=== PATIENT | female | born 1960 | race Caucasian/White ===

== ENCOUNTER 2020-01-15 10:00 | Outpatient (CLI) | payer OTHER, SELFPAY ==
--- NOTE | ~2020-01-15 | MM_ITS ---
EXAMINATION: MM screening mark BI w [place] HISTORY: Screening mammogram TECHNIQUE: Craniocaudal and mediolateral oblique 3-D tomosynthesis images were obtained and synthetic 2-D images were generated. CAD analysis was submitted and interpreted. COMPARISON: Comparison to multiple prior studies sequentially, with oldest reviewed study dated 10/05. BREAST PARENCHYMAL COMPOSITION: The breasts are heterogeneously dense, which may obscure small masses . FINDINGS: There is focal asymmetry in the left breast medially on CC view. The right breast is stable without evidence for malignancy. IMPRESSION: 1. Focal left breast asymmetry medially on CC view. 2. Additional mammographic views and possible breast ultrasound are recommended. BI-RADS Category 0: Incomplete: Needs additional imaging evaluation. Reviewed, dictated and finalized at location A. IMPRESSION: 1. Focal left breast asymmetry medially on CC view. 2. Additional mammographic views and possible breast ultrasound are recommended . BI-RADS Category 0: Incomplete: Needs additional imaging evaluation.
== END 2020-01-15 10:01 | disposition home or self-care (01) ==
LOC: ANHIMG 10:02
PROVIDERS: PCP Family Medicine; Visit Provider Family Medicine
DX: Z12.31 Encounter for screening mammogram for malignant neoplasm of breast (principal); R92.8 Other abnormal and inconclusive findings on diagnostic imaging of breast
CPT/HCPCS: 77063; 77067

== ENCOUNTER 2020-01-18 13:41 | Outpatient (CLI) | payer OTHER, SELFPAY ==
--- NOTE | ~2020-01-18 | MM_ITS ---
EXAMINATION: MM diagnostic mammo unilat LT HISTORY: Focal left breast mammographic asymmetry reported medially on screening craniocaudal view of 01/15/2020 TECHNIQUE: Additional 3-D tomosynthesis images of the left breast were performed and synthetic 2-D im ages were generated. Rolled medial craniocaudal and rolled lateral craniocaudal views of left breast. CAD analysis was submitted and interpreted. COMPARISON: 01/15/2020 bilateral digital screening mammogram FINDINGS: No reproducible mass or architectural distortion. IMPRESSION: 1. No mammographic evidence of malignancy 2. Routine mammographic screening is recommended. BI-RADS Category 1: Negative Reviewed, dictated and finalized at location A.
== END 2020-01-18 13:42 | disposition home or self-care (01) ==
LOC: ANHIMG 13:42
PROVIDERS: PCP Family Medicine; Visit Provider Family Medicine
DX: R92.8 Other abnormal and inconclusive findings on diagnostic imaging of breast (principal)
CPT/HCPCS: 77065

== ENCOUNTER → 2021-01-09 02:31 | Outpatient (CLI) | payer OTHER, SELFPAY ==
[2021-01-09 19:12] LABS: SARS-CoV-2 RNA PCR Negative
== END ==
PROVIDERS: PCP Family Medicine; Visit Provider Internal Medicine Gastroenterology
DX: Z01.812 Encounter for preprocedural laboratory examination (principal); Z20.822 Contact with and (suspected) exposure to COVID-19
CPT/HCPCS: C9803; U0003; U0005

== ENCOUNTER 2021-01-12 01:54 | Day surgery (SDC) | payer OTHER, SELFPAY ==
[2021-01-05 14:18] VITALS: BMI 19.9
--- NOTE | 2021-01-12 12:16 | WPDANESEPPF ---
Anes - Initial Pre Proc Eval Procedure: Operation Date: 01/12/21 13:00 Proposed Procedures p Esophagogastroduodenoscopy - Diego Gibbs DO Date/Time: 01/12/21 12:16 Surgeon: Diego Gibbs DO Pre Op Diagnosis: GERD Patient Data Age: 60 Gender: F Height: 5 ft 6 in Weight: 56.1 kg Allergies Allergy/AdvReac Type Severity Reaction Status Date / Time naproxen Allergy Mild fevers-flu Verified 01/05/21 14:16 like sx Home Medications Medication Instructions Recorded Confirmed Type diazepam 2 mg tablet 2 mg PO DAILY tablet 08/02/19 01/05/21 History escitalopram oxalate 20 mg tablet 20 mg PO DAILY 08/02/19 01/05/21 History fluticasone propionate 50 2 spray NASAL DAILY 08/02/19 01/12/21 History mcg/actuation nasal spray,suspension hydroxychloroquine 200 mg tablet 200 mg PO BID #60 tablet 09/03/19 01/05/21 Rx ciprofloxacin HCl 0.3 % eye drops See Rx Instructions [facility] 07/21/20 01/05/21 Rx .COMPLEX #5 ml tobramycin 0.3 % eye drops 1 drp [facility] Q4H #5 ml 07/21/20 01/12/21 Rx sucralfate 1 gram tablet 1 g PO .COMPLEX #40 tablet 12/25/20 01/12/21 Rx cevimeline [Evoxac] See Rx Instructions .ROUTE .COMPLEX 01/05/21 01/05/21 History diphenhydramine HCl [Benadryl] 12.5 mg PO HS 01/05/21 01/05/21 History lansoprazole [Prevacid] See Rx Instructions .ROUTE .COMPLEX 01/05/21 01/05/21 History tramadol [Ultram] 50 mg PO Q6H PRN 01/05/21 01/05/21 History Patient hx anesthesia problems: post op nausea/vomiting Family hx anesthesia problems: none PMFSH Past Medical History Medical History COVID-19 Hepatitis C antibody test negative (~05/02/17) Mammogram normal (~10/21/16) Sjogren's syndrome (~1990) Surgical History Surgical History History of bilateral tubal ligation (~2001) History of bunionectomy (~2000) Family History Family History Father Diabetes mellitus Family history of cardiovascular disease Family history of chronic obstructive pulmonary disease Family history of coronary artery disease Grandparent Family history of malignant neoplasm of breast Mother Family history of malignant neoplasm of breast in first degree relative Social History Social History Alcohol intake: current Substance use type: does not use Living arrangements: with family Gender identity (if verbalized by the patient): Female Spiritual care concerns: No Anes - Eval Final PreProcedure Day of Procedure 01/12/21 12:16 Patient weight: normal Heart: regular rate and rhythm Lungs: clear to auscultation Airway: Mallampati scale class II Neurological: alert and oriented Last oral intake: >/= 8 hours ASA classification: II Emergent: no Anesthetic plan: proceed Anesthesia type and monitoring: general GIVS and standard monitoring Informed Consent: The patient's anesthetic plan and its attendant risks and benefits were discussed with the patient/family/POA. Questions were solicited and answers provided to the satisfaction of the patient/family/POA.
[2021-01-12] MEDS: LACTATED RINGERS 1,000 ML 150 ML IV CONT (12:24)
--- NOTE | 2021-01-12 12:32 | SUR.PREOP ---
All preop charting completed by Lucille Coulter and charted under Rosana Reed by mistake.
--- NOTE | 2021-01-12 13:38 | WPDGICN ---
GI Consult Note Consult date/time: 01/12/21 13:38 HPI: Reason for visit is GERD. This very pleasant lady sitting consultation request the primary physician. Impression: GERD. She does have some dysphagia /odynophagia. Evaluate for lying ring or stricture. Sjogren's syndrome. COVID-19. IBS/collagenous colitis / lymphocytic colitis. Recommendation: EGD. History: This very pleasant lady has a history of reflux disease. Since beginning Prevacid b.i.d. and Carafate her symptoms have improved. She does have some dysphagia / odynophagia times. She is here for EGD. Physical examination: General: very pleasant patient in no acute distress. HEENT: Head was normocephalic sclerae is clear mouth without masses neck was supple. Heart: Rate rhythm regular without S3 or S4. Lungs: CTA. Abdomen: Soft with no guarding or rigidity. Bowel sounds were active. Neurologic: Cranial nerves 2 through 12 intact. No focal defects. No clonus. Musculoskeletal system: Revealed no joint tenderness or swelling no muscle atrophy. Extremities: Reveal no significant edema. Skin: Warm and dry with normal turgor. Mental status: intact. Patient is alert and oriented. Review of Systems Review of Systems: All systems reviewed & are unremarkable except as noted in HPI and below PMFSH Past Medical History Medical History COVID-19 Hepatitis C antibody test negative (~05/02/17) Mammogram normal (~10/21/16) Sjogren's syndrome (~1990) Surgical History Surgical History History of bilateral tubal ligation (~2001) History of bunionectomy (~2000) Family History Family History Father Diabetes mellitus Family history of cardiovascular disease Family history of chronic obstructive pulmonary disease Family history of coronary artery disease Grandparent Family history of malignant neoplasm of breast Mother Family history of malignant neoplasm of breast in first degree relative Social History Social History Alcohol intake: current Substance use type: does not use Living arrangements: with family Gender identity (if verbalized by the patient): Female Spiritual care concerns: No Meds Home Medications and Allergies Home Medications Medication Instructions Recorded Confirmed Type diazepam 2 mg tablet 2 mg PO DAILY tablet 08/02/19 01/05/21 History escitalopram oxalate 20 mg tablet 20 mg PO DAILY 08/02/19 01/05/21 History fluticasone propionate 50 2 spray NASAL DAILY 08/02/19 01/12/21 History mcg/actuation nasal spray,suspension hydroxychloroquine 200 mg tablet 200 mg PO BID #60 tablet 09/03/19 01/05/21 Rx ciprofloxacin HCl 0.3 % eye drops See Rx Instructions [facility] 07/21/20 01/05/21 Rx .COMPLEX #5 ml tobramycin 0.3 % eye drops 1 drp [facility] Q4H #5 ml 07/21/20 01/12/21 Rx sucralfate 1 gram tablet 1 g PO .COMPLEX #40 tablet 12/25/20 01/12/21 Rx cevimeline [Evoxac] See Rx Instructions .ROUTE .COMPLEX 01/05/21 01/05/21 History diphenhydramine HCl [Benadryl] 12.5 mg PO HS 01/05/21 01/05/21 History lansoprazole [Prevacid] See Rx Instructions .ROUTE .COMPLEX 01/05/21 01/05/21 History tramadol [Ultram] 50 mg PO Q6H PRN 01/05/21 01/05/21 History Allergies Allergy/AdvReac Type Severity Reaction Status Date / Time naproxen Allergy Mild fevers-flu Verified 01/05/21 14:16 like sx
[2021-01-12 13:54] VITALS: BP 120/83; PULSE 82; RESP 24; O2SAT 98
[2021-01-12 14:04] VITALS: BP 122/91; PULSE 83; RESP 21; O2SAT 100
[2021-01-12 14:14] VITALS: BP 126/83; PULSE 75; RESP 20; O2SAT 100
== END 2021-01-12 14:33 | disposition home or self-care (01) ==
PROVIDERS: PCP Family Medicine; Visit Provider Internal Medicine Gastroenterology
PROC: 0DJ08ZZ Inspection of Upper Intestinal Tract, Via Natural or Artificial Opening Endoscopic (ICD-10-PCS; CPT 43235; principal; 2021-01-12 13:00)
DX: K21.00 Gastro-esophageal reflux disease with esophagitis, without bleeding (principal); K44.9 Diaphragmatic hernia without obstruction or gangrene; Z86.16 Personal history of COVID-19; M35.00 Sjogren syndrome, unspecified; K58.9 Irritable bowel syndrome, unspecified
CPT/HCPCS: 43239; 43450; 87081; 88305; 88313; J2704; J7120

== ENCOUNTER 2021-01-16 09:12 | Outpatient (CLI) | payer OTHER, SELFPAY ==
--- NOTE | ~2021-01-16 | MM_ITS ---
EXAMINATION: MM screening mark BI w [place] HISTORY: Screening TECHNIQUE: Craniocaudal and mediolateral oblique 3-D tomosynthesis images were obtained and synthetic 2-D images were generated. CAD analysis was submitted and interpreted. COMPARISON: Comparison to multiple prior studies sequentially, with oldest reviewed study dated 04/2016. BREAST PARENCHYMAL COMPOSITION: The breasts are heterogeneously dense, which may obscure small masses . FINDINGS: There is no evidence of suspicious mass, calcification, or architectural distortion to sugg est malignancy in either breast. There has been no suspicious interval change. IMPRESSION: 1. No mammographic evidence of malignancy. 2. Recommend routine screening mammography in one year. BI-RADS Category 1: Negative Reviewed, dictated and finalized at location A.
== END 2021-01-16 09:13 | disposition home or self-care (01) ==
PROVIDERS: PCP Family Medicine; Visit Provider Family Medicine
DX: Z12.31 Encounter for screening mammogram for malignant neoplasm of breast (principal)
CPT/HCPCS: 77063; 77067

== ENCOUNTER 2021-02-18 08:20 | Outpatient (CLI) | payer OTHER, SELFPAY ==
--- NOTE | ~2021-02-18 | XR_ITS ---
EXAMINATION: XR UGIAC w barium swallow EXAM DATE: 02/18/2021 08:59 INDICATION: Dysphagia, painful swallowing. Hiatal hernia. TECHNIQUE: Standard single and double contrast barium esophagram and upper GI examination was perform ed by radiologist Juan R Yusuf M.D. Pulsed dose reduction fluoroscopy was used with fluoroscopic time of 0.7 minutes. The DAP for this procedure was 0.7 Gycm2. A total of 124 images obtained for the e xam. There is no prior study for comparison. FINDINGS: The pharynx is symmetric and without evidence of mass lesion or mucosal irregularity. Ther e is no esophageal stricture, diverticulum or mass identified. Gastroesophageal junction is normal i n appearance, no hiatal hernia was demonstrated. Reflux was not demonstrated during this examination . The stomach has a normal appearance without evidence of mass lesion, ulceration or filling defect. T here is normal rugal fold pattern. The duodenum and duodenal sweep are normal in appearance. IMPRESSION: Normal exam. Reviewed, dictated and finalized at location A. IMPRESSION: Normal exam.
== END 2021-02-18 08:21 | disposition home or self-care (01) ==
PROVIDERS: PCP Family Medicine; Visit Provider Physician Assistant Medical
DX: K44.9 Diaphragmatic hernia without obstruction or gangrene (principal)
CPT/HCPCS: 74246

== ENCOUNTER 2021-09-18 09:13 | Emergency (ER) | payer OTHER, SELFPAY ==
[2021-09-18] VITALS (13 sets, daily range): BP systolic 105–129; BP diastolic 69–81; PULSE 76–89; RESP 13–17; O2SAT 97–100
--- NOTE | 2021-09-18 09:37 | ECG_ITS ---
Measurements Intervals [place] Rate: 83 P: 78 [place]: 146 QRS: 47 QRSD: 95 T: 43 QT: 361 QTc: 425 Interpretive Statements SINUS RHYTHM POSSIBLE LEFT ATRIAL ENLARGEMENT INCOMPLETE RIGHT BUNDLE BRANCH BLOCK BASELINE ARTIFACT- I, II, III BORDERLINE ECG Electronically Signed On 09-18-2021 10:15:29 [employer] by Saulo Horton D.O.
[2021-09-18 10:07] LABS: Basophils Absolute Auto 0.1 K/mm3 (0.0-0.1); Basophils Percent Auto 0.7 % (0.2-1.2); Eosinophils Percent Auto 0.3 % (0-4.4); Hematocrit 42.7 % (37.0-47.0); Hemoglobin 14.1 g/dL (12.0-15.0); Immature Granulocyte Absolute 0.02 K/mm3 (0.00-0.031); Immature Granulocyte Percent A 0.3 % (0-0.5); Lymphocytes Percent Auto 11.3 % (18.3-44.2); Mean Corpuscular Hemoglobin 32.7 pg (26-34); Mean Corpuscular Volume 99.1 fl (80-100); Mean Platelet Volume 8.5 fl (7.4-10.4); Monocytes Absolute Auto 0.4 K/mm3 (0.1-0.6); Monocytes Percent Auto 6.2 % (2.6-8.5); Neutrophils Absolute Auto 5.8 K/mm3 (1.3-6.7); Neutrophils Percent Auto 81.2 % (45.5-73.1); Platelet Count Result 228 k/mm3 (150-375); Red Blood Count 4.31 M/mm3 (4.2-5.4); Red Cell Distribution Width 11.9 % (11.5-14.5); White Blood Count 7.1 K/mm3 (4.5-10.0)
[2021-09-18 10:21] LABS: Alanine Aminotransferase 22 U/L (4-35); Albumin Level 4.5 g/dL (3.5-5.1); Alkaline Phosphatase 96 U/L (38-126); Anion Gap 10 mmol/L (8-16); Aspartate Amino Transferase 41 U/L (14-36); Blood Urea Nitrogen 9 mg/dL (7-17); Calcium 9.2 mg/dL (8.4-10.2); Carbon Dioxide 25 mmol/L (22-30); Chloride 97 mmol/L (98-107); Estimated CRCL calculation 76 ml/min; Estimated Glomerular Filt Rate > 60; Glucose 101 mg/dL (65-110); Potassium 3.7 mmol/L (3.4-5.0); Sodium 132 mmol/L (137-145)
[2021-09-18 10:42] LABS: Troponin I < 0.012 ng/mL (0.000-0.034)
--- NOTE | 2021-09-18 12:01 | ED.GENADULT ---
HPI - General Adult General Chief complaint: Syncope Stated complaint: syncopal episode Time Seen by Provider: 09/18/21 09:25 History of Present Illness HPI narrative: Patient is a 60-year-old female who presents the ER with concerns of near syncope. She woke up in the evening to use the restroom when she got back to her bed she began having lightheadedness like she is going to pass out. Associate with diaphoresis. She took her pulse and reports it was slow and skipping beats. She felt it was beating at 40 bpm. Symptoms lasted for 2 hours. No alleviating factors other than spontaneity. Has not had similar symptoms previously. No chest pain or chest pressure. No difficulty breathing. Related Data Home Medications Medication Instructions Recorded Confirmed diazepam 2 mg tablet 2 mg PO DAILY tablet 08/02/19 08/10/21 escitalopram oxalate 20 mg tablet 20 mg PO DAILY 08/02/19 08/10/21 fluticasone propionate 50 2 spray NASAL DAILY 08/02/19 08/10/21 mcg/actuation nasal spray,suspension diphenhydramine HCl [Benadryl] 12.5 mg PO HS 01/05/21 08/10/21 tramadol [Ultram] 50 mg PO Q6H PRN 01/05/21 08/10/21 Allergies Allergy/AdvReac Type Severity Reaction Status Date / Time naproxen Allergy Mild fevers-flu Verified 08/10/21 15:59 like sx Review of Systems Review of Systems: All systems reviewed & are unremarkable except as noted in HPI and below Constitutional: Constitutional: Denies chills, Denies fever(s) and Denies weakness Comments: Diaphoresis ENT: Denies nasal congestion and Denies sore throat Cardiovascular: Cardiovascular: Denies chest pain, Denies radiating jaw, neck or arm pain and Reports slow heart rate Respiratory: Respiratory: Denies cough, Denies dyspnea and Denies wheezing Gastrointestinal: Gastrointestinal: Denies abdominal pain, Denies nausea and Denies vomiting Neurologic: Denies vertigo, Reports syncope (near-syncope), Denies focal weakness and Denies numbness PMFSH Past Medical History Medical History COVID-19 Hepatitis C antibody test negative (~05/02/17) Mammogram normal (~10/21/16) Sjogren's syndrome (~1990) Surgical History Surgical History History of bilateral tubal ligation (~2001) History of bunionectomy (~2000) Family History Family History Father Diabetes mellitus Family history of cardiovascular disease Family history of chronic obstructive pulmonary disease Family history of coronary artery disease Grandparent Family history of malignant neoplasm of breast Mother Family history of malignant neoplasm of breast in first degree relative Social History Social History (Updated 08/10/21 @ 15:59 by Nancy Flores [facility]) Alcohol intake: current Substance use type: does not use Gender identity (if verbalized by the patient): Female Spiritual care concerns: No Exam Narrative: GENERAL: Well-appearing, well-nourished, and in no acute distress. HEAD: Normocephalic, atraumatic. NECK: Supple. CHEST: Clear to auscultation. No respiratory distress. HEART: Regular rate and rhythm. Normal peripheral pulses. ABDOMEN: Soft, nontender, nondistended. EXTREMITIES: Normal range of motion. No edema. SKIN: Warm, dry, no rash. NEURO: Alert and oriented x3. PSYCH: Normal mood and affect. Course Course Emergency Course: Discussed case with Deja BLAKE with [facility] who is spoken with cardiology. They feel the patient is appropriate to be discharged and to come down to their office and be fitted for a 30-day Holter monitor. Patient educated about the treatment plan and verbalized understanding. Encourage patient to return to the ER if she is having recurrent symptoms that she experienced last night. Vital Signs Vital signs: Vital Signs Pulse Rate 86 09/18/21 09:27 Respiratory Ra
== END 2021-09-18 13:28 | disposition home or self-care (01) ==
PROVIDERS: Emergency Provider Emergency Medicine; PCP Family Medicine
DX: R55 Syncope and collapse (principal); R00.2 Palpitations; Z86.16 Personal history of COVID-19; I45.10 Unspecified right bundle-branch block; R94.31 Abnormal electrocardiogram [ECG] [EKG]
CPT/HCPCS: 36415; 80053; 84484; 85025; 93005; 99284

== ENCOUNTER 2022-02-05 09:03 | Outpatient (CLI) | payer OTHER, SELFPAY ==
--- NOTE | ~2022-02-05 | MM_ITS ---
EXAMINATION: MM screening mark BI w [place] HISTORY: Screening mammogram TECHNIQUE: Craniocaudal and mediolateral oblique 3-D tomosynthesis images were obtained and synthetic 2-D images were generated. CAD analysis was submitted and interpreted. COMPARISON: 01/16/2021 bilateral screening mammogram 01/18/2020 diagnostic left mammogram 01/15/2020, 11/21/2018, 11/15/2017 bilateral screening mammogram examinations BREAST PARENCHYMAL COMPOSITION: The breasts are heterogeneously dense, which may obscure small masses . FINDINGS: There is no evidence of suspicious mass, calcification, or architectural distortion to sugg est malignancy in either breast. There has been no suspicious interval change. IMPRESSION: 1. No mammographic evidence of malignancy. 2. Recommend routine screening mammography in one year. BI-RADS Category 1: Negative Reviewed, dictated and finalized at location A.
== END 2022-02-05 09:04 | disposition home or self-care (01) ==
PROVIDERS: PCP Family Medicine; Visit Provider Family Medicine
DX: Z12.31 Encounter for screening mammogram for malignant neoplasm of breast (principal)
CPT/HCPCS: 77063; 77067

== ENCOUNTER → 2022-02-25 07:47 | Outpatient (CLI) | payer OTHER, SELFPAY ==
--- NOTE | ~2022-02-25 | CT_ITS ---
EXAMINATION:CT diagnostic chest wo con DATE: 02/25/2022 08:09 INDICATION: Solitary pulmonary nodule. TECHNIQUE: Computed tomography (CT) of the chest was performed without intravenous contrast. Automate d exposure control and iterative reconstruction technique were employed. The dose-length product (DLP ) was 40.71 mGy-cm. COMPARISON: None. FINDINGS: There is mild scarring at the lung apices. There is mild scarring in paraspinal right lower lobe. No pleural effusion. The heart size is normal. No pericardial effusion. There is levoscoliosis of upper thoracic spine. There is mild thoracic spondylosis. There is a chronic burst fracture of L1 . There are chronic compression fractures of T9 and T11. IMPRESSION: 1. Mild scarring in the lungs. Reviewed, dictated and finalized at location B.
== END ==
PROVIDERS: PCP Family Medicine; Visit Provider Family Medicine
DX: R91.1 Solitary pulmonary nodule (principal)
CPT/HCPCS: 71250

== ENCOUNTER 2023-03-30 16:07 | Outpatient (CLI) | payer OTHER, SELFPAY ==
--- NOTE | ~2023-03-30 | MM_ITS ---
EXAMINATION: MM screening mark BI w [place] HISTORY: Screening TECHNIQUE: Craniocaudal and mediolateral oblique 3-D tomosynthesis images were obtained and synthetic 2-D images were generated. CAD analysis was submitted and interpreted. COMPARISON: Comparison to multiple prior studies sequentially, with oldest reviewed study dated 02/2028. BREAST PARENCHYMAL COMPOSITION: The breasts are heterogeneously dense, which may obscure small masses FINDINGS: There is focal asymmetry medially in the left breast on CC view which appears slightly more prominent than on prior study. The right breast is stable without evidence for malignancy. IMPRESSION: 1. Focal left breast asymmetry medially on CC view. 2. Additional mammographic views and possible breast ultrasound are recommended. BI-RADS Category 0: Incomplete: Needs additional imaging evaluation. Reviewed, dictated and finalized at location A. IMPRESSION: 1. Focal left breast asymmetry medially on CC view. 2. Additional mammographic views and possible breast ultrasound are recommended . BI-RADS Category 0: Incomplete: Needs additional imaging evaluation.
== END 2023-03-30 16:08 | disposition home or self-care (01) ==
LOC: ANHIMG 16:08
PROVIDERS: PCP Family Medicine; Visit Provider Family Medicine
DX: Z12.31 Encounter for screening mammogram for malignant neoplasm of breast (principal); R92.8 Other abnormal and inconclusive findings on diagnostic imaging of breast
CPT/HCPCS: 77063; 77067

== ENCOUNTER 2023-04-04 10:01 | Outpatient (CLI) | payer OTHER, SELFPAY ==
--- NOTE | ~2023-04-04 | MM_ITS ---
EXAMINATION: MM diagnostic mark LT w [place] HISTORY: Left breast asymmetry on screening mammogram TECHNIQUE: Additional 3-D tomosynthesis images of the left breast were performed and synthetic 2-D im ages were generated. CAD analysis was submitted and interpreted. COMPARISON: 03/30/2023, 02/05/2022, 01/16/2021, 01/18/2020, 01/15/2020 FINDINGS: There is a return to baseline fibroglandular appearance with spot compression of the left b reast in the area questioned on screening mammogram. IMPRESSION: 1. No mammographic evidence of malignancy. 2. Recommend routine screening mammography in one year. BI-RADS Category 2: Benign finding(s). Reviewed, dictated and finalized at location A.
== END 2023-04-04 10:02 | disposition home or self-care (01) ==
LOC: CHSIMG 10:04
PROVIDERS: PCP Family Medicine; Visit Provider Nurse Practitioner
DX: R92.8 Other abnormal and inconclusive findings on diagnostic imaging of breast (principal)
CPT/HCPCS: 77061; 77065; G0279

== ENCOUNTER 2023-05-02 03:23 | Day surgery (SDC) | payer OTHER, SELFPAY ==
[2023-04-26 15:01] VITALS: BMI 20.7
--- NOTE | 2023-04-26 15:09 | PC.NURSE ---
Report to the Outpatient Waiting Room, entrance under the green pavilion located off [facility], at time _0600_ on date _[id number]_. Planned Procedure Time: _0730_. Time changes happen often and if your time is changed the preop area will call you the afternoon before. - You and your visitor will be asked to self-screen and do not enter if you have any COVID symptoms. - A mask is optional within the hospital at this time. Patients may have clear liquids (water, carbonated beverages, clear teas, apple juice) until 3 hours prior to surgery with a maximum of 20 ounces. - No food from midnight until time of surgery Take the following medications with a SIP of water the morning of surgery: Fluoxetine, Flonase and eye drops. DO NOT STOP ANY OF YOUR OTHER PRESCRIPTION MEDICATIONS PRIOR TO SURGERY ?EXCEPT THE FOLLOWING Medications to discontinue per physician None Date to take last dose Please no make-up, nail finnish, hairspray, perfume, deodorant, or body powder the day of surgery. No jewelry (including any body piercings) or valuables the day of surgery, leave them at home. Please take a shower or bath the night before, or the morning of, surgery with an antibacterial soap. Wear comfortable, loose fitting clothing. - Jewelry must be removed prior to entering the operating room. Rings and piercings that are not removed may be cut off. - The hospital will not accept responsibility for valuables. - Please leave all valuables, including medications, at home the day of surgery. If you are going home after surgery, a licensed local company refrigerated truck driver must drive you home. - NO public transportation without another adult if you receive anesthesia. - We recommend that an adult stay with you for 24 hours following discharge. - We also recommend that you do not drive, make important decision, drink alcoholic beverages, or take any drugs that were not prescribed by your health care provider for at least 24 hours after your discharge time. Follow any additional instructions given to you from your surgeon. If you or anyone in your household have experienced Covid symptoms in the past week, please notify your surgeon or the nurse liaison at the phone number below for possible testing. Telephone instructions given to _Patient___and asked if any additional questions and then verbalized understanding. Patient advised to call surgeon office or pre surgery nurse liaison [phone] if any additional questions.
[2023-05-02 06:12] VITALS: BP 128/86; PULSE 82; RESP 16; TEMP 36.5; O2SAT 100
[2023-05-02] MEDS: LACTATED RINGERS 1,000 ML 30 ML IV CONT (06:18)
--- NOTE | 2023-05-02 07:06 | WPDANESEPPF ---
Anes - Initial Pre Proc Eval Procedure: Operation Date: 05/02/23 07:30 Proposed Procedures p Deep Bunionectomy with Hardware Right Foot, Milton Osteotomy with Hardware Right Foot - Roni Palafox DPM Date/Time: 05/02/23 07:06 Surgeon: Roni Palafox DPM Pre Op Diagnosis: Hallux Valgus Right Foot Patient Data Age: 62 Gender: F Height: 1.66 m Weight: 57.3 kg Allergies Allergy/AdvReac Type Severity Reaction Status Date / Time naproxen Allergy Mild fevers-flu Verified 04/26/23 14:56 like sx Home Medications Medication Instructions Recorded Confirmed Type fluticasone propionate 50 2 spray intranasal DAILY 08/02/19 04/26/23 History mcg/actuation nasal spray,suspension hydroxychloroquine 200 mg tablet 200 mg PO BID #60 tabs 09/03/19 04/26/23 Rx diphenhydramine HCl 25 mg capsule 12.5 mg PO HS PRN Insomnia 01/05/21 04/26/23 History (Benadryl) mupirocin 2 % topical ointment 1 applic topical BID #22 grams 11/02/21 04/26/23 Rx estradiol 0.01% (0.1 mg/gram) 1 g vaginal WEEKLY 09/17/22 04/26/23 History vaginal cream fluoxetine 10 mg capsule (Prozac) 10 mg PO DAILY 09/17/22 04/26/23 History lisdexamfetamine 20 mg capsule 20 mg PO DAILY 09/17/22 04/26/23 History (Vyvanse) tramadol 50 mg tablet 50 mg PO Q6H PRN pain #60 tabs 09/17/22 04/26/23 Rx cevimeline 30 mg capsule 30 mg PO TID 02/17/23 04/26/23 History modafinil 100 mg tablet (Provigil) 50 mg PO QAM 02/17/23 04/26/23 History diazepam 2 mg tablet 2 mg PO HS PRN Insomnia 04/26/23 04/26/23 History Patient hx anesthesia problems: post op nausea/vomiting Family hx anesthesia problems: none Results Review: All pre-operative results and documents have been reviewed as part of the pre-operative evaluation. [facility] Past Medical History Medical History COVID-19 Environmental and seasonal allergies Hepatitis C antibody test negative (~05/02/17) Mammogram normal (~10/21/16) Sjogren's syndrome (~1990) Surgical History Surgical History History of bilateral tubal ligation (~2001) History of bunionectomy (~2000) Family History Family History Father Diabetes mellitus Family history of cardiovascular disease Family history of chronic obstructive pulmonary disease Family history of coronary artery disease Grandparent Family history of malignant neoplasm of breast Mother Family history of malignant neoplasm of breast in first degree relative Social History Social History Smoking status: Never smoker Alcohol intake: current Substance use type: does not use Lack of Transportation: No Lack of Food: Never True Current Housing: I Have Housing Concerned About Future Housing: No Difficulty Paying Gas/Electric Bills: No Difficulty Paying for Meds: No Currently Unemployed: No Education: Master's Degree or Higher Difficulty w/ Childcare or Family Care: No Living arrangements: with family Gender identity (if verbalized by the patient): Female Spiritual care concerns: No Anes - Eval Final PreProcedure Day of Procedure 05/02/23 07:06 Patient weight: normal Heart: regular rate and rhythm Lungs: clear to auscultation Airway: Mallampati scale class II Neurological: alert and oriented Last oral intake: >/= 8 hours ASA classification: III Emergent: no Anesthetic plan: proceed Anesthesia type and monitoring: general LMA and standard monitoring Results Review: All pre-operative results and documents have been reviewed as part of the pre-operative evaluation. Informed Consent: The patient's anesthetic plan and its attendant risks and benefits were discussed with the patient/family/POA. Questions were solicited and answers provided to the satisfaction of the patient/family/POA.
--- NOTE | 2023-05-02 07:21 | WPDHPUPDATE1 ---
History and Physical Update Update Date/Time: 05/02/23 07:21 History and Physical has been reviewed, including an updated exam of the patient. There are NO changes in the patient's condition. Risks, benefits, and alternatives have been discussed and questions answered. Patient agrees to proceed with procedure.
[2023-05-02] MEDS: ceFAZolin 2 GM/D5W 50 ML 2 GM/50 ML BAG IVPB (07:31)
[2023-05-02] MEDS: BUPivacaine HCL 0.5% PF 30 ML VIAL 15 ML INFILTRATE (07:59)
[2023-05-02] MEDS: LIDOCAINE HCL 1% LOCAL INJ 20 ML VIAL 15 ML INFILTRATE (08:00)
[2023-05-02 08:28] VITALS: BP 115/76; PULSE 74; RESP 14; O2SAT 100
--- NOTE | 2023-05-02 08:29 | P.OP_ITS ---
Procedure Note - Detailed Date of Procedure 05/02/23 Pre-op Diagnosis Hallux Valgus Right Foot Post-op Diagnosis Same Procedure Performed Deep Bunionectomy right foot with hardware Surgeon Roni Palafox DPM Anesthesia MAC Indications Painful bunion right foot Description of Procedure Patient was brought in the operative room and placed on the operating table in the supine position. A well-padded pneumatic ankle tourniquet was then place about the right ankle. Following IV sedation, local anesthesia was achieved with a fore-foot block consisting of 30ccs of a 1:1 mixture of 0.5% marcaine plain and 1% lidocaine plain. The foot was then scrubbed, prepped, and draped in an aseptic manner. The pneumatic ankle tourniquet was then inflated. Attention was directed to the first ray of the right foot which was noted to have hallux abducto vaglus deformity. A 6cm incision was made dorsal on the 1st ray, medial to the extensor tendon. The incision was deepened utilizing sharp and blunt dissection. Great care was taken to protect and retract all vital n eurovascular structures. All bleeders were ligated and cauterized as necessary. The conjoined tendon of the adductor hallucis muscle was released from the base of the proximal phalanx. A lateral capsulotomy was also performed, as well as releasing the sesamoids. A saggital saws was used to resected the medial prominence. Next, a chevron osteotomy was made on the medial aspect of the first metatatarsal head with the dorsal arm longer to facilitate fixation. The capital fragment was then shifted lateral into a more correct anatomic position. Utlizing standard AO principals, the osteotomy was fixated with a 3.0 partially threaded Asnis screw, 18mm in length. The hardware purchased the bone well and the osteotomy was in good stable opposition. Range of motion was assessed and noted to be smooth and rectus. The resultant medial shelf was resected with a saw and all rough edges smoothed with a hand-held rasp. The wound was flushed with copious amounts of sterile normal saline. The hallux was noted to be rectus, and an Milton osteotomy was not needed. Deep structures were coapted with 2-0 and 3-0 vicryl. Skin was coapted with 4-0 monocryl. Surgical site was dressed with steristrips, adaptec, gauze, cling, and coban. The pneumatic ankle tourniquet was released with a prompt capillary fill noted. The patient tolerated the above procedure and anesthesia well. She was nolan sported to the PACU with vital signs stable and vascular status intact. She will be discharged home with the following instructions: decrease activity, keep dressing dry, wear surgical shoe when bearing weight, and ice and elevate right foot when at rest. RX was given for Tylenol #3, #40 q4-6 hours prn pain. Follow-up appointment in 1 weeks time, sooner if problems arise. Implants 3.0 partially threaded Asnin screw, 18mm Estimated Blood Loss 5.0 Pathology None sent Complications None Condition Stable Disposition PACU
[2023-05-02 08:55] VITALS: BP 123/74; PULSE 72; RESP 20
[2023-05-02 09:25] VITALS: BP 141/88; PULSE 72; RESP 20
[2023-05-02 09:45] VITALS: BP 112/89; PULSE 74; RESP 20
== END 2023-05-02 09:48 | disposition home or self-care (01) ==
PROVIDERS: PCP Family Medicine; Visit Provider Podiatrist Foot & Ankle Surgery
PROC: (CPT 28299; principal; 2023-05-02 07:30)
DX: M20.11 Hallux valgus (acquired), right foot (principal); M35.00 Sjogren syndrome, unspecified
CPT/HCPCS: 28299; A9270; C1713; J0690; J1100; J2250; J2405; J2704; J3010; J7120

== ENCOUNTER → 2023-05-18 09:20 | Outpatient (CLI) | payer OTHER, SELFPAY ==
--- NOTE | ~2023-05-18 | US_ITS ---
EXAMINATION: US abdomen complete DATE: 05/18/2023 09:57 INDICATION: R10.31 - Right lower quadrant pain TECHNIQUE: Multiple grayscale and Doppler ultrasound images of the abdomen were obtained. COMPARISON: 02/20/2005. FINDINGS: The visualized portions of the pancreas are normal. The liver is normal with normal echogen icity and echotexture. No surface nodularity. Normal hepatopetal flow in the main portal vein. The ga llbladder is normal with no abnormal wall thickening, pericholecystic fluid or stones. The common egly e duct measures 3 mm. There was no sonographic Rosa sign. The visualized portions of the aorta and inferior vena cava are normal. The right kidney measures 10.6 x 5.1 x 5.0 cm. The left kidney measures 9.3 x 4.4 x 4.5 cm. The kidne ys demonstrate normal parenchymal echogenicity. There is no hydronephrosis. The spleen is normal in a ppearance and measures 8.1 cm. The right lower quadrant was sonographically interrogated revealing no abnormality. Appendix not visu alized. IMPRESSION: Normal abdominal ultrasound findings. Reviewed, dictated and finalized at location K.
== END ==
PROVIDERS: PCP Family Medicine; Visit Provider Nurse Practitioner
DX: R10.31 Right lower quadrant pain (principal)
CPT/HCPCS: 76700

== ENCOUNTER 2023-07-21 02:46 | Day surgery (SDC) | payer OTHER, SELFPAY ==
[2023-07-18 12:00] VITALS: BMI 20.6
--- NOTE | 2023-07-18 12:05 | PC.NURSE ---
Report to the Outpatient Waiting Room, entrance under the green pavilion located off [facility], at time 1000 on date 07/21/23. Planned Procedure Time: 1200. Time changes happen often and if your time is changed the preop area will call you the afternoon before. - You and your visitor will be asked to self-screen and do not enter if you have any COVID symptoms. - A mask is optional within the hospital at this time. No food OR DRINK from midnight until time of surgery. Take the following medications with a SIP of water the morning of surgery: FLUOXETINE, TRAMADOL/DIAZEPAM IF NEEDED DO NOT STOP ANY OF YOUR OTHER PRESCRIPTION MEDICATIONS PRIOR TO SURGERY ?EXCEPT THE FOLLOWING Medications to discontinue per physician: N/A Date to take last dose: N/A Please no make-up, nail burundian, hairspray, perfume, deodorant, or body powder the day of surgery. No jewelry (including any body piercings) or valuables the day of surgery, leave them at home. Please take a shower or bath the night before, or the morning of, surgery with an antibacterial soap. Wear comfortable, loose fitting clothing. - Jewelry must be removed prior to entering the operating room. Rings and piercings that are not removed may be cut off. - The hospital will not accept responsibility for valuables. - Please leave all valuables, including medications, at home the day of surgery. If you are going home after surgery, a licensed dedicated regional driver must drive you home. - NO public transportation without another adult if you receive anesthesia. - We recommend that an adult stay with you for 24 hours following discharge. - We also recommend that you do not drive, make important decision, drink alcoholic beverages, or take any drugs that were not prescribed by your health care provider for at least 24 hours after your discharge time. Follow any additional instructions given to you from your surgeon. If you or anyone in your household have experienced Covid symptoms in the past week, please notify your surgeon or the nurse liaison at the phone number below for possible testing. Telephone instructions given to PT Gee FERNÁNDEZ and asked if any additional questions and then verbalized understanding. Patient advised to call surgeon office or pre surgery nurse liaison [phone] if any additional questions.
--- NOTE | 2023-07-21 07:47 | WPDHPUPDATE1 ---
History and Physical Update Update Date/Time: 07/21/23 07:47 Patient seen and examined in pre-operative holding area. No interval change in medical history or symptoms. Continues to desire to proceed with left ectr poss open, left thumb and ring finger a1 bonifacio release and R MF trigger finger steroid injection . Reviewed procedure, post-op expectations and risks including but not limited to bleeding, infection, injury to tendon/nerve/vessel, decreased hand function, stiffness, RSD, no change or worsening of symptoms. Discussed possible use of assistants during procedure and their levels of participation. Patient stated understanding and signed the consent form wishing to proceed.
--- NOTE | 2023-07-21 07:47 | W.PM.PROC2 ---
Procedure Note - Detailed Date of Procedure 07/21/23 Pre-op Diagnosis left carpal tunnel syndrome, left ring and thumb and right middle finger triggering Post-op Diagnosis Same Procedure Performed left ectr, left thumb and ring finger a1 bonifacio release and R MF trigger finger steroid injection Surgeon Vika Mahoney MD Supervisor Veneer Jesi Valdes PA-C Anesthesia MAC Description of Procedure The patient was seen in the pre-op are consented and marked. The patient taken back to OR on the stretcher in supine position. Time out performed with anesthesia, surgeon and staff agreeing on patient's name site and surgery to be performed SCDs were placed on the lower extremities and inflated. A tourniquet was placed on Left upper extremity and antibiotics given IV After anesthesia administered sedation I injected 10cc 1%lido and 0.5% marcaine plain amongst the operative sites The?left upper extremity?was prepped and draped in sterile fashion the??left upper extremity was? exsanguinated with Esmarch bandage and tourniquet inflated to 250mmHg I made a transverse incision in the left volar distal wrist crease through skin and dermis with 15 blade scalpel.? Littler scissors were used tospread down to antebrachial fascia. A small incision was made in antebrachial fascia allowing access to Carpal tunnel. I proceeded with sequential dilation staying in line with the ring finger and hugging the hook of the hamate.? I then used the synovial elevator to free any adhesions from the underside of the transverse carpal ligament. Next I was able to insert the Microaire endoscopic carpal tunnel device with direct visualization of the transverse fibers on the monitor and proceeded with complete segmental retrograde release of the ligament in its entirety.? I irrigated with normal saline and closed with 4-0 monocryl for dermis and subcuticular closure. Next I took my attention to the left thumb where I made an oblique incision over the a1 bonifacio through skin and dermis with a 15 blade scalpel. Littler scissors were used to spread down to the a1 bonifacio. The a1 bonifacio was sharply incised with a 15 blade scalpel. A Ragnell retractior was used to withdraw the FPL for inspection which was free of masses or synovitis. There was no crepitus or triggering on thumb motion. The FPL was allowed to retract back into the wound where I irrigated with normal saline and closure with 4-0 Chromic. Next I took my attention to the left ring finger where I made an oblique incision over the a1 bonifacio through skin and dermis with a 15 blade scalpel. Littler scissors were used to spread down to the a1 bonifacio. The a1 bonifacio was sharply incised with a 15 blade scalpel. A Ragnell retractior was used to withdraw the FDS and FDP for inspection which was free of masses or synovitis. There was no crepitus or triggering on finger motion. The tendons were allowed to retract back into the wound where I irrigated with normal saline and closure with 4-0 Chromic. Dermabond was applied to the wrist incision and xeroform to the finger incisions followed by 4x4, eren and then a volar splint for patient safety, security and comfort secured with and DIONTE bandage after the tourniquet was let down noting the hand was warm and well perfused. I then injected 0.3cc 1%lidocaine plain and 0.7cc betamethasone into the right middle finger flexor sheath under sterile conditions. Jesi Valdes PA-C was essential for positioning, retraction, closure and dressing placement. Complications - none EBL- 0cc Disposition - home in stable conditions G Billing Surgery - Charge Forward: Surgery Billing ([id number], [id number]-VB,[id number] [id number]-G0,59 [id number]-g3,59 and 11353-46 same codes for jesi valdes but add modifier omit 32554 code for her)
[2023-07-21 10:31] VITALS: BP 120/70; PULSE 95; RESP 16; TEMP 37.2; O2SAT 98
--- NOTE | 2023-07-21 10:36 | WPDANESEPPF ---
Anes - Initial Pre Proc Eval Procedure: Operation Date: 07/21/23 12:00 Proposed Procedures p Left Endoscopic Carpal Tunnel Release, Possible Open - Vika Mahoney MD s Release Left Ring Finger A-1 Aidee, Release Left Thumb A-1 Aidee, Release Left Trigger Thumb, Right Middle Trigger Finger Injection - Vika Mahoney MD Date/Time: 07/21/23 10:36 Surgeon: Vika Mahoney MD Pre Op Diagnosis: left carpal tunnel syndrome, trigger finger Patient Data Age: 62 Gender: F Height: 1.66 m Weight: 57.5 kg Last Vital Signs Temp 98.9 F 07/21/23 10:31 Pulse 95 07/21/23 10:31 Resp 16 07/21/23 10:31 BP 120/70 07/21/23 10:31 Pulse Ox 98 07/21/23 10:31 O2 Del Method Room Air 07/21/23 10:31 Allergies Allergy/AdvReac Type Severity Reaction Status Date / Time naproxen Allergy Mild fevers-flu Verified 07/21/23 10:28 like sx Home Medications Medication Instructions Recorded Confirmed Type fluticasone propionate 50 2 spray intranasal DAILY 08/02/19 07/18/23 History mcg/actuation nasal spray,suspension hydroxychloroquine 200 mg tablet 200 mg PO BID #60 tabs 09/03/19 07/18/23 Rx diphenhydramine HCl 25 mg capsule 12.5 mg PO HS PRN Insomnia 01/05/21 07/18/23 History (Benadryl) mupirocin 2 % topical ointment 1 applic topical BID #22 grams 11/02/21 07/18/23 Rx estradiol 0.01% (0.1 mg/gram) 1 g vaginal WEEKLY 09/17/22 07/18/23 History vaginal cream fluoxetine 10 mg capsule (Prozac) 10 mg PO DAILY 09/17/22 07/18/23 History lisdexamfetamine 20 mg capsule 20 mg PO DAILY 09/17/22 07/18/23 History (Vyvanse) tramadol 50 mg tablet 50 mg PO Q6H PRN pain #60 tabs 09/17/22 07/18/23 Rx cevimeline 30 mg capsule 30 mg PO TID 02/17/23 07/18/23 History modafinil 100 mg tablet (Provigil) 50 mg PO QAM 02/17/23 07/18/23 History diazepam 2 mg tablet 2 mg PO HS PRN Insomnia 04/26/23 07/18/23 History cholestyramine (with sugar) 4 gram 1 ea PO BID 05/04/23 07/18/23 History oral powder famotidine 20 mg tablet (Pepcid AC) 20 mg PO DAILY 05/04/23 07/18/23 History pantoprazole 20 mg tablet,delayed 20 mg PO BID 05/04/23 07/18/23 History release sucralfate 1 gram tablet (Carafate) 1 g PO QID PRN STOMACH PAIN 05/04/23 07/18/23 History amphetamine 5 mg tablet, immediate 5 mg PO DAILY 07/18/23 07/18/23 History and extended release 24 hour (Dyanavel XR) Patient hx anesthesia problems: none Family hx anesthesia problems: none Results Review: All pre-operative results and documents have been reviewed as part of the pre-operative evaluation. [facility] Past Medical History Medical History COVID-19 Environmental and seasonal allergies Hepatitis C antibody test negative (~05/02/17) Mammogram normal (~10/21/16) Sjogren's syndrome (~1990) Surgical History Surgical History History of bilateral tubal ligation (~2001) History of bunionectomy (~2000) Family History Family History Father Diabetes mellitus Family history of cardiovascular disease Family history of chronic obstructive pulmonary disease Family history of coronary artery disease Grandparent Family history of malignant neoplasm of breast Mother Family history of malignant neoplasm of breast in first degree relative Social History Social History (Updated 07/08/23 @ 10:20 by Phyllis Gamble MA) Smoking status: Never smoker Alcohol intake: never Substance use: never Substance use type: does not use Lack of Transportation: No Lack of Food: Never True Current Housing: I Have Housing Concerned About Future Housing: No Difficulty Paying Gas/Electric Bills: No Difficulty Paying for Meds: No Currently Unemployed: No Education: Master's Degree or Higher Difficulty w/ Childcare or Family Care: No Living arrangements: with [facility]
[2023-07-21] MEDS: ceFAZolin 2 GM/D5W 50 ML 2 GM/50 ML BAG IVPB (11:09)
[2023-07-21] MEDS: BUPivacaine HCL 0.5% PF 30 ML VIAL INFILTRATE (11:22)
[2023-07-21] MEDS: LIDOCAINE HCL 1% LOCAL INJ 20 ML VIAL INFILTRATE (11:24)
[2023-07-21 11:47] VITALS: BP 111/67; PULSE 90; RESP 16; O2SAT 99
[2023-07-21] MEDS: LACTATED RINGERS 1,000 ML 30 ML IV CONT (11:47)
[2023-07-21 12:15] VITALS: BP 129/72; PULSE 87; RESP 16
[2023-07-21 12:45] VITALS: BP 123/70; PULSE 78; RESP 16
== END 2023-07-21 13:04 | disposition home or self-care (01) ==
PROVIDERS: PCP Family Medicine; Visit Provider Plastic Surgery
PROC: 01N54ZZ Release Median Nerve, Percutaneous Endoscopic Approach (ICD-10-PCS; CPT 29848; principal; 2023-07-21 12:00)
PROC: (CPT 26055; 2023-07-21 12:00)
DX: G56.02 Carpal tunnel syndrome, left upper limb (principal); M65.312 Trigger thumb, left thumb; M65.331 Trigger finger, right middle finger; M65.342 Trigger finger, left ring finger; M35.00 Sjogren syndrome, unspecified; Z82.49 Family history of ischemic heart disease and other diseases of the circulatory system; Z80.3 Family history of malignant neoplasm of breast; Z79.891 Long term (current) use of opiate analgesic
CPT/HCPCS: 29848; 26055 ×2; 20550; A9270; J0690; J1200; J2250; J2405; J2704; J3010; J7120

== ENCOUNTER → 2023-08-26 09:42 | Outpatient (CLI) | payer OTHER, SELFPAY ==
--- NOTE | ~2023-08-26 | XR_ITS ---
Thoracic spine: Clinical Indication: Back pain AP and lateral views were performed. Mild to moderate compression fracture of L1 noted.. Minimal compression deformity of T9 and T11. Ther e is normal alignment of the vertebrae. The intervertebral disc spaces appear normal. Paravertebral s oft tissues appear normal. Impression: Probable minimal compression fracture deformity of T9 and T11. Mild to moderate compression fracture of L1. Reviewed, dictated and finalized at location . UNT CONTACT ASSOCIATE Impression: Probable minimal compression fracture deformity of T9 and T11. Mild to moderate compression fracture of L1.
--- NOTE | ~2023-08-26 | XR_ITS ---
Cervical Spine: AP, lateral, open-mouth views Clinical History: Pain Findings: The normal lordotic curve is maintained. No fracture identified. There is minimal grade 1 a nterolisthesis of C5 over C6. There is probable mild reduction of the listhesis on extension position ing. There is moderate to advanced degenerative disc narrowing at C6-C7. There is mild facet arthropa thy. Pre-vertebral soft tissues are unremarkable. Impression: Minimal grade 1 anterolisthesis of C5 over C6, which appears to reduce with extension positioning. Advanced degenerative disc narrowing at C6-C7. Reviewed, dictated and finalized at [facility]. ING AND STAMPING MACHINE OPERATOR Impression: Minimal grade 1 anterolisthesis of C5 over C6, which appears to reduce with ext ension positioning. Advanced degenerative disc narrowing at C6-C7.
== END ==
PROVIDERS: PCP Internal Medicine Rheumatology; Visit Provider Family Medicine
DX: M54.2 Cervicalgia (principal); M54.6 Pain in thoracic spine
CPT/HCPCS: 72050; 72070

== ENCOUNTER → 2023-08-26 09:46 | Outpatient (CLI) | payer OTHER, SELFPAY ==
--- NOTE | ~2023-08-26 | XR_ITS ---
Left foot Technique: AP and lateral views were obtained. Clinical History: Arthralgia Findings: No acute fracture or dislocation is seen. Osseous alignment is anatomic. Joint spaces are p reserved without erosive or degenerative change. Soft tissues are unremarkable. Impression: Unremarkable left foot radiographs. Reviewed, dictated and finalized at location . CAL INFORMATION OFFICER Impression: Unremarkable left foot radiographs.
--- NOTE | ~2023-08-26 | XR_ITS ---
Left Hand Technique: PA and lateral views were obtained. Clinical History: Arthralgia Findings: No acute fracture or dislocation is seen. Osseous alignment is anatomic. Joint spaces are p reserved. Soft tissues are unremarkable. Impression: Unremarkable left hand. Reviewed, dictated and finalized at location M. R PACKER Impression: Unremarkable left hand.
--- NOTE | ~2023-08-26 | XR_ITS ---
Right Hand Technique: PA and lateral views were obtained. Clinical History: Arthralgia Findings: No acute fracture or dislocation is seen. Prior ORIF of the distal radius noted. Osseous al ignment is anatomic. Joint spaces are preserved. Soft tissues are unremarkable. Impression: No significant abnormality. Prior ORIF of the distal radius. Reviewed, dictated and finalized at location . NG AND MOLDING MACHINE OPERATOR Impression: No significant abnormality. Prior ORIF of the distal radius.
--- NOTE | ~2023-08-26 | XR_ITS ---
Right foot Technique: AP and lateral views were obtained. Clinical History: Arthralgia Findings: No acute fracture or dislocation is seen. Prior osteotomy of the first metatarsal with orth opedic screw present.. Joint spaces are preserved without erosive or degenerative change. Soft tissue s are unremarkable. Impression: No acute abnormality. Prior first metatarsal osteotomy with orthopedic screw present. Reviewed, dictated and finalized at location . ICT GUARD Impression: No acute abnormality. Prior first metatarsal osteotomy with orthopedic screw present.
== END ==
PROVIDERS: PCP Family Medicine; Visit Provider Internal Medicine Rheumatology
DX: M25.50 Pain in unspecified joint (principal)
CPT/HCPCS: 73120; 73620

== ENCOUNTER → 2023-10-07 15:31 | Outpatient (CLI) | payer OTHER, SELFPAY ==
--- NOTE | ~2023-10-07 | CT_ITS ---
EXAMINATION: CT thoracic lumbar wo con DATE: 10/07/2023 15:48 INDICATION: Pain in thoracic and lumbar spine. TECHNIQUE: Computed tomography (CT) of the thoracic and lumbar spine was performed without intravenou s contrast. Automated exposure control and iterative reconstruction technique were employed. The dose -length product was 594.73 mGy-cm. COMPARISON: Thoracic spine radiographs 08/26/2023 FINDINGS: CT THORACIC SPINE: There is 22 degrees levoscoliosis of upper thoracic spine. There are chronic compr ession fractures of T9 and T11. There is mildly decreased disc height at multiple levels. There is mo derately decreased disc height at T4-T5, T6-T7, and T7-T8. There is multilevel facet joint osteoarthr itis, severe on the right at T4-T5. There is multilevel mild neural foraminal stenosis bilaterally. N o central canal stenosis. CT LUMBAR SPINE: There is 7 mm anterolisthesis of L4 on L5 and 3 mm retrolisthesis of L5 on S1. There is a chronic burst fracture of L1 with retropulsion of bone 3 mm into central spinal canal. There is mildly decreased disc height at L3-L4 and severely decreased disc height at L4-L5 and L5-S1. The fol lowing disc levels are specifically discussed: L1-L2: The disc is bulging. There is severe bilateral facet joint osteoarthritis. There is no neural foraminal stenosis. There is mild central canal stenosis. L2-L3: The disc does not extend beyond the endplate margin. There is severe right and moderate left f acet joint osteoarthritis. There is no neural foraminal stenosis. There is no central canal stenosis. L3-L4: The disc is bulging. There is severe bilateral facet joint osteoarthritis. There is mild bilat eral neural foraminal stenosis. There is mild central canal stenosis. L4-L5: The disc is bulging. There is severe bilateral facet joint osteoarthritis. There is moderate b ilateral neural foraminal stenosis. There is severe central canal stenosis. L5-S1: The disc is bulging. There is severe bilateral facet joint osteoarthritis. There is mild right and moderate left neural foraminal stenosis. There is mild central canal stenosis. IMPRESSION: 1. Moderate thoracic spondylosis and severe lumbar spondylosis. 2. Upper thoracic levoscoliosis. Reviewed, dictated and finalized at location E. 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
== END ==
PROVIDERS: PCP Family Medicine; Visit Provider Family Medicine
DX: M47.894 Other spondylosis, thoracic region (principal); M47.896 Other spondylosis, lumbar region
CPT/HCPCS: 72128; 72131

== ENCOUNTER 2024-02-08 15:49 | Outpatient (CLI) | payer OTHER, SELFPAY ==
--- NOTE | ~2024-02-08 | XR_ITS ---
AP view of the pelvis and AP and lateral views of the right hip Clinical history: Pain Findings: No acute fracture or dislocation is seen. There is moderate degenerative change, with osteo phyte formation and mild remodeling of the femoral head. Left hip joint space is intact. Soft tissues are unremarkable. Impression: Moderate right hip joint degenerative change. Reviewed, dictated and finalized at location . Impression: Moderate right hip joint degenerative change.
== END 2024-02-08 15:50 ==
LOC: GOSHIMG 15:50
PROVIDERS: PCP Family Medicine; Visit Provider Family Medicine
DX: M25.551 Pain in right hip (principal)
CPT/HCPCS: 73502

== ENCOUNTER 2024-04-03 14:43 | Outpatient (CLI) | payer OTHER, SELFPAY ==
--- NOTE | ~2024-04-03 | MM_ITS ---
EXAMINATION: MM screening mark BI w [place] HISTORY: Screening TECHNIQUE: Craniocaudal and mediolateral oblique 3-D tomosynthesis images were obtained and synthetic 2-D images were generated. CAD analysis was submitted and interpreted. COMPARISON: 01/15/2020 BREAST PARENCHYMAL COMPOSITION: Dense: The breasts are heterogeneously dense, which may obscure small masses FINDINGS: There is no evidence of suspicious mass, calcification, or architectural distortion to sugg est malignancy in either breast. There has been no suspicious interval change. IMPRESSION: 1. No mammographic evidence of malignancy. 2. Recommend routine screening mammography in one year. BI-RADS Category 1: Negative Reviewed, dictated and finalized at location B.
== END 2024-04-03 14:44 | disposition home or self-care (01) ==
LOC: ANHIMG 14:44
PROVIDERS: PCP Family Medicine; Visit Provider Family Medicine
DX: Z12.31 Encounter for screening mammogram for malignant neoplasm of breast (principal)
CPT/HCPCS: 77063; 77067

== ENCOUNTER 2024-04-23 10:05 | Outpatient (CLI) | payer OTHER, SELFPAY ==
--- NOTE | ~2024-04-23 | MR_ITS ---
Procedure: MR lumbar spine wo con Ordering provider: Robb Abernathy MD History: . M48.00 - Spinal stenosis, site unspecified . Comparison: None. Technique: MRI thoracic spine without contrast. FINDINGS: SPINAL CORD: Normal. The cord ends at the level of T12-L1. VERTEBRAL BODIES: Loss of height is seen in L1 which is most likely chronic.. No acute compression fr acture. Normal marrow signal. Anterolisthesis seen at the level of L4-L5. Right spondylolysis. Minima l retrolisthesis at the level of L5-S1. DISK SPACES: Narrowing of the disc L4-L5 and L5-S1. L1-L2: Normal. L2-L3: Normal. L3-L4:: Mild spinal canal stenosis. Diffuse disc bulge. Thickening of the ligamenta flava. Bilateral facet joint disease. Bilateral nerve root compression laterally is noted. L4-L5: Severe stenosis. Diffuse disc bulge with thickening of the ligamenta flava. Bilateral facet elba int disease. Bilateral narrowing of the foramina with root compression. L5-S1: Diffuse disc bulge with bilateral narrowing of the foramina with root compression. PARASPINOUS SOFT TISSUES: Normal. IMPRESSION: Chronic loss of volume of L1. Anterolisthesis at the level of L4-L5 with retrolisthesis at the level of L5-S1. Multilevel degenerative disc disease, facet joint disease, spinal canal stenosis, intervertebral fora radha narrowing and the root compression. Reviewed, dictated and finalized at location A. IMPRESSION: Chronic loss of volume of L1. Anterolisthesis at the level of L4-L5 with retrolisthesis at the level of L5-S1 . Multilevel degenerative disc disease, facet joint disease, spinal canal stenosi s, intervertebral foraminal narrowing and the root compression.
== END 2024-04-23 10:06 | disposition home or self-care (01) ==
LOC: ANHIMG 10:07
PROVIDERS: PCP Family Medicine; Visit Provider Orthopaedic Surgery
DX: M48.00 Spinal stenosis, site unspecified (principal); M51.36 Other intervertebral disc degeneration, lumbar region
CPT/HCPCS: 72148

== ENCOUNTER 2024-08-24 09:00 | Outpatient (RCR) | payer OTHER, SELFPAY ==
--- NOTE | 2024-07-02 12:06 | OTOPEVAL1 ---
Assessment and note entered by Carlos Gongora, JACKIE/Maxine, MARV OT Evaluation Information 07/02/24 Assessment Status Evaluation Diagnosis M79.644 Pain of right thumb Subjective Information Patient fractured her right distal radius in 2018 s/p ORIF. The hardware later caused an attritional rupture of the flexor pollicis longus tendon. On 06/28/24 she underwent removal of the hardware on the radius, tendon graft to the right flexor pollicis longus tendon, and a trigger finger release tot he right middle finger. She presents today in her wrap and bandaging from surgery. She is right handed. Reporting no pain. Reported Pain Level Pain Score 0: Self Report Assessment OT Clinical Summary Patient referred to hand therapy following right radius hardware removal, right FPL tendon repair ( via graft), and right middle finger trigger finger release. Today and custom orthotic was fabricated for the patient - a forearm based, dorsal blocking orthotic, holding the wrist in neutral and the thumb in slight flexion. She was issued active ROM of the fingers and passive flexion HEP for the thumb. Discussed patient's restrictions and precautions - no active thumb flexion and only active thumb extension to the confines of the orthotic. Reviewed wound care. She verbalizes and demonstrates excellent understanding al all materials. Continued skilled OT indicated for progression of flexor tendon protocol, continued wound and scar management, for use of modalities, manual therapy, and therapeutic exercise and activities to facilitate optimal functional use of her right, dominant hand. Plan of Care Interventions Therapeutic Exercise,Manual Therapy,Therapeutic Activities,Hot Pack/Cold Pack,Check Out for Orthotic/Pr,Ultrasound,Paraffin OT Services Indicated Yes Treatment Frequency and 1x/week for 8 visits Duration These treatments will address the objective and functional deficits as defined above. The patient will be advanced safely and appropriately in order for the patient to progress towards his/her prior level of function. Additional exercises will be introduced and as well as a comprehensive home exercise program upon discharge, if needed, ?to ensure carryover of functional gains achieved in the clinic. This treatment plan has been reviewed and agreement upon by the patient.
--- NOTE | 2024-07-02 12:07 | OPREHPOC ---
Outpatient Therapy Plan of Care This is a Multidisciplinary Plan of Care that may contain components documented by all disciplines (PT, OT, and ST.) OT Problem 1 OT Problem #1 Knowledge Deficit OT Goal 1 Goal / Goal Update Patient to be independent with instructed materials. Target Visit 8 OT Goal 2 Goal / Goal Update Patient to be compliant with splint wearing schedule. OT Problem 2 OT Problem #2 Impaired Range of Motion OT Goal 1 Goal / Goal Update During weeks 0-3 post op: - patient to be able to progress from passive to place and holds and tenodesis By 3 weeks post op: - patient to be able to progress to active flexion thumb exercises By 6 weeks post op: - patient to be able to complete resistive thumb exercises Target Visit 8
--- NOTE | 2024-07-23 09:00 | OTOPPROG ---
Assessment and note entered by Carlos Gongora, JACKIE/Maxine, CHT OT Plan of Care Update & Frequency Change 07/23/24 OT Clinical Summary Patient presented today for treatment. She presents with what appears to be heavy scar formation restricting glide of the FPL tendon. Changing the plan of care from 1x/week to 2x/week to allow her to return for thermal modalities of paraffin and ultrasound to help reduce scar tissue and facilitate improved tendon glide. Please sign and return at your earliest convenience. Plan of Care Interventions Therapeutic Exercise,Manual Therapy,Therapeutic Activities,Hot Pack/Cold Pack,Check Out for Orthotic/Pr,Ultrasound,Paraffin OT Services Indicated Yes Treatment Frequency and 2x/week for 8 visits Duration These treatments will address the objective and functional deficits as defined above. The patient will be advanced safely and appropriately in order for the patient to progress towards his/her prior level of function. Additional exercises will be introduced and as well as a comprehensive home exercise program upon discharge, if needed, ?to ensure carryover of functional gains achieved in the clinic. This treatment plan has been reviewed and agreement upon by the patient.
--- NOTE | 2024-09-24 14:26 | PCOTNOTE ---
This treatment is being continued on visit number [id number]. Please see documentation on both accounts to view progress. Completed interventions, outcomes, and problems have been marked as Inactive to facilitate the copying of the Care plan routine for recurring accounts.
== END 2024-09-24 14:04 | disposition home or self-care (01) ==
LOC: ANHOT 09:00
PROVIDERS: PCP Family Medicine
DX: M79.644 Pain in right finger(s) (principal)
CPT/HCPCS: 97018; 97035; 97110; 97140; 97166; L3806; L3913

== ENCOUNTER 2024-09-28 18:40 | Outpatient (NON) | payer OTHER, SELFPAY ==
[2024-09-28 20:50] LABS: Hematocrit 40.7 % (37.0-47.0); Hemoglobin 13.8 g/dL (12.0-15.0); Mean Corpuscular HGB Conc 33.9 g/dl (32-36); Mean Corpuscular Hemoglobin 31.7 pg (26-34); Mean Corpuscular Volume 93.3 fl (80-100); Platelet Count Result 309 k/mm3 (150-375); Red Blood Count 4.36 M/mm3 (4.2-5.4); Red Cell Distribution Width 13.4 % (11.5-14.5); White Blood Count 7.1 K/mm3 (4.5-10.0)
[2024-09-28 20:58] LABS: Alanine Aminotransferase 25 U/L (6-35); Albumin Level 4.3 g/dL (3.5-5.1); Alkaline Phosphatase 128 U/L (38-126); Anion Gap 7 mmol/L (4-12); Aspartate Amino Transferase 56 U/L (14-36); Bilirubin,Total 0.6 mg/dL (0.2-1.3); Blood Urea Nitrogen 21 mg/dL (7-17); Calcium 9.1 mg/dL (8.4-10.2); Carbon Dioxide 29 mmol/L (22-30); Chloride 101 mmol/L (98-107); Estimated Glomerular Filt Rate > 60; Glucose 91 mg/dL (65-110); Potassium 4.2 mmol/L (3.4-5.0); Sodium 137 mmol/L (137-145)
[2024-09-28 21:07] LABS: Hemoglobin A1C 5.5 % (<5.7)
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
--- OUTSIDE RECORDS SUMMARY | 2024-10-04 07:37 | XMS_ITS ---
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 JULIO C BAUTISTA MD Active Last Documented On 4 5:43PM ; [facility] Panic Disorder 09/12/2022 Active Last Documented On 3 5:53PM ; [facility] Attention-deficit Hyperactivity Disorder 12/07/2021 Active Last Documented On 3 5:53PM ; [facility] Generalized Anxiety Disorder 12/07/2021 Active Last Documented On 3 5:53PM ; [facility] Psychophysiological Insomnia 12/07/2021 Active Last Documented On 3 5:53PM ; [facility] Major Depression 12/07/2021 Active Last Documented On 3 5:53PM ; [facility] Plan of Treatment Future Appointments Date Time Location Provi vickie TELE[facility] ADULT PSYCH ESTABLISHED 11/09/2024 3:40PM [facility] JULIO C BAUTISTA MD Last Documented On 4 5:46PM ; [facility] Education and Decision Aids were provided during visit for: Calming techniques such as b reathing exercises/meditation and other relaxation techniques Last Documented On 4 10:54AM ; [facility] Calming techniques such as b reathing exercises/meditation and other relaxation techniques if and when anxious, continue exercise/balanced meal plan Last Documented On 3 8:00AM ; [facility] Assessments Includes: Assessments for all patient encounters Findings Encounter Date Attention-deficit hyperactiv ity disorder TELEHEALTH ADULT PSYCH ESTABLISHED with JULIO C BAUTISTA MD 02/07/2024 Last Documented On 4 10:59AM ; [facility] Generalized anxiety disorder TELEHEALTH ADULT PSYCH ESTABLISHED with JULIO C BAUTISTA MD 02/07/2024 Last Documented On 4 10:59AM ; [facility] Major depressive disorder [facility] ESTABLISHED with JULIO C BAUTISTA MD 02/07/2024 Last Documented On 4 10:59AM ; [facility] Obstructive sleep apnea TELEHEALTH ADULT PSYCH ESTABLISHED with JULIO C BAUTISTA MD 02/07/2024 Last Documented On 4 10:59AM ; [facility] Panic disorder TELEHEALTH ADULT PSY CH ESTABLISHED with JULIO C BAUTISTA MD 02/07/2024 Last Documented On 4 10:59AM ; [facility] Psychophysiological insomnia TELEHEALTH ADULT PSYCH ESTABLISHED with JULIO C BAUTISTA MD 02/07/2024 Last Documented On 4 10:59AM ; [facility] Attention-deficit hyperactivity disorder TELEHEALTH ADULT PSYCH ESTABLISHED with JULIO C BAUTISTA MD 10/31/2023 Last Documented On 4 9:08AM ; [facility] Generalized anxiety disorder TELEHEALTH ADULT PSYCH ESTABLISHED with JULIO C BAUTISTA MD 10/31/2023 Last Documented On 4 9:08AM ; [facility] Major depressive disorder [facility] ESTABLISHED with JULIO C BAUTISTA MD 10/31/2023 Last Documented On 4 9:08AM ; [facility] Panic disorder TELEHEALTH ADULT PSY CH ESTABLISHED with JULIO C BAUTISTA MD 10/31/2023 Last Documented On 4 9:08AM ; [facility] Psychophysiological insomnia TELEHEALTH ADULT PSYCH ESTABLISHED with JULIO C BAUTISTA MD 10/31/2023 Last Documented On 4 9:08AM ; [facility] Attention-deficit hyperactivity disorder * PHONE CALL with JULIO C BAUTISTA MD 08/26/2023 Last Documented On 3 11:36AM ; [facility] Attention-deficit hyperactivity disorder TELEHEALTH ADULT PSYCH ESTABLISHED with JULIO C BAUTISTA MD 07/27/2023 Last Documented On 3 7:43PM ; [facility] Generalized anxiety disorder TELEHEALTH ADULT PSYCH ESTABLISHED with JULIO C BAUTISTA MD 07/27/2023 Last Documented On 3 7:43PM ; [facility] Major depressive disorder [facility] PS[facility] ESTABLISHED with JULIO C BAUTISTA MD 07/27/2023 Last Documented On 3 7:43PM ; [facility] Panic disorder TELEHEALTH ADULT PSY CH ESTABLISHED with JULIO C BAUTISTA MD 07/27/2023 Last Documented On 3 7:43PM ; [facility] Psychophysiological insomnia TELEHEALTH ADULT PSYCH ESTABLISHED with JULIO C BAUTISTA MD 07/27/2023 Last Documented On 3 7:43PM ; [facility] Attention-deficit hyperactivity disorder SECURE MESSAGE with JULIO C BAUTISTA MD 06/26/2023 Last Documented On 3 8:33PM ; [facility] Attention-deficit hyperactivity disorder * PHONE CALL with JULIO C BAUTISTA MD 06/17/2023 Last Documented On 3 10:14AM ; [facility] Attention-deficit hyperactivity disorder TELEHEALTH ADULT PSYCH ESTABLISHED with JULIO C BAUTISTA MD 05/06/2023 Last Documented On 3 8:03AM ; [facility] Generalized anxiety disorder TELEHEALTH ADULT PSYCH ESTABLISHED with JULIO C BAUTISTA MD 05/06/2023 Last Documented On 3 8:03AM ; [facility] Major depressive disorder [facility] PSY[facility] ESTABLISHED with JULIO C BAUTISTA MD 05/06/2023 Last Documented On 3 8:03AM ; [facility] Panic disorder TELEHEALTH ADULT PSY CH ESTABLISHED with JULIO C BAUTISTA MD 05/06/2023 Last Documented On 3 8:03AM ; [facility] Psychophysiological insomnia TELEHEALTH ADULT PSYCH ESTABLISHED with JULIO C BAUTISTA MD 05/06/2023 Last Documented On 3 8:03AM ; [facility] Attention-deficit hyperactivity disorder TELEHEALTH ADULT PSYCH ESTABLISHED with JULIO C BAUTISTA MD 03/17/2023 Last Documented On 3 8:00AM ; [facility] Generalized anxiety disorder TELEHEALTH ADULT PSYCH ESTABLISHED with JULIO C BAUTISTA MD 03/17/2023 Last Documented On 3 8:00AM ; [facility] Major depressive disorder [facility] PSYCH ESTABLISHED with JULIO C BAUTISTA MD 03/17/2023 Last Documented On 3 8:00AM ; [facility] Panic disorder TELEHEALTH ADULT PSY CH ESTABLISHED with JULIO C BAUTISTA MD 03/17/2023 Last Documented On 3 8:00AM ; [facility] Psychophysiological insomnia TELEHEALTH ADULT PSYCH ESTABLISHED with JULIO C BAUTISTA MD 03/17/2023 Last Documented On 3 8:00AM ; [facility] Attention-deficit hyperactivity disorder TELEHEALTH ADULT PSYCH ESTABLISHED with JULIO C BAUTISTA MD 02/01/2023 Last Documented On 3 9:15AM ; [facility] Generalized anxiety disorder TELEHEALTH ADULT PSYCH ESTABLISHED with JULIO C BAUTISTA MD 02/01/2023 Last Documented On 3 9:15AM ; [facility] Major depressive disorder [facility] PS[facility] ESTABLISHED with JULIO C BAUTISTA MD 02/01/2023 Last Documented On 3 9:15AM ; [facility] Panic disorder TELEHEALTH ADULT PSY CH ESTABLISHED with JULIO C BAUTISTA MD 02/01/2023 Last Documented On 3 9:15AM ; [facility] Psychophysiological insomnia TELEHEALTH ADULT PSYCH ESTABLISHED with JULIO C BAUTISTA MD 02/01/2023 Last Documented On 3 9:15AM ; [facility] Instructions Includes: Instructions for all patient encounters Education and Decision Aids were provided during visit for: Calming techniques such as b reathing exercises/meditation and other relaxation techniques Last Documented On 4 10:54AM ; [facility] Calming techniques such as b reathing exercises/meditation and other relaxation techniques if and when anxious, continue exercise/balanced meal plan Last Documented On 8:00AM ; [facility] Medical Equipment - Implanted Devices Includes: Current and historical Devices No Medical Equipment Recorded Medications Includes: Current and historical Medications Current Medications (continue as prescribed) Vyvanse 40 MG Oral Capsule 02/29/2024 Provider: JULIO C BAUTISTA MD Diagnosis: Attn-defct hyper activity disorder, predom inattentive type 1 Capsule every morning Last Documented On 02/29/2024 3:13PM By Aviva Bautista MD ; [facility] Jornay PM 20 MG Oral Capsule Extended Release 24 Hour 02/07/2024 Provider: JULIO C BAUTISTA MD Diagnosis: Attn-defct hyper activity disorder, predom inattentive type as directed - 1 capsule at 7 pm Last Documented On 02/07/2024 6:22PM By Aviva Bautista MD ; [facility] Sunosi 75 MG Oral Tablet 02/07/2024 Provider: MET VINH BAUTISTA MD Diagnosis: Obstructive slee p apnea (adult) (pediatric) 1 tablet every morning Last Documented On 02/07/2024 6:04PM By Aviva Bautista MD ; [facility] Pantoprazole Sodium 40 MG Or al Tablet Delayed Release 01/09/2024 Provider: YAJAIRA SANDHU MD Diagnosis: 1 tab daily Last Documented On 02/07/2024 5:02PM By EMELY LAGUERRE ; [facility] Dyanavel XR 10 MG Oral Tablet Chewable Extended Release 12/29/2023 Provider: JULIO C BAUTISTA MD Diagnosis: Attention-defici t hyperactivity disorder, unspecified type 1 tablet every morning Last Documented On 12/29/2023 10:28AM By Aviva Bautista MD ; [facility] prednisoLONE Acetate 1% Ophthalmic Suspension 12/29/19 Provider: Diagnosis: 1 drop 1-2 times daily for Sjorgen's Last Documented On 02/07/2024 5:04PM By EMELY LAGUERRE ; [facility] Tobramycin-dexAMETHasone 0.3-0.1% Ophthalmic Suspensio n 12/26/2023 Provider: Diagnosis: 1 drop in each eye as needed for Sjorgren's Last Documented On 02/07/2024 5:04PM By EMELY LAGUERRE ; [facility] FLUoxetine HCl 10 MG Oral Tablet 10/31/2023 Provider: JULIO C BAUTISTA MD Diagnosis: Major depressive disorder, recurrent, mild as directed - 1 and 1 /2 tab in am Last Documented On 10/31/2023 5:07PM By Aviva Bautista MD ; [facility] Famotidine 10 MG Oral Tablet 10/31/2023 Provider: Diagnosis: 1 tab in the morning Last Documented On 10/31/2023 4:27PM By EMELY LAGUERRE ; [facility] Vyvanse 30 MG Oral Capsule 10/10/2023 Provider: JULIO C BAUTISTA MD Diagnosis: Attn-defct hyper activity disorder, predom inattentive type 1 Capsule every morning Last Documented On 10/10/2023 10:18AM By Aviva Bautista MD ; [facility] Estradiol 0.1 MG/GM Vaginal Cream 10/03/2023 Provide r: ROSSANA KEY MD Diagnosis: use weekly Last Documented On 10/31/2023 4:26PM By EMELY LAGUERRE ; [facility] diazePAM 2 MG Oral Tablet 09/30/2023 Provider: ME PATTIE BAUTISTA MD Diagnosis: Panic disorder [ episodic paroxysmal anxiety] as directed -- 1/2 - 1 tab a day as needed for panic/anxiety Last Documented On 09/30/2023 5:41PM By Aviva Bautista MD ; [facility] Dyanavel XR 10 MG Oral Tablet Chewable Extended Release 09/19/2023 Provider: JULIO C BAUTISTA MD Diagnosis: Attention-defici t hyperactivity disorder, unspecified type 1 tab in the morning Last Documented On 09/19/2023 3:17PM By JACKIE KELLY ; [facility] Dyanavel XR 5 MG Oral Tablet Chewable Extended Release 08/30/2023 Provider: JULIO C BAUTISTA MD Diagnosis: Attn-defct hyper activity disorder, predom inattentive type 1 tablet every morning Last Documented On 08/30/2023 11:07AM By Aviva Bautista MD ; [facility] Cyclobenzaprine HCl 10 MG Oral Tablet 08/26/2023 Pro vider: ROSSANA KEY MD Diagnosis: use prn (breaks in pieces) Last Documented On 10/31/2023 4:26PM By EMELY LAGUERRE ; [facility] Vyvanse 20 MG Oral Capsule 08/22/2023 Provider: JULIO C BAUTISTA MD Diagnosis: Attn-defct hyper activity disorder, predom inattentive type 1 Capsule every morning Last Documented On 08/22/2023 12:53PM By Aviva Bautista MD ; [facility] Modafinil 100 MG OR TABS 12/17/2022 Provider: MET VINH BUATISTA MD Diagnosis: Attn-defct hyper activity disorder, predom inattentive type as directed -- 1 tab in am Last Documented On 01/08/2023 5:39PM By Aviva Bautista MD ; [facility] traMADol HCl 50 MG OR TABS 09/17/2022 Provider: Diagnosis: as directed Last Documented On 01/08/2023 5:39PM By EMELY LAGUERRE ; [facility] Cholestyramine 4 GM OR PACK 03/16/2022 Provider: Diagnosis: 1 packet bid Last Documented On 01/08/2023 5:39PM By EMELY LAGUERRE ; [facility] Cevimeline HCl 30 MG OR CAPS 10/26/2021 Provider: Diagnosis: [address] Rossana Key Last Documented On 01/08/2023 5:39PM By EMELY SOLOMONA ; [facility] Hydroxychloroquine Sulfate 200 MG OR TABS 10/02/2021 Provider: Diagnosis: [address]Terry Galicia Last Documented On 01/08/2023 5:39PM By EMELY LAGUERRE ; [facility] Past Medications on file Sucralfate 1 GM Oral Tablet 02/07/2024 - 03/08/2024 Pr ovider: Diagnosis: 1 tab qd to bid Last Documented On 02/07/2024 4:55PM By EMELY LAGUERRE ; [facility] Pantoprazole Sodium 40 MG Or al Tablet Delayed Release 01/09/2024 - 02/07/2024 Provider: YAJAIRA SANDHU MD Diagnosis: 1 tab at bedtime Last Documented On 02/07/2024 5:03PM By EMELY LAGUERRE ; [facility] Vyvanse 40 MG Oral Capsule 12/14/2023 - 02/29/2024 Provider: JULIO C BAUTISTA MD Diagnosis: Attn-defct hyper activity disorder, predom inattentive type 1 Capsule every morning Last Documented On 02/29/2024 3:06PM By Aviva Bautista MD ; [facility] Vyvanse 40 MG Oral Capsule 11/02/2023 - 12/14/2023 Provider: JULIO C BAUTISTA MD Diagnosis: Attn-defct hyper activity disorder, predom inattentive type 1 Capsule every morning Last Documented On 12/14/2023 10:22AM By Aviva Bautista MD ; [facility] Vyvanse 40 MG Oral Capsule 10/31/2023 - 11/02/2023 Provider: JULIO C BAUTISTA MD Diagnosis: Attn-defct hyper activity disorder, predom inattentive type 1 Capsule every morning Last Documented On 11/02/2023 11:29AM By Aviva Bautista MD ; [facility] Dyanavel XR 10 MG Oral Tablet Chewable Extended Release 10/31/2023 - 12/29/2023 Provider: JULIO C BAUTISTA MD Diagnosis: Attention-defici t hyperactivity disorder, unspecified type 1 tablet every morning Last Documented On 12/29/2023 10:28AM By Aviva Bautista MD ; [facility] Pantoprazole Sodium 40 MG Or al Tablet Delayed Release 10/31/2023 - 11/15/2023 Provider: Diagnosis: 1 tab in the afternoon Last Documented On 10/31/2023 4:15PM By EMELY LAGUERRE ; [facility] Dyanavel XR 10 MG Oral Tablet Chewable Extended Release 09/21/2023 - 10/31/2023 Provider: JULIO C BAUTISTA MD Diagnosis: Attention-defici t hyperactivity disorder, unspecified type 1 tablet every morning Last Documented On 10/31/2023 4:42PM By Aviva Bautista MD ; [facility] Dyanavel XR 10 MG Oral Tablet Chewable Extended Release 09/19/2023 - 09/21/2023 Provider: JULIO C BAUTISTA MD Diagnosis: Attention-defici t hyperactivity disorder, unspecified type 1 tablet every morning Last Documented On 09/21/2023 11:09AM By Aviva Bautista MD ; [facility] Vyvanse 30 MG Oral Capsule 08/26/2023 - 10/10/2023 Provider: JULIO C BAUTISTA MD Diagnosis: Attn-defct hyper activity disorder, predom inattentive type 1 Capsule every morning Last Documented On 10/10/2023 10:15AM By Aviva Bautista MD ; [facility] Vyvanse 20 MG Oral Capsule 07/26/2023 - 08/22/2023 Provider: JULIO C BAUTISTA MD Diagnosis: Attn-defct hyper activity disorder, predom inattentive type 1 Capsule every morning Last Documented On 08/22/2023 12:51PM By Aviva Bautista MD ; [facility] Dyanavel XR 5 MG Oral Tablet Chewable Extended Release 07/26/2023 - 08/30/2023 Provider: JULIO C BAUTISTA MD Diagnosis: Attn-defct hyper activity disorder, predom inattentive type 1 tablet every morning Last Documented On 08/30/2023 11:06AM By Aviva Bautista MD ; [facility] Vyvanse 20 MG Oral Capsule 06/26/2023 - 07/26/2023 Provider: JULIO C BAUTISTA MD Diagnosis: Attn-defct hyper activity disorder, predom inattentive type 1 Capsule every morning Last Documented On 07/26/2023 11:47AM By Aviva Bautista MD ; [facility] Focalin XR 10 MG Oral Capsule Extended Release 24 Hour 06/17/2023 - 07/17/2023 Provider: JULIO C BAUTISTA MD Diagnosis: Attn-defct hyper activity disorder, predom inattentive type 1 Capsule every morning Last Documented On 06/17/2023 10:26AM By Aviva Bautista MD ; [facility] Dyanavel XR 5 MG Oral Tablet Chewable Extended Release 06/09/2023 - 07/26/2023 Provider: JULIO C BAUTISTA MD Diagnosis: Attn-defct hyper activity disorder, predom inattentive type 1 tablet every morning Last Documented On 07/26/2023 11:48AM By Aviva Bautista MD ; [facility] FLUoxetine HCl 10 MG Oral Tablet 06/03/2023 - 10/31/2023 Provider: JULIO C RAMIREZ MD Diagnosis: TAKE 1 TABLET BY MOUTH EVERY DAY IN THE MORNING Last Documented On 10/31/2023 4:54PM By Aviva Bautista MD ; [facility] Vyvanse 20 MG Oral Capsule 05/27/2023 - 06/26/2023 Provider: JULIO C BAUTISTA MD Diagnosis: Attn-defct hyper activity disorder, predom inattentive type 1 Capsule every morning Last Documented On 06/26/2023 8:29PM By Aviva Bautista MD ; [facility] Vyvanse 20 MG Oral Capsule 04/21/2023 - 05/27/2023 Provider: JULIO C BAUTISTA MD Diagnosis: Attn-defct hyper activity disorder, predom inattentive type 1 Capsule every morning Last Documented On 05/27/2023 11:37AM By Aviva Bautista MD ; [facility] Dyanavel XR 5 MG Oral Tablet Chewable Extended Release 03/17/2023 - 06/09/2023 Provider: JULIO C BAUTISTA MD Diagnosis: Attn-defct hyper activity disorder, predom inattentive type 1 tablet every morning Last Documented On 06/09/2023 5:22PM By Aviva Bautista MD ; [facility] Vyvanse 20 MG Oral Capsule 03/07/2023 - 04/21/2023 Provider: JULIO C BAUTISTA MD Diagnosis: Attn-defct hyper activity disorder, predom inattentive type 1 Capsule every morning Last Documented On 04/21/2023 3:49PM By Aviva Bautista MD ; [facility] FLUoxetine HCl 10 MG Oral Tablet 03/06/2023 - 06/03/2023 Provider: JULIO C RAMIREZ MD Diagnosis: TAKE 1 TABLET BY MOUTH EVERY DAY IN THE MORNING Last Documented On 06/03/2023 9:40AM By Aviva Bautista MD ; [facility] FLUoxetine HCl 10 MG Oral Tablet 02/10/2023 - 03/06/2023 Provider: JULIO C RAMIREZ MD Diagnosis: TAKE ONE TABLET BY MOUTH EVERY MORNING Last Documented On 03/06/2023 8:28PM By Aviva Bautista MD ; [facility] Vyvanse 20 MG Oral Capsule 02/03/2023 - 03/07/2023 Provider: JULIO C BAUTISTA MD Diagnosis: Attn-defct hyper activity disorder, predom inattentive type 1 Capsule every morning Last Documented On 03/07/2023 9:05AM By Aviva Bautista MD ; [facility] Focalin XR 5 MG Oral Capsule Extended Release 24 Hour 02/01/2023 - 03/03/2023 Provider: JULIO C BAUTISTA MD Diagnosis: Attn-defct hyper activity disorder, predom inattentive type 1 Capsule every morning Last Documented On 02/01/2023 6:19PM By Aviva Bautista MD ; [facility] FLUoxetine HCl 10 MG Oral Tablet 01/13/2023 - 02/01/2023 Provider: Diagnosis: Major depressive disorder, recurrent, unspecified 1 tablet every day in the morning Last Documented On 02/01/2023 5:29PM By JACKIE KELLY ; [facility] FLUoxetine HCl 10 MG Oral Tablet 01/13/2023 - 02/01/2023 Provider: JULIO C BAUTISTA MD Diagnosis: Major depressive disorder, recurrent, unspecified TAKE 1 TABLET BY MOUTH EVERY DAY IN THE MORNING Last Documented On 02/01/2023 5:29PM By JACKIE KELLY ; [facility] FLUoxetine HCl 10 MG Oral Tablet 01/13/2023 - 03/14/2023 Provider: JULIO C BAUTISTA MD Diagnosis: Major depressive disorder, recurrent, unspecified 1 tablet every morning Last Documented On 01/13/2023 3:33PM By Aviva Bautista MD ; [facility] Vyvanse 20 MG OR CAPS 12/29/2022 - 02/03/2023 Provider: JULIO C BAUTISTA MD Diagnosis: Attn-defct hyper activity disorder, predom inattentive type 1 Capsule every morning Last Documented On 02/03/2023 6:58PM By Aviva Bautista MD ; [facility] FLUoxetine HCl 10 MG OR TABS 12/10/2022 - 01/13/2023 Provider: JULIO C BAUTISTA MD Diagnosis: Major depressive disorder, recurrent, unspecified TAKE 1 TABLET BY MOUTH EVERY DAY IN THE MORNING Last Documented On 01/13/2023 12:09PM By Aviva Bautista MD ; [facility] Pantoprazole Sodium 40 MG OR TBEC 12/06/2022 - 024 Provider: Diagnosis: 1 tab bid Last Documented On 10/31/2023 4:15PM By EMELY LAGUERRE ; [facility] Vyvanse 20 MG OR CAPS 11/23/2022 - 12/29/2022 Provider: JULIO C BAUTISTA MD Diagnosis: Attn-defct hyper activity disorder, predom inattentive type 1 Capsule every morning Last Documented On 01/08/2023 5:39PM By Aviva Bautista MD ; [facility] Lexapro 10 MG OR TABS 11/21/2022 - 03/17/2023 Provider: JULIO C RAMIREZ MD Diagnosis: Major depressive disorder, recurrent, unspecified One tablet daily Last Documented On 03/17/2023 4:34PM By EMELY LAGUERRE ; [facility] Azstarys 26.1-5.2 MG OR CAPS 11/19/2022 - 12/19/2022 Provider: JULIO C BAUTISTA MD Diagnosis: Attn-defct hyper activity disorder, predom inattentive type 1 Capsule every morning Last Documented On 01/08/2023 5:39PM By Aviva Bautista MD ; [facility] FLUoxetine HCl 10 MG OR TABS 11/11/2022 - 12/10/2022 Provider: JULIO C BAUTISTA MD Diagnosis: Major depressive disorder, recurrent, unspecified TAKE 1 TABLET BY MOUTH EVERY DAY IN THE MORNING Last Documented On 01/08/2023 5:39PM By Aviva Bautista MD ; [facility] Lexapro 5 MG OR TABS 11/03/2022 - 11/21/2022 Provider: JULIO C BAUTISTA MD Diagnosis: as directed 1 tab daily - dispensed as written ( [facility]) Last Documented On 01/08/2023 5:39PM By Aviva Bautista MD ; [facility] Vyvanse 30 MG OR CAPS 11/03/2022 - 11/19/2022 Provider: JULIO C BAUTISTA MD Diagnosis: Attention-defici t hyperactivity disorder, unspecified type 1 Capsule every morning Last Documented On 01/08/2023 5:39PM By Aviva Bautista MD ; [facility] FLUoxetine HCl 10 MG OR TABS 10/20/2022 - 11/11/2022 Provider: JULIO C BAUTISTA MD Diagnosis: Major depressive disorder, recurrent, unspecified TAKE 1 TABLET BY MOUTH EVERY DAY IN THE MORNING Last Documented On 01/08/2023 5:39PM By Aviva Bautista MD ; [facility] diazePAM 2 MG OR TABS 10/04/2022 - 09/30/2023 Provider : JULIO C BAUTISTA MD Diagnosis: Panic disorder [episodic paroxysmal anxiety] as directed -- 1/2 - 1 tab a day as needed for panic/anxiety Last Documented On 09/30/2023 5:34PM By Aviva Bautista MD ; [facility] HM Famotidine 20 MG OR TABS 10/04/2022 - 12/17/2022 Pr ovider: Diagnosis: 1 bid Last Documented On 01/08/2023 5:39PM By EMELY LAGUERRE ; [facility] Vyvanse 30 MG OR CAPS 10/04/2022 - 11/03/2022 Provider: JULIO C BAUTISTA MD Diagnosis: Attention-defici t hyperactivity disorder, unspecified type 1 Capsule every morning Last Documented On 01/08/2023 5:39PM By Aviva Bautista MD ; [facility] FLUoxetine HCl 10 MG OR TABS 09/26/2022 - 10/20/2022 Provider: JULIO C BAUTISTA MD Diagnosis: Major depressive disorder, recurrent, unspecified TAKE 1 TABLET BY MOUTH EVERY DAY IN THE MORNING Last Documented On 01/08/2023 5:39PM By Aviva Bautista MD ; [facility] FLUoxetine HCl 10 MG OR TABS 09/02/2022 - 09/26/2022 Provider: JULIO C BAUTISTA MD Diagnosis: Major depressive disorder, recurrent, unspecified TAKE 1 TABLET BY MOUTH EVERY DAY IN THE MORNING Last Documented On 01/08/2023 5:39PM By Aviva Bautista MD ; [facility] Lexapro 5 MG OR TABS 08/25/2022 - 10/04/2022 Provider: Diagnosis: 1 tab daily VENT[facility]A Last Documented On 01/08/2023 5:39PM By EMELY LAGUERRE ; [facility] Lexapro 5 MG OR TABS 08/25/2022 - 08/25/2022 Provider: Diagnosis: 1 tab daily Last Documented On 01/08/2023 5:39PM By EMELY LAGUERRE ; [facility] Lexapro 5 MG OR TABS 08/25/2022 - 11/03/2022 Provider: JULIO C BAUTISTA MD Diagnosis: as directed 1 tab daily - dispensed as written ( VENTURA) Last Documented On 01/08/2023 5:39PM By Aviva Bautista MD ; [facility] Lexapro 5 MG OR TABS 08/20/2022 - 10/04/2022 Provider: JULIO C BAUTISTA MD Diagnosis: as directed 1 tab daily Last Documented On 01/08/2023 5:39PM By Aviva Bautista MD ; [facility] Qelbree 100 MG OR CP24 08/18/2022 - 10/04/2022 Provider: JULIO C BAUTISTA MD Diagnosis: Attn-defct hyper activity disorder, predom inattentive type as directed -- 1 cap in the afternoon Last Documented On 01/08/2023 5:39PM By Aviva Bautista MD ; [facility] Vyvanse 30 MG OR CAPS 08/18/2022 - 10/04/2022 Provider : Diagnosis: Attention-defici t hyperactivity disorder, unspecified type 1 capsule every morning Last Documented On 01/08/2023 5:39PM By JACKIE KELLY ; [facility] Vyvanse 30 MG OR CAPS 08/18/2022 - 10/04/2022 Provider: JULIO C BAUTISTA MD Diagnosis: Attention-defici t hyperactivity disorder, unspecified type 1 Capsule every morning Last Documented On 01/08/2023 5:39PM By Aviva Bautista MD ; [facility] FLUoxetine HCl 10 MG OR TABS 08/10/2022 - 09/02/2022 Provider: JULIO C BAUTISTA MD Diagnosis: Major depressive disorder, recurrent, unspecified TAKE 1 TABLET BY MOUTH EVERY DAY IN THE MORNING Last Documented On 01/08/2023 5:39PM By Aviva Bautista MD ; [facility] Vyvanse 20 MG OR CAPS 07/26/2022 - 10/04/2022 Provider: JULIO C BAUTISTA MD Diagnosis: Attn-defct hyper activity disorder, predom inattentive type 1 Capsule every morning Last Documented On 01/08/2023 5:39PM By Aviva Bautista MD ; [facility] FLUoxetine HCl 10 MG OR TABS 07/16/2022 - 08/10/2022 Provider: JULIO C BAUTISTA MD Diagnosis: Major depressive disorder, recurrent, unspecified TAKE 1 TABLET BY MOUTH EVERY DAY IN THE MORNING Last Documented On 01/08/2023 5:39PM By Aviva Bautista MD ; [facility] Qelbree 200 MG OR CP24 07/02/2022 - 11/19/2022 Provider: JULIO C BAUTISTA MD Diagnosis: Attn-defct hyper activity disorder, predom inattentive type 1 Capsule every morning Last Documented On 01/08/2023 5:39PM By Aviva Bautista MD ; [facility] Vyvanse 20 MG OR CAPS 06/28/2022 - 07/26/2022 Provider: JULIO C BAUTISTA MD Diagnosis: Attn-defct hyper activity disorder, predom inattentive type 1 Capsule every morning Last Documented On 01/08/2023 5:39PM By Aviva Bautista MD ; [facility] FLUoxetine HCl 10 MG OR TABS 06/21/2022 - 07/16/2022 Provider: JUILO C BAUTISTA MD Diagnosis: Major depressive disorder, recurrent, unspecified TAKE 1 TABLET BY MOUTH EVERY DAY IN THE MORNING Last Documented On 01/08/2023 5:39PM By Aviva Bautista MD ; [facility] Vyvanse 20 MG OR CAPS 05/28/2022 - 06/28/2022 Provider: JULIO C BAUTISTA MD Diagnosis: Attn-defct hyper activity disorder, predom inattentive type 1 Capsule every morning Last Documented On 01/08/2023 5:39PM By Aviva Bautista MD ; [facility] FLUoxetine HCl 10 MG OR TABS 05/24/2022 - 06/21/2022 Provider: JULIO C BAUTISTA MD Diagnosis: Major depressive disorder, recurrent, unspecified TAKE 1 TABLET BY MOUTH EVERY DAY IN THE MORNING Last Documented On 01/08/2023 5:39PM By Aviva Bautista MD ; [facility] Lexapro 5 MG OR TABS 04/29/2022 - 08/20/2022 Provider: JULIO C BAUTISTA MD Diagnosis: as directed 1 tab daily Last Documented On 01/08/2023 5:39PM By Aviva Bautista MD ; [facility] Lexapro 5 MG OR TABS 04/29/2022 - 07/02/2022 Provider: Diagnosis: 1 tab daily Last Documented On 01/08/2023 5:39PM By EMELY LAGUERRE ; [facility] Lexapro 5 MG OR TABS 04/26/2022 - 07/02/2022 Provider: JULIO C BAUTISTA MD Diagnosis: One tablet daily Last Documented On 01/08/2023 5:39PM By Aviva Bautista MD ; [facility] Lexapro 5 MG OR TABS 04/26/2022 - 07/02/2022 Provider: Diagnosis: Take one tab by mouth every day Last Documented On 01/08/2023 5:39PM By EMELY LAGUERRE ; [facility] Lexapro 5 MG OR TABS 04/26/2022 - 07/02/2022 Provider: JULIO C BAUTISTA MD Diagnosis: TAKE 1 TABLET BY MOUTH EVERY DAY Last Documented On 01/08/2023 5:39PM By Aviva Bautista MD ; [facility] Lexapro 5 MG OR TABS 04/21/2022 - 04/26/2022 Provider: JULIO C BAUTISTA MD Diagnosis: Generalized anxi ety disorder TAKE 1 TABLET BY MOUTH EVERY DAY Last Documented On 01/08/2023 5:39PM By Aviva Bautista MD ; [facility] Vyvanse 20 MG OR CAPS 04/05/2022 - 05/28/2022 Provider: JULIO C BAUTISTA MD Diagnosis: Attn-defct hyper activity disorder, predom inattentive type 1 Capsule every morning Last Documented On 01/08/2023 5:39PM By Aviva Bautista MD ; [facility] Escitalopram Oxalate 5 MG OR TABS 03/25/2022 - 04/21/2022 Provider: JULIO C BAUTISTA MD Diagnosis: Generalized anxi ety disorder One tablet daily Last Documented On 01/08/2023 5:39PM By Aviva Bautista MD ; [facility] Vyvanse 20 MG OR CAPS 03/10/2022 - 04/05/2022 Provider: JULIO C BAUTISTA MD Diagnosis: Attn-defct hyper activity disorder, predom inattentive type 1 Capsule every morning Last Documented On 01/08/2023 5:39PM By Aviva Bautista MD ; [facility] Ramelteon 8 MG OR TABS 03/10/2022 - 07/02/2022 Provider: JULIO C BAUTISTA MD Diagnosis: Psychophysiologi c insomnia as directed -- 1 tab at bedt marsha as needed for sleep Last Documented On 01/08/2023 5:39PM By Aviva Bautista MD ; [facility] clonazePAM 0.5 MG OR TABS 03/10/2022 - 04/09/2022 Provider: JULIO C BAUTISTA MD Diagnosis: Generalized anxi ety disorder as directed -- 1/2 - 1 tab a day as needed for severe panic/anxiety Last Documented On 01/08/2023 5:39PM By Aviva Bautista MD ; [facility] hydrOXYzine HCl 25 MG OR TABS 03/01/2022 - 03/10/2022 Provider: JULIO C BAUTISTA MD Diagnosis: Generalized anxi ety disorder TAKE 1/2 TO 1 TABLET BY MOUT H ONCE A DAY NEEDED FOR ANXIETY/PANIC DIRECTED Last Documented On 01/08/2023 5:39PM By Aviva Bautista MD ; [facility] traZODone HCl 50 MG OR TABS 02/23/2022 - 07/02/2022 Provider: JULIO C BAUTISTA MD Diagnosis: Psychophysiologi c insomnia TAKE ONE-HALF TO 1 TABLET BY MOUTH AT BEDTIME NEEDED FOR SLEEP/ANXIETY/RACING THOUGHTS Last Documented On 01/08/2023 5:39PM By Aviva Bautista MD ; [facility] hydrOXYzine HCl 25 MG OR TABS 02/04/2022 - 03/01/2022 Provider: JULIO C BAUTISTA MD Diagnosis: Generalized anxi ety disorder as directed -- 1/2 - 1 tab a day as needed for anxiety/panic Last Documented On 01/08/2023 5:39PM By Aviva Bautista MD ; [facility] Escitalopram Oxalate 5 MG OR TABS 02/04/2022 - 07/02/2022 Provider: JULIO C BAUTISTA MD Diagnosis: Generalized anxi ety disorder as directed - 1 tab a day Last Documented On 01/08/2023 5:39PM By Aviva Bautista MD ; [facility] FLUoxetine HCl 10 MG OR TABS 02/04/2022 - 05/24/2022 Provider: JULIO C BAUTISTA MD Diagnosis: Major depressive disorder, recurrent, unspecified TAKE 1 TABLET BY MOUTH EVERY DAY IN THE MORNING Last Documented On 01/08/2023 5:39PM By Aviva Bautista MD ; [facility] traZODone HCl 50 MG OR TABS 02/01/2022 - 02/23/2022 Provider: JULIO C BAUTISTA MD Diagnosis: Psychophysiologi c insomnia TAKE ONE-HALF TO 1 TABLET BY MOUTH AT BEDTIME NEEDED FOR SLEEP/ANXIETY/RACING THOUGHTS Last Documented On 01/08/2023 5:39PM By Aviva Bautista MD ; [facility] FLUoxetine HCl 10 MG OR TABS 01/29/2022 - 02/04/2022 Provider: JULIO C BAUTISTA MD Diagnosis: Major depressive disorder, recurrent, unspecified TAKE 1 TABLET BY MOUTH EVERY DAY IN THE MORNING Last Documented On 01/08/2023 5:39PM By Aviva Bautista MD ; [facility] traZODone HCl 50 MG OR TABS 01/08/2022 - 02/01/2022 Provider: JULIO C BAUTISTA MD Diagnosis: Psychophysiologi c insomnia as directed -- 1/2 - 1 tab a t bedtime as needed for sleep/anxiety/racing thoughts Last Documented On 01/08/2023 5:39PM By Aviva Bautista MD ; [facility] FLUoxetine HCl 10 MG OR TABS 01/06/2022 - 01/29/2022 Provider: JULIO C BAUTISTA MD Diagnosis: Major depressive disorder, recurrent, unspecified TAKE 1 TABLET BY MOUTH EVERY MORNING Last Documented On 01/08/2023 5:39PM By Aviva Bautista MD ; [facility] FLUoxetine HCl 10 MG OR TABS 12/10/2021 - 01/06/2022 Provider: JULIO C BAUTISTA MD Diagnosis: Major depressive disorder, recurrent, unspecified 1 tablet every morning Last Documented On 01/08/2023 5:39PM By Aviva Bautista MD ; [facility] Cymbalta 20 MG OR CPEP 12/07/2021 - 02/04/2022 Provider: JULIO C BAUTISTA MD Diagnosis: Major depressive disorder, recurrent, unspecified 1 capsule daily Last Documented On 01/08/2023 5:39PM By Aviva Bautista MD ; [facility] Mucinex D 60-600 MG OR TB12 12/07/2021 - 05/11/2022 Pr ovider: Diagnosis: prn Last Documented On 01/08/2023 5:39PM By EMELY LAGUERRE ; [facility] Famotidine 20 MG OR TABS 12/07/2021 - 10/04/2022 Pr ovider: Diagnosis: 1 and 1/2 tabs bid Last Documented On 01/08/2023 5:39PM By EMELY LAGUERRE ; [facility] Focalin 10 MG OR TABS 12/07/2021 - 01/06/2022 Provider: JULIO C BAUTISTA MD Diagnosis: Attn-defct hyper activity disorder, predom inattentive type as directed 1/2 tab in am fo r 1 week then if tolerated may increase to 1 tab in am therafter Last Documented On 01/08/2023 5:39PM By Aviva Bautista MD ; [facility] Lexapro 20 MG OR TABS 11/28/2021 - 07/02/2022 Provider : Diagnosis: 1 tab daily Last Documented On 01/08/2023 5:39PM By EMELY LAGUERRE ; [facility] Sucralfate 1 GM OR TABS 11/16/2021 - 02/07/2024 Provid er: Diagnosis: 1 tab qid Last Documented On 02/07/2024 4:55PM By EMELY LAGUERRE ; [facility] Medications Administered Includes: Administered Medications in patient's chart No Administered Medications Recorded Vital Signs Includes: Vital Signs from 10/04/2023 through 10/04/2024 Vital Name 02/07/2024 05:06P 10/31/2023 04: 30P Blood Pressure Sitting L 122/78 128/80 BP Cuff Size Regular Regular Pulse Rate-Sitting (bpm) 78 74 Pulse Rhythm Regular Regular Height (in) 66 66 Weight (lb) 126 127 Body Mass Index 20.3 20.5 Body Surface Area 1.6 1.6 Note: self reported vitals self report ed vitals Last Documented: On 02/07/2024 5:07PM ; [facility] On 10/31/2023 4:30PM ; [facility] Results Includes: Results from 10/04/2023 through 10/04/2024 No Results Recorded For Specified Dates History of Present Illness History of Present Illness not supported for this document type No History of Present Illness Recorded Social History Description Last Updated Tobacco non-user 02/07/2024 Last Documented On 10:59AM ; [facility] Smoking Status Unknown Procedures and Surgical History Includes: Procedures from 10/04/2023 through 10/04/2024 Procedures Code Diagnosis Performing Provider Service Location Service Date PSYCHOTHERAPY 30 MIN W/ [place] [id number] Major depressive disorder, recurrent, mild, Attn-defct hyperactivity disorder, predom inattentive type, Generalized anxiety disorder, Panic disorder [episodic paroxysmal anxiety] JULIO C BAUTISTA MD [facility] 02/07/2024 Last Documented On 4 10:14AM ; [facility] PSYCHOTHERAPY 30 MIN W/ [place] [id number] Major depressive disorder, recurrent, mild, Attn-defct hyperactivity disorder, predom inattentive type, Generalized anxiety disorder, Panic disorder [episodic paroxysmal anxiety] JULIO C BAUTISTA MD [facility] 10/31/2023 Last Documented On 4 5:08PM ; [facility] Medical History Includes: Medical History in patient's chart No Medical History Recorded Family History Includes: Family History in patient's chart No Family History Recorded Review of Systems Review of Systems not supported for this document type No Review of Systems Recorded Mental Status Description Major depressive disorder Functional Status No Functional Status Recorded Physical Exam Physical Exam not supported for this document type No Physical Exam Recorded Allergies Includes: Active, inactive, and resolved Allergies Substance Type Reaction Onset Date Resolved Date Statu s GLUTEN Allergy 02/24/2023 Active Last Documented On 4 4:53PM ; [facility] Anaprox Allergy 12/07/2021 Active Last Documented On 4 4:53PM ; [facility] Note: Imported from external source. Encounters Includes: Encounters from 10/04/2023 through 10/04/2024 Encounter Provider Location Date Check-In Time Check-Out Time Diagnosis TELEHEALTH ADULT PSYCH ESTABLISHED JULIO C BAUTISTA MD [facility] 4:48PM 11:59PM Attention-defici t Hyperactivity Disorder,General ized Anxiety Disorder,Psychop hysiological Insomnia,Panic Disorder,Major Depression,Nonor ganic Sleep Apnea Obstructive TELEHEALTH ADULT PSYCH ESTABLISHED JULIO C BAUTISTA MD [facility] 4:10PM 11:59PM Attention-defici t Hyperactivity Disorder,General ized Anxiety Disorder,Psychop hysiological Insomnia,Panic Disorder,Major Depression Insurance Includes: Active Insurance Policies Plan Name Member ID Group # Subscriber Relationship Effect jose l Dates 1 - [employer] [id number] GEORGINA FERNÁNDEZ Self Clinical Notes Includes: Signed Clinical Notes starting from 10/01/2022 * Progress note Date Encounter Last Documented by 02/07/2024 TELEHEALTH ADULT PSYCH ESTABLISH ED Last documented on 02/11/2024; 10:59 AM, JULIO C BAUTISTA MD; [facility] Top of Document Medication psychotherapy [...] Primary Care Provider: Dr. Rossana Galicia -- Civil Designer Dr. Yajaira Sandhu -- Telecommunications Switch Technician Dr. Nas Coto -- ENT/SleepD Dr Abernathy [...] unable to complete her sleep study at [facility] Sinus infection: given Cefuroxime 500 mg [...] Use: Not using drugs. 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 - Patient was born and raised in [place], [place]. Both parents are . She was [...] in nursing. 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 Patient is heterosexual and denied any history of sexual dysfunction. She has no past or pending legal history. She enjoys being outdoors with horses. Her sabianism background is Sabianist. She follows a gluten free diet. Allergies [...] Clinical summary provided to patient. * Call [phone] and /or go to the nearest emergency [...] see above for treatment and PHQ score. * Progress note Date Encounter Last Documented by 10/31/2023 TELEHEALTH ADULT PSYCH ESTABLISH ED Last documented on 11/23/2023; 9:08 AM, JULIO C BAUTISTA MD; [facility] Top of Document Medication psychotherapy 30 minutes Patient gave verbal consent for Telehealth 10/31/23. Location of patient: patient's home Location of provider: provider's office Patient was alone for the session. This visit was conducted with use of interactive audio and video telecommunication system with real time communication between the patient and the provider. Patient consent for virtual visit obtained today. Total time spent with patient via audio and video telecommunication 30 minutes. Active Problems & Conditions - Attention-deficit Hyperactivity Disorder - Generalized Anxiety Disorder - Major Depression - Panic Disorder - Psychophysiological Insomnia Chief Complaint The Chief Complaint is: Follow up for depression, anxiety, hard to concentrate, easily distracted, brain zap from Lexapro. History of Present Illness GEORGINA FERNÁNDEZ is a 63 year old female. - Allergy list reviewed - Past medical history reviewed - Medication list reviewed Georgina reported that she seemed to be doing better. She has not been as down; however, she seemed to be stressed or overwhelmed lately because she had to take care of her 2 older sisters. Once sister who is 75 years old lives in [place] and only has one kidney but now this sister of hers has cancer of that kidney. She said that her 75 year old sister has a son who was taking care of her; however, her son moved out of replaced by [facility] and so from time to time Georgina had to fly to [place] to help out. Fortunately, her sister has a caregiver that help her once she gets discharged from rehab facility. She has an 80 year old oldest sister who has also been having some health issues. She said that she had to take ?? tablet of the 2 mg of Diazepam when she traveled to [place] just to help calm her down but otherwise, she has not been using much of the Diazepam. There are days that she may be tired and not as motivated because of her hip pain which at times would disrupt her sleep but overall she is getting at least 6 hours of sleep. Appetite is somewhat down. She denied feeling bad about herself. She is able to focus and concentrate better with the Vyvanse 25 mg in the morning. She tends to open the capsule of the 30 mg just to get the 25 mg but she was wondering if she can just have the 40 mg so that she can have a better partition of the 25 mg. She also needed the Dyanavel XR in the afternoon as a backup so she takes the 10 mg half tablet in the morning and half tablet at noon for better tolerability. She said that she really likes the Dyanavel XR since it has a smoother flow when taking it and it is not really affecting her sleep. The Fluoxetine 10 mg 1 ?? tablets a day seems to help with her symptoms of depression. She has not been as down. She denied having any crying spells. She has not needed the Modafinil anymore since she is on Dyanavel XR. She wears her CPAP for her sleep apnea. She is still able to go to work and is able to deal with the stress at work. Occasionally, she may get restless. She denied having any suicidal thoughts. no delusions or hallucinations. She denied having any significant anxiety. She denied having any mood swings. She was just stricken with sinus infection earlier in October and had to be placed on antibiotics. As far as her hip pain, she is supposed to start physical therapy in a few weeks. She sees Dr. Anupam Galicia as her skilled nursing facilities professional. As far as her mood, she is not as down but gets stressed or overwhelmed since she had to attend to her older sisters due to their health issues. MENTAL STATUS EXAM: Sensorium - alert, oriented to name, place, and time Attitude - cooperative Gait - ambulatory Sleep - at times has trouble falling asleep Interest/Energy/Motivation - some days she is tired or not as motivated but is able to deal with things Guilt/Worthlessness - absent Concentration/Attention Span - able to focus and concentrate better with medications Memory Recall - fairly good Appetite - somewhat down - on 07/27/23 pt weighed 126 lbs and on 10/31/23 she weighed 127 lbs so she gained 1 lb Suicidal Thoughts - absent Homicidal Thoughts - absent Delusions - absent Hallucinations - absent Appearance - casually groomed Motor Behavior - calm Eye Contact - intermittent Speech - fluent Mood - not depressed Affect - at times anxious Thought Process - coherent Insight and Judgment [...] - FLUoxetine HCl 10 MG Oral Tablet TAKE 1 TABLET BY MOUTH EVERY DAY IN THE MORNING, 90 days, 1 refills - Hydroxychloroquine Sulfate 200 MG Tablet as directed [address]Terry Galicia, 90 days, 0 refills - Modafinil 100 MG Tablet as directed as directed -- 1 tab in am, 30 days, 2 refills - Pantoprazole Sodium 40 MG Oral Tablet Delayed Release as directed 1 tab in the afternoon, 15 days, 0 refills - Sucralfate 1 GM Tablet as directed 1 tab qid, 30 days, 0 refills - traMADol HCl 50 MG Tablet as directed, 7 days, 0 refills - Vyvanse 20 MG Oral Capsule 1 Capsule every morning, 30 days, 0 refills - Vyvanse 30 MG Oral Capsule 1 Capsule every morning, 30 days, 0 refills - - No side effects reported Past Medical/Surgical History Primary Care Provider: Dr. Rossana Galicia -- Civil Designer Dr. Yajaira Sandhu -- Telecommunications Switch Technician Dr. Nas Coto -- ENT/Sleep Diagnoses: Conjunctivitis - uses Ciprofloxacin 0.3% eye [...] unable to complete her sleep study at [facility] Sinus infection: given Cefuroxime 500 mg 10/20/23 and given Augumentin 875 mg and Methylprednisolone Dosepak 4 mg 09/19/23; given Amoxil 500 mg 02/28/23 and 02/24/23 Red spotted rash -- given Clotrimazole Bethamethasone cream 09/26/22 Hip pain -- uses Flexeril 10 mg which she breaks in pieces Procedural: - Coronavirus 2019-nCoV vaccine - Moderna #1 10/09/20 #2 11/06/20 #3 09/11/21 - Colonoscopy - 04/26/22 Surgical: - Tubal ligation - 2000 - Hallux valgus (bunion) correction - of left great toe -- 2003 and right great toe on 05/03/23 * CTS -- 07/21/23 of the left hand User Defined 4 PREVIOUS PSYCHIATRIC HOSPITALIZATIONS: none [...] she felt a crash after 2 hours Dyanavel -- did not help 03/2023 - had palpitations Modafinil 100 mg -- does not take since she now takes Dyanavel XR 10 mg -- 10/2023 Social History Tobacco use: Tobacco non-user. Caffeine use: Daily coffee consumption - one cup of coffee daily, an occasional glass of tea daily, and does not drink soda. Alcohol: Not using alcohol. Drug Use: Not using drugs. 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 - Patient was born and raised in [place], [place]. Both parents are . She was [...] in nursing. 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 Patient is heterosexual and denied any history of sexual dysfunction. She has no past or pending legal history. She enjoys being outdoors with horses. Her sabianism background is Sabianist. She follows a gluten free diet. Allergies - Anaprox - GLUTEN Family History Paternal: Alcohol abuse - father Depression, Bipolar disorder - father Fraternal: Alcohol abuse - brothers, one brother has h/o bipolar disorder Sororal: Depression - 2 sisters Suicide attempt - one of her sisters Review Of Systems Systemic: Systemic symptoms. Not feeling poorly (malaise). No fever, no chills, and no night sweats. Head: No headache. Sinus pain. Neck: Neck pain and neck stiffness. Eyes: Vision problems. No itching of the eyes and no eye pain. Otolaryngeal: No hearing loss, no earache, no nasal discharge, no hoarseness, and no sore throat. Cardiovascular: No chest pain or discomfort. Palpitations and fast heart rate. Pulmonary: No dyspnea, no cough, and no wheezing. Gastrointestinal: No heartburn. Nausea. No vomiting, no diarrhea, and no constipation. Genitourinary: No increase in urinary frequency. No dysuria. Endocrine: No polydipsia and no excessive sweating. Musculoskeletal: No muscle aches, no localized joint pain, and no localized joint stiffness. Neurological: No dizziness, no vertigo, no fainting, and no motor disturbances. Skin: Skin symptoms. No pruritus. No skin lesions and no rash. Physical Findings - Vitals taken 10/31/2023 04:30 pm self reported vitals BP-Sitting L 128/80 mmHg BP Cuff Size Regular Pulse Rate-Sitting 74 bpm Pulse Rhythm Regular Height 66 in Weight 127 lbs Body Mass Index 20.5 kg/m2 Body Surface Area 1.6 m2 Tests Educational Testing: Questionnaires PHQ-9: Value PHQ-9: total score 7 Assessment - Attention-deficit hyperactivity disorder - Major depressive disorder - Psychophysiological insomnia - Generalized anxiety disorder - Panic disorder Therapy - Dangerousness assessment: no suicide risk. - Supportive care and encouragement--given positive reinforcement to keep patient motivated and active. - Encouragement to exercise - balanced meal plan, low fat low carb diet. - Education and instructions. - Assessment of suicide risk performed - not suicidal - Clinical summary provided to patient. * Call [phone] and /or go to the nearest emergency room or call me if suicidal/homicidal ideation or other serious concerns arise. * I gave instructions to call me should there be any questions or concerns. * Patient voiced understanding and agreed to treatment plan. Plan StartCited - Attention-deficit hyperactivity disorder, unspecified type Dyanavel XR 10 MG tablet 1 tablet every morning, 30 days, 0 refills EndCited StartCited - Attn-defct hyperactivity disorder, predom inattentive type Vyvanse 40 MG capsule 1 Capsule every morning, 30 days, 0 refills EndCited StartCited - Major depressive disorder, recurrent, mild FLUoxetine HCl 10 MG tablet as directed - 1 and 1 /2 tab in am, 90 days, 1 refills EndCited StartCited - Other Follow-up 02/07/24 EndCited Major depressive disorder - Fluoxetine 10 [...] this for awhile Attention Deficit Disorder - Vyvanse 40 mg in am (takes 25 mg in am), Dyanavel 10 mg 1/2 tab at 10 am, 1/2 tab at noon or 1 pm for better tolerability WES - wears CPAP mask (through [employer]) which has helped improve mental alertness- Modafinil 50 mg in am is pt has not been taking this Psychophysiological Insomnia - good sleep hygiene habits, [...]
--- OUTSIDE RECORDS SUMMARY | 2024-10-04 07:37 | XMS_ITS | Clinical Summary ---
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 Role Phone DEREJE ROSADO, JULIO C PHILLIP Unavailable [phone] Reason for Visit and Chief Complaint * PHONE CALL Problems Includes: Problems addressed during this encounter and other active Problems Current Visit Onset Date Resolved Date Provider Conditio n Status Attention-deficit Hyperactiv ity Disorder 12/07/2021 Active Last Documented On 3 5:53PM ; [facility] Past Visits Onset Date Resolved Date Provider Condition Status 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 JULIO C BAUTISTA MD Active Last Documented On 4 5:43PM ; [facility] Panic Disorder 09/12/2022 Active Last Documented On 3 5:53PM ; [facility] Generalized Anxiety Disorder 12/07/2021 Active Last Documented On 3 5:53PM ; [facility] Psychophysiological Insomnia 12/07/2021 Active Last Documented On 3 5:53PM ; [facility] Major Depression 12/07/2021 Active Last Documented On 3 5:53PM ; [facility] Plan of Treatment Future Appointments Date Time Location Provi vickie [facility] ESTABLISHED 11/09/2024 3:40PM [facility]DAQUAN BAUTISTA MD Last Documented On 4 5:46PM ; [facility] Assessments Includes: Assessments from this encounter Findings - Attention-deficit hyperactivity disorder - Last Documented On 08/26/2023 11:36AM ; [facility] Medical Equipment - Implanted Devices Includes: Current Devices No Medical Equipment Recorded Medications Includes: Medications discussed during this encounter and other current Medications New / Renewed during this visit JULIO C BAUTISTA MD on 08/26/2023 Vyvanse 30 MG Oral Capsule Provider: JULIO C BAUTISTA MD 30 day supply: 30 capsule, 0 refills Diagnosis: Attn-defct hyperactivity disorder, predom inattentive type 1 Capsule every morning Pharmacy: [address], [id number] - Last Documented On 10/10/2023 10:15AM By Aviva Bautista MD ; [facility] Current Medications (continue as prescribed) Vyvanse 40 MG Oral Capsule 02/29/2024 Provider: JULIO C BAUTISTA MD Diagnosis: Attn-defct hyper activity disorder, predom inattentive type 1 Capsule every morning Last Documented On 02/29/2024 3:13PM By Aviva Bautista MD ; [facility] Jornay PM 20 MG Oral Capsule Extended Release 24 Hour 02/07/2024 Provider: JULIO C BAUTISTA MD Diagnosis: Attn-defct hyper activity disorder, predom inattentive type as directed - 1 capsule at 7 pm Last Documented On 02/07/2024 6:22PM By Aviva Bautista MD ; [facility] Sunosi 75 MG Oral Tablet 02/07/2024 Provider: MET VINH BAUTISTA MD Diagnosis: Obstructive slee p apnea (adult) (pediatric) 1 tablet every morning Last Documented On 02/07/2024 6:04PM By Aviva Bautista MD ; [facility] Pantoprazole Sodium 40 MG Or al Tablet Delayed Release 01/09/2024 Provider: AIDEN LYN MD Diagnosis: 1 tab daily Last Documented On 02/07/2024 5:02PM By EMELY LAGUERRE ; [facility] Dyanavel XR 10 MG Oral Tablet Chewable Extended Release 12/29/2023 Provider: JULIO C BAUTISTA MD Diagnosis: Attention-defici t hyperactivity disorder, unspecified type 1 tablet every morning Last Documented On 12/29/2023 10:28AM By Aviva Bautista MD ; [facility] prednisoLONE Acetate 1% Ophthalmic Suspension 12/29/19 Provider: Diagnosis: 1 drop 1-2 times daily for Sjorgen's Last Documented On 02/07/2024 5:04PM By EMELY LAGUERRE ; [facility] Tobramycin-dexAMETHasone 0.3-0.1% Ophthalmic Suspensio n 12/26/2023 Provider: Diagnosis: 1 drop in each eye as needed for Sjorgren's Last Documented On 02/07/2024 5:04PM By EMELY LAGUERRE ; [facility] FLUoxetine HCl 10 MG Oral Tablet 10/31/2023 Provider: JULIO C BAUTISTA MD Diagnosis: Major depressive disorder, recurrent, mild as directed - 1 and 1 /2 tab in am Last Documented On 10/31/2023 5:07PM By Aviva Bautista MD ; [facility] Famotidine 10 MG Oral Tablet 10/31/2023 Provider: Diagnosis: 1 tab in the morning Last Documented On 10/31/2023 4:27PM By EMELY LAGUERRE ; [facility] Vyvanse 30 MG Oral Capsule 10/10/2023 Provider: JULIO C BAUTISTA MD Diagnosis: Attn-defct hyper activity disorder, predom inattentive type 1 Capsule every morning Last Documented On 10/10/2023 10:18AM By Aviva Bautista MD ; [facility] Estradiol 0.1 MG/GM Vaginal Cream 10/03/2023 Provide r: NUBIA KEY MD Diagnosis: use weekly Last Documented On 10/31/2023 4:26PM By EMELY LAGUERRE ; [facility] diazePAM 2 MG Oral Tablet 09/30/2023 Provider: ME PATTIE BAUTISTA MD Diagnosis: Panic disorder [ episodic paroxysmal anxiety] as directed -- 1/2 - 1 tab a day as needed for panic/anxiety Last Documented On 09/30/2023 5:41PM By Aviva Bautista MD ; [facility] Dyanavel XR 10 MG Oral Tablet Chewable Extended Release 09/19/2023 Provider: JULIO C BAUTISTA MD Diagnosis: Attention-defici t hyperactivity disorder, unspecified type 1 tab in the morning Last Documented On 09/19/2023 3:17PM By JACKIE KELLY ; [facility] Dyanavel XR 5 MG Oral Tablet Chewable Extended Release 08/30/2023 Provider: JULIO C BAUTISTA MD Diagnosis: Attn-defct hyper activity disorder, predom inattentive type 1 tablet every morning Last Documented On 08/30/2023 11:07AM By Aviva Bautista MD ; [facility] Cyclobenzaprine HCl 10 MG Oral Tablet 08/26/2023 Pro vider: NUBIA KEY MD Diagnosis: use prn (breaks in pieces) Last Documented On 10/31/2023 4:26PM By EMELY LAGUERRE ; [facility] Vyvanse 20 MG Oral Capsule 08/22/2023 Provider: JULIO C BAUTISTA MD Diagnosis: Attn-defct hyper activity disorder, predom inattentive type 1 Capsule every morning Last Documented On 08/22/2023 12:53PM By Aviva Bautista MD ; [facility] Modafinil 100 MG OR TABS 12/17/2022 Provider: MET VINH BAUTISTA MD Diagnosis: Attn-defct hyper activity disorder, predom inattentive type as directed -- 1 tab in am Last Documented On 01/08/2023 5:39PM By Aviva Bautista MD ; [facility] traMADol HCl 50 MG OR TABS 09/17/2022 Provider: Diagnosis: as directed Last Documented On 01/08/2023 5:39PM By EMELY LAGUERRE ; [facility] Cholestyramine 4 GM OR PACK 03/16/2022 Provider: Diagnosis: 1 packet bid Last Documented On 01/08/2023 5:39PM By EMELY LAGUERRE ; [facility] Cevimeline HCl 30 MG OR CAPS 10/26/2021 Provider: Diagnosis: [address] Nubia Key Last Documented On 01/08/2023 5:39PM By EMELY LAGUERRE ; [facility] Hydroxychloroquine Sulfate 200 MG OR TABS 10/02/2021 Provider: Diagnosis: [address]Terry Galicia Last Documented On 01/08/2023 5:39PM By EMELY LAGUERRE ; [facility] Past Medications on file Sucralfate 1 GM Oral Tablet 02/07/2024 - 03/08/2024 Pr ovider: Diagnosis: 1 tab qd to bid Last Documented On 02/07/2024 4:55PM By EMELY LAGUERRE ; [facility] Pantoprazole Sodium 40 MG Or al Tablet Delayed Release 10/31/2023 - 11/15/2023 Provider: Diagnosis: 1 tab in the afternoon Last Documented On 10/31/2023 4:15PM By EMELY LAGUERRE ; [facility] Focalin XR 10 MG Oral Capsule Extended Release 24 Hour 06/17/2023 - 07/17/2023 Provider: JULI OC BAUTISTA MD Diagnosis: Attn-defct hyper activity disorder, predom inattentive type 1 Capsule every morning Last Documented On 06/17/2023 10:26AM By Aviva Bautista MD ; [facility] Focalin XR 5 MG Oral Capsule Extended Release 24 Hour 02/01/2023 - 03/03/2023 Provider: JULIO C BAUTISTA MD Diagnosis: Attn-defct hyper activity disorder, predom inattentive type 1 Capsule every morning Last Documented On 02/01/2023 6:19PM By Aviva Bautista MD ; [facility] FLUoxetine HCl 10 MG Oral Tablet 01/13/2023 - 03/14/2023 Provider: JULIO C BAUTISTA MD Diagnosis: Major depressive disorder, recurrent, unspecified 1 tablet every morning Last Documented On 01/13/2023 3:33PM By Aviva Bautista MD ; [facility] Azstarys 26.1-5.2 MG OR CAPS 11/19/2022 - 12/19/2022 Provider: JULIO C BAUTISTA MD Diagnosis: Attn-defct hyper activity disorder, predom inattentive type 1 Capsule every morning Last Documented On 01/08/2023 5:39PM By Aviva Bautista MD ; [facility] clonazePAM 0.5 MG OR TABS 03/10/2022 - 04/09/2022 Provider: JULIO C BAUTISTA MD Diagnosis: Generalized anxi ety disorder as directed -- 1/2 - 1 tab a day as needed for severe panic/anxiety Last Documented On 01/08/2023 5:39PM By Aviva Bautista MD ; [facility] Focalin 10 MG OR TABS 12/07/2021 - 01/06/2022 Provider: JULIO C BAUTISTA MD Diagnosis: Attn-defct hyper activity disorder, predom inattentive type as directed 1/2 tab in am fo r 1 week then if tolerated may increase to 1 tab in am therafter Last Documented On 01/08/2023 5:39PM By Aviva Bautista MD ; [facility] Medications Administered Includes: Administered Medications from this encounter No Administered Medications Recorded Results Includes: Results discussed during this encounter No Results Recorded For Specified Dates History of Present Illness Includes: History of Present Illness from this encounter No History of Present Illness Recorded Social History No Social History Recorded - Smoking Status Unknown Medical History Includes: Medical History addressed during this encounter No Medical History Recorded Family History Includes: Family History addressed during this encounter No Family History Recorded Review of Systems Includes: Review of Systems from this encounter No Review of Systems Recorded Mental Status Includes: Mental Status from this encounter No Mental Status Recorded Functional Status Includes: Functional Status from this encounter No Functional Status Recorded Physical Exam Includes: Physical Exam from this encounter No Physical Exam Recorded Allergies Includes: Active Allergies Substance Type Reaction Onset Date Resolved Date Statu s GLUTEN Allergy 02/24/2023 Active Last Documented On 4 4:53PM ; [facility] Anaprox Allergy 12/07/2021 Active Last Documented On 4 4:53PM ; [facility] Note: Imported from external source. Encounters Encounter Provider Location Date Check-In Time Check-Out Time Diagnosis * PHONE CALL JULIO C BAUTISTA MD [facility] 08/26/20 10:40AM 11:59PM Attention-defici t Hyperactivity Disorder Insurance Includes: Active Insurance Policies Plan Name Member ID Group # Subscriber Relationship Effect jose l Dates 1 - [employer] [id number] GARFIELD FERNÁNDEZ Self Clinical Notes Includes: Clinical Notes from this encounter * Progress note Date Encounter Last Documented by 08/26/2023 * PHONE CALL Last documented on 08/26/2023; 11:36 AM, JULIO C BAUTISTA MD; [facility] Active Problems & Conditions - Attention-deficit Hyperactivity Disorder - Generalized Anxiety Disorder - Major Depression - Panic Disorder - Psychophysiological Insomnia Chief Complaint Phone Call - Chief Concern: reason for call: Patient calling. She said her pharmacy is out of the Vyvanse 20 mg and since she is taking 25 mg at times anyway, she wants to know if the dose can just be increased to Vyvanse 30 mg which her normal [facility] has in stock. pt phone # for return call: [phone] date/initials: 08/26/23 bk Current Medication - Cevimeline HCl 30 MG Capsule as directed [address] Nubia Key, 90 days, 0 refills - Cholestyramine 4 GM Packet as directed 1 packet bid, 90 days, 0 refills - Dyanavel XR 5 MG Oral Tablet Chewable Extended Release 1 tablet every morning, 30 days, 0 refills - FLUoxetine HCl 10 MG Oral Tablet TAKE 1 TABLET BY MOUTH EVERY DAY IN THE MORNING, 90 days, 1 refills - Hydroxychloroquine Sulfate 200 MG Tablet as directed [address]Terry Galicia, 90 days, 0 refills - Modafinil 100 MG Tablet as directed as directed -- 1 tab in am, 30 days, 2 refills - Pantoprazole Sodium 40 MG Tablet Delayed Release as directed 1 tab bid, 15 days, 0 refills - Sucralfate 1 GM Tablet as directed 1 tab qid, 30 days, 0 refills - traMADol HCl 50 MG Tablet as directed, 7 days, 0 refills - Vyvanse 20 MG Oral Capsule 1 Capsule every morning, 30 days, 0 refills User Defined 4 PREVIOUS PSYCHIATRIC HOSPITALIZATIONS: none [...] did not help 03/2023 - had palpitations Allergies - Anaprox - GLUTEN Assessment - Attention-deficit hyperactivity disorder Plan StartCited - Attn-defct hyperactivity disorder, predom inattentive type Vyvanse 30 MG capsule 1 Capsule every morning, 30 days, 0 refills EndCited StartCited - Other PHY ORDER/COMMENT Let her know that her Vyvanse 30 mg in am has been escribed. EndCited
--- OUTSIDE RECORDS SUMMARY | 2024-10-04 07:37 | XMS_ITS ---
Care Plan - [facility] Created on: October 04, 2024 GARFIELD FERNÁNDEZ : 1960 Sex: Female Author Organization 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
--- OUTSIDE RECORDS SUMMARY | 2024-10-04 07:37 | XMS_ITS | Clinical Summary ---
Author Organization [facility] Address [address] [place] [address] Phone Care Team Providers Care Director Veterinary Name Role Phone DEREJE ROSADO, JULIO C PHILLIP Unavailable [phone] Reason for Visit and Chief Complaint The Chief Complaint is: Follow up for depression, anxiety, hard to concentrate, easily distracted, brain zap from Lexapro Problems Includes: Problems addressed during this encounter and other active Problems Current Visit Onset Date Resolved Date Provider Conditio n Status Panic Disorder 09/12/2022 Active Last Documented On 3 5:53PM ; [facility] Attention-deficit Hyperactivity Disorder 12/07/2021 Active Last Documented On 3 5:53PM ; [facility] Generalized Anxiety Disorder 12/07/2021 Active Last Documented On 3 5:53PM ; [facility] Psychophysiological Insomnia 12/07/2021 Active Last Documented On 3 5:53PM ; [facility] Major Depression 12/07/2021 Active Last Documented On 3 5:53PM ; [facility] Past Visits Onset Date Resolved Date Provider Condition Status 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 JULIO C BAUTISTA MD Active Last Documented On 4 5:43PM ; [facility] Plan of Treatment Major depressive disorder - [...] and cognitive issues - Last Documented On 11/23/2023 9:08AM ; [facility] Future Appointments Date Time Location Provi vickie TELEHEALTH ADULT PSYCH ESTABLISHED 11/09/2024 3:40PM [facility] JULIO C BAUTISTA MD Last Documented On 5:46PM ; [facility] Assessments Includes: Assessments from this encounter Findings - Attention-deficit hyperactivity disorder - Last Documented On 11/23/2023 9:08AM ; [facility] - Major depressive disorder - Last Documented On 11/23/2023 9:08AM ; [facility] - Psychophysiological insomnia - Last Documented On 11/23/2023 9:08AM ; [facility] - Generalized anxiety disorder - Last Documented On 11/23/2023 9:08AM ; [facility] - Panic disorder - Last Documented On 11/23/2023 9:08AM ; [facility] Medical Equipment - Implanted Devices Includes: Current Devices No Medical Equipment Recorded Medications Includes: Medications discussed during this encounter and other current Medications Discontinued / Stopped on this date JULIO C BAUTISTA MD on 09/21/2023 Dyanavel XR 10 MG Oral Tablet Chewable Extended Release Provider: JULIO C BAUTISTA MD Diagnosis: Attention-defici t hyperactivity disorder, unspecified type Last Documented On 10/31/2023 4:42PM By Aviva Bautista MD ; [facility] New / Renewed during this visit JULIO C BAUTISTA MD on 10/31/2023 Vyvanse 40 MG Oral Capsule Provider: JULIO C BAUTISTA MD 30 day supply: 30 capsule, 0 refills Diagnosis: Attn-defct hyperactivity disorder, predom inattentive type 1 Capsule every morning Pharmacy: [facility] - [address] [facility] [address] - Last Documented On 11/02/2023 11:29AM By Aviva Bautista MD ; [facility] Dyanavel XR 10 MG Oral Tablet Chewable Extended Release Provider: JULIO C BAUTISTA MD 30 day supply: 30 tablet, 0 refills Diagnosis: Attention-deficit hyperactivity disorder, unspecified type 1 tablet every morning Pharmacy: [facility] [address] [facility] [place] [address] - Last Documented On 12/29/2023 10:28AM By Aviva Bautista MD ; [facility] FLUoxetine HCl 10 MG Oral Tablet Provider: JULIO C BAUTISTA MD 90 day supply: 135 tablet, 1 refills Diagnosis: Major depressive disorder, recurrent, mild as directed - 1 and 1 /2 tab in am Pharmacy: [facility] [address] [facility] [facility] [place] [address] - Last Documented On 10/31/2023 5:07PM By Aviva Bautista MD ; [facility] Current Medications (continue as prescribed) Vyvanse 40 MG Oral Capsule 02/29/2024 Provider: JULIO C BAUTISTA MD Diagnosis: Attn-defct hyper activity disorder, predom inattentive type 1 Capsule every morning Last Documented On 02/29/2024 3:13PM By Aviva Bautista MD ; [facility] Jopavan PM 20 MG Oral Capsule Extended Release 24 Hour 02/07/2024 Provider: JULIO C BAUTISTA MD Diagnosis: Attn-defct hyper activity disorder, predom inattentive type as directed - 1 capsule at 7 pm Last Documented On 02/07/2024 6:22PM By Aviva Bautista MD ; [facility] Sunosi 75 MG Oral Tablet 02/07/2024 Provider: MET VINH BAUTISTA MD Diagnosis: Obstructive slee p apnea (adult) (pediatric) 1 tablet every morning Last Documented On 02/07/2024 6:04PM By Aviva Bautista MD ; [facility] Pantoprazole Sodium 40 MG Or al Tablet Delayed Release 01/09/2024 Provider: YAJAIRA SANDHU MD Diagnosis: 1 tab daily Last Documented On 02/07/2024 5:02PM By EMELY LAGUERRE ; [facility] Dyanavel XR 10 MG Oral Tablet Chewable Extended Release 12/29/2023 Provider: JULIO C BAUTISTA MD Diagnosis: Attention-defici t hyperactivity disorder, unspecified type 1 tablet every morning Last Documented On 12/29/2023 10:28AM By Aviva Bautista MD ; [facility] prednisoLONE Acetate 1% Ophthalmic Suspension 12/29/19 Provider: Diagnosis: 1 drop 1-2 times daily for Sjorgen's Last Documented On 02/07/2024 5:04PM By EMELY LAGUERRE ; [facility] Tobramycin-dexAMETHasone 0.3-0.1% Ophthalmic Suspensio n 12/26/2023 Provider: Diagnosis: 1 drop in each eye as needed for Sjorgren's Last Documented On 02/07/2024 5:04PM By EMELY LAGUERRE ; [facility] Famotidine 10 MG Oral Tablet 10/31/2023 Provider: Diagnosis: 1 tab in the morning Last Documented On 10/31/2023 4:27PM By EMELY LAGUERRE ; [facility] Vyvanse 30 MG Oral Capsule 10/10/2023 Provider: JULIO C BAUTISTA MD Diagnosis: Attn-defct hyper activity disorder, predom inattentive type 1 Capsule every morning Last Documented On 10/10/2023 10:18AM By Aviva Bautista MD ; [facility] Estradiol 0.1 MG/GM Vaginal Cream 10/03/2023 Provide r: ROSSANA KEY MD Diagnosis: use weekly Last Documented On 10/31/2023 4:26PM By EMELY LAGUERRE ; [facility] diazePAM 2 MG Oral Tablet 09/30/2023 Provider: ME PATTIE BAUTISTA MD Diagnosis: Panic disorder [ episodic paroxysmal anxiety] as directed -- 1/2 - 1 tab a day as needed for panic/anxiety Last Documented On 09/30/2023 5:41PM By Aviva Bautista MD ; [facility] Dyanavel XR 10 MG Oral Tablet Chewable Extended Release 09/19/2023 Provider: JULIO C BAUTISTA MD Diagnosis: Attention-defici t hyperactivity disorder, unspecified type 1 tab in the morning Last Documented On 09/19/2023 3:17PM By JACKIE KELLY ; [facility] Dyanavel XR 5 MG Oral Tablet Chewable Extended Release 08/30/2023 Provider: JULIO C BAUTISTA MD Diagnosis: Attn-defct hyper activity disorder, predom inattentive type 1 tablet every morning Last Documented On 08/30/2023 11:07AM By Aviva Bautista MD ; [facility] Cyclobenzaprine HCl 10 MG Oral Tablet 08/26/2023 Pro vider: ROSSANA KEY MD Diagnosis: use prn (breaks in pieces) Last Documented On 10/31/2023 4:26PM By EMELY LAGUERRE ; [facility] Vyvanse 20 MG Oral Capsule 08/22/2023 Provider: JULIO C BAUTISTA MD Diagnosis: Attn-defct hyper activity disorder, predom inattentive type 1 Capsule every morning Last Documented On 08/22/2023 12:53PM By Aviva Bautista MD ; [facility] Modafinil 100 MG OR TABS 12/17/2022 Provider: MET VINH BAUTISTA MD Diagnosis: Attn-defct hyper activity disorder, predom inattentive type as directed -- 1 tab in am Last Documented On 01/08/2023 5:39PM By Aviva Bautista MD ; [facility] traMADol HCl 50 MG OR TABS 09/17/2022 Provider: Diagnosis: as directed Last Documented On 01/08/2023 5:39PM By EMELY LAGUERRE ; [facility] Cholestyramine 4 GM OR PACK 03/16/2022 Provider: Diagnosis: 1 packet bid Last Documented On 01/08/2023 5:39PM By EMELY LAGUERRE ; [facility] Cevimeline HCl 30 MG OR CAPS 10/26/2021 Provider: Diagnosis: [address] Rossana Key Last Documented On 01/08/2023 5:39PM By EMELY LAGUERRE ; [facility] Hydroxychloroquine Sulfate 200 MG OR TABS 10/02/2021 Provider: Diagnosis: [address]Terry Galicia Last Documented On 01/08/2023 5:39PM By EMELY LAGUERRE ; [facility] Past Medications on file Sucralfate 1 GM Oral Tablet 02/07/2024 - 03/08/2024 Pr ovider: Diagnosis: 1 tab qd to bid Last Documented On 02/07/2024 4:55PM By EMELY LAGUERRE ; [facility] Pantoprazole Sodium 40 MG Or al Tablet Delayed Release 10/31/2023 - 11/15/2023 Provider: Diagnosis: 1 tab in the afternoon Last Documented On 10/31/2023 4:15PM By EMELY LAGUERRE ; [facility] Focalin XR 10 MG Oral Capsule Extended Release 24 Hour 06/17/2023 - 07/17/2023 Provider: JULIO C BAUTISTA MD Diagnosis: Attn-defct hyper activity disorder, predom inattentive type 1 Capsule every morning Last Documented On 06/17/2023 10:26AM By Aviva Bautista MD ; [facility] Focalin XR 5 MG Oral Capsule Extended Release 24 Hour 02/01/2023 - 03/03/2023 Provider: JULIO C BAUTISTA MD Diagnosis: Attn-defct hyper activity disorder, predom inattentive type 1 Capsule every morning Last Documented On 02/01/2023 6:19PM By Aviva Bautista MD ; [facility] FLUoxetine HCl 10 MG Oral Tablet 01/13/2023 - 03/14/2023 Provider: JULIO C BAUTISTA MD Diagnosis: Major depressive disorder, recurrent, unspecified 1 tablet every morning Last Documented On 01/13/2023 3:33PM By Aviva Bautista MD ; [facility] Azstarys 26.1-5.2 MG OR CAPS 11/19/2022 - 12/19/2022 Provider: JULIO C BAUTISTA MD Diagnosis: Attn-defct hyper activity disorder, predom inattentive type 1 Capsule every morning Last Documented On 01/08/2023 5:39PM By Aviva Bautista MD ; [facility] clonazePAM 0.5 MG OR TABS 03/10/2022 - 04/09/2022 Provider: JULIO C BAUTISTA MD Diagnosis: Generalized anxi ety disorder as directed -- 1/2 - 1 tab a day as needed for severe panic/anxiety Last Documented On 01/08/2023 5:39PM By Aviva Bautista MD ; [facility] Focalin 10 MG OR TABS 12/07/2021 - 01/06/2022 Provider: JULIO C BAUTISTA MD Diagnosis: Attn-defct hyper activity disorder, predom inattentive type as directed 1/2 tab in am fo r 1 week then if tolerated may increase to 1 tab in am therafter Last Documented On 01/08/2023 5:39PM By Aviva Bautista MD ; [facility] Medications Administered Includes: Administered Medications from this encounter No Administered Medications Recorded Vital Signs Includes: Vital Signs from this encounter Vital Name 10/31/2023 04:30P Blood Pressure Sitting L 128/80 BP Cuff Size Regular Pulse Rate-Sitting (bpm) 74 Pulse Rhythm Regular Height (in) 66 Weight (lb) 127 Body Mass Index 20.5 Body Surface Area 1.6 Note: self reported vitals Last Documented: On 10/31/2023 4:30PM ; [facility] Results Includes: Results discussed during [...] who is 75 years old lives in [place] and only has one kidney but now this sister of hers has cancer of that kidney. She said that her 75 year old sister has a son who was taking care of her; however, her son moved out of [facility] and so from time to time Georgina had to fly to [place] to help out. Fortunately, her sister has a caregiver that help her once she gets discharged from rehab facility. She has an 80 year old oldest sister who has also been having some health issues. She said that she had to take ?? tablet of the 2 mg of Diazepam when she traveled to [place] just to help calm her down but [...] She sees Dr. Anupam Galicia as her aerospace quality engineer. 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 Both parents are . She was [...] of Science in nursing. 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 Patient is heterosexual and denied any history of sexual dysfunction. She has no past or pending legal history. She enjoys being outdoors with horses. Her scientology background is Lutheran. She follows a gluten free diet. 10/31/2023 Last Documented On 4 4:10PM ; [facility] Tobacco non-user 10/31/2023 Last Documented On 4 9:08AM ; [facility] Smoking Status Unknown Procedures and Surgical History Includes: Procedures from this encounter Procedures Code Diagnosis Performing Provider Service Location Service Date PSYCHOTHERAPY 30 MIN W/ [place] [address] Major depressive disorder, recurrent, mild, Attn-defct hyperactivity disorder, predom inattentive type, Generalized anxiety disorder, Panic disorder [episodic paroxysmal anxiety] JULIO C BAUTISTA MD [facility] 10/31/2023 Last Documented On 4 5:08PM ; [facility] education and instructions Last Documented On 4 4:10PM ; [facility] supportive care and encourag ement--given positive reinforcement to keep patient motivated and active Last Documented On 4 4:36PM ; [facility] ~* Call [phone] and /or go t o the nearest emergency room or call me if suicidal/homicidal ideation or other serious concerns arise. ~ ~* I gave instructions to call me should there be any questions or concerns. ~ ~* Patient voiced understanding and agreed to treatment plan Last Documented On 4 4:28PM ; [facility] dangerousness assessment: no suicide risk 3085F Last Documented On 4 4:10PM ; [facility] use of tobacco assessment performed 1000F Last Documented On 4 4:28PM ; [facility] patient screened for future fall risk: documentation of any fall with injury in past year - no recent falls 1100F Last Documented On 4 4:28PM ; [facility] review of medications documented 1160F Last Documented On 4 4:28PM ; [facility] assessment of suicide risk performed - n ot suicidal Last Documented On 4 4:28PM ; [facility] screening for adult depressi on: impression and score - please see above for treatment and PHQ score Last Documented On 4 4:28PM ; [facility] standardized depression screening: posit jose l for symptoms Last Documented On 4 4:28PM ; [facility] encouragement to exercise - balanced ewa l plan, low fat low carb diet Last Documented On 4 4:28PM ; [facility] Clinical summary provided to patient Last Documented On 4 4:10PM ; [facility] PHQ-9: total score 7 Last Documented On 4 9:56AM ; [facility] Medical History Includes: Medical History addressed during this encounter Description Last Updated Primary Care Provider: Dr. Teena aGlicia -- Mold Maker Dr. Yajaira Sandhu -- Ram Press Operator Dr. Nas Coto -- ENT/SleepDiagnoses: Conjunctivitis - uses Ciprofloxacin 0.3% eye drops [...] unable to complete her sleep study at [facility] infection: given Cefuroxime 500 mg 10/20/23 and given Augumentin 875 mg and Methylprednisolone Dosepak 4 mg 09/19/23; given Amoxil 500 mg 02/28/23 and 02/24/23Red spotted rash -- given Clotrimazole Bethamethasone cream 09/26/22Hip pain -- uses Flexeril 10 mg which she breaks in piecesProcedural: ? ? Coronavirus 2019-nCoV vaccine - Moderna #1 10/09/20 #2 11/06/20 #3 09/11/21? ? Colonoscopy - 04/26/22Surgical: ? ? Tubal ligation - 2000? ? Hallux valgus (bunion) correction - of left great toe -- 2003 and right great toe on 05/03/23* CTS -- 07/21/23 of the left hand 10/31/2023 Last Documented On 4 4:35PM ; [facility] Family History Includes: Family History addressed during this encounter Description Last Updated Paternal: Alcohol abuse - fa ther Depression, Bipolar disorder - fatherFraternal: Alcohol abuse - brothers, one brother has h/o bipolar disorderSororal: Depression - 2 sisters Suicide attempt - one of her sisters 10/31/2023 Last Documented On 4 4:10PM ; [facility] Review of Systems Includes: Review of Systems from this encounter Systemic: Systemic symptoms. Not feeling poorly (malaise). [...] Active Last Documented On 4 4:53PM ; [facility] Anaprox Allergy 12/07/2021 Active Last Documented On 4 4:53PM ; [facility] Note: Imported from external source. Encounters Encounter Provider Location Date Check-In Time Check-Out Time Diagnosis TELEHEALTH ADULT PSYCH ESTABLISHED JULIO C BAUTISTA MD [facility] 024 4:10PM 11:59PM Attention-defici t Hyperactivity Disorder,General ized Anxiety Disorder,Psychop hysiological Insomnia,Panic Disorder,Major Depression Insurance Includes: Active Insurance Policies Plan Name Member ID Group # Subscriber Relationship Effect jose l Dates 1 - [employer] [id number] GEORGINA FERNÁNDEZ Self Clinical Notes Includes: Clinical Notes from this encounter * Progress note Date Encounter Last Documented by 10/31/2023 TELEHEALTH ADULT PSYCH ESTABLISH ED Last documented on 11/23/2023; 9:08 AM, JULIO C BAUTISTA MD; [facility] Top of Document Medication psychotherapy 30 minutes [...] who is 75 years old lives in [place] and only has one kidney but now this sister of hers has cancer of that kidney. She said that her 75 year old sister has a son who was taking care of her; however, her son moved out of [facility] and so from time to time Georgina had to fly to [place] to help out. Fortunately, her sister has a caregiver that help her once she gets discharged from rehab facility. She has an 80 year old oldest sister who has also been having some health issues. She said that she had to take ?? tablet of the 2 mg of Diazepam when she traveled to [place] just to help calm her down but [...] She sees Dr. Anupam Galicia as her aerospace quality engineer. As far as her mood, she is [...] Primary Care Provider: Dr. Rossana Galicia -- Mold Maker Dr. Yajaira Sandhu -- Ram Press Operator Dr. Nas Coto -- ENT/Sleep Diagnoses: Conjunctivitis [...] unable to complete her sleep study at [facility] Sinus infection: given Cefuroxime 500 [...] Use: Not using drugs. 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 - Patient was born and raised in [place], [place]. Both parents are . She was [...] of Science in nursing. 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 Patient is heterosexual and denied any history of sexual dysfunction. She has no past or pending legal history. She enjoys being outdoors with horses. Her scientology background is Lutheran. She follows a gluten free diet. Allergies [...] Clinical summary provided to patient. * Call [phone] and /or go to the nearest emergency [...]
--- OUTSIDE RECORDS SUMMARY | 2024-10-04 07:38 | XMS_ITS | Clinical Summary ---
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 Name Role Phone DEREJE ROSADO, JULIO C PHILLIP Unavailable [phone] Reason for Visit and Chief Complaint The Chief Complaint is: Follow up for depression, anxiety, hard to concentrate, easily distracted, brain zap from Lexapro Problems Includes: Problems addressed during this encounter and other active Problems Current Visit Onset Date Resolved Date Provider Conditio n Status Panic Disorder 09/12/2022 Active Last Documented On 3 5:53PM ; [facility] Attention-deficit Hyperactivity Disorder 12/07/2021 Active Last Documented On 3 5:53PM ; [facility] Generalized Anxiety Disorder 12/07/2021 Active Last Documented On 3 5:53PM ; [facility] Psychophysiological Insomnia 12/07/2021 Active Last Documented On 3 5:53PM ; [facility] Major Depression 12/07/2021 Active Last Documented On 3 5:53PM ; [facility] Past Visits Onset Date Resolved Date Provider Condition Status 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 JULIO C BAUTISTA MD Active Last Documented On 4 5:43PM ; [facility] Plan of Treatment Major depressive disorder - Fluoxetine 10 mg in am and 10 mg at noon when needed for better tolerability Generalized Anxiety Disorder/Panic Disorder - Diazepam 2 mg 1/2 tab a day as needed for anxiety/panic, breathing exercises/guided meditation, Lexapro (pt prefers brand name) 10 mg 1/4 - 1/2 tab a day as needed to help reduce brain zaps/anxiety Attention Deficit Disorder - Vyvanse 20 mg in am, Dyanavel 5 mg 1/2 tab at 10 am, 1/2 tab at noon or 1 pm for better toelrability WES - wears CPAP mask (through [employer]) which has helped improve mental alertness- Modafinil 50 mg in am is not needed anymore at this time Psychophysiological Insomnia - good sleep hygiene habits, pt takes prn Benadryl at night but warned of possible daytime sedation and cognitive issues - Last Documented On 07/27/2023 7:43PM ; [facility] Future Appointments Date Time Location Provi vickie TELEHEALTH ADULT PSYCH ESTABLISHED 11/09/2024 3:40PM [facility] JULIO C BAUTISTA MD Last Documented On 5:46PM ; [facility] Assessments Includes: Assessments from this encounter Findings - Attention-deficit hyperactivity disorder - Last Documented On 07/27/2023 7:43PM ; [facility] - Major depressive disorder - Last Documented On 07/27/2023 7:43PM ; [facility] - Psychophysiological insomnia - Last Documented On 07/27/2023 7:43PM ; [facility] - Generalized anxiety disorder - Last Documented On 07/27/2023 7:43PM ; [facility] - Panic disorder - Last Documented On 07/27/2023 7:43PM ; [facility] Medical Equipment - Implanted Devices Includes: Current Devices No Medical Equipment Recorded Medications Includes: Medications discussed during this encounter and other current Medications Current Medications (continue as prescribed) Vyvanse 40 MG Oral Capsule 02/29/2024 Provider: JULIO C BAUTISTA MD Diagnosis: Attn-defct hyper activity disorder, predom inattentive type 1 Capsule every morning Last Documented On 02/29/2024 3:13PM By Aviva Bautista MD ; [facility] Naga PM 20 MG Oral Capsule Extended Release 24 Hour 02/07/2024 Provider: JULIO C BAUTISTA MD Diagnosis: Attn-defct hyper activity disorder, predom inattentive type as directed - 1 capsule at 7 pm Last Documented On 02/07/2024 6:22PM By Aviva Bautista MD ; [facility] Sunosi 75 MG Oral Tablet 02/07/2024 Provider: MET VINH BAUTISTA MD Diagnosis: Obstructive slee p apnea (adult) (pediatric) 1 tablet every morning Last Documented On 02/07/2024 6:04PM By Aviva Bautista MD ; [facility] Pantoprazole Sodium 40 MG Or al Tablet Delayed Release 01/09/2024 Provider: YAJAIRA SANDHU MD Diagnosis: 1 tab daily Last Documented On 02/07/2024 5:02PM By EMELY LAGUERRE ; [facility] Dyanavel XR 10 MG Oral Tablet Chewable Extended Release 12/29/2023 Provider: JULIO C BAUTISTA MD Diagnosis: Attention-defici t hyperactivity disorder, unspecified type 1 tablet every morning Last Documented On 12/29/2023 10:28AM By Aviva Bautista MD ; [facility] prednisoLONE Acetate 1% Ophthalmic Suspension 12/29/19 Provider: Diagnosis: 1 drop 1-2 times daily for Sjorgen's Last Documented On 02/07/2024 5:04PM By EMELY LAGUERRE ; [facility] Tobramycin-dexAMETHasone 0.3-0.1% Ophthalmic Suspensio n 12/26/2023 Provider: Diagnosis: 1 drop in each eye as needed for Sjorgren's Last Documented On 02/07/2024 5:04PM By EMELY LAGUERRE ; [facility] FLUoxetine HCl 10 MG Oral Tablet 10/31/2023 Provider: JULIO C BAUTISTA MD Diagnosis: Major depressive disorder, recurrent, mild as directed - 1 and 1 /2 tab in am Last Documented On 10/31/2023 5:07PM By Aviva Bautista MD ; [facility] Famotidine 10 MG Oral Tablet 10/31/2023 Provider: Diagnosis: 1 tab in the morning Last Documented On 10/31/2023 4:27PM By EMELY LAGUERRE ; [facility] Vyvanse 30 MG Oral Capsule 10/10/2023 Provider: JULIO C BAUTISTA MD Diagnosis: Attn-defct hyper activity disorder, predom inattentive type 1 Capsule every morning Last Documented On 10/10/2023 10:18AM By Aviva Bautista MD ; [facility] Estradiol 0.1 MG/GM Vaginal Cream 10/03/2023 Provide r: ROSSANA KEY MD Diagnosis: use weekly Last Documented On 10/31/2023 4:26PM By EMELY LAGUERRE ; [facility] diazePAM 2 MG Oral Tablet 09/30/2023 Provider: ME PATTIE BAUTISTA MD Diagnosis: Panic disorder [ episodic paroxysmal anxiety] as directed -- 1/2 - 1 tab a day as needed for panic/anxiety Last Documented On 09/30/2023 5:41PM By Aviva Bautista MD ; [facility] Dyanavel XR 10 MG Oral Tablet Chewable Extended Release 09/19/2023 Provider: JULIO C BAUTISTA MD Diagnosis: Attention-defici t hyperactivity disorder, unspecified type 1 tab in the morning Last Documented On 09/19/2023 3:17PM By JACKIE KELLY ; [facility] Dyanavel XR 5 MG Oral Tablet Chewable Extended Release 08/30/2023 Provider: JULIO C BAUTISTA MD Diagnosis: Attn-defct hyper activity disorder, predom inattentive type 1 tablet every morning Last Documented On 08/30/2023 11:07AM By Aviva Bautista MD ; [facility] Cyclobenzaprine HCl 10 MG Oral Tablet 08/26/2023 Pro vider: ROSSANA KEY MD Diagnosis: use prn (breaks in pieces) Last Documented On 10/31/2023 4:26PM By EMELY LAGUERRE ; [facility] Vyvanse 20 MG Oral Capsule 08/22/2023 Provider: JULIO C BAUTISTA MD Diagnosis: Attn-defct hyper activity disorder, predom inattentive type 1 Capsule every morning Last Documented On 08/22/2023 12:53PM By Aviva Bautista MD ; [facility] Modafinil 100 MG OR TABS 12/17/2022 Provider: MET VINH BAUTISTA MD Diagnosis: Attn-defct hyper activity disorder, predom inattentive type as directed -- 1 tab in am Last Documented On 01/08/2023 5:39PM By Aviva Bautista MD ; [facility] traMADol HCl 50 MG OR TABS 09/17/2022 Provider: Diagnosis: as directed Last Documented On 01/08/2023 5:39PM By EMELY LAGUERRE ; [facility] Cholestyramine 4 GM OR PACK 03/16/2022 Provider: Diagnosis: 1 packet bid Last Documented On 01/08/2023 5:39PM By EMELY LAGUERRE ; [facility] Cevimeline HCl 30 MG OR CAPS 10/26/2021 Provider: Diagnosis: [address] Rossana Key Last Documented On 01/08/2023 5:39PM By EMELY LAGUERRE ; [facility] Hydroxychloroquine Sulfate 200 MG OR TABS 10/02/2021 Provider: Diagnosis: [address]Terry Galicia Last Documented On 01/08/2023 5:39PM By EMELY LAGUERRE ; [facility] Past Medications on file Sucralfate 1 GM Oral Tablet 02/07/2024 - 03/08/2024 Pr ovider: Diagnosis: 1 tab qd to bid Last Documented On 02/07/2024 4:55PM By EMELY LAGUERRE ; [facility] Pantoprazole Sodium 40 MG Or al Tablet Delayed Release 10/31/2023 - 11/15/2023 Provider: Diagnosis: 1 tab in the afternoon Last Documented On 10/31/2023 4:15PM By EMELY LAGUERRE ; [facility] Focalin XR 10 MG Oral Capsule Extended Release 24 Hour 06/17/2023 - 07/17/2023 Provider: JULIO C BAUTISTA MD Diagnosis: Attn-defct hyper activity disorder, predom inattentive type 1 Capsule every morning Last Documented On 06/17/2023 10:26AM By Aviva Bautista MD ; [facility] Focalin XR 5 MG Oral Capsule Extended Release 24 Hour 02/01/2023 - 03/03/2023 Provider: JULIO C BAUTISTA MD Diagnosis: Attn-defct hyper activity disorder, predom inattentive type 1 Capsule every morning Last Documented On 02/01/2023 6:19PM By Aviva Bautista MD ; [facility] FLUoxetine HCl 10 MG Oral Tablet 01/13/2023 - 03/14/2023 Provider: JULIO C BAUTISTA MD Diagnosis: Major depressive disorder, recurrent, unspecified 1 tablet every morning Last Documented On 01/13/2023 3:33PM By Aviva Bautista MD ; [facility] Azstarys 26.1-5.2 MG OR CAPS 11/19/2022 - 12/19/2022 Provider: JULIO C BAUTISTA MD Diagnosis: Attn-defct hyper activity disorder, predom inattentive type 1 Capsule every morning Last Documented On 01/08/2023 5:39PM By Aviva Bautista MD ; [facility] clonazePAM 0.5 MG OR TABS 03/10/2022 - 04/09/2022 Provider: JULIO C BAUTISTA MD Diagnosis: Generalized anxi ety disorder as directed -- 1/2 - 1 tab a day as needed for severe panic/anxiety Last Documented On 01/08/2023 5:39PM By Aviva Bautista MD ; [facility] Focalin 10 MG OR TABS 12/07/2021 - 01/06/2022 Provider: JULIO C BAUTISTA MD Diagnosis: Attn-defct hyper activity disorder, predom inattentive type as directed 1/2 tab in am fo r 1 week then if tolerated may increase to 1 tab in am therafter Last Documented On 01/08/2023 5:39PM By Aviva Bautista MD ; [facility] Medications Administered Includes: Administered Medications from this encounter No Administered Medications Recorded Vital Signs Includes: Vital Signs from this encounter Vital Name 07/27/2023 05:19P Blood Pressure Sitting L 121/72 BP Cuff Size Regular Pulse Rate-Sitting (bpm) 82 Pulse Rhythm Regular Height (in) 66 Weight (lb) 126 Body Mass Index 20.3 Body Surface Area 1.6 Note: self reported vitals Last Documented: On 07/27/2023 5:19PM ; [facility] Results Includes: Results discussed during this encounter No Results Recorded For Specified Dates History of Present Illness Includes: History of Present Illness from this encounter RAFAEL FERNÁNDEZ is a 62 year old female. - Allergy list reviewed - Past medical history reviewed - Medication list reviewed Pt reported that she is doing better with her mood when she adds Fluoxetine every 2 or 3 days since she cannot tolerate it when taken continuously as she is very very sensitive to meds in general. The same is true with her ADHD meds. She can only tolerate a tiny dose of the meds. She takes Dyanavel XR 5 mg 1/2 tab in am and 1/2 tab at noon because taking the whole tab of 5 mg gives her side effects. She also takes Vyvanse 20 mg in am but now she wants to try 25 mg in am. She said she responded to Focalin XR 5 mg in am before and it really helped her focus and for the first time she knows how its like to be normal. However after taking it 5 consecutive days she became stiff so she had to stop it. She is open to trying it again later or next year but will not take it continuously probably just every other day. She cannot tolerate nonstimulant like Qelbree so she will most like not tolerate Strattera either. Pt is less depressed. Pt has not been as anxious. Pt denied having any mood swings. Pt has not been as irritable. Pt has been motivated in general in doing daily tasks. Sleep has been better abhijit after wearing the CPAP. She now wakes up feeling refreshed so she does not need the Modafinil anymore. Pt has not been napping/sleeping too much during the daytime. Pt has not been feeling as tired. Appetite is somewhat down. Pt has not been feeling as bad about self. Pt is able to focus and concentrate better on days that she takes her ADHD meds but at times it wears off so at that point she has trouble staying focused. Pt denied having any psychomotor restlessness. Pt denied suicidal thoughts. Pt denied having any delusions/hallucinations. MENTAL STATUS EXAM: Sensorium - alert, oriented to name, place, and time Attitude - cooperative Gait - ambulatory Sleep - good -- wears her CPAP and this has helped her tremendously Interest/Energy/Motivation - better but some days not as motivated Guilt/Worthlessness - absent Concentration/Attention Span - able to focus and concentrate better with meds but at times it wears off in the afternoon Memory Recall - fair - at times forgetful Appetite - good - on 05/06/23 pt weighed 126 lbs and on 07/27/23 she weighed the same Suicidal Thoughts - absent Homicidal Thoughts - absent Delusions - absent Hallucinations - absent Appearance - casually groomed Motor Behavior - calm Eye Contact - intermittent Speech - fluent Mood - not as depressed Affect - not as anxious Thought Process - coherent Insight and Judgment - intact Social History Description Last Updated Caffeine use: Daily coffee c onsumption - one cup of coffee daily, an occasional glass of tea daily, and does not drink soda.Alcohol: Not using alcohol.Drug Use: Not using drugs.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 Both parents are . She was [...] of Science in nursing. 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 Patient is heterosexual and denied any history of sexual dysfunction. She has no past or pending legal history. She enjoys being outdoors with horses. 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 She follows a gluten free diet. 07/27/2023 Last Documented On 3 5:05PM ; [facility] Tobacco non-user 07/27/2023 Last Documented On 3 7:43PM ; [facility] Smoking Status Unknown Procedures and Surgical History Includes: Procedures from this encounter Procedures Code Diagnosis Performing Provider Service L ocation Service Date education and instructions Last Documented On 3 5:05PM ; [facility] supportive care and encourag ement--given positive reinforcement to keep patient motivated and active, calming techniques, breathing exercises, guided meditation Last Documented On 3 7:38PM ; [facility] ~* Call [phone] and /or go t o the nearest emergency room or call me if suicidal/homicidal ideation or other serious concerns arise. ~ ~* I gave instructions to call me should there be any questions or concerns. ~ ~* Patient voiced understanding and agreed to treatment plan Last Documented On 3 5:17PM ; [facility] dangerousness assessment: no suicide risk 3085F Last Documented On 3 5:05PM ; [facility] use of tobacco assessment performed 1000F Last Documented On 3 5:05PM ; [facility] patient screened for future fall risk: documentation of any fall with injury in past year - no recent falls 1100F Last Documented On 3 5:05PM ; [facility] review of medications documented 1160F Last Documented On 3 5:05PM ; [facility] assessment of suicide risk performed - n ot suicidal Last Documented On 3 5:18PM ; [facility] screening for adult depressi on: impression and score - please see above treatment and PHQ score Last Documented On 3 5:05PM ; [facility] standardized depression screening: posit jose l for symptoms Last Documented On 3 5:05PM ; [facility] Clinical summary provided to patient Last Documented On 3 5:05PM ; [facility] PHQ-9: total score 8 Last Documented On 3 7:37PM ; [facility] Medical History Includes: Medical History addressed during this encounter Description Last Updated Primary Care Provider: Dr. Teena Galicia -- Manager Fund Dr. Yajaira Sandhu -- [facility] Dr. Nas Coto -- ENT/SleepDiagnoses: Conjunctivitis - [...] unable to complete her sleep study at [facility] infection: given Amoxil 500 mg 02/28/23 and 02/24/23Procedural: ? ? Coronavirus 2019-nCoV vaccine - Moderna #1 10/09/20 #2 11/06/20 #3 09/11/21? ? Colonoscopy - 04/26/22Surgical: ? ? Tubal ligation - 2000? ? Hallux valgus (bunion) correction - of left great toe -- 2003 and right great toe on 05/03/23* CTS -- 07/21/23 of the left hand 07/27/2023 Last Documented On 3 5:24PM ; [facility] Family History Includes: Family History addressed during this encounter Description Last Updated Paternal: Alcohol abuse - fa ther Depression, Bipolar disorder - fatherFraternal: Alcohol abuse - brothers, one brother has h/o bipolar disorderSororal: Depression - 2 sisters Suicide attempt - one of her sisters 07/27/2023 Last Documented On 3 5:05PM ; [facility] Review of Systems Includes: Review of Systems from this encounter Systemic: Not feeling poorly (malaise). No fever, no chills, and no night sweats. Head: Headache associated with head congestion and sinus pain. Neck: Neck symptoms. No neck pain. Neck stiffness. Eyes: Vision problems. No itching of [...] and no excessive sweating. Musculoskeletal: No muscle aches and no localized joint pain. Stiffness localized to one or more joints. Neurological: Dizziness. No vertigo, no fainting, and no motor disturbances. Skin: No pruritus. No skin lesions. Rash:. Mental Status Includes: Mental Status from this encounter Description Major depressive disorder Functional Status Includes: Functional Status from this encounter No Functional Status Recorded Physical Exam Includes: Physical Exam from this encounter Allergies Includes: Active Allergies Substance Type Reaction Onset Date Resolved Date Statu s GLUTEN Allergy 02/24/2023 Active Last Documented On 4 4:53PM ; [facility] Anaprox Allergy 12/07/2021 Active Last Documented On 4 4:53PM ; [facility] Note: Imported from external source. Encounters Encounter Provider Location Date Check-In Time Check-Out Time Diagnosis TELEHEALTH ADULT PSYCH ESTABLISHED JULIO C BAUTISTA MD [facility] 023 5:04PM 11:59PM Attention-defici t Hyperactivity Disorder,General ized Anxiety Disorder,Psychop hysiological Insomnia,Panic Disorder,Major Depression Insurance Includes: Active Insurance Policies Plan Name Member ID Group # Subscriber Relationship Effect jose l Dates 1 - [employer] [id number] GARFIELD FERNÁNDEZ Self Clinical Notes Includes: Clinical Notes from this encounter * Progress note Date Encounter Last Documented by 07/27/2023 TELEHEALTH ADULT PSYCH ESTABLISH ED Last documented on 07/27/2023; 7:43 PM, JULIO C BAUTISTA MD; [facility] Top of Document Medication psychotherapy 45 minutes Patient gave verbal consent for Telehealth 07/27/23. Location of patient: patient's home Location of provider: provider's office Patient was alone for the session. This visit was conducted with use of interactive audio and video telecommunication system with real time communication between the patient and the provider. Patient consent for virtual visit obtained today. Total time spent with patient via audio and video telecommunication 45 minutes. Active Problems & Conditions - Attention-deficit Hyperactivity Disorder - Generalized Anxiety Disorder - Major Depression - Panic Disorder - Psychophysiological Insomnia Chief Complaint The Chief Complaint is: Follow up for depression, anxiety, hard to concentrate, easily distracted, brain zap from Lexapro. History of Present Illness GARFIELD FERNÁNDEZ is a 62 year old female. - Allergy list reviewed - Past medical history reviewed - Medication list reviewed Pt reported that she is doing better with her mood when she adds Fluoxetine every 2 or 3 days since she cannot tolerate it when taken continuously as she is very very sensitive to meds in general. The same is true with her ADHD meds. She can only tolerate a tiny dose of the meds. She takes Dyanavel XR 5 mg 1/2 tab in am and 1/2 tab at noon because taking the whole tab of 5 mg gives her side effects. She also takes Vyvanse 20 mg in am but now she wants to try 25 mg in am. She said she responded to Focalin XR 5 mg in am before and it really helped her focus and for the first time she knows how its like to be normal. However after taking it 5 consecutive days she became stiff so she had to stop it. She is open to trying it again later or next year but will not take it continuously probably just every other day. She cannot tolerate nonstimulant like Qelbree so she will most like not tolerate Strattera either. Pt is less depressed. Pt has not been as anxious. Pt denied having any mood swings. Pt has not been as irritable. Pt has been motivated in general in doing daily tasks. Sleep has been better abhijit after wearing the CPAP. She now wakes up feeling refreshed so she does not need the Modafinil anymore. Pt has not been napping/sleeping too much during the daytime. Pt has not been feeling as tired. Appetite is somewhat down. Pt has not been feeling as bad about self. Pt is able to focus and concentrate better on days that she takes her ADHD meds but at times it wears off so at that point she has trouble staying focused. Pt denied having any psychomotor restlessness. Pt denied suicidal thoughts. Pt denied having any delusions/hallucinations. MENTAL STATUS EXAM: Sensorium - alert, oriented to name, place, and time Attitude - cooperative Gait - ambulatory Sleep - good -- wears her CPAP and this has helped her tremendously Interest/Energy/Motivation - better but some days not as motivated Guilt/Worthlessness - absent Concentration/Attention Span - able to focus and concentrate better with meds but at times it wears off in the afternoon Memory Recall - fair - at times forgetful Appetite - good - on 05/06/23 pt weighed 126 lbs and on 07/27/23 she weighed the same Suicidal Thoughts - absent Homicidal Thoughts - absent Delusions - absent Hallucinations - absent Appearance - casually groomed Motor Behavior - calm Eye Contact - intermittent Speech - fluent Mood - not as depressed Affect - not as anxious Thought Process - coherent Insight and [...] Primary Care Provider: Dr. Rossana Galicia -- Manager [employer] Dr. Yajaira Sandhu -- [facility] Dr. Nas Coto -- ENT/Sleep Diagnoses: Conjunctivitis [...] unable to complete her sleep study at [facility] Sinus infection: given Amoxil 500 mg 02/28/23 and 02/24/23 Procedural: - Coronavirus 2019-nCoV vaccine - Moderna [...] did not help 03/2023 - had palpitations Social History Tobacco use: Tobacco non-user. Caffeine use: Daily coffee consumption - one cup of coffee daily, an occasional glass of tea daily, and does not drink soda. Alcohol: Not using alcohol. Drug Use: Not using drugs. 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 - Patient was born and raised in [place], [place]. Both parents are . She was [...] of Science in nursing. 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 Patient is heterosexual and denied any history of sexual dysfunction. She has no past or pending legal history. She enjoys being outdoors with horses. 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 She follows a gluten free diet. Allergies - Anaprox - GLUTEN Family History Paternal: Alcohol abuse - father Depression, Bipolar disorder - father Fraternal: Alcohol abuse - brothers, one brother has h/o bipolar disorder Sororal: Depression - 2 sisters Suicide attempt - one of her sisters Review Of Systems Systemic: Not feeling poorly (malaise). No fever, no chills, and no night sweats. Head: Headache associated with head congestion and sinus pain. Neck: Neck symptoms. No neck pain. Neck stiffness. Eyes: Vision problems. No itching of [...] and no excessive sweating. Musculoskeletal: No muscle aches and no localized joint pain. Stiffness localized to one or more joints. Neurological: Dizziness. No vertigo, no fainting, and no motor disturbances. Skin: No pruritus. No skin lesions. Rash:. Physical Findings - Vitals taken 07/27/2023 05:19 pm self reported vitals BP-Sitting L 121/72 mmHg BP Cuff Size Regular Pulse Rate-Sitting 82 bpm Pulse Rhythm Regular Height 66 in Weight 126 lbs Body Mass Index 20.3 kg/m2 Body Surface Area 1.6 m2 Tests Educational Testing: Questionnaires PHQ-9: Value PHQ-9: total score 8 Assessment - Attention-deficit hyperactivity disorder - Major depressive disorder - Psychophysiological insomnia - Generalized anxiety disorder - Panic disorder Therapy - Dangerousness assessment: no suicide risk. - Supportive care and encouragement--given positive reinforcement to keep patient motivated and active, calming techniques, breathing exercises, guided meditation. - Education and instructions. - Assessment of suicide risk performed - not suicidal - Clinical summary provided to patient. * Call [phone] and /or go to the nearest emergency room or call me if suicidal/homicidal ideation or other serious concerns arise. * I gave instructions to call me should there be any questions or concerns. * Patient voiced understanding and agreed to treatment plan. Plan StartCited - Other Follow-up 10/31/23 EndCited Major depressive disorder - Fluoxetine 10 mg in am and 10 mg at noon when needed for better tolerability Generalized Anxiety Disorder/Panic Disorder - Diazepam 2 mg 1/2 tab a day as needed for anxiety/panic, breathing exercises/guided meditation, Lexapro (pt prefers brand name) 10 mg 1/4 - 1/2 tab a day as needed to help reduce brain zaps/anxiety Attention Deficit Disorder - Vyvanse 20 mg in am, Dyanavel 5 mg 1/2 tab at 10 am, 1/2 tab at noon or 1 pm for better toelrability WES - wears CPAP mask (through [employer]) which has helped improve mental alertness- Modafinil 50 mg in am is not needed anymore at this time Psychophysiological Insomnia - good sleep hygiene habits, [...] impression and score - please see above treatment and PHQ score.
--- OUTSIDE RECORDS SUMMARY | 2024-10-04 07:38 | XMS_ITS ---
Care Plan - [facility] Created on: October 04, 2024 GARFIELD FERNÁNDEZ : 1960 Sex: Female Author Organization [facility] Address [address] [place] [address] Phone Care Team Providers Care Graphic Designer Name Role Phone DEREJE ROSADO, JULIO C PHILLIP Unavailable [phone]
--- OUTSIDE RECORDS SUMMARY | 2024-10-04 07:38 | XMS_ITS | Clinical Summary ---
Author Organization [facility] Address [address] [place] [id number] Phone Care Team Providers Care Veterinary Meat Inspector Name Role Phone DEREJE ROSADO, JULIO C PHILLIP Unavailable [phone] Reason for Visit and Chief Complaint The Chief Complaint is: Follow up for depression, anxiety, hard to concentrate, easily distracted, brain zap from Lexapro Problems Includes: Problems addressed during this encounter and other active Problems Current Visit Onset Date Resolved Date Provider Teddy lorenzana Status Panic Disorder 09/12/2022 JULIO C Costa Active Last Documented On 3 5:27PM ; [facility] Attention-deficit Hyperactivity Disorder 12/07/2021 JULIO C BAUTISTA MD Active Last Documented On 2 8:00PM ; [facility] Generalized Anxiety Disorder 12/07/2021 JULIO C BAUTISTA MD Active Last Documented On 2 9:57AM ; [facility] Psychophysiological Insomnia 12/07/2021 JULIO C BAUTISTA MD Active Last Documented On 2 8:00PM ; [facility] Major Depression 12/07/2021 JULIO C BAUTISTA MD Active Last Documented On 2 9:57AM ; [facility] Plan of Treatment Major depressive disorder - Fluoxetine 10 mg a day Generalized Anxiety Disorder/Panic Disorder - Diazepam 2 mg 1/2 tab a day as needed for anxiety/panic, breathing exercises/guided meditation, Lexapro 10 mg /4 - 1/2 tab a day as needed to help reduce brain zaps/anxiety Attention Deficit Disorder - Vyvanse 20 - 30 mg in am, Modafinil 50 mg in am used off label to improve mental alertness, decrease fatigue, increase motivation and may indirectly help with focus and concentration Psychophysiological Insomnia - good sleep hygiene habits, pt takes prn Benadryl at night but warned of possible daytime sedation and cognitive issues - Last Documented On 01/07/2023 9:07AM ; [facility] Education and Decision Aids were provided during visit for: Patient education about medi cation ---Education was given on medication(s) and diagnosis. I reviewed the risks, benefits and side effects of patient's medications Last Documented On 3 5:13PM ; [facility] Assessments Includes: Assessments from this encounter Findings - Attention-deficit hyperactivity disorder - Last Documented On 01/07/2023 9:07AM ; [facility] - Major depressive disorder - Last Documented On 01/07/2023 9:07AM ; [facility] - Psychophysiological insomnia - Last Documented On 01/07/2023 9:07AM ; [facility] - Generalized anxiety disorder - Last Documented On 01/07/2023 9:07AM ; [facility] - Panic disorder - Last Documented On 01/07/2023 9:07AM ; [facility] Instructions Includes: Instructions from this encounter Education and Decision Aids were provided during visit for: Patient education about medi cation ---Education was given on medication(s) and diagnosis. I reviewed the risks, benefits and side effects of patient's medications Last Documented On 3 5:13PM ; [facility] Medical Equipment - Implanted Devices Includes: Current Devices No Medical Equipment Recorded Medications Includes: Medications discussed during this encounter and other current Medications Discontinued / Stopped on this date JULIO C BAUTISTA MD on 11/23/2022 Vyvanse 20 MG Oral Capsule Provider: JULIO C BAUTISTA MD Diagnosis: Attn-defct hyper activity disorder, predom inattentive type Last Documented On 12/29/2022 6:06PM By Aviva Bautista MD ; [facility] New / Renewed during this visit JULIO C BAUTISTA MD on 12/29/2022 Vyvanse 20 MG Oral Capsule Provider: JULIO C BAUTISTA MD 30 day supply: 30 capsule, 0 refills Diagnosis: Attn-defct hyperactivity disorder, predom inattentive type 1 Capsule every morning Pharmacy: [place] [address] [facility], [id number] - Last Documented On 12/29/2022 6:08PM By Aviva Bautista MD ; [facility] Current Medications (continue as prescribed) Modafinil 100 MG Oral Tablet 12/17/2022 Provider: JULIO C BAUTISTA MD Diagnosis: Attn-defct hyper activity disorder, predom inattentive type as directed -- 1 tab in am Last Documented On 12/17/2022 6:03PM By Aviva Bautista MD ; [facility] FLUoxetine HCl 10 MG Oral Tablet 12/10/2022 Provider: JULIO C BAUTISTA MD Diagnosis: Major depressive disorder, recurrent, unspecified TAKE 1 TABLET BY MOUTH EVERY DAY IN THE MORNING Last Documented On 12/10/2022 9:52AM By Aviva Bautista MD ; [facility] Pantoprazole Sodium 40 MG Or al Tablet Delayed Release 12/06/2022 Provider: YAJAIRA SANDHU MD Diagnosis: 1 tab bid Last Documented On 12/17/2022 4:47PM By EMELY LAGUERRE ; [facility] Lexapro 10 MG Oral Tablet 11/21/2022 Provider: JULIO C BAUTISTA MD Diagnosis: Major depressive disorder, recurrent, unspecified One tablet daily Last Documented On 3 11:34PM By Aviva Bautista MD ; [facility] traMADol HCl 50 MG Oral Tablet 09/17/2022 Provider: Diagnosis: as directed Last Documented On 3 11:34AM By EMELY LAGUERRE ; [facility] Cholestyramine 4 GM Oral Packet 03/16/2022 Provider: HARVINDER WILSON PA-C Diagnosis: 1 packet bid Last Documented On 05/11/2022 4:48PM By EMELY LAGUERRE ; [facility] Sucralfate 1 GM Oral Tablet 11/16/2021 Provider: HARVINDER WILSON PA-C Diagnosis: 1 tab qid Last Documented On 2 10:04AM By EMELY LAGUERRE ; [facility] Cevimeline HCl 30 MG Oral Capsule 10/26/2021 Provide r: Diagnosis: [address] Nubia Rodriguez Last Documented On 2 10:05AM By EMELY LAGUERRE ; [facility] Hydroxychloroquine Sulfate 200 MG Oral Tablet 10/02/19 Provider: Diagnosis: [address]Terry Galicia Last Documented On 2 10:06AM By EMELY LAGUERRE ; [facility] Past Medications on file Azstarys 26.1-5.2 MG Oral Capsule 11/19/2022 - 12/19/2022 Provider: JULIO C BAUTISTA MD Diagnosis: Attn-defct hyper activity disorder, predom inattentive type 1 Capsule every morning Last Documented On 11/19/2022 5:23PM By Aviva Bautista MD ; [facility] diazePAM 2 MG Oral Tablet 10/04/2022 - 11/03/2022 Provider: JULIO C RAMIREZ MD Diagnosis: Panic disorder [episodic paroxysmal anxiety] as directed -- 1/2 - 1 tab a day as needed for panic/anxiety Last Documented On 10/04/2022 5:40PM By Aviva Bautista MD ; [facility] clonazePAM 0.5 MG Oral Tablet 03/10/2022 - 04/09/2022 Provider: JULIO C BAUTISTA MD Diagnosis: Generalized anxi ety disorder as directed -- 1/2 - 1 tab a day as needed for severe panic/anxiety Last Documented On 03/10/2022 5:58PM By Aviva Bautista MD ; [facility] Focalin 10 MG Oral Tablet 12/07/2021 - 01/06/2022 Provider: JULIO C BAUTISTA MD Diagnosis: Attn-defct hyper activity disorder, predom inattentive type as directed 1/2 tab in am fo r 1 week then if tolerated may increase to 1 tab in am therafter Last Documented On 12/07/2021 8:09PM By Aviva Bautista MD ; [facility] Medications Administered Includes: Administered Medications from this encounter No Administered Medications Recorded Vital Signs Includes: Vital Signs from this encounter Vital Name 12/29/2022 05:25P Blood Pressure Sitting L 117/72 BP Cuff Size Regular Pulse Rate-Sitting (bpm) 80 Pulse Rhythm Regular Height (in) 66 Weight (lb) 127 Body Mass Index 20.5 Body Surface Area 1.6 Note: self reported vitals Last Documented: On 12/29/2022 5:25PM ; [facility] Results Includes: Results discussed during this encounter No Results Recorded For Specified Dates History of Present Illness Includes: History of Present Illness from this encounter HPI GEORGINA FERNÁNDEZ is a 62 year old female. - Allergy list reviewed - Past medical history reviewed - Medication list reviewed Georgina tried the Modafinil 100 mg half a tablet in the morning along with the low dose of Vyvanse 20 mg in the morning and she said that it seemed to help in improving her mental alertness in that it is helping to reduce her fatigue. She said that she was not as tired. She was so happy that the medicine was working and that she did not get sick nor have any side effects. She also mentioned that her concentration seemed to be better with the Vyvanse. She has not been feeling as depressed. The Fluoxetine 10 mg a day seemed to help. She has not been as anxious. She said that whenever she gets somewhat anxious she takes half a tablet of the 10 mg a day on an as needed basis only because she had that zapping effect with the Lexapro when she tried to get off of it but taking it as needed does not seem to bother her as much. She denied having any mood swings. She is still more motivated to do things since she is less tired or less fatigued than before. Sleep is good. Appetite is good. She denied feeling bad about herself. Occasionally, she still has some issues with concentration but seemed to be better with Vyvanse 20 mg in the morning. Occasionally, she may get restless. She denied having any suicidal thoughts. No delusions or hallucinations. She said that she felt the need to take Benadryl 25 mg 1/4 tablet at night so she can relax and sleep. She was already warned that long-term use of Benadryl or Diphenhydramine may actually cause more cognitive impairment in the long run. She still has Diazepam tablets which she takes as needed only for severe anxiety. She has been combining 2 cups of coffee or caffeinated beverages in order to be more alert and awake and it does not seem to cause any issues or problems as far as her anxiety. MENTAL STATUS EXAM: Sensorium - alert, oriented to name, place, and time Attitude - cooperative Gait - ambulatory Sleep - good Interest/Energy/Motivation - seemed more motivated since she is less tired and more alert with the low dose of Modafinil Guilt/Worthlessness - absent Concentration/Attention Span - able to focus and concentrate better with the Vyvanse although she still has some issues in the afternoon but overall she is happy with her progress Memory Recall - fairly good Appetite - good - on 12/17/22 pt weighed 128 lbs and on 12/29/22 she weighed 127 lbs so she lost 1 lb Suicidal Thoughts - absent Homicidal Thoughts - absent Delusions - absent Hallucinations - absent Appearance - casually groomed Motor Behavior - calm Eye Contact - intermittent Speech - fluent Mood - not as depressed Affect - not as anxious Thought Process - coherent Insight and Judgment - intact Social History Description Last Updated 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 Both parents are . She was [...] of Science in nursing. 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 Patient is heterosexual and denied any history of sexual dysfunction. She has no past or pending legal history. She enjoys being outdoors with horses. Her jain background is Buddhism. She follows a gluten free diet 12/07/2021 Last Documented On 3 5:13PM ; [facility] Daily coffee consumption - o ne cup of coffee daily, an occasional glass of tea daily, and does not drink soda 12/07/2021 Last Documented On 3 5:13PM ; [facility] Not using alcohol 12/07/2021 Last Documented On 3 5:13PM ; [facility] Not using drugs 12/07/2021 Last Documented On 3 5:13PM ; [facility] Work history 12/07/2021 Last Documented On 3 5:13PM ; [facility] Tobacco non-user 12/07/2021 Last Documented On 3 5:13PM ; [facility] Smoking Status Unknown Procedures and Surgical History Includes: Procedures from this encounter Procedures Code Diagnosis Performing Provider Service L ocation Service Date education and instructions Last Documented On 3 5:13PM ; [facility] dangerousness assessment: suicide risk -not suic idal 3085F Last Documented On 3 5:13PM ; [facility] use of tobacco assessment performed 1000F Last Documented On 3 5:13PM ; [facility] patient screened for future fall risk - no recen t falls 3288F Last Documented On 3 5:13PM ; [facility] review of medications documented 1160F Last Documented On 3 5:13PM ; [facility] screening for adult depressi on: impression and score - please see above treatment and PHQ score Last Documented On 3 5:13PM ; [facility] standardized depression screening: posit jose l for symptoms Last Documented On 3 5:13PM ; [facility] Clinical summary provided to patient Last Documented On 3 5:13PM ; [facility] PHQ-9: total score 7 Last Documented On 3 4:18PM ; [facility] Surgical History Last Updated History of tubal ligation - 2000 022 Last Documented On 3 5:13PM ; [facility] History of hallux valgus (bunion) correc tion - of left great toe -- 200312/07/2021 Last Documented On 3 5:13PM ; [facility] Medical History Includes: Medical History addressed during this encounter Description Last Updated History of conjunctivitis - uses Ciprofloxacin 0.3% eye drops prn because she has no tear shield from Sjorgren's Syndrome; given Tobramycin-Dexamethasone 0.3-0.1% ophth suspension 06/23/22 07/02/2022 Last Documented On 3 5:13PM ; [facility] History of COVID-19 infectio n - 01/2022 - had cold symptoms and was unable to complete her sleep study at [facility] 05/11/2022 Last Documented On 3 5:13PM ; [facility] History of Diarrhea - started Cholestyra mine 4 gm packets 04/202205/11/2022 Last Documented On 3 5:13PM ; [facility] History of colonoscopy - 04/26/22 022 Last Documented On 3 5:13PM ; [facility] 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 Nas Coto 03/10/2022 Last Documented On 3 5:13PM ; [facility] Primary Care Provider: Dr. Teena Rodriguez ~Dr. Anupam Galicia -- Tip Fixer ~Dr. Yajaira Sandhu -- Professional Bondsman ~Dr. Nas Coto -- ENT/Sleep 03/10/2022 Last Documented On 3 5:13PM ; [facility] History of irritable bowel syndrome - di arrhea 12/09/2021 Last Documented On 3 5:13PM ; [facility] History of colitis 12/09/2021 Last Documented On 3 5:13PM ; [facility] History of Sjogren syndrome - sicca comp sridevi - 200212/07/2021 Last Documented On 3 5:13PM ; [facility] History of coronavirus 2019- nCoV vaccine - Moderna #1 10/09/20 #2 11/06/20 #3 09/11/21 12/07/2021 Last Documented On 3 5:13PM ; [facility] History of microscopic colitis - 2013 Last Documented On 3 5:13PM ; [facility] History of esophagitis - 202012/07/2021 Last Documented On 3 5:13PM ; [facility] History of gastritis - 201912/07/2021 Last Documented On 3 5:13PM ; [facility] History of GERD - 200212/07/2021 Last Documented On 3 5:13PM ; [facility] Family History Includes: Family History addressed during this encounter Description Last Updated Fraternal history of alcohol abuse - brothers, one brother has h/o bipolar disorder 12/07/2021 Last Documented On 3 5:13PM ; [facility] Paternal history of depression , Bipolar disorder - father 12/07/2021 Last Documented On 3 5:13PM ; [facility] Paternal history of alcohol abuse - formerly [facility] 12/07/2021 Last Documented On 3 5:13PM ; [facility] Sororal history of suicide attempt - one of her sisters 12/07/2021 Last Documented On 3 5:13PM ; [facility] Sororal history of depression - 2 sister s 12/07/2021 Last Documented On 3 5:13PM ; [facility] Review of Systems Includes: Review of Systems from this encounter Systemic: Feeling poorly (malaise) - occasionally tired. No fever, no chills, and no night sweats. Head: Headache associated with head congestion and sinus pain. Neck: No neck pain and no neck stiffness. Eyes: Vision problems. No itching of the eyes and no eye pain. Otolaryngeal: Hearing loss - hard of hearing. No earache. Tinnitus. No nasal discharge, no hoarseness, and no sore throat. Cardiovascular: No chest pain or discomfort, no palpitations, and the heart rate was not fast. Pulmonary: No dyspnea, no cough, and no wheezing. Gastrointestinal: No heartburn. Nausea. No vomiting. Abdominal pain. No diarrhea and no constipation. Genitourinary: No increase in urinary frequency. No dysuria. Endocrine: No polydipsia and no excessive sweating. Musculoskeletal: Muscle aches. No localized joint pain and no localized joint stiffness. Neurological: Dizziness. No vertigo, no fainting, and [...] Active Last Documented On 4 4:53PM ; [facility] Anaprox Allergy 12/07/2021 Active Last Documented On 4 4:53PM ; [facility] Note: Imported from external source. 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
--- OUTSIDE RECORDS SUMMARY | 2024-10-04 07:38 | XMS_ITS ---
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 Name Role Phone DEREJE ROSADO, JULIO C PHILLIP Unavailable [phone] Problems Includes: Active, inactive, and resolved Problems All Visits Onset Date Resolved Date Provider Condition S tatus Panic Disorder 09/12/2022 JULIO C Costa Active Last Documented On 3 5:27PM ; [facility] Attention-deficit Hyperactivity Disorder 12/07/2021 JULIO C BAUTISTA MD Active Last Documented On 2 8:00PM ; [facility] Generalized Anxiety Disorder 12/07/2021 JULIO C BAUTISTA MD Active Last Documented On 2 9:57AM ; [facility] Psychophysiological Insomnia 12/07/2021 JULIO C BAUTISTA MD Active Last Documented On 2 8:00PM ; [facility] Major Depression 12/07/2021 JULIO C BAUTISTA MD Active Last Documented On 2 9:57AM ; [facility] Plan of Treatment Referrals To Diagnosis Sleep Study at [facility] LYNN LAURA MD - ALT ON [facility] - [address] [place] [phone] - Obstructive sleep apnea (adult) (pediatric) Note: Refer to sleep special ist Dr. Laura Last Documented On 2 6:16PM ; [facility] Instructions to patient Lose weight Last Documented On 2 4:50PM ; [facility] Education and Decision Aids were provided during visit for: Patient education about medi cation ---Education was given on medication(s) and diagnosis. I reviewed the risks, benefits and side effects of patient's medications Last Documented On 3 5:13PM ; [facility] Patient education about medi cation ---Education was given on medication(s) and diagnosis. I reviewed the risks, benefits and side effects of patient's medications Last Documented On 3 4:35PM ; [facility] Discussed calming techniques such as breathing exercises and other relaxation techniques Last Documented On 3 4:35PM ; [facility] Discussed calming techniques such as breathing exercises and other relaxation techniques if and when anxious Last Documented On 3 11:40PM ; [facility] Patient education about medi cation ---Education was given on medication(s) and diagnosis. I reviewed the risks, benefits and side effects of patient's medications Last Documented On 3 4:29PM ; [facility] Discussed calming techniques such as breathing exercises and other relaxation techniques Last Documented On 3 4:29PM ; [facility] Discussed good sleep hygiene habits Last Documented On 3 4:42PM ; [facility] Discussed calming techniques such as breathing exercises and other relaxation techniques Last Documented On 2 4:30PM ; [facility] Patient education about medi cation --- I educated patient on medication(s) and diagnosis. I reviewed the risks, benefits and side effects of patient's medications Last Documented On 2 4:32PM ; [facility] Discussed calming techniques such as breathing exercises and other relaxation techniques Last Documented On 2 4:32PM ; [facility] Counseling for nutrition/ro ght management provided Last Documented On 2 4:50PM ; [facility] Discussed good sleep hygiene habits Last Documented On 2 4:50PM ; [facility] Patient education about medi cation --- I educated patient on medication(s) and diagnosis. I reviewed the risks, benefits and side effects of patient's medications Last Documented On 2 4:34PM ; [facility] Discussed calming techniques such as breathing exercises and other relaxation techniques Last Documented On 2 4:34PM ; [facility] Discussed good sleep hygiene habits Last Documented On 2 4:50PM ; [facility] Patient education about medi cation --- I educated patient on medication(s) and diagnosis. I reviewed the risks, benefits and side effects of patient's medications Last Documented On 2 4:42PM ; [facility] Discussed calming techniques such as breathing exercises and other relaxation techniques Last Documented On 2 4:42PM ; [facility] Discussed good sleep hygiene habits Last Documented On 2 4:45PM ; [facility] Patient education about medi cation --- I educated patient on medication(s) and diagnosis. I reviewed the risks, benefits and side effects of patient's medications Last Documented On 2 4:40PM ; [facility] Discussed calming techniques such as breathing exercises and other relaxation techniques Last Documented On 2 4:40PM ; [facility] Counseling for nutrition/ro ght management provided Last Documented On 2 4:54PM ; [facility] Patient education about medi cation --- I educated patient on medication(s) and diagnosis. I reviewed the risks, benefits and side effects of patient's medications Last Documented On 2 9:42AM ; [facility] Assessments Includes: Assessments for all patient encounters Findings Encounter Date Attention-deficit hyperactiv ity disorder TELEHEALTH with JULIO C BAUTISTA MD 12/29/2022 Last Documented On 3 9:07AM ; [facility] Generalized anxiety disorder TELEHEALTH with MET VINH BAUTISTA MD 12/29/2022 Last Documented On 3 9:07AM ; [facility] Major depressive disorder TELEHEALTH with DEVEN BAUTISTA MD 12/29/2022 Last Documented On 3 9:07AM ; [facility] Panic disorder TELEHEALTH with JULIO C RAMIREZ MD 12/29/2022 Last Documented On 3 9:07AM ; [facility] Psychophysiological insomnia TELEHEALTH with MET VINH BAUTISTA MD 12/29/2022 Last Documented On 3 9:07AM ; [facility] Attention-deficit hyperactivity disorder TELEHEALTH with JULIO C BAUTISTA MD 12/17/2022 Last Documented On 3 7:13AM ; [facility] Generalized anxiety disorder TELEHEALTH with MET VINH BAUTISTA MD 12/17/2022 Last Documented On 3 7:13AM ; [facility] Major depressive disorder TELEHEALTH with DEVEN BAUTISTA MD 12/17/2022 Last Documented On 3 7:13AM ; [facility] Psychophysiological insomnia TELEHEALTH with MET VINH BAUTISTA MD 12/17/2022 Last Documented On 3 7:13AM ; [facility] Attention-deficit hyperactivity disorder * PHONE CALL with JULIO C BAUTISTA MD 11/23/2022 Last Documented On 3 2:00PM ; [facility] Attention-deficit hyperactivity disorder TELEHEALTH with JULIO C BAUTISTA MD 11/19/2022 Last Documented On 3 11:44PM ; [facility] Generalized anxiety disorder TELEHEALTH with MET VINH BAUTISTA MD 11/19/2022 Last Documented On 3 11:44PM ; [facility] Major depressive disorder TELEHEALTH with DEVEN BAUTISTA MD 11/19/2022 Last Documented On 3 11:44PM ; [facility] Psychophysiological insomnia TELEHEALTH with MET VINH BAUTISTA MD 11/19/2022 Last Documented On 3 11:44PM ; [facility] Attention-deficit hyperactivity disorder TELEHEALTH with JULIO C BAUTISTA MD 10/04/2022 Last Documented On 3 5:49AM ; [facility] Generalized anxiety disorder TELEHEALTH with MET VINH BAUTISTA MD 10/04/2022 Last Documented On 3 5:49AM ; [facility] Major depressive disorder TELEHEALTH with DEVEN BAUTISTA MD 10/04/2022 Last Documented On 3 5:49AM ; [facility] Psychophysiological insomnia TELEHEALTH with MET VINH BAUTISTA MD 10/04/2022 Last Documented On 3 5:49AM ; [facility] Attention-deficit hyperactivity disorder * PHONE CALL with JULIO C BAUTISTA MD 08/18/2022 Last Documented On 2 3:17PM ; [facility] Attention-deficit hyperactivity disorder TELEHEALTH with JULIO C BAUTISTA MD 07/02/2022 Last Documented On 2 9:32PM ; [facility] Generalized anxiety disorder TELEHEALTH with MET VINH BAUTISTA MD 07/02/2022 Last Documented On 2 9:32PM ; [facility] Major depressive disorder TELEHEALTH with DEVEN BAUTISTA MD 07/02/2022 Last Documented On 2 9:32PM ; [facility] Psychophysiological insomnia TELEHEALTH with MET VINH BAUTISTA MD 07/02/2022 Last Documented On 2 9:32PM ; [facility] Attention-deficit hyperactivity disorder TELEHEALTH with JULIO C BAUTISTA MD 05/11/2022 Last Documented On 2 12:00PM ; [facility] Generalized anxiety disorder TELEHEALTH with MET VINH BAUTISTA MD 05/11/2022 Last Documented On 2 12:00PM ; [facility] Major depressive disorder TELEHEALTH with DEVEN BAUTISTA MD 05/11/2022 Last Documented On 2 12:00PM ; [facility] Psychophysiological insomnia TELEHEALTH with MET VINH BAUTISTA MD 05/11/2022 Last Documented On 2 12:00PM ; [facility] Generalized anxiety disorder * PHONE CALL with Simone BAUTISTA MD 03/25/2022 Last Documented On 2 7:59PM ; [facility] Attention-deficit hyperactivity disorder TELEHEALTH with JULIO C BAUTISTA MD 03/10/2022 Last Documented On 2 8:40AM ; [facility] Generalized anxiety disorder TELEHEALTH with MET VINH BAUTISTA MD 03/10/2022 Last Documented On 2 8:40AM ; [facility] Major depressive disorder TELEHEALTH with DEVEN BAUTISTA MD 03/10/2022 Last Documented On 2 8:40AM ; [facility] Psychophysiological insomnia TELEHEALTH with MET VINH BAUTISTA MD 03/10/2022 Last Documented On 2 8:40AM ; [facility] Attention-deficit hyperactivity disorder TELEHEALTH with JULIO C BAUTISTA MD 02/04/2022 Last Documented On 2 9:06AM ; [facility] Generalized anxiety disorder TELEHEALTH with MET VINH BAUTISTA MD 02/04/2022 Last Documented On 2 9:06AM ; [facility] Major depressive disorder TELEHEALTH with DEVEN BAUTISTA MD 02/04/2022 Last Documented On 2 9:06AM ; [facility] Psychophysiological insomnia TELEHEALTH with MET VINH BAUTISTA MD 02/04/2022 Last Documented On 2 9:06AM ; [facility] Attention-deficit hyperactivity disorder TELEHEALTH with JULIO C BAUTISTA MD 01/08/2022 Last Documented On 2 8:19AM ; [facility] Generalized anxiety disorder TELEHEALTH with MET VINH BAUTISTA MD 01/08/2022 Last Documented On 2 8:19AM ; [facility] Major depressive disorder TELEHEALTH with DEVEN BAUTISTA MD 01/08/2022 Last Documented On 2 8:19AM ; [facility] Psychophysiological insomnia TELEHEALTH with MET VINH BAUTISTA MD 01/08/2022 Last Documented On 2 8:19AM ; [facility] Major depressive disorder * PHONE CALL with ISIDRA BAUTISTA MD 12/10/2021 Last Documented On 2 7:20PM ; [facility] Attention-deficit hyperactivity disorder PSYCH NEW PATIENT EXAM- ADULT with JULIO C BAUTISTA MD 12/07/2021 Last Documented On 2 7:51AM ; [facility] Generalized anxiety disorder PSYCH NEW P ATIENT EXAM- ADULT with JULIO C BAUTISTA MD 12/07/2021 Last Documented On 2 7:51AM ; [facility] Major depressive disorder PSYCH NEW SRUT[place] ENT EXAM- ADULT with JULIO C BAUTISTA MD 12/07/2021 Last Documented On 2 7:51AM ; [facility] Psychophysiological insomnia PSYCH NEW P ATIENT EXAM- ADULT with JULIO C BAUTISTA MD 12/07/2021 Last Documented On 2 7:51AM ; [facility] Instructions Includes: Instructions for all patient encounters Instructions to patient Lose weight Last Documented On 2 4:50PM ; [facility] Education and Decision Aids were provided during visit for: Patient education about medi cation ---Education was given on medication(s) and diagnosis. I reviewed the risks, benefits and side effects of patient's medications Last Documented On 3 5:13PM ; [facility] Patient education about medi cation ---Education was given on medication(s) and diagnosis. I reviewed the risks, benefits and side effects of patient's medications Last Documented On 3 4:35PM ; [facility] Discussed calming techniques such as breathing exercises and other relaxation techniques Last Documented On 3 4:35PM ; [facility] Discussed calming techniques such as breathing exercises and other relaxation techniques if and when anxious Last Documented On 3 11:40PM ; [facility] Patient education about medi cation ---Education was given on medication(s) and diagnosis. I reviewed the risks, benefits and side effects of patient's medications Last Documented On 3 4:29PM ; [facility] Discussed calming techniques such as breathing exercises and other relaxation techniques Last Documented On 3 4:29PM ; [facility] Discussed good sleep hygiene habits Last Documented On 3 4:42PM ; [facility] Discussed calming techniques such as breathing exercises and other relaxation techniques Last Documented On 2 4:30PM ; [facility] Patient education about medi cation --- I educated patient on medication(s) and diagnosis. I reviewed the risks, benefits and side effects of patient's medications Last Documented On 2 4:32PM ; [facility] Discussed calming techniques such as breathing exercises and other relaxation techniques Last Documented On 2 4:32PM ; [facility] Counseling for nutrition/ro ght management provided Last Documented On 2 4:50PM ; [facility] Discussed good sleep hygiene habits Last Documented On 2 4:50PM ; [facility] Patient education about medi cation --- I educated patient on medication(s) and diagnosis. I reviewed the risks, benefits and side effects of patient's medications Last Documented On 2 4:34PM ; [facility] Discussed calming techniques such as breathing exercises and other relaxation techniques Last Documented On 2 4:34PM ; [facility] Discussed good sleep hygiene habits Last Documented On 2 4:50PM ; [facility] Patient education about medi cation --- I educated patient on medication(s) and diagnosis. I reviewed the risks, benefits and side effects of patient's medications Last Documented On 2 4:42PM ; [facility] Discussed calming techniques such as breathing exercises and other relaxation techniques Last Documented On 2 4:42PM ; [facility] Discussed good sleep hygiene habits Last Documented On 2 4:45PM ; [facility] Patient education about medi cation --- I educated patient on medication(s) and diagnosis. I reviewed the risks, benefits and side effects of patient's medications Last Documented On 2 4:40PM ; [facility] Discussed calming techniques such as breathing exercises and other relaxation techniques Last Documented On 2 4:40PM ; [facility] Counseling for nutrition/ro ght management provided Last Documented On 2 4:54PM ; [facility] Patient education about medi cation --- I educated patient on medication(s) and diagnosis. I reviewed the risks, benefits and side effects of patient's medications Last Documented On 2 9:42AM ; [facility] Medical Equipment - Implanted Devices Includes: Current and historical Devices No Medical Equipment Recorded Medications Includes: Current and historical Medications Current Medications (continue as prescribed) Vyvanse 20 MG Oral Capsule 12/29/2022 Provider: JULIO C BAUTISTA MD Diagnosis: Attn-defct hyper activity disorder, predom inattentive type 1 Capsule every morning Last Documented On 12/29/2022 6:08PM By Aviva Bautista MD ; [facility] Modafinil 100 MG Oral Tablet 12/17/2022 Provider: JULIO C BAUTISTA MD Diagnosis: Attn-defct hyper activity disorder, predom inattentive type as directed -- 1 tab in am Last Documented On 12/17/2022 6:03PM By Aviva Bautista MD ; [facility] FLUoxetine HCl 10 MG Oral Tablet 12/10/2022 Provider: JULIO C BAUTISTA MD Diagnosis: Major depressive disorder, recurrent, unspecified TAKE 1 TABLET BY MOUTH EVERY DAY IN THE MORNING Last Documented On 12/10/2022 9:52AM By Aviva Bautista MD ; [facility] Pantoprazole Sodium 40 MG Or al Tablet Delayed Release 12/06/2022 Provider: YAJAIRA LYN MD Diagnosis: 1 tab bid Last Documented On 12/17/2022 4:47PM By EMELY LAGUERRE ; [facility] Lexapro 10 MG Oral Tablet 11/21/2022 Provider: JULIO C BAUTISTA MD Diagnosis: Major depressive disorder, recurrent, unspecified One tablet daily Last Documented On 3 11:34PM By Aviva Bautista MD ; [facility] traMADol HCl 50 MG Oral Tablet 09/17/2022 Provider: Diagnosis: as directed Last Documented On 3 11:34AM By EMELY LAGUERRE ; [facility] Cholestyramine 4 GM Oral Packet 03/16/2022 Provider: HARVINDER WILSON PA-C Diagnosis: 1 packet bid Last Documented On 05/11/2022 4:48PM By EMELY LAGUERRE ; [facility] Sucralfate 1 GM Oral Tablet 11/16/2021 Provider: HARVINDER WILSON PA-C Diagnosis: 1 tab qid Last Documented On 2 10:04AM By EMELY LAGUERRE ; [facility] Cevimeline HCl 30 MG Oral Capsule 10/26/2021 Provide r: Diagnosis: [address] Nubia Rodriguez Last Documented On 2 10:05AM By EMELY LAGUERRE ; [facility] Hydroxychloroquine Sulfate 200 MG Oral Tablet 10/02/19 Provider: Diagnosis: [address]Terry Galicia Last Documented On 2 10:06AM By EMELY LAGUERRE ; [facility] Past Medications on file Vyvanse 20 MG Oral Capsule 11/23/2022 - 12/29/2022 Provider: JULIO C BAUTISTA MD Diagnosis: Attn-defct hyper activity disorder, predom inattentive type 1 Capsule every morning Last Documented On 12/29/2022 6:06PM By Aviva Bautista MD ; [facility] Azstarys 26.1-5.2 MG Oral Capsule 11/19/2022 - 12/19/2022 Provider: JULIO C BAUTISTA MD Diagnosis: Attn-defct hyper activity disorder, predom inattentive type 1 Capsule every morning Last Documented On 11/19/2022 5:23PM By Aviva Bautista MD ; [facility] FLUoxetine HCl 10 MG Oral Tablet 11/11/2022 - 12/10/2022 Provider: JULIO C BAUTISTA MD Diagnosis: Major depressive disorder, recurrent, unspecified TAKE 1 TABLET BY MOUTH EVERY DAY IN THE MORNING Last Documented On 12/10/2022 9:50AM By Aviva Bautista MD ; [facility] Lexapro 5 MG Oral Tablet 11/03/2022 - 11/21/2022 Provi vickie: JULIO C BAUTISTA MD Diagnosis: as directed 1 tab daily - dispensed as written ( [facility]) Last Documented On 3 11:34PM By Aviva Bautista MD ; [facility] Vyvanse 30 MG Oral Capsule 11/03/2022 - 11/19/2022 Provider: JULIO C BAUTISTA MD Diagnosis: Attention-defici t hyperactivity disorder, unspecified type 1 Capsule every morning Last Documented On 11/19/2022 5:20PM By Aviva Bautista MD ; [facility] FLUoxetine HCl 10 MG Oral Tablet 10/20/2022 - 11/11/2022 Provider: JULIO C BAUTISTA MD Diagnosis: Major depressive disorder, recurrent, unspecified TAKE 1 TABLET BY MOUTH EVERY DAY IN THE MORNING Last Documented On 10:42AM By Aviva Bautista MD ; [facility] Vyvanse 30 MG Oral Capsule 10/04/2022 - 11/03/2022 Provider: JULIO C BAUTISTA MD Diagnosis: Attention-defici t hyperactivity disorder, unspecified type 1 Capsule every morning Last Documented On 11/03/2022 8:48AM By Aviva Bautista MD ; [facility] diazePAM 2 MG Oral Tablet 10/04/2022 - 11/03/2022 Provider: JULIO C RAMIREZ MD Diagnosis: Panic disorder [episodic paroxysmal anxiety] as directed -- 1/2 - 1 tab a day as needed for panic/anxiety Last Documented On 10/04/2022 5:40PM By Aviva Bautista MD ; [facility] HM Famotidine 20 MG Oral Tablet 10/04/2022 - Provider: GIOVANNA GUO MD Diagnosis: 1 bid Last Documented On 12/17/2022 4:46PM By EMELY LAGUERRE ; [facility] FLUoxetine HCl 10 MG Oral Tablet 09/26/2022 - 10/20/2022 Provider: JULIO C BAUTISTA MD Diagnosis: Major depressive disorder, recurrent, unspecified TAKE 1 TABLET BY MOUTH EVERY DAY IN THE MORNING Last Documented On 10/20/2022 9:43AM By Aviva Bautista MD ; [facility] FLUoxetine HCl 10 MG Oral Tablet 09/02/2022 - 09/26/2022 Provider: JULIO C BAUTISTA MD Diagnosis: Major depressive disorder, recurrent, unspecified TAKE 1 TABLET BY MOUTH EVERY DAY IN THE MORNING Last Documented On 09/26/2022 6:58PM By Aviva Bautista MD ; [facility] Lexapro 5 MG Oral Tablet 08/25/2022 - 11/03/2022 Provi vickie: JULIO C BAUTISTA MD Diagnosis: as directed 1 tab daily - dispensed as written ( [facility]) Last Documented On 11/03/2022 8:47AM By Aviva Bautista MD ; [facility] Lexapro 5 MG Oral Tablet 08/25/2022 - 10/04/2022 Provi vickie: JULIO C BAUTISTA MD Diagnosis: 1 tab daily [facility] Last Documented On 10/04/2022 4:41PM By EMELY LAGUERRE ; [facility] Lexapro 5 MG Oral Tablet 08/25/2022 - 08/25/2022 Provi vickie: JULIO C BAUTISTA MD Diagnosis: 1 tab daily Last Documented On 11:43AM By EMELY LAGUERRE ; [facility] Lexapro 5 MG Oral Tablet 08/20/2022 - 10/04/2022 Provi vickie: JULIO C BAUTISTA MD Diagnosis: as directed 1 tab daily Last Documented On 10/04/2022 4:40PM By EMELY LAGUERRE ; [facility] Qelbree 100 MG Oral Capsule Extended Release 24 Hour 08/18/2022 - 10/04/2022 Provider: JULIO C BAUTISTA MD Diagnosis: Attn-defct hyper activity disorder, predom inattentive type as directed -- 1 cap in the afternoon Last Documented On 10/04/2022 5:25PM By Aviva Bautista MD ; [facility] Vyvanse 30 MG Oral Capsule 08/18/2022 - 10/04/2022 Provider: JULIO C BAUTISTA MD Diagnosis: Attention-defici t hyperactivity disorder, unspecified type 1 Capsule every morning Last Documented On 10/04/2022 5:19PM By Aviva Bautista MD ; [facility] Vyvanse 30 MG Oral Capsule 08/18/2022 - 10/04/2022 Pro vider: Diagnosis: Attention-defici t hyperactivity disorder, unspecified type 1 capsule every morning Last Documented On 10/04/2022 4:41PM By EMELY LAGUERRE ; [facility] FLUoxetine HCl 10 MG Oral Tablet 08/10/2022 - 09/02/2022 Provider: JULIO C BAUTISTA MD Diagnosis: Major depressive disorder, recurrent, unspecified TAKE 1 TABLET BY MOUTH EVERY DAY IN THE MORNING Last Documented On 09/02/2022 3:40PM By Aviva Bautista MD ; [facility] Vyvanse 20 MG Oral Capsule 07/26/2022 - 10/04/2022 Provider: JULIO C BAUTISTA MD Diagnosis: Attn-defct hyper activity disorder, predom inattentive type 1 Capsule every morning Last Documented On 10/04/2022 5:25PM By Aviva Bautista MD ; [facility] FLUoxetine HCl 10 MG Oral Tablet 07/16/2022 - 08/10/2022 Provider: JULIO C BAUTISTA MD Diagnosis: Major depressive disorder, recurrent, unspecified TAKE 1 TABLET BY MOUTH EVERY DAY IN THE MORNING Last Documented On 08/10/2022 9:55AM By Aviva Bautista MD ; [facility] Qelbree 200 MG Oral Capsule Extended Release 24 Hour 07/02/2022 - 11/19/2022 Provider: JULIO C BAUTISTA MD Diagnosis: Attn-defct hyper activity disorder, predom inattentive type 1 Capsule every morning Last Documented On 11/19/2022 4:40PM By EMELY LAGUERRE ; [facility] Vyvanse 20 MG Oral Capsule 06/28/2022 - 07/26/2022 Provider: JULIO C BAUTISTA MD Diagnosis: Attn-defct hyper activity disorder, predom inattentive type 1 Capsule every morning Last Documented On 2 10:07AM By Aviva Bautista MD ; [facility] FLUoxetine HCl 10 MG Oral Tablet 06/21/2022 - 07/16/2022 Provider: JULIO C BAUTISTA MD Diagnosis: Major depressive disorder, recurrent, unspecified TAKE 1 TABLET BY MOUTH EVERY DAY IN THE MORNING Last Documented On 07/16/2022 8:49AM By Aviva Bautista MD ; [facility] Vyvanse 20 MG Oral Capsule 05/28/2022 - 06/28/2022 Provider: JULIO C BAUTISTA MD Diagnosis: Attn-defct hyper activity disorder, predom inattentive type 1 Capsule every morning Last Documented On 10:31AM By Aviva Bautista MD ; [facility] FLUoxetine HCl 10 MG Oral Tablet 05/24/2022 - 06/21/2022 Provider: JULIO C BAUTISTA MD Diagnosis: Major depressive disorder, recurrent, unspecified TAKE 1 TABLET BY MOUTH EVERY DAY IN THE MORNING Last Documented On 06/21/2022 7:51AM By Aviva Bautista MD ; [facility] Lexapro 5 MG Oral Tablet 04/29/2022 - 07/02/2022 Provi vickie: JULIO C BAUTISTA MD Diagnosis: 1 tab daily Last Documented On 07/02/2022 4:42PM By EMELY LAGUERRE ; [facility] Lexapro 5 MG Oral Tablet 04/29/2022 - 08/20/2022 Provi vickie: JULIO C BAUTISTA MD Diagnosis: as directed 1 tab daily Last Documented On 08/20/2022 5:59PM By Aviva Bautista MD ; [facility] Lexapro 5 MG Oral Tablet 04/26/2022 - 07/02/2022 Provi vickie: JULIO C BAUTISTA MD Diagnosis: TAKE 1 TABLET BY MOUTH EVERY DAY Last Documented On 07/02/2022 4:41PM By EMELY LAGUERRE ; [facility] Lexapro 5 MG Oral Tablet 04/26/2022 - 07/02/2022 Provi vickie: JULIO C BAUTISTA MD Diagnosis: Take one tab by mouth every day Last Documented On 07/02/2022 4:41PM By EMELY LAGUERRE ; [facility] Lexapro 5 MG Oral Tablet 04/26/2022 - 07/02/2022 Provi vickie: JULIO C BAUTISTA MD Diagnosis: One tablet daily Last Documented On 07/02/2022 4:42PM By EMELY LAGUERRE ; [facility] Lexapro 5 MG Oral Tablet 04/21/2022 - 04/26/2022 Provider: JULIO C RAMIREZ MD Diagnosis: Generalized anxi ety disorder TAKE 1 TABLET BY MOUTH EVERY DAY Last Documented On 04/26/2022 9:00AM By Aviva Bautista MD ; [facility] Vyvanse 20 MG Oral Capsule 04/05/2022 - 05/28/2022 Provider: JULIO C BAUTISTA MD Diagnosis: Attn-defct hyper activity disorder, predom inattentive type 1 Capsule every morning Last Documented On 05/28/2022 5:27PM By Aviva Bautista MD ; [facility] Escitalopram Oxalate 5 MG Oral Tablet 03/25/2022 - 04/21/2022 Provider: JULIO C BAUTISTA MD Diagnosis: Generalized anxi ety disorder One tablet daily Last Documented On 04/21/2022 1:50PM By Aviva Bautista MD ; [facility] clonazePAM 0.5 MG Oral Tablet 03/10/2022 - 04/09/2022 Provider: JULIO C BAUTISTA MD Diagnosis: Generalized anxi ety disorder as directed -- 1/2 - 1 tab a day as needed for severe panic/anxiety Last Documented On 03/10/2022 5:58PM By Aviva Bautista MD ; [facility] Vyvanse 20 MG Oral Capsule 03/10/2022 - 04/05/2022 Provider: JULIO C BAUTISTA MD Diagnosis: Attn-defct hyper activity disorder, predom inattentive type 1 Capsule every morning Last Documented On 10:23AM By Aviva Bautista MD ; [facility] Ramelteon 8 MG Oral Tablet 03/10/2022 - 07/02/2022 Provider: JULIO C BAUTISTA MD Diagnosis: Psychophysiologi c insomnia as directed -- 1 tab at bedt marsha as needed for sleep Last Documented On 07/02/2022 4:41PM By EMELY LAGUERRE ; [facility] hydrOXYzine HCl 25 MG Oral Tablet 03/01/2022 - 03/10/2022 Provider: JULIO C BAUTISTA MD Diagnosis: Generalized anxi ety disorder TAKE 1/2 TO 1 TABLET BY MOUT H ONCE A DAY NEEDED FOR ANXIETY/PANIC DIRECTED Last Documented On 03/10/2022 5:49PM By Aviva Bautista MD ; [facility] traZODone HCl 50 MG Oral Tablet 02/23/2022 - 07/02/2022 Provider: JULIO C BAUTISTA MD Diagnosis: Psychophysiologi c insomnia TAKE ONE-HALF TO 1 TABLET BY MOUTH AT BEDTIME NEEDED FOR SLEEP/ANXIETY/RACING THOUGHTS Last Documented On 07/02/2022 4:41PM By EMELY LAGUERRE ; [facility] hydrOXYzine HCl 25 MG Oral Tablet 02/04/2022 - 03/01/2022 Provider: JULIO C BAUTISTA MD Diagnosis: Generalized anxi ety disorder as directed -- 1/2 - 1 tab a day as needed for anxiety/panic Last Documented On 03/01/2022 7:06AM By Aviva Bautista MD ; [facility] FLUoxetine HCl 10 MG Oral Tablet 02/04/2022 - 05/24/2022 Provider: JULIO C BAUTISTA MD Diagnosis: Major depressive disorder, recurrent, unspecified TAKE 1 TABLET BY MOUTH EVERY DAY IN THE MORNING Last Documented On 05/24/2022 1:09PM By Aviva Bautista MD ; [facility] Escitalopram Oxalate 5 MG Oral Tablet 02/04/2022 - 07/02/2022 Provider: JULIO C BAUTISTA MD Diagnosis: Generalized anxi ety disorder as directed - 1 tab a day Last Documented On 07/02/2022 4:41PM By EMELY LAGUERRE ; [facility] traZODone HCl 50 MG Oral Tablet 02/01/2022 - 02/23/2022 Provider: JULI OC BAUTISTA MD Diagnosis: Psychophysiologi c insomnia TAKE ONE-HALF TO 1 TABLET BY MOUTH AT BEDTIME NEEDED FOR SLEEP/ANXIETY/RACING THOUGHTS Last Documented On 10:22AM By Aviva Bautista MD ; [facility] FLUoxetine HCl 10 MG Oral Tablet 01/29/2022 - 02/04/2022 Provider: JULIO C BAUTISTA MD Diagnosis: Major depressive disorder, recurrent, unspecified TAKE 1 TABLET BY MOUTH EVERY DAY IN THE MORNING Last Documented On 02/04/2022 5:16PM By Aviva Bautista MD ; [facility] traZODone HCl 50 MG Oral Tablet 01/08/2022 - 02/01/2022 Provider: JULIO C BAUTISTA MD Diagnosis: Psychophysiologi c insomnia as directed -- 1/2 - 1 tab a t bedtime as needed for sleep/anxiety/racing thoughts Last Documented On 02/01/2022 6:08AM By Aviva Bautista MD ; [facility] FLUoxetine HCl 10 MG Oral Tablet 01/06/2022 - 01/29/2022 Provider: JULIO C BAUTISTA MD Diagnosis: Major depressive disorder, recurrent, unspecified TAKE 1 TABLET BY MOUTH EVERY MORNING Last Documented On 01/29/2022 9:06AM By Aviva Bautista MD ; [facility] FLUoxetine HCl 10 MG Oral Tablet 12/10/2021 - 01/06/2022 Provider: JULIO C BAUTISTA MD Diagnosis: Major depressive disorder, recurrent, unspecified 1 tablet every morning Last Documented On 12:23PM By Aviva Bautista MD ; [facility] Cymbalta 20 MG Oral Capsule Delayed Release Particles 12/07/2021 - 02/04/2022 Provider: JULIO C BAUTISTA MD Diagnosis: Major depressive disorder, recurrent, unspecified 1 capsule daily Last Documented On 02/04/2022 5:01PM By Aviva Bautista MD ; [facility] Mucinex D 60-600 MG Oral Tab let Extended Release 12 Hour 12/07/2021 - 05/11/2022 Provider: Diagnosis: prn Last Documented On 05/11/2022 4:38PM By EMELY LAGUERRE ; [facility] Famotidine 20 MG Oral Tablet 12/07/2021 - Provider: GIOVANNA GUO MD Diagnosis: 1 and 1/2 tabs bid Last Documented On 10/04/2022 4:33PM By EMELY LAGUERRE ; [facility] Focalin 10 MG Oral Tablet 12/07/2021 - 01/06/2022 Provider: JULIO C BAUTISTA MD Diagnosis: Attn-defct hyper activity disorder, predom inattentive type as directed 1/2 tab in am fo r 1 week then if tolerated may increase to 1 tab in am therafter Last Documented On 12/07/2021 8:09PM By Aviva Bautista MD ; [facility] Lexapro 20 MG Oral Tablet 11/28/2021 - 07/02/2022 Prov ider: HUYEN LEAL MD Diagnosis: 1 tab daily Last Documented On 07/02/2022 4:41PM By EMELY LAGUERRE ; [facility] Medications Administered Includes: Administered Medications in patient's chart No Administered Medications Recorded Results Includes: Results from 10/04/2023 through 10/04/2024 No Results Recorded For Specified Dates History of Present Illness History of Present Illness not supported for this document type No History of Present Illness Recorded Social History Description Last Updated 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 Both parents are . She was [...] of Science in nursing. 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. Patient is heterosexual and denied any history of sexual dysfunction. She has no past or pending legal history. She enjoys being outdoors with horses. Her mosque background is Confucianist. She follows a gluten free diet 12/07/2021 Last Documented On 2 7:51AM ; [facility] Daily coffee consumption - o ne cup of coffee daily, an occasional glass of tea daily, and does not drink soda 12/07/2021 Last Documented On 2 7:51AM ; [facility] Not using alcohol 12/07/2021 Last Documented On 2 7:51AM ; [facility] Not using drugs 12/07/2021 Last Documented On 2 7:51AM ; [facility] Work history 12/07/2021 Last Documented On 2 7:51AM ; [facility] Tobacco non-user 12/07/2021 Last Documented On 2 7:51AM ; [facility] Smoking Status Unknown Procedures and Surgical History Surgical History Last Updated History of tubal ligation - 2000 022 Last Documented On 2 7:51AM ; [facility] History of hallux valgus (bunion) correc tion - of left great toe -- 200312/07/2021 Last Documented On 2 7:51AM ; [facility] Medical History Includes: Medical History in patient's chart Description Last Updated History of conjunctivitis - uses Ciprofloxacin 0.3% eye drops prn because she has no tear shield from Sjorgren's Syndrome; given Tobramycin-Dexamethasone 0.3-0.1% ophth suspension 06/23/22 07/02/2022 Last Documented On 2 9:32PM ; [facility] History of COVID-19 infectio n - 01/2022 - had cold symptoms and was unable to complete her sleep study at [facility] 05/11/2022 Last Documented On 2 12:00PM ; [facility] History of Diarrhea - started Cholestyra mine 4 gm packets 04/202205/11/2022 Last Documented On 2 12:00PM ; [facility] History of colonoscopy - 04/26/22 022 Last Documented On 2 12:00PM ; [facility] 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 Nas Coto 03/10/2022 Last Documented On 2 8:40AM ; [facility] Primary Care Provider: Dr. Teena Rodriguez ~Dr. Anupam Galicia -- Family Services Coordinator ~Dr. Yajaira Lyn -- Equine Breeder ~Dr. Nas Coto -- ENT/Sleep 03/10/2022 Last Documented On 2 8:40AM ; [facility] History of irritable bowel syndrome - di arrhea 12/09/2021 Last Documented On 2 7:51AM ; [facility] History of colitis 12/09/2021 Last Documented On 2 7:51AM ; [facility] History of Sjogren syndrome - sicca comp sridevi - 200212/07/2021 Last Documented On 2 7:51AM ; [facility] History of coronavirus 2019- nCoV vaccine - Moderna #1 10/09/20 #2 11/06/20 #3 09/11/21 12/07/2021 Last Documented On 2 7:51AM ; [facility] History of microscopic colitis - 2013 Last Documented On 2 7:51AM ; [facility] History of esophagitis - 202012/07/2021 Last Documented On 2 7:51AM ; [facility] History of gastritis - 201912/07/2021 Last Documented On 2 7:51AM ; [facility] History of GERD - 200212/07/2021 Last Documented On 2 7:51AM ; [facility] Family History Includes: Family History in patient's chart Description Last Updated Fraternal history of alcohol abuse - brothers, one brother has h/o bipolar disorder 12/07/2021 Last Documented On 2 7:51AM ; [facility] Paternal history of depression , Bipolar disorder - father 12/07/2021 Last Documented On 2 7:51AM ; [facility] Paternal history of alcohol abuse - fath er 12/07/2021 Last Documented On 2 7:51AM ; [facility] Sororal history of suicide attempt - one of her sisters 12/07/2021 Last Documented On 2 7:51AM ; [facility] Sororal history of depression - 2 sister s 12/07/2021 Last Documented On 2 7:51AM ; [facility] Review of Systems Review of Systems not [...] Active Last Documented On 4 4:53PM ; [facility] Anaprox Allergy 12/07/2021 Active Last Documented On 4 4:53PM ; [facility] Note: Imported from external source. Insurance Includes: Active Insurance Policies Plan Name Member ID Group # Subscriber Relationship Effect jose l Dates 1 - [employer] [id number] GARFIELD Holman WINTER Self Clinical Notes Includes: Signed Clinical Notes starting from 10/01/2022 No Clinical Notes Recorded
--- OUTSIDE RECORDS SUMMARY | 2024-10-04 07:38 | XMS_ITS | Clinical Summary ---
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 Name Role Phone DEREJE ROSADO, JULIO C PHILLIP Unavailable [phone] Reason for Visit and Chief Complaint SECURE MESSAGE Problems Includes: Problems addressed during this encounter and other active Problems Current Visit Onset Date Resolved Date Provider Conditio n Status Attention-deficit Hyperactiv ity Disorder 12/07/2021 Active Last Documented On 3 5:53PM ; [facility] Past Visits Onset Date Resolved Date Provider Condition Status 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 JULIO C BAUTISTA MD Active Last Documented On 4 5:43PM ; [facility] Panic Disorder 09/12/2022 Active Last Documented On 3 5:53PM ; [facility] Generalized Anxiety Disorder 12/07/2021 Active Last Documented On 3 5:53PM ; [facility] Psychophysiological Insomnia 12/07/2021 Active Last Documented On 3 5:53PM ; [facility] Major Depression 12/07/2021 Active Last Documented On 3 5:53PM ; [facility] Plan of Treatment Future Appointments Date Time Location Provi vickie [facility] ESTABLISHED 11/09/2024 3:40PM [facility] BAUTISTA MD Last Documented On 4 5:46PM ; [facility] Assessments Includes: Assessments from this encounter Findings - Attention-deficit hyperactivity disorder - Last Documented On 06/26/2023 8:33PM ; [facility] Medical Equipment - Implanted Devices Includes: Current Devices No Medical Equipment Recorded Medications Includes: Medications discussed during this encounter and other current Medications Discontinued / Stopped on this date JULIO C BAUTISTA MD on 05/27/2023 Vyvanse 20 MG Oral Capsule Provider: JULIO C BAUTISTA MD Diagnosis: Attn-defct hyper activity disorder, predom inattentive type Last Documented On 06/26/2023 8:29PM By Aviva Bautista MD ; [facility] New / Renewed during this visit JULIO C BAUTISTA MD on 06/26/2023 Vyvanse 20 MG Oral Capsule Provider: JULIO C BAUTISTA MD 30 day supply: 30 capsule, 0 refills Diagnosis: Attn-defct hyperactivity disorder, predom inattentive type 1 Capsule every morning Pharmacy: [address], [address] - Last Documented On 07/26/2023 11:47AM By Aviva Bautista MD ; [facility] Current Medications (continue as prescribed) Vyvanse 40 MG Oral Capsule 02/29/2024 Provider: JULIO C BAUTISTA MD Diagnosis: Attn-defct hyper activity disorder, predom inattentive type 1 Capsule every morning Last Documented On 02/29/2024 3:13PM By Aviva Bautista MD ; [facility] Jornajavier PM 20 MG Oral Capsule Extended Release 24 Hour 02/07/2024 Provider: JULIO C BAUTISTA MD Diagnosis: Attn-defct hyper activity disorder, predom inattentive type as directed - 1 capsule at 7 pm Last Documented On 02/07/2024 6:22PM By Aviva Bautista MD ; [facility] Sunosi 75 MG Oral Tablet 02/07/2024 Provider: MET VINH BAUTISTA MD Diagnosis: Obstructive slee p apnea (adult) (pediatric) 1 tablet every morning Last Documented On 02/07/2024 6:04PM By Aviva Bautista MD ; [facility] Pantoprazole Sodium 40 MG Or al Tablet Delayed Release 01/09/2024 Provider: AIDEN LYN MD Diagnosis: 1 tab daily Last Documented On 02/07/2024 5:02PM By EMELY LAGUERRE ; [facility] Dyanavel XR 10 MG Oral Tablet Chewable Extended Release 12/29/2023 Provider: JULIO C BAUTISTA MD Diagnosis: Attention-defici t hyperactivity disorder, unspecified type 1 tablet every morning Last Documented On 12/29/2023 10:28AM By Aviva Bautista MD ; [facility] prednisoLONE Acetate 1% Ophthalmic Suspension 12/29/19 Provider: Diagnosis: 1 drop 1-2 times daily for Sjorgen's Last Documented On 02/07/2024 5:04PM By EMELY LAGUERRE ; [facility] Tobramycin-dexAMETHasone 0.3-0.1% Ophthalmic Suspensio n 12/26/2023 Provider: Diagnosis: 1 drop in each eye as needed for Sjorgren's Last Documented On 02/07/2024 5:04PM By EMELY LAGUERRE ; [facility] FLUoxetine HCl 10 MG Oral Tablet 10/31/2023 Provider: JULIO C BAUTISTA MD Diagnosis: Major depressive disorder, recurrent, mild as directed - 1 and 1 /2 tab in am Last Documented On 10/31/2023 5:07PM By Aviva Bautista MD ; [facility] Famotidine 10 MG Oral Tablet 10/31/2023 Provider: Diagnosis: 1 tab in the morning Last Documented On 10/31/2023 4:27PM By EMELY LAGUERRE ; [facility] Vyvanse 30 MG Oral Capsule 10/10/2023 Provider: JULIO C BAUTISTA MD Diagnosis: Attn-defct hyper activity disorder, predom inattentive type 1 Capsule every morning Last Documented On 10/10/2023 10:18AM By Aviva Bautista MD ; [facility] Estradiol 0.1 MG/GM Vaginal Cream 10/03/2023 Provide r: ROSSANA KEY MD Diagnosis: use weekly Last Documented On 10/31/2023 4:26PM By EMELY LAGUERRE ; [facility] diazePAM 2 MG Oral Tablet 09/30/2023 Provider: ME PATTIE BAUTISTA MD Diagnosis: Panic disorder [ episodic paroxysmal anxiety] as directed -- 1/2 - 1 tab a day as needed for panic/anxiety Last Documented On 09/30/2023 5:41PM By Aviva Bautista MD ; [facility] Dyanavel XR 10 MG Oral Tablet Chewable Extended Release 09/19/2023 Provider: JULIO C BAUTISTA MD Diagnosis: Attention-defici t hyperactivity disorder, unspecified type 1 tab in the morning Last Documented On 09/19/2023 3:17PM By JACKIE KELLY ; [facility] Dyanavel XR 5 MG Oral Tablet Chewable Extended Release 08/30/2023 Provider: JULIO C BAUTISTA MD Diagnosis: Attn-defct hyper activity disorder, predom inattentive type 1 tablet every morning Last Documented On 08/30/2023 11:07AM By Aviva Bautista MD ; [facility] Cyclobenzaprine HCl 10 MG Oral Tablet 08/26/2023 Pro vider: ROSSANA KEY MD Diagnosis: use prn (breaks in pieces) Last Documented On 10/31/2023 4:26PM By EMELY LAGUERRE ; [facility] Vyvanse 20 MG Oral Capsule 08/22/2023 Provider: JULIO C BAUTISTA MD Diagnosis: Attn-defct hyper activity disorder, predom inattentive type 1 Capsule every morning Last Documented On 08/22/2023 12:53PM By Aviva Bautista MD ; [facility] Modafinil 100 MG OR TABS 12/17/2022 Provider: MET VINH BAUTISTA MD Diagnosis: Attn-defct hyper activity disorder, predom inattentive type as directed -- 1 tab in am Last Documented On 01/08/2023 5:39PM By Aviva Bautista MD ; [facility] traMADol HCl 50 MG OR TABS 09/17/2022 Provider: Diagnosis: as directed Last Documented On 01/08/2023 5:39PM By EMELY LAGUERRE ; [facility] Cholestyramine 4 GM OR PACK 03/16/2022 Provider: Diagnosis: 1 packet bid Last Documented On 01/08/2023 5:39PM By EMELY LAGUERRE ; [facility] Cevimeline HCl 30 MG OR CAPS 10/26/2021 Provider: Diagnosis: [address] Rossana Key Last Documented On 01/08/2023 5:39PM By EMELY LAGUERRE ; [facility] Hydroxychloroquine Sulfate 200 MG OR TABS 10/02/2021 Provider: Diagnosis: [address]Terry Galicia Last Documented On 01/08/2023 5:39PM By EMELY LAGUERRE ; [facility] Past Medications on file Sucralfate 1 GM Oral Tablet 02/07/2024 - 03/08/2024 Pr ovider: Diagnosis: 1 tab qd to bid Last Documented On 02/07/2024 4:55PM By EMELY LAGUERRE ; [facility] Pantoprazole Sodium 40 MG Or al Tablet Delayed Release 10/31/2023 - 11/15/2023 Provider: Diagnosis: 1 tab in the afternoon Last Documented On 10/31/2023 4:15PM By EMELY LAGUERRE ; [facility] Focalin XR 10 MG Oral Capsule Extended Release 24 Hour 06/17/2023 - 07/17/2023 Provider: JULIO C BAUTISTA MD Diagnosis: Attn-defct hyper activity disorder, predom inattentive type 1 Capsule every morning Last Documented On 06/17/2023 10:26AM By Aviva Bautista MD ; [facility] Focalin XR 5 MG Oral Capsule Extended Release 24 Hour 02/01/2023 - 03/03/2023 Provider: JULIO C BAUTISTA MD Diagnosis: Attn-defct hyper activity disorder, predom inattentive type 1 Capsule every morning Last Documented On 02/01/2023 6:19PM By Aviva Bautista MD ; [facility] FLUoxetine HCl 10 MG Oral Tablet 01/13/2023 - 03/14/2023 Provider: JULIO C BAUTISTA MD Diagnosis: Major depressive disorder, recurrent, unspecified 1 tablet every morning Last Documented On 01/13/2023 3:33PM By Aviva Bautista MD ; [facility] Azstarys 26.1-5.2 MG OR CAPS 11/19/2022 - 12/19/2022 Provider: JULIO C BAUTISTA MD Diagnosis: Attn-defct hyper activity disorder, predom inattentive type 1 Capsule every morning Last Documented On 01/08/2023 5:39PM By Aviva Bautista MD ; [facility] clonazePAM 0.5 MG OR TABS 03/10/2022 - 04/09/2022 Provider: JULIO C BAUTISTA MD Diagnosis: Generalized anxi ety disorder as directed -- 1/2 - 1 tab a day as needed for severe panic/anxiety Last Documented On 01/08/2023 5:39PM By Aviva Bautista MD ; [facility] Focalin 10 MG OR TABS 12/07/2021 - 01/06/2022 Provider: JULIO C BAUTISTA MD Diagnosis: Attn-defct hyper activity disorder, predom inattentive type as directed 1/2 tab in am fo r 1 week then if tolerated may increase to 1 tab in am therafter Last Documented On 01/08/2023 5:39PM By Aviva Bautista MD ; [facility] Medications Administered Includes: Administered Medications [...] Active Last Documented On 4 4:53PM ; [facility] Anaprox Allergy 12/07/2021 Active Last Documented On 4 4:53PM ; [facility] Note: Imported from external source. Encounters Encounter Provider Location Date Check-In Time Check-Out Time Diagnosis SECURE MESSAGE JULIO C BAUTISTA MD [facility] 06/26/20 23 8:24PM 11:59PM Attention-defici t Hyperactivity Disorder Insurance Includes: Active Insurance Policies Plan Name Member ID Group # Subscriber Relationship Effect jose l Dates 1 - [employer] [id number] GEORGINA Holman PRADEEP Self Clinical Notes Includes: Clinical Notes from this encounter * Progress note Date Encounter Last Documented by 06/26/2023 SECURE MESSAGE Last documented on 06/26/2023; 8:33 PM, JULIO C BAUTISTA MD; [facility] Active Problems & Conditions - Attention-deficit Hyperactivity Disorder - Generalized Anxiety Disorder - Major Depression - Panic Disorder - Psychophysiological Insomnia Chief Complaint Phone Call - Chief Concern: Reason for call: Pt sent a secure message requesting Vyvanse refill. Date/Initials: 06/26/23 Dr. Millan Current Medication - Cevimeline HCl 30 MG [...] THE MORNING, 90 days, 1 refills - Focalin XR 10 MG Oral Capsule Extended Release 24 Hour 1 Capsule every morning, 30 days, 0 refills - Hydroxychloroquine Sulfate 200 MG Tablet [...] Tablet as directed, 7 days, 0 refills Allergies - Anaprox - GLUTEN Assessment - Attention-deficit hyperactivity disorder Plan StartCited - Attn-defct hyperactivity disorder, predom inattentive type Vyvanse 20 MG capsule 1 Capsule every morning, 30 days, 0 refills EndCited StartCited - Other PHY ORDER/COMMENT I received a secure message from Georgina requesting Vyvanse on a Tuesday06/25/23. She needs to be reminded that requesting refills abhijit. controlled substance meds (CII) drugs cannot be refilled on weekends, that she needs to request it during weekdays only but she kept saying that she keeps forgetting. EndCited
--- OUTSIDE RECORDS SUMMARY | 2024-10-04 07:39 | XMS_ITS | Clinical Summary ---
Author Organization [facility] Address [address] [place] [phone] Phone Care Team Providers Care Director Of Automation Name Role Phone JULIO C BAUTISTA MD Unavailable [phone] Reason for Visit and Chief Complaint * PHONE CALL Problems Includes: Problems addressed during this encounter and other active Problems All Visits Onset Date Resolved Date Provider Condition S tatus Panic Disorder 09/12/2022 JULIO C Costa Active Last Documented On 3 5:27PM ; [facility] Attention-deficit Hyperactivity Disorder 12/07/2021 JULIO C BAUTISTA MD Active Last Documented On 2 8:00PM ; [facility] Generalized Anxiety Disorder 12/07/2021 JULIO C BAUTISTA MD Active Last Documented On 2 9:57AM ; [facility] Psychophysiological Insomnia 12/07/2021 JULIO C BAUTISTA MD Active Last Documented On 2 8:00PM ; [facility] Major Depression 12/07/2021 JULIO C BAUTISTA MD Active Last Documented On 2 9:57AM ; [facility] Plan of Treatment No Plan of Treatment Recorded Assessments Includes: Assessments from this encounter No Assessments Recorded Medical Equipment - Implanted Devices Includes: Current Devices No Medical Equipment Recorded Medications Includes: Medications discussed during this encounter and other current Medications Current Medications (continue as prescribed) Vyvanse 20 MG Oral Capsule 12/29/2022 Provider: JULIO C BAUTISTA MD Diagnosis: Attn-defct hyper activity disorder, predom inattentive type 1 Capsule every morning Last Documented On 12/29/2022 6:08PM By Aviva Bautista MD ; [facility] Modafinil 100 MG Oral Tablet 12/17/2022 Provider: JULIO C BAUTISTA MD Diagnosis: Attn-defct hyper activity disorder, predom inattentive type as directed -- 1 tab in am Last Documented On 12/17/2022 6:03PM By Aviva Bautista MD ; [facility] FLUoxetine HCl 10 MG Oral Tablet 12/10/2022 Provider: JULIO C BAUTISTA MD Diagnosis: Major depressive disorder, recurrent, unspecified TAKE 1 TABLET BY MOUTH EVERY DAY IN THE MORNING Last Documented On 12/10/2022 9:52AM By Aviva Bautista MD ; [facility] Pantoprazole Sodium 40 MG Or al Tablet Delayed Release 12/06/2022 Provider: AIDEN LYN MD Diagnosis: 1 tab bid Last Documented On 12/17/2022 4:47PM By EMELY LAGUERRE ; [facility] Lexapro 10 MG Oral Tablet 11/21/2022 Provider: JULIO C BAUTISTA MD Diagnosis: Major depressive disorder, recurrent, unspecified One tablet daily Last Documented On 3 11:34PM By Aviva Bautista MD ; [facility] traMADol HCl 50 MG Oral Tablet 09/17/2022 Provider: Diagnosis: as directed Last Documented On 3 11:34AM By EMELY LAGUERRE ; [facility] Cholestyramine 4 GM Oral Packet 03/16/2022 Provider: HARVINDER WILSON PA-C Diagnosis: 1 packet bid Last Documented On 05/11/2022 4:48PM By EMELY LAGUERRE ; [facility] Sucralfate 1 GM Oral Tablet 11/16/2021 Provider: HARVINDER WILSON PA-C Diagnosis: 1 tab qid Last Documented On 2 10:04AM By EMELY LAGUERRE ; [facility] Cevimeline HCl 30 MG Oral Capsule 10/26/2021 Provide r: Diagnosis: [address] Nubia Rodriguez Last Documented On 2 10:05AM By EMELY LAGUERRE ; [facility] Hydroxychloroquine Sulfate 200 MG Oral Tablet 10/02/19 Provider: Diagnosis: [address]Terry Galicia Last Documented On 10:06AM By EMELY LAGUERRE ; [facility] Past Medications on file Azstarys 26.1-5.2 MG Oral Capsule 11/19/2022 - 12/19/2022 Provider: JULIO C BAUTISTA MD Diagnosis: Attn-defct hyper activity disorder, predom inattentive type 1 Capsule every morning Last Documented On 11/19/2022 5:23PM By Aviva Bautista MD ; [facility] diazePAM 2 MG Oral Tablet 10/04/2022 - 11/03/2022 Provider: JULIO C RAMIREZ MD Diagnosis: Panic disorder [episodic paroxysmal anxiety] as directed -- 1/2 - 1 tab a day as needed for panic/anxiety Last Documented On 10/04/2022 5:40PM By Aviva Bautista MD ; [facility] clonazePAM 0.5 MG Oral Tablet 03/10/2022 - 04/09/2022 Provider: JULIO C BAUTISTA MD Diagnosis: Generalized anxi ety disorder as directed -- 1/2 - 1 tab a day as needed for severe panic/anxiety Last Documented On 03/10/2022 5:58PM By Aviva Bautista MD ; [facility] Focalin 10 MG Oral Tablet 12/07/2021 - 01/06/2022 Provider: JULIO C BAUTISTA MD Diagnosis: Attn-defct hyper activity disorder, predom inattentive type as directed 1/2 tab in am fo r 1 week then if tolerated may increase to 1 tab in am therafter Last Documented On 12/07/2021 8:09PM By Aviva Bautista MD ; [facility] Medications Administered Includes: Administered Medications from this [...] Active Last Documented On 4 4:53PM ; [facility] Anaprox Allergy 12/07/2021 Active Last Documented On 4 4:53PM ; [facility] Note: Imported from external source. Encounters Encounter Provider Location Date Check-In Time Check-Out Time Diagnosis * PHONE CALL JULIO C BAUTISTA MD [facility] 3 9:17AM 11:59PM Insurance Includes: Active Insurance Policies Plan Name Member ID Group # Subscriber Relationship Effect jose l Dates 1 - [employer] [id number] GARFIELD FERNÁNDEZ Self Clinical Notes Includes: Clinical Notes from this encounter No Clinical Notes Recorded
--- OUTSIDE RECORDS SUMMARY | 2024-10-04 07:39 | XMS_ITS | Clinical Summary ---
Author Organization [facility] Address [address] [place] [address] Phone Care Team Providers Care Nursing Techn Name Role Phone JULIO C BAUTISTA MD Unavailable [phone] Reason for Visit and Chief Complaint TELEHEALTH Problems Includes: Problems addressed during this encounter and other active Problems All Visits Onset Date Resolved Date Provider Condition S tatus Panic Disorder 09/12/2022 JULIO C Costa Active Last Documented On 3 5:27PM ; [facility] Attention-deficit Hyperactivity Disorder 12/07/2021 JULIO C BAUTISTA MD Active Last Documented On 2 8:00PM ; [facility] Generalized Anxiety Disorder 12/07/2021 JULIO C BAUTISTA MD Active Last Documented On 2 9:57AM ; [facility] Psychophysiological Insomnia 12/07/2021 JULIO C BAUTISTA MD Active Last Documented On 2 8:00PM ; [facility] Major Depression 12/07/2021 JULIO C BAUTISTA MD Active Last Documented On 2 9:57AM ; [facility] Plan of Treatment No [...] 12/29/2022 6:08PM By Aviva Bautista MD ; [facility] Modafinil 100 MG Oral Tablet 12/17/2022 Provider: JULIO C BAUTISTA MD Diagnosis: Attn-defct hyper activity disorder, predom inattentive type as directed -- 1 tab in am Last Documented On 12/17/2022 6:03PM By Aviva Bautista MD ; [facility] FLUoxetine HCl 10 MG Oral Tablet 12/10/2022 Provider: JULIO C BAUTISTA MD Diagnosis: Major depressive disorder, recurrent, unspecified TAKE 1 TABLET BY MOUTH EVERY DAY IN THE MORNING Last Documented On 12/10/2022 9:52AM By Aviva Bautista MD ; [facility] Pantoprazole Sodium 40 MG Or al Tablet Delayed Release 12/06/2022 Provider: AIDEN LYN MD Diagnosis: 1 tab bid Last Documented On 12/17/2022 4:47PM By EMELY LAGUERRE ; [facility] Lexapro 10 MG Oral Tablet 11/21/2022 Provider: JULIO C BAUTISTA MD Diagnosis: Major depressive disorder, recurrent, unspecified One tablet daily Last Documented On 3 11:34PM By Aviva Bautista MD ; [facility] traMADol HCl 50 MG Oral Tablet 09/17/2022 Provider: Diagnosis: as directed Last Documented On 3 11:34AM By EMELY LAGUERRE ; [facility] Cholestyramine 4 GM Oral Packet 03/16/2022 Provider: HARVINDER WILSON PA-C Diagnosis: 1 packet bid Last Documented On 05/11/2022 4:48PM By EMELY LAGUERRE ; [facility] Sucralfate 1 GM Oral Tablet 11/16/2021 Provider: HARVINDER WILSON PA-C Diagnosis: 1 tab qid Last Documented On 2 10:04AM By EMELY LAGUERRE ; [facility] Cevimeline HCl 30 MG Oral Capsule 10/26/2021 Provide r: Diagnosis: [address] Nubia Rodriguez Last Documented On 2 10:05AM By EMELY LAGUERRE ; [facility] Hydroxychloroquine Sulfate 200 MG Oral Tablet 10/02/19 Provider: Diagnosis: [address]Terry Galicia Last Documented On 2 10:06AM By EMELY LAGUERRE ; [facility] S Medications Administered Includes: Administered Medications from this [...] Active Last Documented On 4 4:53PM ; [facility] Anaprox Allergy 12/07/2021 Active Last Documented On 4 4:53PM ; [facility] Note: Imported from external source. Insurance Includes: Active Insurance Policies Plan Name Member ID Group # Subscriber Relationship Effect jose l Dates 1 - [employer] [id number] GARFIELD Garcia Clinical Notes Includes: Clinical Notes from this encounter No Clinical Notes Recorded
--- OUTSIDE RECORDS SUMMARY | 2024-10-04 07:39 | XMS_ITS | Referral Summary ---
Author Organization [facility] Address [address] [facility] [place] [address] Care Team Providers Care Cultured Marble Products Maker Name Role Phone Nubia Rodriguez DO Primary Care Provider [phone] Source Comments [facility],non-owned Affiliates and Associated Physician Practices is amultiple site organization consisting of ambulatory clinics and hospital sitesin [place], [place], [place] and [place]. This disclosure is being madepursuant to the Care Everywhere program and may not contain all information available regarding this patient. Last updated 18.[facility] Encounters Date Type Department Care Team Description 08/24/2024 Refill [facility] - Rheumatology [address] [place] [address], [place] [id number] Anupam Galicia MD Refill Request from Last 3 Months Allergies Active Allergy Reactions Criticality Noted Date Comments Naproxen Other Low 10/22/2014 Flu like symtoms Note: flu like symptoms 103 fever Nsaids Nausea and/or Vomiting Low 04/07/2020 Fever and sick Medications * Be aware that medications may not be up to date on this document. Alwaysverify current medications with the patient. Medication Sig Dispensed Refills Start Date End Date Status cevimeline (EVOXAC) 30 MG capsule Take 30 mg by mouth TID. 90 capsule 3 06/03/2016 Active pseudoephedrine-gu aiFENesin CR 12hr (MUCINEXD) 60-600 MG tablet Take 1 tablet by mouth every 12 hours as needed for Cough, Nasal Congestion or Runny Nose Active diazePAM (VALIUM) 2 MG tablet TAKE 1 TABLET BY MOUTH ONCE DAILY NEEDED. NOT TO EXCEED 10 TABLETS IN 30 DAYS 01/14/2021 Active traMADol (ULTRAM) 50 MG tablet Take 50 mg by mouth every 6 hours as needed pain 09/10/2020 Active cholestyramine (QUESTRAN) 4 g packet Take 4 g by mouth 03/09/2021 Active tobramycin (TOBREX) 0.3 % ophthalmic solution 1-2 drops Active sucralfate (CARAFATE) 1 GM tablet Take 1 g by mouth 4 times daily 04/20/2021 Active FML FORTE 0.25 % ophthalmic suspension INSTILL 1 DROP INTO BOTH EYES TWICE A DAY 01/21/2021 Active prednisoLONE acetate (PRED FORTE) 1 % ophthalmic suspension 07/23/2021 Active acetaminophen (Tylenol) 325 MG tablet every 4 hours as needed Active albuterol HFA (Proventil; Ventolin; Proair) 108 (90 Base) MCG/ACT inhaler Inhale 2 (two) puffs by mouth every 6 hours as needed 01/07/2022 Active ciprofloxacin 0.3% (Ciloxan) 0.3 % ophthalmic solution INSTILL 2 DROPS INTO THE LEFT EYE 4 TIMES PER DAY FOR 3 DAYS DIRECTED 04/12/2022 Active estradiol (Estrace) 0.1 MG/GM vaginal cream INSERT 1 GRAM VAGINALLY TWICE WEEKLY 09/19/2021 Active FLUoxetine (PROzac) 10 MG capsule Take 1 (one) capsule by mouth once daily Active famotidine (HM Famotidine) 20 MG tablet HM Famotidine 20 MG Oral Tablet QTY: 0 tablet Days: 0 Refills: 0 Written: 10/04/22 Patient Instructions: 1 bid 10/04/2022 Active guaiFENesin ER 12hr (Mucinex) 600 MG tablet Take 1 (one) tablet by mouth every 12 hours Active lisdexamfetamine (Vyvanse) 20 MG capsule Take 1 (one) capsule by mouth every morning 07/26/2022 Active multivitamins (One A Day) capsule Active mupirocin (Bactroban) 2 % ointment APPLY 1 APPLICATION TOPICALLY TWICE A DAY 11/02/2021 Active tobramycin-dexAMET Hasone (Tobradex) 0.3-0.1 % ophthalmic suspension INSTILL 1 DROP INTO EACH EYE 3 TIMES A DAY FOR 1 WEEK 06/23/2022 Active pantoprazole EC (Protonix) 40 MG tablet Take 1 (one) tablet by mouth 2 times daily 01/24/2023 Active modafinil (Provigil) 100 MG tablet TAKE 1 TABLET BY MOUTH DIRECTED IN THE MORNING 12/18/2022 Active dexmethylphenidate ER 24hr (Focalin XR) 5 MG capsule Take 1 (one) capsule by mouth every morning 02/01/2023 Active dexmethylphenidate ER 24hr (Focalin XR) 10 MG capsule Take 1 (one) capsule by mouth every morning 06/17/2023 Active Amphetamine ER (Dyanavel XR) 5 MG BENITA Take 1 tablet by mouth every morning 03/22/2023 Active DIPHENHYDRAMINE-AP AP, SLEEP, PO Active hydroxychloroquine (Plaquenil) 200 MG tablet TAKE ONE TABLET BY MOUTH DAILY (DECREASED) 90 tablet 3 02/29/2024 Active cevimeline (Evoxac) 30 MG capsule TAKE 1 CAPSULE BY MOUTH THREE TIMES A DAY 270 capsule 1 08/24/2024 Active Active Problems Problem Noted Date Diagnosed Date 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 Social History Tobacco Use Types Packs/Day Years Used Date Smoking Tobacco: Never Smokeless Tobacco: Never Tobacco Cessation:Counseling Given: Not Answered Alcohol Use Standard Drinks/Week Comments Not Asked 0 (1 standard drink = 0.6 oz pur e alcohol) PHQ-2 Answer Date Recorded PHQ2 TOTAL SCORE 0 09/15/2021 Sex and Gender Information Value Date Recorded Sex Assigned at Not on file Gender Identity Not on file Sexual Orientation Not on file Last Filed Vital Signs Vital Sign Reading Time Taken Comments Blood Pressure 112/64 10/26/2022 2:25 PM MILLING OPERATOR Pulse 87 06/21/2023 2:02 PM CDT Temperature 36.4 ??C (97.5 ??F) 06/21/2023 2:02 PM CD T Respiratory Rate 17 07/22/2021 4:45 PM MILLING OPERATOR Oxygen Saturation 96% 06/21/2023 2:02 PM CDT Inhaled Oxygen Concentration - - Weight 58.8 kg (129 lb 9.6 oz) 06/21/2023 2:02 P M CDT Height 164.4 cm (5' 4.72 ) 06/21/2023 2:02 PM CD T Body Mass Index 21.75 06/21/2023 2:02 PM CDT Plan of Treatment Upcoming Encounters Date Type Department Care Team (Late st Contact Info) Description 11/13/2024 1:40 PM MILLING OPERATOR Office Visit [facility] - Rheumatology [address] [place] [address], [place] [phone] Anupam Galicia MD [facility] [facility] [address] [place] [phone] Administered Medications Care Teams Cultured Marble Products Maker Relationship Specialty Start Date End Date Nubia Rodriguez DO [address] [place] [id number] PCP - General Family Medicine 06/21/23
--- OUTSIDE RECORDS SUMMARY | 2024-10-04 07:39 | XMS_ITS | Clinical Summary ---
Author Organization [facility] Address [address] [place] [phone] Phone Care Team Providers Care Hatchery Supervisor Name Role Phone DEREJE ROSADO, JULIO C PHILLIP Unavailable [phone] Reason for Visit and Chief Complaint * PHONE CALL Problems Includes: Problems addressed during this encounter and other active Problems Current Visit Onset Date Resolved Date Provider Conditio n Status Attention-deficit Hyperactivity Disorder 12/07/2021 JULIO C OH MD Active Last Documented On 2 8:00PM ; [facility] Past Visits Onset Date Resolved Date Provider Condition Status Panic Disorder 09/12/2022 JULIO C Costa Active Last Documented On 3 5:27PM ; [facility] Generalized Anxiety Disorder 12/07/2021 JULIO C BAUTISTA MD Active Last Documented On 2 9:57AM ; [facility] Psychophysiological Insomnia 12/07/2021 JULIO C BAUTISTA MD Active Last Documented On 2 8:00PM ; [facility] Major Depression 12/07/2021 JULIO C BAUTISTA MD Active Last Documented On 2 9:57AM ; [facility] Plan of Treatment No Plan of Treatment Recorded Assessments Includes: Assessments from this encounter Findings - Attention-deficit hyperactivity disorder - Last Documented On 11/23/2022 2:00PM ; [facility] Medical Equipment - Implanted Devices Includes: Current Devices No Medical Equipment Recorded Medications Includes: Medications discussed during this encounter and other current Medications New / Renewed during this visit JULIO C BAUTISTA MD on 11/23/2022 Vyvanse 20 MG Oral Capsule Provider: JULIO C BAUTISTA MD 30 day supply: 30 capsule, 0 refills Diagnosis: Attn-defct hyperactivity disorder, predom inattentive type 1 Capsule every morning Pharmacy: [place] [id number] [address] [facility], [id number] - Last Documented On 12/29/2022 6:06PM By Marjan Bautista MD ; [facility] Current Medications (continue as prescribed) Vyvanse 20 MG Oral Capsule 12/29/2022 Provider: JULIO C BAUTISTA MD Diagnosis: Attn-defct hyper activity disorder, predom inattentive type 1 Capsule every morning Last Documented On 12/29/2022 6:08PM By Marjan Bautista MD ; [facility] Modafinil 100 MG Oral Tablet 12/17/2022 Provider: JULIO C BAUTISTA MD Diagnosis: Attn-defct hyper activity disorder, predom inattentive type as directed -- 1 tab in am Last Documented On 12/17/2022 6:03PM By Marjan Bautista MD ; [facility] FLUoxetine HCl 10 MG Oral Tablet 12/10/2022 Provider: JULIO C BAUTISTA MD Diagnosis: Major depressive disorder, recurrent, unspecified TAKE 1 TABLET BY MOUTH EVERY DAY IN THE MORNING Last Documented On 12/10/2022 9:52AM By Marjan Bautista MD ; [facility] Pantoprazole Sodium 40 MG Or al Tablet Delayed Release 12/06/2022 Provider: AIDEN LYN MD Diagnosis: 1 tab bid Last Documented On 12/17/2022 4:47PM By EMELY LAGUERRE ; [facility] Lexapro 10 MG Oral Tablet 11/21/2022 Provider: JULIO C BAUTISTA MD Diagnosis: Major depressive disorder, recurrent, unspecified One tablet daily Last Documented On 3 11:34PM By Marjan Bautista MD ; [facility] traMADol HCl 50 MG Oral Tablet 09/17/2022 Provider: Diagnosis: as directed Last Documented On 3 11:34AM By EMELY LAGUERRE ; [facility] Cholestyramine 4 GM Oral Packet 03/16/2022 Provider: HARVINDER WILSON PA-C Diagnosis: 1 packet bid Last Documented On 05/11/2022 4:48PM By EMELY LAGUERRE ; [facility] Sucralfate 1 GM Oral Tablet 11/16/2021 Provider: HARVINDER WILSON PA-C Diagnosis: 1 tab qid Last Documented On 2 10:04AM By EMELY LAGUERRE ; [facility] Cevimeline HCl 30 MG Oral Capsule 10/26/2021 Provide r: Diagnosis: [address] Nubia Rodriguez Last Documented On 2 10:05AM By EMELY LAGUERRE ; [facility] Hydroxychloroquine Sulfate 200 MG Oral Tablet 10/02/19 Provider: Diagnosis: [address]Terry Galicia Last Documented On 2 10:06AM By EMELY LAGUERRE ; [facility] Past Medications on file Azstarys 26.1-5.2 MG Oral Capsule 11/19/2022 - 12/19/2022 Provider: JULIO C BAUTISTA MD Diagnosis: Attn-defct hyper activity disorder, predom inattentive type 1 Capsule every morning Last Documented On 11/19/2022 5:23PM By Marjan Bautista MD ; [facility] diazePAM 2 MG Oral Tablet 10/04/2022 - 11/03/2022 Provider: JULIO C RAMIREZ MD Diagnosis: Panic disorder [episodic paroxysmal anxiety] as directed -- 1/2 - 1 tab a day as needed for panic/anxiety Last Documented On 10/04/2022 5:40PM By Marjan Bautista MD ; [facility] clonazePAM 0.5 MG Oral Tablet 03/10/2022 - 04/09/2022 Provider: JULIO C BAUTISTA MD Diagnosis: Generalized anxi ety disorder as directed -- 1/2 - 1 tab a day as needed for severe panic/anxiety Last Documented On 03/10/2022 5:58PM By Marjan Bautista MD ; [facility] Focalin 10 MG Oral Tablet 12/07/2021 - 01/06/2022 Provider: JULIO C BAUTISTA MD Diagnosis: Attn-defct hyper activity disorder, predom inattentive type as directed 1/2 tab in am fo r 1 week then if tolerated may increase to 1 tab in am therafter Last Documented On 12/07/2021 8:09PM By Marjan Bautista MD ; [facility] Medications Administered Includes: Administered Medications from this [...] Active Last Documented On 4 4:53PM ; [facility] Anaprox Allergy 12/07/2021 Active Last Documented On 4 4:53PM ; [facility] Note: Imported from external source. Encounters Encounter Provider Location Date Check-In Time Check-Out Time Diagnosis * PHONE CALL METODIA MARJAN BAUTISTA MD [facility] 11/24/19 23 1:32PM 11:59PM Attention-defici t Hyperactivity Disorder Insurance Includes: Active Insurance Policies Plan Name Member ID Group # Subscriber Relationship Effect jose l Dates 1 - [employer] [id number] GARFIELD Holman WINTER Self Clinical Notes Includes: Clinical Notes from this encounter No Clinical Notes Recorded
--- OUTSIDE RECORDS SUMMARY | 2024-10-04 07:39 | XMS_ITS | Clinical Summary ---
Author Organization [facility] Address [address] [place] [phone] Phone Care Team Providers Care Fret Saw Operator Name Role Phone DEREJE ROSADO, JULIO C PHILLIP Unavailable [phone] Reason for Visit and Chief Complaint The Chief Complaint is: Follow up for depression, anxiety, hard to concentrate, easily distracted, brain zap from Lexapro Problems Includes: Problems addressed during this encounter and other active Problems Current Visit Onset Date Resolved Date Provider Conditio n Status Attention-deficit Hyperactivity Disorder 12/07/2021 JULIO C OH MD Active Last Documented On 2 8:00PM ; [facility] Generalized Anxiety Disorder 12/07/2021 JULIO C BAUTISTA MD Active Last Documented On 2 9:57AM ; [facility] Psychophysiological Insomnia 12/07/2021 JULIO C BAUTISTA MD Active Last Documented On 2 8:00PM ; [facility] Major Depression 12/07/2021 JULIO C BAUTISTA MD Active Last Documented On 2 9:57AM ; [facility] Past Visits Onset Date Resolved Date Provider Condition Status Panic Disorder 09/12/2022 JULIO C Costa Active Last Documented On 3 5:27PM ; [facility] Plan of Treatment Major depressive disorder - Fluoxetine 10 mg a day Generalized Anxiety Disorder/Panic Disorder - Diazepam 2 mg 1/2 tab a day as needed for anxiety/panic, breathing exercises/guided meditation, Lexapro 10 mg 1/4 - 1/2 tab a day as needed to help reduce brain zaps/anxiety Attention Deficit Disorder - Vyvanse 20 - 30 mg in am, add Modafinil 50 mg in am used off label to improve mental alertness, decrease fatigue, increase motivation and may indirectly help with focus and concentration (12/17/22) Psychophysiological Insomnia - good sleep hygiene habits, pt takes prn Benadryl at night but warned of possible daytime sedation and cognitive issues, trial of Rozerem given but pt never tried it. - Last Documented On 12/23/2022 7:13AM ; [facility] Education and Decision Aids were provided during visit for: Patient education about medi cation ---Education was given on medication(s) and diagnosis. I reviewed the risks, benefits and side effects of patient's medications Last Documented On 3 4:35PM ; [facility] Discussed calming techniques such as breathing exercises and other relaxation techniques Last Documented On 3 4:35PM ; [facility] Assessments Includes: Assessments from this encounter Findings - Attention-deficit hyperactivity disorder - Last Documented On 12/23/2022 7:13AM ; [facility] - Major depressive disorder - Last Documented On 12/23/2022 7:13AM ; [facility] - Psychophysiological insomnia - Last Documented On 12/23/2022 7:13AM ; [facility] - Generalized anxiety disorder - Last Documented On 12/23/2022 7:13AM ; [facility] Instructions Includes: Instructions from this encounter Education and Decision Aids were provided during visit for: Patient education about medi cation ---Education was given on medication(s) and diagnosis. I reviewed the risks, benefits and side effects of patient's medications Last Documented On 3 4:35PM ; [facility] Discussed calming techniques such as breathing exercises and other relaxation techniques Last Documented On 3 4:35PM ; [facility] Medical Equipment - Implanted Devices Includes: Current Devices No Medical Equipment Recorded Medications Includes: Medications discussed during this encounter and other current Medications Discontinued / Stopped on this date GIOVANNA GUO MD on 10/04/2022 HM Famotidine 20 MG Oral Tablet Provider: GIOVANNA GUO MD Diagnosis: Last Documented On 12/17/2022 4:46PM By EMELY LAGUERRE ; [facility] New / Renewed during this visit JULIO C BAUTISTA MD on 12/17/2022 Modafinil 100 MG Oral Tablet Provider: JULIO C BAUTISTA MD 30 day supply: 30 tablet, 2 refills Diagnosis: Attn-defct hyperactivity disorder, predom inattentive type as directed -- 1 tab in am Pharmacy: [address], [address] - Last Documented On 12/17/2022 6:03PM By Aviva Bautista MD ; [facility] Current Medications (continue as prescribed) Vyvanse 20 MG Oral Capsule 12/29/2022 Provider: JULIO C BAUTISTA MD Diagnosis: Attn-defct hyper activity disorder, predom inattentive type 1 Capsule every morning Last Documented On 12/29/2022 6:08PM By Aviva Bautista MD ; [facility] FLUoxetine HCl 10 MG Oral Tablet 12/10/2022 Provider: JULIO C BAUTISTA MD Diagnosis: Major depressive disorder, recurrent, unspecified TAKE 1 TABLET BY MOUTH EVERY DAY IN THE MORNING Last Documented On 12/10/2022 9:52AM By Aviva Bautista MD ; [facility] Pantoprazole Sodium 40 MG Or al Tablet Delayed Release 12/06/2022 Provider: YAJAIRA SANDHU MD Diagnosis: 1 tab bid Last Documented On 12/17/2022 4:47PM By EMELY LAGUERRE ; [facility] Lexapro 10 MG Oral Tablet 11/21/2022 Provider: JULIO C BAUTISTA MD Diagnosis: Major depressive disorder, recurrent, unspecified One tablet daily Last Documented On 3 11:34PM By Aviva Bautista MD ; [facility] traMADol HCl 50 MG Oral Tablet 09/17/2022 Provider: Diagnosis: as directed Last Documented On 3 11:34AM By EMELY LAGUERRE ; [facility] Cholestyramine 4 GM Oral Packet 03/16/2022 Provider: HARVINDER WILSON PA-C Diagnosis: 1 packet bid Last Documented On 05/11/2022 4:48PM By EMELY LAGUERRE ; [facility] Sucralfate 1 GM Oral Tablet 11/16/2021 Provider: HARVINDER WILSON PA-C Diagnosis: 1 tab qid Last Documented On 2 10:04AM By EEMLY LAGUERRE ; [facility] Cevimeline HCl 30 MG Oral Capsule 10/26/2021 Provide r: Diagnosis: [address] Nubia Rodriguez Last Documented On 2 10:05AM By EMELY LAGUERRE ; [facility] Hydroxychloroquine Sulfate 200 MG Oral Tablet 10/02/19 Provider: Diagnosis: [address]Terry Galicia Last Documented On 2 10:06AM By EMELY LAGUERRE ; [facility] Past Medications on file Azstarys 26.1-5.2 MG Oral Capsule 11/19/2022 - 12/19/2022 Provider: JULIO C BAUTISTA MD Diagnosis: Attn-defct hyper activity disorder, predom inattentive type 1 Capsule every morning Last Documented On 11/19/2022 5:23PM By Aviva Bautista MD ; [facility] diazePAM 2 MG Oral Tablet 10/04/2022 - 11/03/2022 Provider: JULIO C RAMIREZ MD Diagnosis: Panic disorder [episodic paroxysmal anxiety] as directed -- 1/2 - 1 tab a day as needed for panic/anxiety Last Documented On 10/04/2022 5:40PM By Aviva Bautista MD ; [facility] clonazePAM 0.5 MG Oral Tablet 03/10/2022 - 04/09/2022 Provider: JULIO C BAUTISTA MD Diagnosis: Generalized anxi ety disorder as directed -- 1/2 - 1 tab a day as needed for severe panic/anxiety Last Documented On 03/10/2022 5:58PM By Aviva Bautista MD ; [facility] Focalin 10 MG Oral Tablet 12/07/2021 - 01/06/2022 Provider: JULIO C BAUTISTA MD Diagnosis: Attn-defct hyper activity disorder, predom inattentive type as directed 1/2 tab in am fo r 1 week then if tolerated may increase to 1 tab in am therafter Last Documented On 12/07/2021 8:09PM By Aviva Bautista MD ; [facility] Medications Administered Includes: Administered Medications from this encounter No Administered Medications Recorded Vital Signs Includes: Vital Signs from this encounter Vital Name 12/17/2022 04:50P Blood Pressure Sitting L 126/70 BP Cuff Size Regular Pulse Rate-Sitting (bpm) 74 Pulse Rhythm Regular Height (in) 66 Weight (lb) 128 Body Mass Index 20.7 Body Surface Area 1.7 Note: self reported vitals Last Documented: On 12/17/2022 4:51PM ; [facility] Results Includes: Results discussed during this encounter No Results Recorded For Specified Dates History of Present Illness Includes: History of Present Illness from this encounter RAFAEL FERNÁNDEZ is a 62 year old female. - Allergy list reviewed - Past medical history reviewed - Medication list reviewed Pt has not been feeling as depressed. The Fluoxetine still helps her mood. Pt has not been as anxious. She takes Lexapro 5 mg a day as needed only when she has those episodes of anxiety. Pt denied having any mood swings. Pt has not been as irritable. Pt has been motivated in general in doing daily tasks except on days that she is tired/fatigued. Sleep has been good. Pt has not been napping/sleeping too much during the daytime. Pt has not been feeling as tired. Appetite is good. Pt has not been feeling as bad about self. Pt is not able to focus and concentrate with her current regimen with the low dose of Vyvanse. She increased Vyvanse to 30 mg in am with 2 cups of coffee in am but still unmotivated and tired. She said that she cannot focus and hard to do her job. Her interest in activities has been up and down. She stopped using Estradiol vaginal cream to see if this would affect her tiredness/concentration. She said that it seemed to have reduced her tiredness but only slightly. She started exercising and seemed to feel better and more like herself in the evenings or later in the afternoon like after 1 pm. She may continue the Vyvanse but I suggested adding off label use of Modafinil 100 mg 1/2 tab in am to see if this will improve alertness and lessen the fatigue but may indirectly help with her focus and concentration as well. Since she is sensitive to meds, she will be started at 50 mg in am and to call me back in 2 weeks to see if this helps. Pt denied having any psychomotor restlessness. Pt denied suicidal thoughts. Pt denied having any delusions/hallucinations. MENTAL STATUS EXAM: Sensorium - alert, oriented to name, place, and time Attitude - cooperative Gait - ambulatory Sleep - good Interest/Energy/Motivation - interest and motivation up and down, tired Guilt/Worthlessness - absent Concentration/Attention Span - at times hard to focus and concentrate Memory Recall - fairly good Appetite - good - on 11/19/22 pt weighed 125 lbs and on 12/17/22 she weighed 128 lbs so she gained 3 lbs Suicidal Thoughts - absent Homicidal Thoughts - absent Delusions - absent Hallucinations - absent Appearance - casually groomed Motor Behavior - calm Eye Contact - intermittent Speech - fluent Mood - not as depressed Affect - not as anxious Thought Process - coherent Insight and Judgment - intact Social History Description Last Updated 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 Both parents are . She was [...] in nursing. 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 Patient is heterosexual and denied any history of sexual dysfunction. She has no past or pending legal history. She enjoys being outdoors with horses. Her nondenominational background is [employer]. She follows a gluten free diet 12/07/2021 Last Documented On 3 4:34PM ; [facility] Daily coffee consumption - o ne cup of coffee daily, an occasional glass of tea daily, and does not drink soda 12/07/2021 Last Documented On 3 4:34PM ; [facility] Not using alcohol 12/07/2021 Last Documented On 3 4:34PM ; [facility] Not using drugs 12/07/2021 Last Documented On 3 4:34PM ; [facility] Work history 12/07/2021 Last Documented On 3 4:34PM ; [facility] Tobacco non-user 12/07/2021 Last Documented On 3 4:34PM ; [facility] Smoking Status Unknown Procedures and Surgical History Includes: Procedures from this encounter Procedures Code Diagnosis Performing Provider Service L ocation Service Date education and instructions Last Documented On 3 4:35PM ; [facility] dangerousness assessment: suicide risk -not suic idal 3085F Last Documented On 3 4:35PM ; [facility] use of tobacco assessment performed 1000F Last Documented On 3 4:35PM ; [facility] patient screened for future fall risk - no recen t falls 3288F Last Documented On 3 4:35PM ; [facility] review of medications documented 1160F Last Documented On 3 4:35PM ; [facility] screening for adult depressi on: impression and score - please see above treatment and PHQ score Last Documented On 3 4:35PM ; [facility] standardized depression screening: posit jose l for symptoms Last Documented On 3 4:35PM ; [facility] encouragement to exercise - continue working out to improve stamina and as stress reliever Last Documented On 3 7:09AM ; [facility] Counseling on new medication : I discussed the risks, benefits and side effects of Modafinil . Patient verbalized understanding and agreed to treatment Last Documented On 3 7:08AM ; [facility] Clinical summary provided to patient Last Documented On 3 4:35PM ; [facility] PHQ-9: total score 7 Last Documented On 3 7:08AM ; [facility] Surgical History Last Updated History of tubal ligation - 2001 03/28/2 022 Last Documented On 3 4:34PM ; [facility] History of hallux valgus (bunion) correc tion - of left great toe -- 200312/07/2021 Last Documented On 3 4:34PM ; [facility] Medical History Includes: Medical History addressed during this encounter Description Last Updated History of conjunctivitis - uses Ciprofloxacin 0.3% eye drops prn because she has no tear shield from Sjorgren's Syndrome; given Tobramycin-Dexamethasone 0.3-0.1% ophth suspension 06/23/22 07/02/2022 Last Documented On 3 4:34PM ; [facility] History of COVID-19 infectio n - 01/2022 - had cold symptoms and was unable to complete her sleep study at [facility] 05/11/2022 Last Documented On 3 4:34PM ; [facility] History of Diarrhea - started Cholestyra mine 4 gm packets 04/202205/11/2022 Last Documented On 3 4:34PM ; [facility] History of colonoscopy - 04/26/22 022 Last Documented On 3 4:34PM ; [facility] 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 Nas Coto 03/10/2022 Last Documented On 3 4:34PM ; [facility] Primary Care Provider: Dr. Teena Rodriguez ~Dr. Anupam Galicia -- Repossession Agent ~Dr. Yajaira Sandhu -- Refrigerator Mover ~Dr. Nas Coto -- ENT/Sleep 03/10/2022 Last Documented On 3 4:34PM ; [facility] History of irritable bowel syndrome - di arrhea 12/09/2021 Last Documented On 3 4:34PM ; [facility] History of colitis 12/09/2021 Last Documented On 3 4:34PM ; [facility] History of Sjogren syndrome - sicca comp sridevi - 200212/07/2021 Last Documented On 3 4:34PM ; [facility] History of coronavirus 2019- nCoV vaccine - Moderna #1 10/09/20 #2 11/06/20 #3 09/11/21 12/07/2021 Last Documented On 3 4:34PM ; [facility] History of microscopic colitis - 2013 Last Documented On 3 4:34PM ; [facility] History of esophagitis - 202012/07/2021 Last Documented On 3 4:34PM ; [facility] History of gastritis - 201912/07/2021 Last Documented On 3 4:34PM ; [facility] History of GERD - 200212/07/2021 Last Documented On 3 4:34PM ; [facility] Family History Includes: Family History addressed during this encounter Description Last Updated Fraternal history of alcohol abuse - brothers, one brother has h/o bipolar disorder 12/07/2021 Last Documented On 3 4:34PM ; [facility] Paternal history of depression , Bipolar disorder - father 12/07/2021 Last Documented On 3 4:34PM ; [facility] Paternal history of alcohol abuse - fath er 12/07/2021 Last Documented On 3 4:34PM ; [facility] Sororal history of suicide attempt - one of her sisters 12/07/2021 Last Documented On 3 4:34PM ; [facility] Sororal history of depression - 2 sister s 12/07/2021 Last Documented On 3 4:34PM ; [facility] Review of Systems Includes: Review of Systems from this encounter Systemic: Feeling poorly (malaise) - occasionally tired. No fever, no chills, and no night sweats. Head: Headache associated with head congestion and sinus pain. Neck: No neck pain and no neck stiffness. Eyes: Vision problems. No itching of the eyes and no eye pain. Otolaryngeal: Hearing loss. No earache. Tinnitus. No nasal discharge, no [...] Documented On 4 4:53PM ; [facility] Anaprox Allergy 12/07/2021 Active Last Documented On 4 4:53PM ; [facility] Note: Imported from external source. Encounters Encounter Provider Location Date Check-In Time Check-Out Time Diagnosis [facility] METVINH BAUTISTA MD [facility] 12/18/19 23 4:34PM 11:59PM Attention-deficit Hyperactivity Disorder,Generali zed Anxiety Disorder,Psychoph ysiological Insomnia,Major Depression Insurance Includes: Active Insurance Policies Plan Name Member ID Group # Subscriber Relationship Effect jose l Dates 1 - [employer] [id number] [place] Self Clinical Notes Includes: Clinical Notes from this encounter No Clinical Notes Recorded
--- OUTSIDE RECORDS SUMMARY | 2024-10-04 07:39 | XMS_ITS | Clinical Summary ---
Author Organization [facility] Address [address] [place] [address] Care Team Providers Care Raw Stock Machine Feeder Name Role Phone Nubia Rodriguez DO Primary Care Provider [phone] Source Comments [facility],non-owned Affiliates and Associated Physician Practices is amultiple site organization consisting of ambulatory clinics and hospital sitesin [place], [place], [place] and [place]. This disclosure is being madepursuant to the Care Everywhere program and may not contain all information available regarding this patient. Last updated 18.[facility] Allergies Active Allergy Reactions Criticality Noted Date [...] Noted Date Diagnosed Date 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 Encounters Date Type Department Care Team Description 08/24/2024 Refill [facility] - Rheumatology [address] [place] [address], [place] [address] Anupam Galicia MD Refill Request from Last 3 Months Family History Medical History Relation Name Comments None Known Father None Known Mother Relation Name Status Comments Father Mother Social History Tobacco Use Types Packs/Day Years [...] Comments Blood Pressure 112/64 10/26/2022 2:25 PM DIRECTOR OF REVENUE Pulse 87 06/21/2023 2:02 PM CDT Temperature 36.4 ??C (97.5 ??F) 06/21/2023 2:02 PM CD T Respiratory Rate 17 07/22/2021 4:45 PM DIRECTOR OF REVENUE Oxygen Saturation 96% 06/21/2023 2:02 PM CDT Inhaled Oxygen Concentration - - Weight 58.8 kg (129 lb 9.6 oz) 06/21/2023 2:02 P M CDT Height 164.4 cm (5' 4.72 ) 06/21/2023 2:02 PM CD T Body Mass Index 21.75 06/21/2023 2:02 PM CDT Plan of Treatment Upcoming Encounters Date Type Department Care Team (Late st Contact Info) Description 11/13/2024 1:40 PM DIRECTOR OF REVENUE Office Visit [facility] - Rheumatology [address] [place] [address], [place] [address] Anupam Galicia MD [facility] [facility] [address]L [place] [address] Health Maintenance Due Date Last Done Comments COLOGUARD (AGES 45-75) - COLON CA SCREENING 1960 COLON MONITORING 1960 COLONOSCOPY - COLON CA SCREENING 1960 CT COLONOGRAPHY - COLON CA SCREENING 1960 Colorectal Cancer Screening 1960 FIT - COLON CA SCREENING 1960 FLEX SIG - COLON CA SCREENING 1960 LIPID TESTING 1960 MAMMOGRAM 1960 PAP SMEAR 1960 HIV SCREENING 1975 HEPATITIS C SCREENING 10/19/1978 DTAP/TDAP/TD VACCINES (1 - Tdap) 1979 PNEUMOCOCCAL VACCINE 50+ (1 of 1 - PCV) 2010 ZOSTER VACCINE (1 of 2) 2010 COVID-19 VACCINE (3 - season) 2024 11/06/2020, 10/09/2020 INFLUENZA VACCINE (#1) 2024 , 06/26/2021, 06/20/2020, Additional history exists DEPRESSION SCREENING 09/12/2024 Respiratory Syncytial Virus (RSV) Vaccine Pt: or over 60 yrs (1 - 1-dose 75+ series) 2035 HEPATITIS B VACCINE Aged Out No longe r eligible based on patient's age to complete this topic HIB VACCINE Aged Out No longer eligi ble based on patient's age to complete this topic HPV VACCINE Aged Out No longer eligi ble based on patient's age to complete this topic MENINGOCOCCAL (Group B) VACCINE Aged Out No longer eligible based on patient's age to complete this topic MENINGOCOCCAL VACCINE Aged Out No charly nahid eligible based on patient's age to complete this topic PNEUMOCOCCAL VACCINE Aged Out No long er eligible based on patient's age to complete this topic Care Teams Raw Stock Machine Feeder Relationship Specialty Start Date End Date Nubia Rodriguez DO [address] [place] [address] PCP - General Family Medicine 06/21/23
--- OUTSIDE RECORDS SUMMARY | 2024-10-04 07:40 | XMS_ITS | Encounter Summary ---
Author Organization [facility] Address [address] [place] [address] Phone Care Team Providers Care Wound/Ostomy Clinical Nurse Specialist Name Role Phone Diego Gibbs DO Unavailable [phone] Nubia Rodriguez DO Primary Care Provider [phone] Yajaira Sandhu MD Unavailable [phone] Reason for Visit * Reason Comments Medication Refill Encounter Details Date Type Department Care Team (Late st Contact Info) Description 06/27/2023 Refill [facility] - Gastroenterology [facility] [address] [place] [address] Yajaira Sandhu MD [address] [place] [address] Medication Refill Social History Tobacco Use Types Packs/Day Years Used Date Smoking Tobacco: Never Smokeless Tobacco: Never Alcohol Use Standard Drinks/Week Comments Not Currently 1 (1 standard drink = 0.6 oz pur e alcohol) Sexually Active Control Partners Comments Yes Male Comments No Sex and Gender Information Value Date Recorded Sex Assigned at Not on file Legal Sex Female 12:35 AM CDT Gender Identity Not on file Sexual Orientation Not on file documented as of this encounter Miscellaneous Notes * Telephone Encounter - Kalina Lee RN - 06/27/2023 10:37 AM CDT Per nursing clinical judgement, provider to review and approve the medication(s) order(s) if appropriate. Requested Prescriptions Pending Prescriptions Disp Refills sucralfate (CARAFATE) 1 GM Tablet [Pharmacy Med Name: SUCRALFATE 1 GM TABLET] 360 Tablet 1 Sig: TAKE 1 TABLET BY MOUTH FOUR TIMES A DAY Sucralfate Protocol Passed - 06/27/2023 10:01 AM Passed - Visit with relevant provider in past 12 months or upcoming 90 days Recent Visits Date Type Provider Dept 02/24/23 Office Visit Yajaira Sandhu MD [facility] Showing recent visits within past 365 days and meeting all other requirements Future Appointments No visits were found meeting these conditions. Showing future appointments within next 90 days and meeting all other requirements documented in this encounter Plan of Treatment Not on file documented as of this encounter Visit Diagnoses Diagnosis Gastroesophageal reflux disease, unspecified whether esophagitis present Hiatal hernia Diaphragmatic hernia without mention of obstruction or gangrene documented in this encounter Care Teams Wound/Ostomy Clinical Nurse Specialist Relationship Specialty Start Date End Date Nubia Rodriguez DO [address] [address] PCP - General Family Medicine 10/19/21 Diego Gibbs DO Gastroenterology 08/24/16 Yajaira Sandhu MD [address] [place] [address] Consulting Physician Gastroenterology 02/24/23 Nubia Rodriguez Family Medicine 12/03/20 documented as of this encounter
--- OUTSIDE RECORDS SUMMARY | 2024-10-04 07:40 | XMS_ITS | Encounter Summary ---
Author Organization [facility] Address [address] [place] [address] Phone Care Team Providers Care Perch Mender Name Role Phone Diego Gibbs DO Unavailable [phone] Nubia Rodriguez DO Primary Care Provider [phone] Yajaira Sandhu MD Unavailable [phone] Reason for Visit * Reason Comments Medication Refill Encounter Details Date Type Department Care Team (Late st Contact Info) Description 07/18/2023 Refill [facility] - Gastroenterology [facility] [address] [place] [address] Yajaira Sandhu MD [address] [place] [address] Medication Refill Social History Tobacco Use Types [...] Telephone Encounter - Kalina Lee RN - 07/18/2023 9:08 AM [employer] Medication refilled and signed per [facility] chronic medication standing order for pediatric and adult patients. SHADES SUPERVISOR documented in this encounter Plan of Treatment Not on file documented as of this encounter Visit Diagnoses Not on filedocumented in this encounter Care Teams Perch Mender Relationship Specialty Start Date End Date Nubia Rodriguez DO [address] [place] [address] PCP - General Family Medicine 10/19/21 Diego Gibbs DO Gastroenterology 08/24/16 Yajaira Sandhu MD [address] [place] [address] Consulting Physician Gastroenterology 02/24/23 Nubia Rodriguez Family Medicine 12/03/20 documented as of this encounter
--- OUTSIDE RECORDS SUMMARY | 2024-10-04 07:40 | XMS_ITS | Patient Health Summary ---
Author Organization [facility] Address [address] [place] [address] Care Team Providers Care Pharmacist Aide Name Role Phone BarigodwinNubia vogel DO Primary Care Provider [phone] Note from [facility],non-owned Affiliates and Associated Physician Practices is amultiple site organization consisting of ambulatory clinics and hospital sitesin [place], [place], [place] and [place]. This disclosure is being madepursuant to the Care Everywhere program and may not contain all information available regarding this patient. Last updated 18.[facility] Allergies * Naproxen(Other) -Low Criticality * Nsaids(Nausea and/or Vomiting) -Low Criticality Medications * Be aware that medications may not be up to date on this document. Alwaysverify current medications with the patient. * cevimeline (EVOXAC) 30 MG capsule(Started 06/03/2016) Take 30 mg by mouth TID. 3 refills left * pseudoephedrine-guaiFENesin CR 12hr (MUCINEXD) 60-600 MG tablet Take 1 tablet by mouth every 12 hours as needed for Cough, Nasal Congestion or Runny Nose * diazePAM (VALIUM) 2 MG tablet(Started 01/14/2021) TAKE 1 TABLET BY MOUTH ONCE DAILY NEEDED. NOT TO EXCEED 10 TABLETS IN 30 DAYS * traMADol (ULTRAM) 50 MG tablet(Started 09/10/2020) Take 50 mg by mouth every 6 hours as needed pain * cholestyramine (QUESTRAN) 4 g packet(Started 03/09/2021) Take 4 g by mouth * tobramycin (TOBREX) 0.3 % ophthalmic solution 1-2 drops * sucralfate (CARAFATE) 1 GM tablet(Started 04/20/2021) Take 1 g by mouth 4 times daily * FML FORTE 0.25 % ophthalmic suspension(Started 01/21/2021) INSTILL 1 DROP INTO BOTH EYES TWICE A DAY * prednisoLONE acetate (PRED FORTE) 1 % ophthalmic suspension(Started 07/23/2021) * acetaminophen (Tylenol) 325 MG tablet every 4 hours as needed * albuterol HFA (Proventil; Ventolin; Proair) 108 (90 Base) MCG/ACT inhaler (Started 01/07/2022) Inhale 2 (two) puffs by mouth every 6 hours as needed * ciprofloxacin 0.3% (Ciloxan) 0.3 % ophthalmic solution(Started 04/12/2022) INSTILL 2 DROPS INTO THE LEFT EYE 4 TIMES PER DAY FOR 3 DAYS DIRECTED * estradiol (Estrace) 0.1 MG/GM vaginal cream(Started 09/19/2021) INSERT 1 GRAM VAGINALLY TWICE WEEKLY * FLUoxetine (PROzac) 10 MG capsule Take 1 (one) capsule by mouth once daily * famotidine (HM Famotidine) 20 MG tablet(Started 10/04/2022) HM Famotidine 20 MG Oral Tablet QTY: 0 tablet Days: 0 Refills: 0 Written: 10/04/22 Patient Instructions: 1 bid * guaiFENesin ER 12hr (Mucinex) 600 MG tablet Take 1 (one) tablet by mouth every 12 hours * lisdexamfetamine (Vyvanse) 20 MG capsule(Started 07/26/2022) Take 1 (one) capsule by mouth every morning * multivitamins (One A Day) capsule * mupirocin (Bactroban) 2 % ointment(Started 11/02/2021) APPLY 1 APPLICATION TOPICALLY TWICE A DAY * tobramycin-dexAMETHasone (Tobradex) 0.3-0.1 % ophthalmic suspension(Started 06/23/2022) INSTILL 1 DROP INTO EACH EYE 3 TIMES A DAY FOR 1 WEEK * pantoprazole EC (Protonix) 40 MG tablet(Started 01/24/2023) Take 1 (one) tablet by mouth 2 times daily * modafinil (Provigil) 100 MG tablet(Started 12/18/2022) TAKE 1 TABLET BY MOUTH DIRECTED IN THE MORNING * dexmethylphenidate ER 24hr (Focalin XR) 5 MG capsule(Started 02/01/2023) Take 1 (one) capsule by mouth every morning * dexmethylphenidate ER 24hr (Focalin XR) 10 MG capsule(Started 06/17/2023) Take 1 (one) capsule by mouth every morning * Amphetamine ER (Dyanavel XR) 5 MG BENITA(Started 03/22/2023) Take 1 tablet by mouth every morning * DIPHENHYDRAMINE-APAP, SLEEP, PO * hydroxychloroquine (Plaquenil) 200 MG tablet(Started 02/29/2024) TAKE ONE TABLET BY MOUTH DAILY (DECREASED) 3 refills by 02/28/2025 * cevimeline (Evoxac) 30 MG capsule(Started 08/24/2024) TAKE 1 CAPSULE BY MOUTH THREE TIMES A DAY 1 refill by 08/24/2025 Active Problems Problem Noted Date Diagnosed Date [...] Comments Blood Pressure 112/64 10/26/2022 2:25 PM INTERIOR HORTICULTURIST Pulse 87 06/21/2023 2:02 PM CDT Temperature 36.4 ??C (97.5 ??F) 06/21/2023 2:02 PM CD T Respiratory Rate 17 07/22/2021 4:45 PM INTERIOR HORTICULTURIST Oxygen Saturation 96% 06/21/2023 2:02 PM CDT Inhaled Oxygen Concentration - - Weight 58.8 kg (129 lb 9.6 oz) 06/21/2023 2:02 P M CDT Height 164.4 cm (5' 4.72 ) 06/21/2023 2:02 PM CD T Body Mass Index 21.75 06/21/2023 2:02 PM CDT Procedures * URINALYSIS W/MICROSCOPIC REFLEX TO CULTURE(Performed 07/18/2023) Performed for Arthralgia, unspecified joint, Sicca syndrome (HCC) * ERYTHROCYTE SEDIMENTATION RATE(Performed 07/18/2023) Performed for Arthralgia, unspecified joint, Sicca syndrome (HCC) * C-REACTIVE PROTEIN(Performed 07/18/2023) Performed for Arthralgia, unspecified joint, Sicca syndrome (HCC) * COMPREHENSIVE METABOLIC PANEL(Performed 07/18/2023) Performed for Arthralgia, unspecified joint, Sicca syndrome (HCC) * CK BLOOD(Performed 07/18/2023) Performed for Arthralgia, unspecified joint, Sicca syndrome (HCC) * CBC W AUTO DIFFERENTIAL(Performed 07/18/2023) Performed for Arthralgia, unspecified joint, Sicca syndrome (HCC) * ALDOLASE(Performed 07/18/2023) Performed for Arthralgia, unspecified joint, Sicca syndrome (HCC) * EARLY SJOGREN'S SYNDROME PROFILE(Performed 07/18/2023) Performed for Arthralgia, unspecified joint, Sicca syndrome (HCC) * JEFFERY PANEL COMPREHENSIVE(Performed 07/18/2023) Performed for Arthralgia, unspecified joint, Sicca syndrome (HCC) * CULTURE URINE(Performed 07/18/2023) * CULTURE URINE REFLEXED II(Performed 07/18/2023) * COMPLEMENT C4(Performed 11/12/2022) Performed for Sicca syndrome (HCC) * COMPLEMENT C3(Performed 11/12/2022) Performed for Sicca syndrome (HCC) * SS-A/SS-B (SJOGREN'S) ANTIBODY PANEL(Performed 11/12/2022) Performed for Sicca syndrome (HCC) * IMMUNOGLOBULINS IGG/IGM/IGA PANEL(Performed 11/12/2022) Performed for Sicca syndrome (HCC) * VITAMIN D 25-HYDROXY(Performed 11/12/2022) Performed for Sicca syndrome (HCC) * URINALYSIS W/MICROSCOPIC REFLEX TO CULTURE(Performed 11/12/2022) Performed for Sicca syndrome (HCC) * TSH REFLEX FREE T4(Performed 11/12/2022) Performed for Sicca syndrome (HCC) * ERYTHROCYTE SEDIMENTATION RATE(Performed 11/12/2022) Performed for Sicca syndrome (HCC) * C-REACTIVE PROTEIN(Performed 11/12/2022) Performed for Sicca syndrome (HCC) * COMPREHENSIVE METABOLIC PANEL(Performed 11/12/2022) Performed for Sicca syndrome (HCC) * CK BLOOD(Performed 11/12/2022) Performed for Sicca syndrome (HCC) * CBC W AUTO DIFFERENTIAL(Performed 11/12/2022) Performed for Sicca syndrome (HCC) * LDH BLOOD(Performed 11/12/2022) Performed for Sicca syndrome (HCC) * ALDOLASE(Performed 11/12/2022) Performed for Sicca syndrome (HCC) * CULTURE URINE(Performed 11/12/2022) * CULTURE URINE REFLEXED II(Performed 11/12/2022) * VITAMIN D 25-HYDROXY(Performed 10/02/2021) Performed for Sicca syndrome (HCC) * URINALYSIS W/MICROSCOPIC REFLEX TO CULTURE(Performed 10/02/2021) Performed for Sicca syndrome (HCC), Pyuria * ERYTHROCYTE SEDIMENTATION RATE(Performed 10/02/2021) Performed for Sicca syndrome (HCC) * C-REACTIVE PROTEIN(Performed 10/02/2021) Performed for Sicca syndrome (HCC) * COMPREHENSIVE METABOLIC PANEL(Performed 10/02/2021) Performed for Sicca syndrome (HCC) * CK BLOOD(Performed 10/02/2021) Performed for Sicca syndrome (HCC) * ALDOLASE(Performed 10/02/2021) Performed for Sicca syndrome (HCC) * CBC W AUTO DIFFERENTIAL(Performed 10/02/2021) Performed for Sicca syndrome (HCC) * CULTURE URINE REFLEXED III(Performed 10/02/2021) * URINALYSIS W/MICROSCOPIC REFLEX TO CULTURE(Performed 07/24/2021) Performed for Pyuria * CULTURE URINE REFLEXED III(Performed 07/24/2021) * URINALYSIS AUTO - POINT OF CARE (AMB) STL(Performed 07/22/2021) Performed for Urinary tract infection without hematuria, site unspecified * SKIN TEST PPD - POINT OF CARE(Performed 07/22/2021) Performed for PPD screening test * CULTURE URINE(Performed 07/22/2021) Performed for Urinary tract infection without hematuria, site unspecified * TSH REFLEX FREE T4(Performed 06/26/2021) Performed for Sicca syndrome (HCC), Chronic fatigue * VITAMIN D 25-HYDROXY(Performed 06/26/2021) Performed for Sicca syndrome (HCC), Chronic fatigue * URINALYSIS W/MICROSCOPIC REFLEX TO CULTURE(Performed 06/26/2021) Performed for Sicca syndrome (HCC), Chronic fatigue * C-REACTIVE PROTEIN(Performed 06/26/2021) Performed for Sicca syndrome (HCC), Chronic fatigue * COMPREHENSIVE METABOLIC PANEL(Performed 06/26/2021) Performed for Sicca syndrome (HCC), Chronic fatigue * CK BLOOD(Performed 06/26/2021) Performed for Sicca syndrome (HCC), Chronic fatigue * CELIAC DISEASE COMPREHENSIVE(Performed 06/26/2021) Performed for Sicca syndrome (HCC), Chronic fatigue * CBC W AUTO DIFFERENTIAL(Performed 06/26/2021) Performed for Sicca syndrome (HCC), Chronic fatigue * ALDOLASE(Performed 06/26/2021) Performed for Sicca syndrome (HCC), Chronic fatigue * IMMUNOGLOBULINS IGG/IGM/IGA PANEL(Performed 06/26/2021) Performed for Sicca syndrome (HCC), Chronic fatigue * COMPLEMENT C4(Performed 06/26/2021) Performed for Sicca syndrome (HCC), Chronic fatigue * COMPLEMENT C3(Performed 06/26/2021) Performed for Sicca syndrome (HCC), Chronic fatigue * DNA ANTIBODY DS CRITHIDIA W/REFLEX TITER(Performed 06/26/2021) Performed for Sicca syndrome (HCC), Chronic fatigue * JEFFERY SCREEN IFA+LUPUS PANEL(Performed 06/26/2021) Performed for Sicca syndrome (HCC), Chronic fatigue * CULTURE URINE(Performed 06/26/2021) * CULTURE URINE REFLEXED II(Performed 06/26/2021) * CARDIOLIPIN ANTIBODY IGA/IGG/IGM PANEL(Performed 09/26/2019) Performed for Sicca syndrome (HCC), Chronic fatigue * VITAMIN D 25-HYDROXY(Performed 09/26/2019) Performed for Sicca syndrome (HCC), Chronic fatigue * URINALYSIS W/MICROSCOPIC REFLEX TO CULTURE(Performed 09/26/2019) Performed for Sicca syndrome (HCC), Chronic fatigue * ERYTHROCYTE SEDIMENTATION RATE(Performed 09/26/2019) Performed for Sicca syndrome (HCC), Chronic fatigue * C-REACTIVE PROTEIN(Performed 09/26/2019) Performed for Sicca syndrome (HCC), Chronic fatigue * COMPREHENSIVE METABOLIC PANEL(Performed 09/26/2019) Performed for Sicca syndrome (HCC), Chronic fatigue * CK BLOOD(Performed 09/26/2019) Performed for Sicca syndrome (HCC), Chronic fatigue * CBC W AUTO DIFFERENTIAL(Performed 09/26/2019) Performed for Sicca syndrome (HCC), Chronic fatigue * ALDOLASE(Performed 09/26/2019) Performed for Sicca syndrome (HCC), Chronic fatigue * RNA POLYMERASE III ANTIBODY IGG(Performed 09/26/2019) Performed for Sicca syndrome (HCC), Chronic fatigue * LUPUS ANTICOAGULANT PANEL W RFLX(Performed 09/26/2019) Performed for Sicca syndrome (HCC), Chronic fatigue * BETA-2 GLYCOPROTEIN 1 ANTIBODY IGG/IGM/IGA PANEL(Performed 09/26/2019) Performed for Sicca syndrome (HCC), Chronic fatigue * JEFFERY PANEL COMPREHENSIVE(Performed 09/26/2019) Performed for Sicca syndrome (HCC), Chronic fatigue * SCLEROSIS 12 ANTIBODY PNL(Performed 09/26/2019) Performed for Sicca syndrome (HCC), Chronic fatigue * CULTURE URINE REFLEXED I(Performed 09/26/2019) * EYE EXAM(Performed 08/23/2018) * VITAMIN D 25-HYDROXY(Performed 08/09/2018) Performed for Sicca syndrome (HCC) * URINALYSIS W/MICROSCOPIC REFLEX TO CULTURE(Performed 08/09/2018) Performed for Sicca syndrome (HCC) * THYROID CASCADE PROFILE(Performed 08/09/2018) Performed for Sicca syndrome (HCC) * ERYTHROCYTE SEDIMENTATION RATE(Performed 08/09/2018) Performed for Sicca syndrome (HCC) * C-REACTIVE PROTEIN(Performed 08/09/2018) Performed for Sicca syndrome (HCC) * CK BLOOD(Performed 08/09/2018) Performed for Sicca syndrome (HCC) * COMPREHENSIVE METABOLIC PANEL(Performed 08/09/2018) Performed for Sicca syndrome (HCC) * CBC W AUTO DIFFERENTIAL(Performed 08/09/2018) Performed for Sicca syndrome (HCC) * ALDOLASE(Performed 08/09/2018) Performed for Sicca syndrome (HCC) * JEFFERY PANEL COMPREHENSIVE(Performed 08/09/2018) Performed for Sicca syndrome (HCC) * ANCA SCREEN W MPO+PR3 W REFEX ANCA TITER(Performed 08/09/2018) Performed for Sicca syndrome (HCC) * SCLEROSIS 12 ANTIBODY PNL(Performed 08/09/2018) Performed for Sicca syndrome (HCC) * CULTURE URINE REFLEXED I(Performed 08/09/2018) * LUPUS ERYTHEMATOSUS PANEL(Performed 01/24/2016) * IMMUNOGLOBULINS IGG/IGM/IGA PANEL(Performed 01/24/2016) * VITAMIN D 25-HYDROXY D2+D3(Performed 01/24/2016) * URINALYSIS W/MICROSCOPIC REFLEX TO CULTURE(Performed 01/24/2016) * ERYTHROCYTE SEDIMENTATION RATE(Performed 01/24/2016) * CK BLOOD(Performed 01/24/2016) * C-REACTIVE PROTEIN(Performed 01/24/2016) * COMPREHENSIVE METABOLIC PANEL(Performed 01/24/2016) * CBC W AUTO DIFFERENTIAL(Performed 01/24/2016) * ALDOLASE(Performed 01/24/2016) * LUPUS ERYTHEMATOSUS PANEL(Performed 08/14/2014) * IMMUNOGLOBULINS IGG/IGM/IGA PANEL(Performed 08/14/2014) * VITAMIN D 25-HYDROXY D2+D3(Performed 08/14/2014) * URINALYSIS W/MICROSCOPIC REFLEX TO CULTURE(Performed 08/14/2014) * ERYTHROCYTE SEDIMENTATION RATE(Performed 08/14/2014) * C-REACTIVE PROTEIN(Performed 08/14/2014) * COMPREHENSIVE METABOLIC PANEL(Performed 08/14/2014) * CBC W AUTO DIFFERENTIAL(Performed 08/14/2014) * CULTURE URINE REFLEXED(Performed 08/14/2014) * LAB HISTORICAL RESULTS-ONBASE(Performed 08/31/2011) * LAB HISTORICAL RESULTS-ONBASE(Performed 08/20/2010) * LAB HISTORICAL RESULTS-ONBASE(Performed 04/16/2009) Results * (ABNORMAL) EARLY SJOGREN'S SYNDROME PROFILE (07/18/2023 1:49 PM INTERIOR HORTICULTURIST) Salivary Protein 1 Antibody IgG 7.1 EU/ml [facility] Comment: Reference Range: Negative: <20 EU/ml Borderline: 20-25 EU/ml Positive: >25 EU/ml Salivary Protein 1 Antibody IgA 3.9 EU/ml [facility] Comment: Reference Range: Negative: <20 EU/ml Borderline: 20-25 EU/ml Positive: >25 EU/ml Salivary Protein 1 Antibody IgM 1.4 EU/ml [facility] Comment: Reference Range: Negative: <20 EU/ml Borderline: 20-25 EU/ml Positive: >25 EU/ml Carbonic Anhydrase Antibody IgG 8.2 EU/ml [facility] Comment: Reference Range: Negative: <20 EU/ml Borderline: 20-25 EU/ml Positive: >25 EU/ml Carbonic Anhydrase Antibody IgA 20.5 EU/ml [facility] Comment: Reference Range: Negative: <20 EU/ml Borderline: 20-25 EU/ml Positive: >25 EU/ml Carbonic Anhydrase Antibody IgM 11.8 EU/ml [facility] Comment: Reference Range: Negative: <20 EU/ml Borderline: 20-25 EU/ml Positive: >25 EU/ml Parotid Specific Protein Antibody IgG 29.6(H) EU/ml [facility] Comment: Reference Range: Negative: <20 EU/ml Borderline: 20-25 EU/ml Positive: >25 EU/ml Parotid Specific Protein Antibody IgA 14.7 EU/ml [facility] Comment: Reference Range: Negative: <20 EU/ml Borderline: 20-25 EU/ml Positive: >25 EU/ml Parotid Specific Protein Antibody IgM 5.7 EU/ml [facility] Comment: Reference Range: Negative: <20 EU/ml Borderline: 20-25 EU/ml Positive: >25 EU/ml Comments See Below [facility] Comment: The novel antibodies salivary gland protein 1 (SP-1), carbonic anhydrase 6 (CA ) and parotid secretory protein (PSP) have shown to be present in animal models for Sjogren's syndrome (SS) and patients with the disease. The antibodies SP-1, CA and PSP occurred earlier in the course of the disease than antibodies to Ro or La. These antibodies were found in 45% of patients meeting the criteria for SS who lacked antibodies to Ro or La. Furthermore, in patients with idiopathic xerostomia and xerophthalmia for less than 2 years, 76% had antibodies to SP-1 and/or CA while only 31% had antibodies to Ro or La. Antibodies to SP-1, CA and PSP may be useful markers for identifying patients with SS at early stages of the disease or those that lack antibodies to either Ro or La. The presence of the antibodies to SP-1, CA and PSP should be correlated with clinical (dry mouth, dry eyes), serological (Ro, La, JEFFERY, RF) and histological (positive lymphocytic focus scores) findings in establishing a definitive diagnosis for SS. Nelson Perez et al. (2010). A role of lymphotxin in primary sjogren's syndrome. J Immunol; 185: 3627-7890. Maxine Perez. et al. (2012). Novel autoantibodies in Sjogren's syndrome. Clinical Immunology; 145, 251-255. *This test has been developed and performance parameters have been validated by [employer] This test ?? has not been approved by the U.S. Food and Drug Administration (FDA); however, US FDA approval is not required for clinical use. It is not intended that clinical diagnosis and patient management decisions be made using these results alone. This test has been validated using serum samples. The residential concierge has not determined the efficacy of this test when performed on CSF, plasma, joint or pleural fluid specimens. The performance characteristics of this test were determined by [employer] Test Performed at: [facility] [address] [place], [place] [address] [address] ??[id number] DALLIN CHAVES,PHD Blood BLOOD SPECIMEN / Unknown 07/18/2023 1:49 PM INTERIOR HORTICULTURIST 07/18/2023 1:50 PM INTERIOR HORTICULTURIST Anupam Galicia MD LAB - SEROLOGY ORDER REGGIE Performing Organization Address [facility] Co de Phone Number [address] [address] * CULTURE URINE REFLEXED II (07/18/2023 1:49 PM INTERIOR HORTICULTURIST) Only the most recent of3 resultswithin the time period is included. Pathologist [facility] [place] Reflexive Urine Culture See Below [facility] Comment: CULTURE INDICATED - RESULTS TO FOLLOW Test Performed at: [facility] ??[id number] LAURA ESPINAL MD 07/18/2023 1:49 PM INTERIOR HORTICULTURIST 07/18/2023 1:50 PM INTERIOR HORTICULTURIST Anupam Galicia MD LAB - MICROBIOLOGY O RDERABLES Performing Organization Address [facility] Co de Phone Number [address] [address] * JEFFERY PANEL COMPREHENSIVE (07/18/2023 1:49 PM INTERIOR HORTICULTURIST) Only the most recent of3 resultswithin the time period is included. JEFFERY Screen NEGATIVE NEGATIVE [facility] Comment: JEFFERY IFA is a first line screen for detecting the presence of up to approximately 150 autoantibodies in various autoimmune diseases. A negative JEFFERY IFA result suggests an JEFFERY-associated autoimmune disease is not present at this time, but is not definitive. If there is high clinical suspicion for Sjogren's syndrome, testing for anti-SS-A/Ro antibody should be considered. Anti-[place]-1 antibody should be considered for clinically suspected inflammatory myopathies. AC-0: Negative International Consensus on JEFFERY Patterns (https://doi.org/10.1515/swej-0113-5880) For additional information, please refer to http://education.C[employer]/faq/FWD071 (This link is being provided for informational/ educational purposes only.) ?? Test Performed at: [facility] [place], [place] ??[phone] LAURA ESPINAL MD dsDNA Antibody 1 IU/mL [facility] Comment: ? IU/mL ? Interpretation ? < or = 4 ?Negative ? 5-9 ? Indeterminate ? > or = 10 ?? Positive SCL-70 Antibody <1.0 NEG <1.0 NEG AI [facility] SM Antibody <1.0 NEG <1.0 NEG AI [facility] SM/MRI MANAGER Antibody <1.0 NEG <1.0 NEG AI [facility] Sjogren's Antibodies (SSA) <1.0 NEG <1.0 NEG AI [facility] Sjogren's Antibodies (SSB) <1.0 NEG <1.0 NEG AI [facility] Comment: Test Performed at: [facility] [place], [place] ??[phone] LAURA ESPINAL MD Blood BLOOD SPECIMEN / Unknown 07/18/2023 1:49 PM INTERIOR HORTICULTURIST 07/18/2023 1:50 PM INTERIOR HORTICULTURIST Anupam Galicia MD LAB - SEROLOGY ORDER REGGIE [address] [address] * (ABNORMAL) URINALYSIS W/MICROSCOPIC REFLEX TO CULTURE (07/18/2023 1:49 PM INTERIOR HORTICULTURIST) Only the most recent of9 resultswithin the time period is included. Color UA DARK YELLOW YELLOW [facility] Appearance CLEAR CLEAR [facility] Specific Tobias UA 1.019 1.001 - 1.035 [facility] pH UA 8.0 5.0 - 8.0 [facility] Glucose UA NEGATIVE NEGATIVE [facility] Bilirubin UA NEGATIVE NEGATIVE [facility] Ketone UA NEGATIVE NEGATIVE [facility] Blood UA NEGATIVE NEGATIVE [facility] Protein UA NEGATIVE NEGATIVE [facility] Nitrite NEGATIVE NEGATIVE [facility] Leukocyte Esterase 1+(A) NEGATIVE [facility] WBC UA NONE SEEN < OR = 5 /HPF [facility] RBC UA 0-2 < OR = 2 /HPF [facility] Epithelial Cell UA 0-5 < OR = 5 /HPF [facility] Transitional Epithelial Cells [facility] Renal Epithelial Cells [facility] Bacteria UA NONE SEEN NONE SEEN /HPF [facility] Calcium Oxalate Crystals [facility] Triple Phosphate Crystals [facility] Uric Acid Crystals [facility] Amorphous UA [facility] Crystals UA [facility] Hyaline Casts NONE SEEN NONE SEEN /LPF [facility] Granular Casts [facility] Casts UA [facility] Yeast [facility] Comments [facility] Note See Below [facility] Comment: This urine was analyzed for the presence of WBC, RBC, bacteria, casts, and other formed elements. Only those elements seen were reported. Test Performed at: [facility] ??[phone] LAURA ESPINAL MD Urine URINE SPECIMEN OBTAINED BY CLEAN CATCH PROCEDURE / Unknown 07/18/2023 1:49 PM INTERIOR HORTICULTURIST 07/18/2023 1:50 PM INTERIOR HORTICULTURIST Anupam Galicia MD LAB - URINALYSIS ORD ERABLES [address] [address] * C-REACTIVE PROTEIN (07/18/2023 1:49 PM INTERIOR HORTICULTURIST) Only the most recent of8 resultswithin the time period is included. C-Reactive Protein 1.1 <8.0 mg/L [facility] Comment: Test Performed at: [facility] [address] ??[phone] LAURA ESPINAL MD Blood BLOOD SPECIMEN / Unknown 07/18/2023 1:49 PM INTERIOR HORTICULTURIST 07/18/2023 1:50 PM INTERIOR HORTICULTURIST Anupam Galicia MD LAB - CHEMISTRY ALEX LEMUS Performing Organization Address [facility] de Phone Number [address] [address] * ALDOLASE (07/18/2023 1:49 PM INTERIOR HORTICULTURIST) Only the most recent of7 resultswithin the time period is included. Aldolase 4.3 < OR = 8.1 U/L [facility] Comment: Test Performed at: [facility] [address] ??[phone] LAURA ESPINAL MD Blood BLOOD SPECIMEN / Unknown 07/18/2023 1:49 PM INTERIOR HORTICULTURIST 07/18/2023 1:50 PM INTERIOR HORTICULTURIST Anupam Galicia MD LAB - CHEMISTRY ALEX LEMUS Performing Organization Address [facility] de Phone Number [address] [address] * CULTURE URINE (07/18/2023 1:49 PM INTERIOR HORTICULTURIST) Only the most recent of4 resultswithin the time period is included. Culture [facility] Comment: ??CULTURE, URINE, ROUTINE ?Micro Number: ?[id number] ??Test Status: ? Final ??Specimen Source: ?? Urine ??Specimen Quality: ??Adequate ??Result: ?No Growth REPORT COMMENT: FASTING:NO Test Performed at: [facility] ??[phone] LAURA ESPINAL MD 07/18/2023 1:49 PM INTERIOR HORTICULTURIST 07/18/2023 1:50 PM INTERIOR HORTICULTURIST Anupam Galicia MD LAB - MICROBIOLOGY O RDERABLES Performing Organization Address [facility] Co de Phone Number [address] [address] * ERYTHROCYTE SEDIMENTATION RATE (07/18/2023 1:49 PM INTERIOR HORTICULTURIST) Only the most recent of7 resultswithin the time period is included. [facility] Erythrocyte Sedimentation Rate Westergren 2 < OR = 30 mm/h [facility] Comment: Test Performed at: [facility] ??[phone] LAURA ESPINAL MD Blood BLOOD SPECIMEN / Unknown 07/18/2023 1:49 PM INTERIOR HORTICULTURIST 07/18/2023 1:50 PM INTERIOR HORTICULTURIST Anupam Galicia MD LAB - HEMATOLOGY ORD ERABLES Performing Organization Address [facility] Co de Phone Number [address] [address] * CBC WITH DIFFERENTIAL (07/18/2023 1:49 PM INTERIOR HORTICULTURIST) Only the most recent of8 resultswithin the time period is included. [facility] White Blood Cell Count 6.2 3.8 - 10.8 Thousand/u L [facility] RBC 4.17 3.80 - 5.10 Million/uL [facility] Hemoglobin 12.8 11.7 - 15.5 g/dL [facility] Hematocrit 39.6 35.0 - 45.0 % [facility] MCV 95.0 80.0 - 100.0 fL [facility] MCH 30.7 27.0 - 33.0 pg [facility] MCHC 32.3 32.0 - 36.0 g/dL [facility] RDW 12.1 11.0 - 15.0 % [facility] Platelet Count 290 140 - 400 Thousand/u L [facility] MPV 9.3 7.5 - 12.5 fL [facility] Neutrophil Absolute 3869 1500 - 7800 cells/uL [facility] Lymphocytes Absolute 1786 850 - 3900 cells/uL [facility] Absolute Monocytes 440 200 - 950 cells/uL [facility] Eosinophils Absolute 37 15 - 500 cells/uL [facility] Basophils Absolute 68 0 - 200 cells/uL [facility] Granulocytes % 62.4 % [facility] Lymphocytes % 28.8 % [facility] Monocytes % 7.1 % [facility] Eosinophils % 0.6 % [facility] Basophils % 1.1 % [facility] Comment: Test Performed at: [facility] ??[phone] LAURA ESPINAL MD Blood BLOOD SPECIMEN / Unknown 07/18/2023 1:49 PM INTERIOR HORTICULTURIST 07/18/2023 1:50 PM INTERIOR HORTICULTURIST Anupam Galicia MD LAB - HEMATOLOGY ORD YING [facility] [address] [place] [address] * (ABNORMAL) COMPREHENSIVE METABOLIC PANEL (07/18/2023 1:49 PM INTERIOR HORTICULTURIST) Only the most recent of8 resultswithin the time period is included. Pathologist [facility] [place] Glucose 88 65 - 139 mg/dL [facility] Comment: ? Non-fasting reference interval BUN 22 7 - 25 mg/dL [facility] Creatinine 0.62 0.50 - 1.05 mg/dL [facility] eGFR by Cystatin C 101 > OR = 60 mL/min/1. 73m2 [facility] BUN/Creatinine Ratio SEE NOTE: 6 - 22 (calc) [facility] Comment: ?? Not Reported: BUN and Creatinine are within ?? reference range. ? Sodium 136 135 - 146 mmol/L [facility] Potassium 3.5 3.5 - 5.3 mmol/L [facility] Chloride 101 98 - 110 mmol/L [facility] CO2 30 20 - 32 mmol/L [facility] Calcium 9.0 8.6 - 10.4 mg/dL [facility] Protein Total 6.5 6.1 - 8.1 g/dL [facility] Albumin 4.2 3.6 - 5.1 g/dL [facility] Globulin Total 2.3 1.9 - 3.7 g/dL (calc) [facility] Albumin/Globulin Ratio 1.8 1.0 - 2.5 (calc) [facility] Bilirubin Total 0.7 0.2 - 1.2 mg/dL [facility] Alkaline Phosphatase 99 37 - 153 U/L [facility] AST 37(H) 10 - 35 U/L [facility] ALT 20 6 - 29 U/L [facility] Comment: Test Performed at: [facility] ??[phone] LAURA ESPINAL MD Blood BLOOD SPECIMEN / Unknown 07/18/2023 1:49 PM INTERIOR HORTICULTURIST 07/18/2023 1:50 PM INTERIOR HORTICULTURIST Anupam Galicia MD LAB - CHEMISTRY ALEX LEMUS Performing Organization Address [facility] Co de Phone Number [address] [address] * (ABNORMAL) CK BLOOD (07/18/2023 1:49 PM INTERIOR HORTICULTURIST) Only the most recent of7 resultswithin the time period is included. CK 237(H) 29 - 143 U/L [facility] Comment: Test Performed at: [facility] ??[phone] LAURA ESPINAL MD Blood BLOOD SPECIMEN / Unknown 07/18/2023 1:49 PM INTERIOR HORTICULTURIST 07/18/2023 1:50 PM INTERIOR HORTICULTURIST Anupam Galicia MD LAB - CHEMISTRY ALEX LEMUS Performing Organization Address [facility] de Phone Number [address] [address] * TSH REFLEX FREE T4 (11/12/2022 10:01 AM INTERIOR HORTICULTURIST) Only the most recent of2 resultswithin the time period is included. Pathologist [facility] [place] TSH with Reflex FT4 1.72 0.40 - 4.50 mIU/L [facility] Comment: Test Performed at: [place] ([facility]) [address] ??[phone] LAURA ESPINAL MD Blood BLOOD SPECIMEN / Unknown 11/12/2022 10:01 AM INTERIOR HORTICULTURIST 11/12/2022 10:02 AM INTERIOR HORTICULTURIST Anupam Galciia MD LAB - CHEMISTRY ALEX LEMUS Performing Organization Address [facility] Co de Phone Number [address] [address] * SS-A/SS-B (SJOGREN'S) ANTIBODY PANEL (11/12/2022 10:01 AM INTERIOR HORTICULTURIST) Pathologist [facility] [place] Sjogren's Antibodies (SSA) <1.0 NEG <1.0 NEG AI [facility] Sjogren's Antibodies (SSB) <1.0 NEG <1.0 NEG AI [facility] Comment: Test Performed at: [place] ([facility]) [place] ??[phone] LAURA ESPINAL MD Blood BLOOD SPECIMEN / Unknown 11/12/2022 10:01 AM INTERIOR HORTICULTURIST 11/12/2022 10:02 AM INTERIOR HORTICULTURIST Anupam Galicia MD LAB - CHEMISTRY ALEX LEMUS Performing Organization Address [facility] de Phone Number [facility] [address] [place] [address] * VITAMIN D 25-HYDROXY (11/12/2022 10:01 AM INTERIOR HORTICULTURIST) Only the most recent of5 resultswithin the time period is included. Pathologist [facility] [place] Vitamin D, 25 Hydroxy 43 30 - 100 ng/mL [facility] Comment: Vitamin D Status ? 25-OH Vitamin D: Deficiency: ?<20 ng/mL Insufficiency: ? 20 - 29 ng/mL Optimal: ? > or = 30 ng/mL For 25-OH Vitamin D testing on patients on D2-supplementation and patients for whom quantitation of D2 and D3 fractions is required, the QuestAssureD(TM) 25-OH VIT D, (D2,D3), LC/MS/MS is recommended: order code 89889 (patients >2yrs). See Note 1 Note 1 For additional information, please refer to http://education.[employer]/faq/JXI071 (This link is being provided for informational/ educational purposes only.) Test Performed at: [facility] ??[phone] LAURA ESPINLA MD Blood BLOOD SPECIMEN / Unknown 11/12/2022 10:01 AM INTERIOR HORTICULTURIST 11/12/2022 10:02 AM INTERIOR HORTICULTURIST Anupam Galicia MD LAB - CHEMISTRY ALEX LEMUS Performing Organization Address [facility] Co de Phone Number [facility] [address] [place] [address] * COMPLEMENT C4 (11/12/2022 10:01 AM INTERIOR HORTICULTURIST) Only the most recent of2 resultswithin the time period is included. Pathologist [facility] [place] Complement C4 20 15 - 57 mg/dL [facility] Comment: Test Performed at: [facility] [address] [place] [address] ??[phone] LAURA ESPINAL MD Blood BLOOD SPECIMEN / Unknown 11/12/2022 10:01 AM INTERIOR HORTICULTURIST 11/12/2022 10:02 AM INTERIOR HORTICULTURIST Anupam Galicia MD LAB - SEROLOGY ORDER REGGIE Performing Organization Address [facility] Co de Phone Number [facility] [address] [place] [address] * LDH BLOOD (11/12/2022 10:01 AM INTERIOR HORTICULTURIST) [facility] LD-Total 211 120 - 250 U/L [facility] Comment: Test Performed at: [facility] [address] ??[phone] LAURA ESPINAL MD Blood BLOOD SPECIMEN / Unknown 11/12/2022 10:01 AM INTERIOR HORTICULTURIST 11/12/2022 10:02 AM INTERIOR HORTICULTURIST Anupam Galicia MD LAB - CHEMISTRY ALEX LEMUS Performing Organization Address [facility] de Phone Number [facility] [address] [place] [address] * (ABNORMAL) IMMUNOGLOBULINS IGG/IGM/IGA PANEL (11/12/2022 10:01 AM INTERIOR HORTICULTURIST) Only the most recent of4 resultswithin the time period is included. [facility] IgA 329(H) 70 - 320 mg/dL [facility] IgG 942 600 - 1540 mg/dL [facility] IgM 69 50 - 300 mg/dL [facility] Comment: Test Performed at: [facility] [address] ??[phone] LAURA ESPINAL MD Blood BLOOD SPECIMEN / Unknown 11/12/2022 10:01 AM INTERIOR HORTICULTURIST 11/12/2022 10:02 AM INTERIOR HORTICULTURIST Anupam Galicia MD LAB - CHEMISTRY ALEX LEMUS Performing Organization Address [facility]/ZIP Co de Phone Number [address] [address] * COMPLEMENT C3 (11/12/2022 10:01 AM INTERIOR HORTICULTURIST) Only the most recent of2 resultswithin the time period is included. [facility] Complement C3 118 83 - 193 mg/dL [facility] Comment: Test Performed at: [facility] [place] [address] [place], [place] ??[address] LAURA ESPINAL MD Blood BLOOD SPECIMEN / Unknown 11/12/2022 10:01 AM INTERIOR HORTICULTURIST 11/12/2022 10:02 AM INTERIOR HORTICULTURIST Anupam Galicia MD LAB - CHEMISTRY ALEX LEMUS Performing Organization Address [facility] Co de Phone Number [address] [address] * CULTURE URINE REFLEXED III (10/02/2021 12:54 PM INTERIOR HORTICULTURIST) Only the most recent of2 resultswithin the time period is included. [facility] Reflexive Urine Culture See Below [facility] Comment: NO CULTURE INDICATED Test Performed at: [facility] ??[phone] LAURA ESPINAL MD 10/02/2021 12:5 4 PM INTERIOR HORTICULTURIST 10/02/2021 12:56 PM INTERIOR HORTICULTURIST Anupam Galicia MD LAB - MICROBIOLOGY O RDERABLES Performing Organization Address [facility] Co de Phone Number [address] [address] * URINALYSIS AUTO - POINT OF CARE (AMB) STL (07/22/2021 5:22 PM INTERIOR HORTICULTURIST) Pathologist [facility] [place] Clarity UA POCT clear [facility] Color UA POCT yellow [facility] Leukocyte UA 2 Negative [facility] [place] Nitrite UA POCT neg Negative [facility] Urobilinogen UA 0.2 0.1 - 1.0 [facility] Protein UA POCT trace Negative [facility] pH UA 6.0 5.0 - 8.0 pH units [facility] Blood UA neg Negative [facility] Specific Tobias UA POCT 1.010 1.002 - 1.030 [facility] Ketone UA neg Negative [facility] Bilirubin UA POCT neg Negative [facility] Glucose UA neg Negative [facility] Expiration Date 12/23/22 [facility] Lot # [id number] [facility] QC Verified Yes Yes [facility] Urine URINE / Unknown 07/22/2021 5 :22 PM INTERIOR HORTICULTURIST Agusto Armas APRN-[facility] - POINT OF CARE ORDERABLES MATT DAMON [address] [place] [address] * SKIN TEST PPD - POINT OF CARE (07/22/2021 5:03 PM INTERIOR HORTICULTURIST) PPD negative [facility] Comment:no induration Other MISCELLANEOUS SAMPLE S / Unknown 07/22/2021 5:03 PM INTERIOR HORTICULTURIST Agusto Armas APRN-[facility] - POINT OF CARE ORDERABLES Performing Organization Address City/[facility]/ZIP Co de Phone Number MATT MARTINEZ[address] [phone] * JEFFERY SCREEN IFA+LUPUS PANEL (06/26/2021 10:47 AM CDT) JEFFERY Screen NEGATIVE NEGATIVE [facility] Comment: JEFFERY IFA is a first line screen for detecting the presence of up to approximately 150 autoantibodies in various autoimmune diseases. A negative JEFFERY IFA result suggests an JEFFERY-associated autoimmune disease is not present at this time, but is not definitive. If there is high clinical suspicion for Sjogren's syndrome, testing for anti-SS-A/Ro antibody should be considered. Anti-[place]-1 antibody should be considered for clinically suspected inflammatory myopathies. AC-0: Negative International Consensus on JEFFERY Patterns (https://doi.org/10.1515/khxo-8546-9093) For additional information, please refer to http://education.QuestDiagnostics.com/faq/IHA928 (This link is being provided for informational/ educational purposes only.) ?? Test Performed at: [facility] [address] [place] ??[phone] KANDI LANDA DO,MPH Blood BLOOD SPECIMEN / Unknown 06/26/2021 10:47 AM CDT 06/26/2021 10:49 AM CDT Anupam Galicia MD LAB - SEROLOGY ORDER REGGIE Performing Organization Address [facility] de Phone Number [facility] [phone] [place] [address] * DNA ANTIBODY DS CRITHIDIA W/REFLEX TITER (06/26/2021 10:47 AM CDT) dsDNA Antibody Crithidia IFA NEGATIVE NEGATIVE [facility] Comment: Test Performed at: [facility] [address] ??[phone] IZZY ZAMARRIPA MD Blood BLOOD SPECIMEN / Unknown 06/26/2021 10:47 AM CDT 06/26/2021 10:49 AM CDT Anupam Galicia MD LAB - HEMATOLOGY ORD ERABLES Performing Organization Address [facility] de Phone Number [facility] [address] [place] [address] * CELIAC DISEASE COMPREHENSIVE (06/26/2021 10:47 AM CDT) Pathologist [facility] Interpretation see note [facility] Comment: No serological evidence of celiac disease. tTG IgA may normalize in individuals with celiac disease who maintain a gluten-free diet. Consider HLA DQ2 and DQ8 testing to rule out celiac disease. Celiac disease is extremely rare in the absence of DQ2 or DQ8. TTG Antibody IgA <1.0 <15.0 U/mL [facility] Comment: ?Value ?Interpretation ?<15.0 ?Antibody not detected > or = 15.0 ?Antibody detected IgA 287 47 - 310 mg/dL [facility] Comment: Test Performed at: [facility] [address] [place], [place] ??[phone] COLBY SAVAGE MD,PHD Blood BLOOD SPECIMEN / Unknown 06/26/2021 10:47 AM CDT 06/26/2021 10:49 AM CDT Anupam Galicia MD LAB - CHEMISTRY ALEX LEMUS [facility] Organization Address City/State/ZIP Co de Phone Number [facility] [address] [place] [address] * SCLEROSIS 12 ANTIBODY PNL (09/26/2019 8:13 AM INTERIOR HORTICULTURIST) Only the most recent of2 resultswithin the time period is included. SCL-70 <11 <11 SI [facility] Centromere protein A Antibody <11 <11 SI [facility] Centromere protein B Antibody <11 <11 SI [facility] RP11 <11 <11 SI [facility] RP11 <11 <11 SI [facility] U1 small nuclear ribonucleoprotein A Antibody <11 <11 SI [facility] U1 small nuclear ribonucleoprotein C Antibody <11 <11 SI [facility] U1 small nuclear ribonucleoprotein 70kD Antibody <11 <11 SI [facility] Fibrillarin <11 <11 SI [facility] TH/TO <11 <11 SI [facility] PM/SCL 100 <11 <11 SI [facility] PM/SCL 75 <11 <11 SI [facility] Comment: The [place] [employer] (ACR) considers anti-Scl-70 (also known as anti-topoisomerase I), anti-centromere and/or anti-RNA polymerase III antibodies part of the classification criteria for Systemic Sclerosis(SSc) given that the antibodies are present in 30%-60% of patients with SSc. Centromere protein B (CENP B) antibody positivity is found in 64-95% of patients with a limited form of cutaneous systemic sclerosis i.e. CREST syndrome. The addition of centromere protein A (CENP A) antibody to CENP B antibody improves specificity for diagnosis of SSc. Patients presenting with diffuse cutaneous systemic sclerosis (dcSSc) and features of CREST may have both centromere (A & B) antibodies and Scl-70 antibodies. RNA polymerase III antibodies target RNAP III epitopes 11 (RP11) and 155 (RP155). Anti-RP11 antibody occurs in about 10% of scleroderma patients and anti-RP155 antibodies in about 8%. Lhfe-E1-itFHW antibodies are associated with SSc and inflammatory myopathy overlap syndromes. Three major components of U1-snRNP are tested: U1-snRNP MRI MANAGER A, U1-snRNP MRI MANAGER C, U1-snRNP [id number]. The presence of U1-snRNP antibodies occur in 14% and 26% of Caucasians and Americans, respectively, in [place]. Anti-fibrillarin (anti-U3RNP) antibodies are specific for SSc, but are mutually exclusive from Scl-70, CENP, and RNAP III antibodies. Anti-U3RNP antibodies are detected in 4-10% of SSc patients, and when present are associated with dcSSc and frequently visceral renal and cardiac involvement. Fibrillarin antibodies are found more frequently in -[place] patients and when seen in this population, the antibodies are associated with severe pulmonary disease, pulmonary hypertension, severe small bowel involvement, and a poorer prognosis. Anti-Th/To antibodies are present in 1-13% of SSc patients, and are rarely found in other autoimmune diseases. Anti-Th/To antibodies are primarily associated with localized cutaneous systemic sclerosis (lcSSc). Anti-Th/To antibodies are also associated with pericarditis, interstitial lung disease and a high frequency of intrinsic pulmonary hypertension, and hence, a poorer prognosis. Autoantibodies to PM/Scl, the human exosome complex, are found in 4-11% of patients with SSc. PM/Scl antibodies have also been observed in polymyositis/SSc overlap syndromes and other autoimmune diseases. The majority of anti-PM/Scl reactivity is directed to one of two proteins: PM/Hzu334 and/or PM/Scl75. More information can be found at [email or web address]/testcenter/testguide.action ?dc=CF-SystScler This test was developed and its analytical performance characteristics have been determined by [employer] [facility]. It has not been cleared or approved by FDA. This assay has been validated pursuant to the CLIA regulations and is used for clinical purposes. Test Performed at: [facility] [address] [place], [place] ??[address] TAVARES MEDRANO MD,PHD,ALENA Blood BLOOD SPECIMEN / Unknown 09/26/2019 8:13 AM INTERIOR HORTICULTURIST 09/26/2019 8:22 AM INTERIOR HORTICULTURIST Anupam Galicia MD LAB - SEROLOGY ORDER REGGIE Performing Organization Address [facility] de Phone Number [facility] [address] [place] [address] * CULTURE URINE REFLEXED I (09/26/2019 8:13 AM INTERIOR HORTICULTURIST) Only the most recent of2 resultswithin the time period is included. Reflexive Urine Culture NO CULTURE INDICATED [facility] Comment: Test Performed at: [facility] [address] ??[phone] KANDI LANDA DO,MPH 09/26/2019 8:13 AM INTERIOR HORTICULTURIST 09/26/2019 8:22 AM INTERIOR HORTICULTURIST Anupam Galicia MD LAB - MICROBIOLOGY O RDERABLES Performing Organization Address [facility] de Phone Number [facility] [id number] [place] [address] * RNA POLYMERASE III ANTIBODY IGG (09/26/2019 8:13 AM INTERIOR HORTICULTURIST) RNA Polymerase 3 Antibody <20 <20 Units [facility] Comment: Test Performed at: [facility] [address] [place], [place] ??[address] TAVARES MEDRANO MD,PHD,ALENA Blood BLOOD SPECIMEN / Unknown 09/26/2019 8:13 AM INTERIOR HORTICULTURIST 09/26/2019 8:22 AM INTERIOR HORTICULTURIST Anupam Galicia MD LAB - SEROLOGY ORDER REGGIE Performing Organization Address [facility] Co de Phone Number [facility] [address] [place] [address] * CARDIOLIPIN ANTIBODY IGA/IGG/IGM PANEL (09/26/2019 8:13 AM INTERIOR HORTICULTURIST) Cardiolipin Antibody IgA <11 APL [facility] Cardiolipin Antibody IgG <14 GPL [facility] Cardiolipin Antibody IgM <12 MPL [facility] Comment: The antiphospholipid antibody syndrome (APS) is a clinical-pathologic correlation that includes a clinical event (e.g. thrombosis, loss, thrombocytopenia) and persistent positive antiphospholipid antibodies (IgM or IgG KEISHA >40 MPL/GPL,IgM or IgG anti-b2GPI antibodies or a lupus anticoagulant). International consensus guidelines for APS suggest waiting at least 12 weeks before retesting to confirm antibody persistence. The Systemic Lupus International Collaborating [facility] immunological classification criteria for systemic lupus erythematosus (SLE) include testing for isotype IgA, which has yet to be incorporated into APS criteria. Low level antiphospholipid antibodies may sometimes be detected in the setting of infection, drug therapy or aging. Cardiolipin Ab (IgA) Value ?Interpretation ----- ? < or = 11 ??Negative ?12-20 ??Indeterminate ?21-80 ??Low to Medium Positive ?>80 ??High Positive Cardiolipin Ab (IgG) Value ?Interpretation ----- ? < or = 14 ??Negative ?15-20 ??Indeterminate ?21-80 ??Low to Medium Positive ?>80 ??High Positive >40 GPL is a risk factor for thrombosis and loss. Cardiolipin Ab (IgM) Value ?Interpretation ----- ? < or = 12 ??Negative ?13-20 ??Indeterminate ?21-80 ??Low to Medium Positive ?>80 ??High Positive >40 MPL is a risk factor for thrombosis and loss. Test Performed at: [facility] [address] [place], [place] ??[address] TAVARES MEDRANO MD,PHD,ALENA Blood BLOOD SPECIMEN / Unknown 09/26/2019 8:13 AM INTERIOR HORTICULTURIST 09/26/2019 8:22 AM INTERIOR HORTICULTURIST Anupam Galicia MD LAB - SEROLOGY ORDER REGGIE [facility] [address] [place] [address] * LUPUS ANTICOAGULANT PANEL W RFLX (09/26/2019 8:13 AM INTERIOR HORTICULTURIST) Pathologist [facility] [place] Lupus Anticoagulant see note [facility] Comment: A Lupus Anticoagulant is not detected. Reference Range: ??Not Detected For additional information, please refer to http://[employer]/faq/KCZ69g6 (This link is being provided for informational/ educational purposes only.) ? This interpretation is based on the following test results. PTT LA Screen 34 <=40 sec [facility] dRVVT Screen 32 <=45 sec [facility] Interpretation dRVVT Mix Not Indicated [facility] Comment: Test Performed at: [facility]/[employer] [address] [place] [address] ?? COLBY SAVAGE MD,PHD Blood BLOOD SPECIMEN / Unknown 09/26/2019 8:13 AM INTERIOR HORTICULTURIST 09/26/2019 8:22 AM INTERIOR HORTICULTURIST Anupam Galicia MD LAB - HEMATOLOGY ORD ERABLES [facility] [address] [place] [address] * BETA-2 GLYCOPROTEIN 1 ANTIBODY IGG/IGM/IGA PANEL (09/26/2019 8:13 AM INTERIOR HORTICULTURIST) Pathologist [facility] Beta-2 Glycoprotein I Antibody IgG <9 <=20 [facility] Beta-2 Glycoprotein I Antibody IgM <9 <=20 [facility] Beta-2 Glycoprotein I Antibody IgA <9 <=20 REGLA [facility] Comment: The antiphospholipid antibody syndrome (APS) is a clinical-pathologic correlation that includes a clinical event (e.g. thrombosis, loss, thrombocytopenia) and persistent positive antiphospho- lipid antibodies (IgM or IgG KEISHA >40 MPL/GPL, IgM or IgG anti-b2GPI antibodies or a lupus anticoagulant). International consensus guidelines for APS suggest waiting at least 12 weeks before retesting to confirm antibody persistence. The Systemic Lupus International Collaborating Clinics immunological classification criteria for systemic lupus erythematosus (SLE) include testing for isotype IgA, which has yet to be incorpo- rated into APS criteria. Low level antiphospholipid antibodies may sometimes be detected in the setting of infection, drug therapy or aging. Test Performed at: [facility] [address] [place], [place] ?? OCLBY SAVAGE MD,PHD Blood BLOOD SPECIMEN / Unknown 09/26/2019 8:13 AM INTERIOR HORTICULTURIST 09/26/2019 8:22 AM INTERIOR HORTICULTURIST Anupam Galicia MD LAB - SEROLOGY ORDER REGGIE [facility] [address] [place] [address] * EYE EXAM (08/23/2018 7:33 AM INTERIOR HORTICULTURIST) Anatomical Region Laterality Modality Other Narrative 08/23/2018 7:33 AM INTERIOR HORTICULTURIST Ordered by an unspecified provider. Scanned Document SCANNING ONLY * ANCA SCREEN W MPO+PR3 W REFEX ANCA TITER (08/09/2018 8:51 AM INTERIOR HORTICULTURIST) ANCA Screen Negative Negative [facility] Comment: ANCA Screen includes evaluation for p-ANCA, c-ANCA and atypical p-ANCA. A positive ANCA screen reflexes to titer and pattern(s), e.g., cytoplasmic pattern (c-ANCA), perinuclear pattern (p-ANCA), or atypical p-ANCA pattern. c-ANCA and p-ANCA are observed in vasculitis, whereas atypical p-ANCA is observed in IBD (Inflammatory Bowel Disease). Atypical p-ANCA is detected in about 55% to 80% of patients with ulcerative colitis but only 5% to 25% of patients with Crohn's disease. Myeloperoxidase Antibody <1.0 <1.0 AI [facility] Comment: ? Value ?? Interpretation ?<1.0 AI: No Antibody Detected ? >or=1.0 AI: Antibody Detected Autoantibodies to myeloperoxidase (MPO) are commonly associated with the following small-vessel vasculitides: microscopic polyangiitis, polyarteritis nodosa, Churg-Jade syndrome, necrotizing and crescentic glomerulonephritis and occasionally granulomatosis with polyangiitis (GPA, Kalpana's). The perinuclear IFA pattern, (p-ANCA) is based largely on autoantibody to myeloperoxidase which serves as the primary antigen. These autoantibodies are present in active disease. Proteinase 3 Antibody <1.0 <1.0 AI [facility] Comment: ?Value ?Interpretation ?<1.0 AI: No Antibody Detected ? >or=1.0 AI: Antibody Detected Autoantibodies to proteinase-3 (MT-3) are accepted as characteristic for granulomatosis with polyangiitis (GPA, Kalpana's), and are detectabale in 95% of the histologically proven cases. The cytoplasmic IFA pattern, (c-ANCA), is based largely on autoantibody to MT-3 which serves as the primary antigen. These autoantibodies are present in active disease. Test Performed at: [facility]/[address] ?? COLBY SAVAGE MD,PHD Blood BLOOD SPECIMEN / Unknown 08/09/2018 8:51 AM INTERIOR HORTICULTURIST 08/09/2018 8:52 AM INTERIOR HORTICULTURIST Anupam Galicia MD LAB - CHEMISTRY ALEX LEMUS Performing Organization Address [facility] Co de Phone Number [facility] [address] [place] [address] * THYROID CASCADE PROFILE (08/09/2018 8:51 AM INTERIOR HORTICULTURIST) TSH 1.22 0.40 - 4.50 mIU/L [facility] Comment: Test Performed at: [facility] [address] ??[id number] KANDI LANDA DO,MPH Blood BLOOD SPECIMEN / Unknown 08/09/2018 8:51 AM INTERIOR HORTICULTURIST 08/09/2018 8:52 AM INTERIOR HORTICULTURIST Anupam Galicia MD LAB - CHEMISTRY ALEX LEMUS Performing Organization Address [facility] Co de Phone Number [facility] [address] [place] [address] * (ABNORMAL) VITAMIN D 25-HYDROXY D2+D3 BY TANDEM MASS (01/24/2016 7:06 AM CDT) Only the most recent of2 resultswithin the time period is included. Pathologist [facility] [place] Vitamin D, 25 Hydroxy Total 25(L) 30 - 100 ng/mL [facility] ([facility]) Comment: Vitamin D Status ? 25-OH Vitamin D: Deficiency: ?<20 ng/mL Insufficiency: ? 20 - 29 ng/mL Optimal: ? > or = 30 ng/mL For 25-OH Vitamin D testing on patients on D2-supplementation and patients for whom quantitation of D2 and D3 fractions is required, the QuestAssureD(TM) 25-OH VIT D, (D2,D3), LC/MS/MS is recommended: order code 14177 (patients >2yrs). For more information on this test, go to: http://education.[employer]/faq/XHS462 (This link is being provided for informational/educational purposes only.) Test Performed at: [facility] [address] [place], [place] ??[address] KANDI LANDA DO,MPH Blood specimen (specimen) BLOOD SPECIMEN / Unknown 01/24/2016 7:06 AM CDT 01/24/2016 7:07 AM CDT Anupam Galicia MD LAB - CHEMISTRY ALEX LEMUS [facility] ([facility]) * LUPUS ERYTHEMATOSUS PANEL (01/24/2016 7:06 AM CDT) Only the most recent of2 resultswithin the time period is included. Pathologist [facility] [place] JEFFERY Screen NEGATIVE NEGATIVE [facility] ([facility]) dsDNA Antibody 1 IU/mL [facility] ([facility]) Comment: ? IU/mL ? Interpretation ? < or = 4 ?Negative ? 5-9 ? Indeterminate ? > or = 10 ?? Positive Sjogren's Antibodies (SSA) <1.0 NEG <1.0 NEG AI [facility] (H) Sjogren's Antibodies (SSB) <1.0 NEG <1.0 NEG AI [facility] ([facility]) ABHIJEET Rdz (SM) Antibody <1.0 NEG <1.0 NEG AI [facility] ([facility]) ABHIJEET MRI MANAGER Antibody <1.0 NEG <1.0 NEG AI [facility] ([facility] ) Chromatin Nucleosomal <1.0 NEG <1.0 NEG AI [facility] ([facility]) Complement C3 104 90 - 180 mg/dL [facility] ([facility]) Complement C4 22 16 - 47 mg/dL [facility] ([facility]) Complement Total CH50 58 31 - 60 U/mL [facility] ([facility]) Comment: Test Performed at: [facility] [address] [place], [place] ??[address] KANDI LANDA DO,MPH 01/24/2016 7:06 AM CDT 01/24/2016 7:07 AM CDT Anupam Galicia MD LAB - SEROLOGY ORDER REGGIE Performing Organization Address [facility] de Phone Number [facility] ([facility]) * CULTURE URINE REFLEXED (08/14/2014 1:47 PM INTERIOR HORTICULTURIST) Culture Urine Comprehensive NO CULTURE INDICATED [facility] ([facility]) Comment: Test Performed at: [facility] [address] [place], [place] ??[phone] KANDI LANDA DO,MPH 08/14/2014 1:47 PM INTERIOR HORTICULTURIST 08/14/2014 1:48 PM INTERIOR HORTICULTURIST Anupam Galicia MD LAB - MICROBIOLOGY O RDERABLES Performing Organization Address [facility]/ZIP Co de Phone Number [facility] ([facility]) * LAB HISTORICAL RESULTS-ONBASE (08/31/2011) Only the most recent of3 resultswithin the time period is included. 08/31/2011 Narrative [facility] - 10/21/2014 4:30 PM INTERIOR HORTICULTURIST Historical Provider LAB - CHEMISTRY O RDERABLES Performing Organization Address City/State/[facility] Co de Phone Number [facility] [address] [place] [address], [facility] Care Teams Pharmacist Aide Relationship Specialty Start Date End Date Nubia Rodriguez DO [address] [place] [address] PCP - General Family Medicine 06/21/23
--- OUTSIDE RECORDS SUMMARY | 2024-10-04 07:40 | XMS_ITS | Encounter Summary ---
Author Organization [facility] Address [address] [place] [address] Phone Care Team Providers Care Professor Of Architecture Name Role Phone Diego Gibbs DO Unavailable [phone] Nubia Rodriguez DO Primary Care Provider [phone] Yajaira Sandhu MD Unavailable [phone] Reason for Visit * Reason Comments Medication Refill Encounter Details Date Type Department Care Team (Late st Contact Info) Description 01/07/2024 Refill [facility] - Gastroenterology [facility] [address] [place] [address] Yajaira Sandhu MD [address] [place] [address] Medication Refill Social History Tobacco Use Types [...] Telephone Encounter - Kalina Lee RN - 01/09/2024 8:43 AM CDT Medication refilled and signed per [facility] chronic medication standing order for pediatric and adult patients. documented in this encounter Plan of Treatment Not on file documented as of this encounter Visit Diagnoses Not on filedocumented in this encounter Care Teams Professor Of Architecture Relationship Specialty Start Date End Date Nubia Rodriguez DO [address] [place] [address] PCP - General Family Medicine 10/19/21 Diego Gibbs DO Gastroenterology 08/24/16 Yajaira Sandhu MD [address] [place] [address] Consulting Physician Gastroenterology 02/24/23 Nubia Rodriguez Family Medicine 12/03/20 documented as of this encounter
--- OUTSIDE RECORDS SUMMARY | 2024-10-04 07:40 | XMS_ITS | Encounter Summary ---
Author Organization [facility] Address [address] [place] [address] Phone Care Team Providers Care Resident Services Manager Name Role Phone Diego Gibbs DO Unavailable [phone] Nubia Rodriguez DO Primary Care Provider [phone] Yajaira Sandhu MD Unavailable [phone] Reason for Visit * Reason Comments Medication Refill Encounter Details Date Type Department Care Team (Late st Contact Info) Description 12/20/2022 Refill [facility] - [facility]astroenter[facility] [address] [place] [address] Yajaira Sandhu MD [address] [place] [address] Medication Refill Social History Tobacco Use Types Packs/Day Years Used Date Smoking Tobacco: Never Smokeless Tobacco: Never Alcohol Use Standard Drinks/Week Comments Not Currently 1 (1 standard drink = 0.6 oz pur e alcohol) Sexually Active Control Partners Comments Yes Comments No Sex and Gender Information Value Date Recorded Sex Assigned at Not on file Legal Sex Female 12:35 AM CDT Gender Identity Not on file Sexual Orientation Not on file documented as of this encounter Miscellaneous Notes * Telephone Encounter - Kalina Lee RN - 12/21/2022 9:35 AM CDT Medication refilled and signed per [facility] [place] medication standing order for pediatric and adult patients. documented in this encounter Plan of Treatment Not on file documented as of this encounter Visit Diagnoses Diagnosis Gastroesophageal reflux disease, unspecified whether esophagitis present Hiatal hernia Diaphragmatic hernia without mention of obstruction or gangrene documented in this encounter Care Teams Resident Services Manager Relationship Specialty Start Date End Date Nubia Rodriguez DO [address] [place] [address] PCP - General Family Medicine 10/19/21 Diego Gibbs DO Gastroenterology 08/24/16 Yajaira Sandhu MD [address] [place] [address] Consulting Physician Gastroenterology 02/24/23 Nubia Rodriguez Family Medicine 12/03/20 documented as of this encounter
--- OUTSIDE RECORDS SUMMARY | 2024-10-04 07:40 | XMS_ITS | Encounter Summary ---
Author Organization [facility] Address [address] [place] [address] Phone Care Team Providers Care Production Illustrator Name Role Phone Diego Gibbs DO Unavailable [phone] Nubia Rodriguez DO Primary Care Provider [phone] Yajaira Sandhu MD Unavailable [phone] Reason for Visit * Reason Comments Medication Refill Encounter Details Date Type Department Care Team ([facility] st Contact Info) Description 04/19/2022 Refill [facility] - Gastroenterology [facility] [address] [place] [address] Yajaira Sandhu MD [address] [place] [address] Medication Refill Social History Tobacco Use Types [...] on file Sexual Orientation Not on file COVID-19 Exposure Response Date Recorded In the last 10 days, have yo u been in contact with someone who was confirmed or suspected to have Coronavirus/COVID-19? No / Unsure 04/07/2022 11:16 AM CDT documented as of this encounter Miscellaneous Notes * Telephone Encounter - Kalina Lee RN - 04/19/2022 9:52 AM CDT Medication refilled and signed per [facility] chronic medication standing order for pediatric and adult patients. documented in this encounter Plan of Treatment Not on file documented as of this encounter Visit Diagnoses Diagnosis Gastroesophageal reflux disease, unspecified whether esophagitis present Hiatal hernia Diaphragmatic hernia without mention of obstruction or gangrene documented in this encounter Care Teams Production Illustrator Relationship Specialty Start Date End Date Nubia Rodriguez DO [address] [place] [address] PCP - General Family Medicine 10/19/21 Diego Gibbs DO Gastroenterology 08/24/16 Yajaira Sandhu MD [address] [place] [address] Consulting Physician Gastroenterology 02/24/23 Nubia Rodriguez Family Medicine 12/03/20 documented as of this encounter
--- OUTSIDE RECORDS SUMMARY | 2024-10-04 07:40 | XMS_ITS | Encounter Summary ---
Author Organization [facility] Address [address] [place] [address] Phone Care Team Providers Care Appraiser Timber Name Role Phone Diego Gibbs DO Unavailable [phone] Nubia Rodriguez DO Primary Care Provider [phone] Yajaira Sandhu MD Unavailable [phone] Reason for Visit * Reason Comments Medication Refill Encounter Details Date Type Department Care Team (Late st Contact Info) Description 12/03/2023 Refill [facility] - [facility]astroenterology [facility] [address] [place] [address] Yajaira Sandhu MD [address] [place] [address] Medication Refill Social History Tobacco Use Types [...] Telephone Encounter - Kalina Lee RN - 12/05/2023 8:44 AM CDT Medication refilled and signed per [facility] chronic medication standing order for pediatric and adult patients. documented in this encounter Plan of Treatment Not on file documented as of this encounter Visit Diagnoses Diagnosis Gastroesophageal reflux disease, unspecified whether esophagitis present Hiatal hernia Diaphragmatic hernia without mention of obstruction or gangrene documented in this encounter Care Teams Appraiser Timber Relationship Specialty Start Date End Date Nubia Rodriguez DO [address] [place] [address] PCP - General Family Medicine 10/19/21 Diego Gibbs DO Gastroenterology 08/24/16 Yajaira Sandhu MD [address] [place] [address] Consulting Physician Gastroenterology 02/24/23 Nubia Rodriguez Family Medicine 12/03/20 documented as of this encounter
--- OUTSIDE RECORDS SUMMARY | 2024-10-04 07:40 | XMS_ITS | Clinical Summary ---
Author Organization [facility] Address [address] [place] [facility], [address] [address] Phone Care Team Providers Care Financial Institution Treasurer Name Role Phone Diego Gibbs DO Unavailable [phone] VerNubia pinto DO Primary Care Provider [phone] Yajaira Sandhu MD Unavailable [phone] Allergies Active Allergy Reactions Criticality Noted Date Comments Naproxen Other (see Comments) 08/25/2016 Flu symptoms Nsaids Nausea Low 04/07/2020 Fever and sick Medications cevimeline (EVOXAC) 30 MG Capsule Take 30 mg by mouth 3 times daily. Active escitalopram (LEXAPRO) 20 MG Tablet Take 20 mg by mouth daily. Active hydroxychloroquin e (PLAQUENIL) 200 MG Tablet Take 200 mg by mouth 2 times daily. Active multiple vitamin with minerals (CENTRUM) Tablet Take 1 Tab by mouth daily. Active FML Forte 0.25 % Suspension INSTILL 1 DROP INTO BOTH EYES TWICE A DAY 1 Active ciprofloxacin (CILOXAN) 0.3 % Solution Place 1 Drop in affected eye(s) every 4 hours (while awake). Active tobramycin (TOBREX) 0.3 % Solution 1-2 Drops every 4 hours. Active Pseudoephedrine-g uaiFENesin (MUCINEX D PO) Take by mouth. Active acetaminophen (TYLENOL) 325 MG Tablet every 4 hours as needed. Active diazePAM (VALIUM) 2 MG Tablet TAKE 1 TABLET BY MOUTH ONCE DAILY NEEDED. NOT TO EXCEED 10 TABLETS IN 30 DAYS 8 Active estradiol (ESTRACE) 0.1 MG/GM Cream INSERT 1 GRAM VAGINALLY TWICE WEEKLY 2 Active Multiple Vitamin (Multivitamins) Capsule Take by mouth. Activ e prednisoLONE acetate (PRED FORTE) 1 % Suspension 1 Active traMADol (ULTRAM) 50 MG Tablet Take 50 mg by mouth. 0 Active budesonide (ENTOCORT EC) [address] Particles TAKE 2 CAPSULES BY MOUTH EVERY MORNING FOR 30 DAYS 180 Capsule 1 2 Active Lisdexamfetamine Dimesylate (Vyvanse) 20 MG Capsule Take 20 mg by mouth every morning. Active FLUoxetine (PROzac) 10 MG Capsule Take 10 mg by mouth daily. Active famotidine (PEPCID) 20 MG Tablet Take 20 mg by mouth 2 times daily. Active diphenhydrAMINE-A PAP, sleep, (DIPHENHYDRAMINE- APAP PO) Active sucralfate (CARAFATE) 1 GM TabletIndications :Gastroesophageal reflux disease, unspecified whether esophagitis present,Hiatal hernia TAKE 1 TABLET BY MOUTH FOUR TIMES A DAY 360 Tablet 1 4 Active pantoprazole (PROTONIX) 40 MG Tablet Delayed Response TAKE 1 TABLET BY MOUTH TWICE A DAY IN THE MORNING AND IN THE EVENING 180 Tablet 1 4 Active cholestyramine (QUESTRAN) 4 GM PackIndications:I rritable bowel syndrome with both constipation and diarrhea Take 1 Packet by mouth 2 times daily (with meals). 180 Packet 4 Active Active Problems No known active problems Encounters Date Type Department Care Team Description 07/31/[address] [facility] [address] [place] [address] Rosanne Carlton, TRUCK ASSEMBLER, CONDUIT WORKER Medication Renewal Reviewed from Last 3 Months Immunizations Immunization Administration Dates Next Due Covid-19, Mrna, Lnp-s, PF, 1 00 mcg/0.5 mL Dose (Moderna) 11/06/2020,10/09/2020 Influenza Vaccine 08/02/2015 Influenza Vaccine, Quadrivalent, PF 06/20/2020 Influenza, Injectable, Quadrivalent 07/13/2018 Family History Medical History Relation Name Comments Chronic Obstructive Pulmonary Disease Father Congestive Heart Failure Father Diabetes Father Emphysema Father Breast Cancer Mother Glaucoma Mother Diabetes Sister Relation Name Status Comments Father Mother Sister Social History Tobacco Use Types Packs/Day Years [...] Sign Reading Time Taken Comments Blood Pressure 112/70 02/24/2023 3:24 PM CDT Pulse 90 02/24/2023 3:24 PM CDT Temperature 36.8 ??C (98.2 ??F) 02/24/2023 3:24 PM CD T Respiratory Rate 14 02/24/2023 3:24 PM CDT Oxygen Saturation 98% 02/24/2023 3:24 PM CDT Inhaled Oxygen Concentration - - Weight 57.7 kg (127 lb 4.8 oz) 02/24/2023 3:24 P M CDT Height 165.1 cm (5' 5 ) 02/24/2023 3:24 PM CDT Body Mass Index 21.18 02/24/2023 3:24 PM CDT Plan of Treatment Health Maintenance Due Date Last Done Comments Hepatitis C Virus (HCV) Screening 1960 TdaP Immunization 1960 Zoster Immunization (1 of 2) 1979 Pap Smear 1981 Cervical Cancer Screening (CCS) 1990 HPV/Cotest 1990 Mammogram 2000 Cologuard 2010 Immunochemical Fecal Occult Blood 2010 Pneumococcal Immunization (50+ years) (1 of 1 - PCV) 2010 Respiratory Syncytial Virus (RSV) Immunization (Adult) (1 - Risk 60-74 years 1-dose series) 2020 Influenza Immunization (#1) 05/13/202406/12, 07/05/2022, 06/20/2020, Additional history exists SARS-COV-2 Immunization ( season) 2024 09/11/2021, 11/06/2020, 10/09/2020 Colonoscopy 04/23/2027 04/23/2022, 08/19/2016 Colorectal Cancer Screening 04/23/2027 04/23/2022, 08/19/2016 Hepatitis B Immunization Completed 022, 08/10/2021, 07/06/2021 Meningococcal Immunization (ACWY) Aged Out No longer eligible based on patient's age to complete this topic Rotavirus Immunization Aged Out No lo nger eligible based on patient's age to complete this topic Procedures Procedure Name Priority Date/Time Associated Diagnosis Comments COLONOSCOPY Routine 08/19/2016 from Last 3 Months or Most Recently Relevant to Health Maintenance Results * HM COLONOSCOPY (08/19/2016) us Gume Amador MD PROCEDURE/MINOR SURGICAL [place] Final Result from Last 3 Months or Most Recently Relevant to Health [place] [id number] [facility] Care Teams Financial Institution Treasurer Relationship Specialty Start Date End Date Nubia Rodriguez DO [address] [place] [facility] PCP - General Family Medicine 10/19/21 Diego Gibbs DO Gastroenterology 08/24/16 Yajaira Sandhu MD [address] [place] [address] Consulting Physician Gastroenterology 02/24/23 Nubia Rodriguez Family Medicine 12/03/20
--- OUTSIDE RECORDS SUMMARY | 2024-10-04 07:40 | XMS_ITS | Encounter Summary ---
Author Organization [facility] Address [address] [place] [address] Phone Care Team Providers Care Clinical Data Coordinator Name Role Phone Diego Gibbs Unavailable [phone] Nubia Rodriguez DO Primary Care Provider [phone] Yajaira Sandhu MD Unavailable [phone] Reason for Visit * Reason Comments Medication Refill Encounter Details Date Type Department Care Team (Late st Contact Info) Description 03/28/2023 Refill [facility] - [facility]astroenter[facility] [address] [place] [address] Sandhya Mcdaniel Tayla, [facility] [address] [place] [address] Medication Refill Social History Tobacco Use Types [...] Telephone Encounter - Kalina Lee RN - 03/28/2023 10:19 AM CDT Medication failed the protocol, provider to review and approve the medication order if appropriate. Requested Prescriptions Pending Prescriptions Disp Refills cholestyramine (QUESTRAN) 4 GM Pack [Pharmacy Med Name: CHOLESTYRAMINE PACKET] 180 Packet 3 Sig: MIX 1 PACKET WITH AT LEAST 6OZ OF FLUID AND TAKE BY MOUTH 2 TIMES DAILY WITH MEALS. Bile Acid Sequestrants Protocol Failed - 03/28/2023 12:51 AM Failed - Lipid panel in past year No results found for: LDL, HDLCHOLESTE, CHOLESTEROL, TRIGLYCRIDES, VLDL, CHDL, HDLNON Passed - Visit with relevant provider in past year or upcoming 90 days Recent Visits Date Type Provider Dept 02/24/23 Office Visit Yajaira Sandhu MD [facility] Showing recent visits within past 365 days and meeting all other requirements Future Appointments No visits were found meeting these conditions. Showing future appointments within next 90 days and meeting all other requirements documented in this encounter Plan of Treatment Not on file documented as of this encounter Visit Diagnoses Diagnosis Irritable bowel syndrome with both constipation and diarrhea documented in this encounter Care Teams Clinical Data Coordinator Relationship Specialty Start Date End Date Nubia Rodriguez DO [address] [place] [address] PCP - General Family Medicine 10/19/21 Diego Gibbs DO Gastroenterology 08/24/16 Yajaira Sandhu MD [address] [place] [address] Consulting Physician Gastroenterology 02/24/23 Nubia Rodriguez Family Medicine 12/03/20 documented as of this encounter
--- OUTSIDE RECORDS SUMMARY | 2024-10-04 07:40 | XMS_ITS | Clinical Summary ---
Author Organization [facility] Address [address] [place] [address]. [place] [address] [place] [address] Care Team Providers Care Space Systems Operations Superintendent Name Role Phone Nubia Rodriguez DO Primary Care Provider [phone] Allergies Active Allergy Reactions Criticality Noted Date Comments Naproxen Other (see comment) 02/18/2021 Fever, flu like symptoms Medications Amphetamine ER (DYANAVEL XR) 5 MG Tablet Chewable Extended Release Take 1 tablet by mouth every morning. 3 Active cevimeline (EVOXAC) 30 MG capsule Take 1 capsule (30 mg total) by mouth 3 (three) times daily. 4 Active cholestyramine (QUESTRAN) 4 G packet Take 1 packet (4 g total) by mouth 2 (two) times a day. 3 Active cyclobenzaprine (FLEXERIL) 10 MG tablet Take 1 tablet (10 mg total) by mouth 3 (three) times daily as needed. 3 Active diazePAM (VALIUM) 2 MG tablet Take 1 tablet (2 mg total) by mouth nightly as needed for Sleep. 4 Active famotidine (PEPCID) 20 MG tablet Take 1 tablet (20 mg total) by mouth daily before lunch. Active FLUoxetine (PROZAC) 10 MG tablet Take 1 tablet (10 mg total) by mouth daily. Active hydroxychloroqu ine (PLAQUENIL) 200 MG tablet Take 1 tablet (200 mg total) by mouth 2 (two) times daily. 3 Active VYVANSE 30 MG capsule Take 1 capsule (30 mg total) by mouth every morning. 3 Active pantoprazole EC (PROTONIX) 40 MG tablet Take 20 mg by mouth 2 (two) times a day. 3 Active sucralfate (CARAFATE) 1 G tablet Take 1 tablet (1 g total) by mouth 4 (four) times daily as needed (stomach pain). 4 Active traMADol (ULTRAM) 50 MG tablet Take 1 tablet (50 mg total) by mouth every 6 (six) hours as needed for Pain. Active mupirocin (BACTROBAN) 2 % ointment Apply topically as needed. Active fluticasone propionate (FLONASE) 50 MCG/ACT nasal spray 2 sprays by Nasal route daily. Active estradiol (ESTRACE) 0.1 MG/GM vaginal cream Place 1 g vaginally once a week. Active diphenhydrAMINE (BENADRYL) 25 MG capsule Take 12.5 mg by mouth nightly as needed for Itching. Active clotrimazole-be tamethasone (LOTRISONE) cream Apply topically 2 (two) times daily. Active predniSONE (DELTASONE) 1 MG tablet Take 1 tablet (1 mg total) by mouth daily. Takes for arthritis Active cephALEXin (KEFLEX) 500 MG capsule Take 1 capsule (500 mg total) by mouth 4 (four) times daily. For 10 days 5 Active fluorometholone (FML) 0.1 % ophthalmic suspension Place 1 drop into the right eye 3 (three) times daily. 4 Active hydrOXYzine (ATARAX) 25 MG tablet Take 1 tablet (25 mg total) by mouth 3 (three) times daily as needed. FOR ANXIETY 5 Active lisinopril (PRINIVIL) 5 MG tablet Take 1 tablet (5 mg total) by mouth daily. 5 Active DYANAVEL XR 10 MG Tab CR Take 1 tablet by mouth every morning. 4 Active Active Problems Problem Noted Date Diagnosed Date Damon's esophagus Encounters Date Type Department Care Team Description 10/02/2024 1:30 PM PRODUCTION METAL SPRAYER - 10/02/2024 7:18 PM PRODUCTION METAL SPRAYER Emergency [facility] [place] [address] Magdiel Borja, Dizziness Discharge Disposition: Home or Self Care (Routine Discharge) 10/02/2024 Travel from Last 3 Months Family History Medical History Relation Comments Diabetes Father Diabetes Mother COPD Sister Relation Status Comments Father Mother Sister Social History Tobacco Use Types Packs/Day Years Used Date Smoking Tobacco: Never Smokeless Tobacco: Never Alcohol Use Standard Drinks/Week Comments Not Currently 0 (1 standard drink = 0.6 oz pur e alcohol) socially Comments No Sex and Gender Information Value Date Recorded Sex Assigned at Female 10/02/2024 1:17 PM PRODUCTION METAL SPRAYER Legal Sex Female 10:19 AM CDT Gender Identity Not on file Sexual Orientation Not on file Last Filed Vital Signs Vital Sign Reading Time Taken Comments Blood Pressure 134/85 10/02/2024 6:30 PM PRODUCTION METAL SPRAYER Pulse 80 10/02/2024 6:30 PM PRODUCTION METAL SPRAYER Temperature 36.9 ??C (98.5 ??F) 10/02/2024 1:20 PM CS T Respiratory Rate 15 10/02/2024 6:30 PM PRODUCTION METAL SPRAYER Oxygen Saturation 98% 10/02/2024 6:30 PM PRODUCTION METAL SPRAYER Inhaled Oxygen Concentration - - Weight 56.7 kg (125 lb) 10/02/2024 1:20 PM PRODUCTION METAL SPRAYER Height 165.1 cm (5' 5 ) 10/02/2024 1:20 PM PRODUCTION METAL SPRAYER Body Mass Index 20.8 10/02/2024 1:20 PM PRODUCTION METAL SPRAYER Plan of Treatment Health Maintenance Due Date Last Done Comments Cervical Cancer Screening Pap Smear (Age 30 to 64) Every 3 Years 1960 Colorectal Cancer Screening Colonoscopy (10 Years) 1960 EGD-Damon's Surveillance 1960 Annual Physical 1963 Hepatitis C 1978 Cervical Cancer Screening Pap with HPV Testing (Age 30 to 64) Every 5 Years 1990 Cervical Cancer Screening with HPV 1990 Mammogram Screening 2000 Zoster Vaccines (1 of 2) 2010 COVID-19 Vaccine (3 - 2023- season) 2024 11/06/2020, 10/09/2020 DTaP, Tdap and Td Vaccines (3 - Td or Tdap) 05/20/2027 05/20/2017, 03/13/2007 RSV Immunization or 60+ Years (1 - 1-dose 75+ series) 2035 Influenza Adult Completed 07/03/2024, 100 09/2021, 07/06/2021, Additional history exists Meningococcal B Vaccine Aged Out No l onger eligible based on patient's age to complete this topic Meningococcal Vaccine Aged Out No charly nahid eligible based on patient's age to complete this topic Pneumococcal Vaccine: Pediatrics (0 to 5 Years) and At-Risk Patients (6 to 64 Years) Aged Out No longer eligible based on patient's age to complete this topic RSV Immunizations Under 20 Months Aged Out No longer eligible based on patient's age to complete this topic Procedures Procedure Name Priority Date/Time Associated Diagnosis Comments CT HEAD WO CON STAT 10/02/2024 5:14 PM PRODUCTION METAL SPRAYER TROPONIN, QUANT STAT 10/02/2024 4:07 PM PRODUCTION METAL SPRAYER XR CHEST PORTABLE STAT 10/02/2024 1:5 3 PM PRODUCTION METAL SPRAYER ECG 12-LEAD Routine 10/02/2024 1:43 PM PRODUCTION METAL SPRAYER ELECTROCARDIOGRAM REPORT Routine 025 1:43 PM PRODUCTION METAL SPRAYER TROPONIN, QUANT STAT 10/02/2024 1:27 PM PRODUCTION METAL SPRAYER COMPREHENSIVE METABOLIC PANEL STAT 10/02/2024 1:27 PM PRODUCTION METAL SPRAYER CBC W/DIFF AUTOMATED STAT 10/02/2024 1:27 PM PRODUCTION METAL SPRAYER from Last 3 Months Results * CT HEAD WO CON (10/02/2024 5:14 PM PRODUCTION METAL SPRAYER) Anatomical Region Laterality Modality Head Computed Tomogra phy 10/02/2024 5:39 PM PRODUCTION METAL SPRAYER Impressions 10/02/2024 5:44 PM PRODUCTION METAL SPRAYER IMPRESSION: 1. ??No definite CT evidence for acute intracranial abnormality. 2. ??Chronic senescent changes. Please note that CT has limited sensitivity for the detection of acute ischemia Referred By: ?? Interpreted By: Abebe Rm MD, 10/02/2024 5:39 PM Narrative 10/02/2024 5:44 PM PRODUCTION METAL SPRAYER [place] [id number] EXAMINATION: CT of the head CLINICAL HISTORY: Dizziness COMPARISON: None TECHNIQUE: CT examination of the head without contrast ??was performed with axial images obtained. ??A radiation dose lowering technique was used for this procedure, which may include, but is not limited to, dose reduction technique, automated exposure control, the use of iterative reconstruction, ALARA (As Low As Reasonably Achievable) techniques, and Image Gently techniques. FINDINGS: There is no evidence of acute intracranial hemorrhage, abnormal extra-axial collections, intracranial mass effect, or midline shift. There is mild volume loss with enlargement of the ventricles and extra-axial/subarachnoid spaces. There are a few scattered bilateral foci of periventricular and deep white matter hypoattenuation, probably related to chronic small vessel ischemic disease. Atherosclerotic calcifications of the intracranial arterial vasculature are evident. There is no definite CT evidence to suggest acute territorial infarction. The calvarium is unremarkable, without evidence of acute fracture. The visualized mastoid air cells, paranasal sinuses, and orbits are grossly unremarkable. Procedure Note Abebe Rm MD - 10/02/[address] [address] EXAMINATION: CT of the head CLINICAL HISTORY: Dizziness COMPARISON: None TECHNIQUE: CT examination of the head without contrast was performed withaxial images obtained. A radiation dose lowering technique was used forthis procedure, which may include, but is not limited to, dose reductiontechnique, automated exposure control, the use of iterativereconstruction, ALARA (As Low As Reasonably Achievable) techniques, andImage Gently techniques. FINDINGS: There is no evidence of acute intracranial hemorrhage, abnormalextra-axial collections, intracranial mass effect, or midline shift. Thereis mild volume loss with enlargement of the ventricles andextra-axial/subarachnoid spaces. There are a few scattered bilateral fociof periventricular and deep white matter hypoattenuation, probably relatedto chronic small vessel ischemic disease. Atherosclerotic calcificationsof the intracranial arterial vasculature are evident. There is no definiteCT evidence to suggest acute territorial infarction. The calvarium isunremarkable, without evidence of acute fracture. The visualized mastoidair cells, paranasal sinuses, and orbits are grossly unremarkable. IMPRESSION: 1. No definite CT evidence for acute intracranial abnormality. 2. Chronic senescent changes. Please note that CT has limited sensitivity for the detection of acuteischemia Referred By: Interpreted By: Abebe Rm MD, 10/02/2024 5:39 PM Magdiel Borja DO CT Final Res ult * TROPONIN, QUANT (10/02/2024 4:07 PM PRODUCTION METAL SPRAYER) Only the most recent of2 resultswithin the time period is included. TROPONIN I HIGH SENSITIVITY 47 <54 ng/L 10/02/2024 4:[address] [facility] Comment: HIGH DOSES OF BIOTIN, TROPONIN-SPECIFIC AUTOANTIBODIES, AND ANTIBODY THERAPY CONTAINING HAMA MAY INTERFERE WITH THIS TEST RESULT. CORRELATION TO CLINICAL HISTORY AND PRESENTATION RECOMMENDED. 10/02/2024 4:07 PM PRODUCTION METAL SPRAYER [facility] Final Resul t [facility] [address] [place] [address], * XR CHEST PORTABLE (10/02/2024 1:53 PM PRODUCTION METAL SPRAYER) Anatomical Region Laterality Modality Chest Radiographic Nikki ging 10/02/2024 1:54 PM PRODUCTION METAL SPRAYER Impressions 10/02/2024 2:02 PM PRODUCTION METAL SPRAYER Impression: No acute findings. Referred By: ?? Interpreted By: Abebe Rm MD, 10/02/2024 1:54 PM Narrative 10/02/2024 2:02 PM PRODUCTION METAL SPRAYER [place] [address] Examination: Chest 1 view portable History: Dizziness DATE/TIME: 10/02/2024 1:31 PM Comparison: None Technique: AP upright portable view of the chest was obtained. Findings: Heart size, mediastinal contours and pulmonary vasculature are within normal limits. ??No pulmonary consolidation, pleural effusion or pneumothorax. ??No acute osseous abnormality. ??Mild upper thoracic scoliosis. Procedure Note Abebe Rm MD - 10/02/2024 [place] [address] Examination: Chest 1 view portable History: Dizziness DATE/TIME: 10/02/2024 1:31 PM Comparison: None Technique: AP upright portable view of the chest was obtained. Findings: Heart size, mediastinal contours and pulmonary vasculature arewithin normal limits. No pulmonary consolidation, pleural effusion orpneumothorax. No acute osseous abnormality. Mild upper thoracicscoliosis. Impression: No acute findings. Referred By: Interpreted By: Abebe Rm MD, 10/02/2024 1:54 PM [facility] LEAD CARE MANAGER GENERAL IMAGING Final Resul t * ECG 12 lead (10/02/2024 1:43 PM PRODUCTION METAL SPRAYER) 10/02/2024 1:43 PM PRODUCTION METAL SPRAYER Narrative [facility] - 10/02/2024 3:11 PM PRODUCTION METAL SPRAYER ?[facility] ? [address], [place] ? Test Date: ?2024-10-02 Pat Name: ? GEORGINA FERNÁNDEZ ?Department: ?? 41 ? Room: ? INPR Gender: ? Female ? Paper Latcher: ?? [id number] : ?1960 ? Requested By: GUERA DAYDAYMARVIN Order Number: [id number] ? Reading MD: ?? Carlos Betancur ? Measurements Intervals ?Viola ? Rate: ? 93 ? P: ?79 WV: ? 145 ?QRS: ?74 QRSD: ? 93 ? T: ?51 QT: ? 328 ? QTc: ?410 ? Interpretive Statements SINUS RHYTHM LEFT ATRIAL ENLARGEMENT ??[-0.15mV P-WAVE IN V1/V2] INCOMPLETE RIGHT BUNDLE BRANCH BLOCK ??[90+ ms QRS DURATION, TERMINAL R IN V1/V2, 40+ ms S IN I/aVL/V4/V5/V6] No previous ECG available for comparison Other ischemic changes, not STEMI Preliminary EKG Interpretation by Magdiel Borja, DO UCTION METAL SPRAYER Procedure Note Carlos Betancur MD - 10/02/[address] Test Date: 2024-10-02 Pat Name: GEORGINA FERNÁNDEZ Department: 41 Room: [facility] Gender: Female Paper Latcher: [id number] : 1960 Requested By: GUERA CHEEK Order Number: [id number] Reading MD: Carlos Betancur Measurements Intervals Viola Rate: 93 P: 79 WV: 145 QRS: 74 QRSD: 93 T: 51 QT: 328 QTc: 410 Interpretive Statements SINUS RHYTHM LEFT ATRIAL ENLARGEMENT [-0.15mV P-WAVE IN V1/V2] INCOMPLETE RIGHT BUNDLE BRANCH BLOCK [90+ ms QRS DURATION, TERMINAL RIN V1/V2, 40+ ms S IN I/aVL/V4/V5/V6] No previous ECG available for comparison Other ischemic changes, not STEMI Preliminary EKG Interpretation by Magdiel Borja, DO UCTION METAL SPRAYER us [facility] LEAD CARE MANAGER ECG ORDERABLES Final Resul t [facility] * EKG Reading (10/02/2024 1:43 PM PRODUCTION METAL SPRAYER) Magdiel Hudson, - 10/02/2024 1:43 PM PRODUCTION METAL SPRAYER Magdiel Borja, DO ? 10/02/2024 ??8:05 PM EKG Reading Date/Time: 10/02/2024 1:43 PM Performed by: Magdiel Borja DO Authorized by: Magdiel Borja, DO ??Interpreted by ED physician Rhythm: sinus rhythm Rate: normal BPM: 93 QRS axis: normal Conduction: incomplete RBBB Clinical impression: abnormal ECG Comments: Nonspecific T wave changes Magdiel Borja DO [facility] Final Result * (ABNORMAL) COMPREHENSIVE METABOLIC PANEL (10/02/2024 1:27 PM PRODUCTION METAL SPRAYER) [facility] GLUCOSE 120(H) 70 - 99 MG/DL 10/02/2024 2:22 PM [facility] BUN 16 7 - 18 MG/DL 10/02/2024 2:22 PM [facility] CREATININE S/P/B 0.71 0.55 - 1.02 MG/DL 10/02/2024 2:22 PM [facility] SODIUM S/P/B 132(L) 136 - 145 MMOL/L 10/02/2024 2:22 PM [facility] POTASSIUM S/P/B 3.5 3.5 - 5.1 MMOL/L 10/02/2024 2:22 PM [facility] CHLORIDE S/P/B 98 97 - 115 MMOL/L 10/02/2024 2:22 PM [facility] CO2 27.6 21 - 32 MMOL/L 10/02/2024 2:22 PM [facility] CALCIUM S/P/B 8.7 8.5 - 10.1 MG/DL 10/02/2024 2:22 PM [facility] BILIRUBIN TOTAL S/P/B 0.5 0.2 - 1.2 MG/DL 10/02/2024 2:22 PM [facility] Comment: THIS ASSAY IS NOT RECOMMENDED FOR PATIENTS UNDERGOING TREATMENT WITH ELTROMBOPAG DUE TO THE POTENTIAL FOR FALSELY ELEVATED RESULTS. TOTAL PROTEIN S/P/B 7.1 6.4 - 8.2 G/DL 10/02/2024 2:22 PM [facility] ALBUMIN S/P/B 3.7 3.4 - 5.0 G/DL 10/02/2024 2:22 PM [facility] AST 33 15 - 37 U/L 10/02/2024 2:22 PM [facility] ALT 28 14 - 55 U/L 10/02/2024 2:22 PM [facility] ALKALINE PHOSPHATASE S/P/B 115 50 - 136 U/L 10/02/2024 2:22 PM [facility] ANION GAP 6.4 2 - 10 MMOL/L 10/02/2024 2:22 PM [facility] BUN CREATININE RATIO 22.6 6 - 26 10/02/2024 2:22 PM [facility] A/G RATIO 1.1 1.0 - 2.0 RATIO 10/02/2024 2:22 PM [facility] GFR ESTIMATE >90 >90 ML/MIN/1.7 3 M2 10/02/2024 2:22 PM [facility] Comment: NOTE: eGFR is not calculated for patients <18 years of age or gender unknown. This is an estimated GFR calculation using the new CKD EPI creatinine equation without race and so does not require a correction factor for race. This estimated GFR should not be used for calculating drug doses. 10/02/2024 1:27 PM PRODUCTION METAL SPRAYER [facility] Final Resul t [facility] [address] [place] [address], [place] [phone] * (ABNORMAL) CBC W/DIFF AUTOMATED (10/02/2024 1:27 PM PRODUCTION METAL SPRAYER) [facility] WBC 6.41 4.5 - 11.0 x10'3/uL 10/02/2024 1:[address] [facility] RBC 4.38 4.20 - 5.40 x10'6/uL 10/02/2024 1:58 [address] MET[address] [facility] HGB 13.4 12.0 - 16.0 G/DL 10/02/2024 1:58 PM [facility] HCT 39.9 38.0 - 48.0 % 10/02/2024 1:58 PM [facility] MCV 91.1 81.0 - 99.0 FL 10/02/2024 1:[address] [facility] MCH 30.6 27.0 - 31.0 PG 10/02/2024 1:58 [address] [facility] MCHC 33.6 32.0 - 36.0 G/DL 10/02/2024 1:58 PM [facility] RDW 13.3 11.5 - 14.5 % 10/02/2024 1:58 PM [facility] PLT 275 130 - 400 x10'3/uL 10/02/2024 1:58 PM [facility] MPV 8.4(L) 9.3 - 12.2 FL 10/02/2024 1:58 PM [facility] DIFFERENTIAL TYPE AUTOMATED DIFFERENTIAL 10/02/2024 1:58 [address] PRODUCTION METAL [address] [facility] NEUTROPHILS % 67.9 % 10/02/2024 1:58 PM [facility] LYMPHOCYTES % 21.5 % 10/02/2024 1:58 [address] MET[address] [facility] MONOCYTES % 8.3 % 10/02/2024 1:58 [address] MET[address] [facility] EOSINOPHILS 0.9 % 10/02/2024 1:58 [address] MET[address] [facility] BASOPHILS 1.1 % 10/02/2024 1:58 [address] MET[address] [facility] IMMATURE GRANS % 0.3 % 10/02/19 1:58 [address] MET[address]ER [facility] ABS. NEUTROPHILS 4.35 1.80 - 7.70 x10'3/uL 10/02/2024 1:58 [address]ODUCTION METAL [address] [facility] ABS. LYMPHOCYTES 1.38 1.00 - 4.80 x10'3/uL 10/02/2024 1:58 [address] MET[address] [facility] ABS. MONOCYTES 0.53 0.24 - 0.86 x10'3/uL 10/02/2024 1:58 [address] MET[address] [facility] ABS. EOSINOPHILS 0.06 0.04 - 0.36 x10'3/uL 10/02/2024 1:58 [address]ODUCTION MET[address] [facility] ABS. BASOPHILS 0.07 0.01 - 0.08 x10'3/uL 10/02/2024 1:58 [address]ODUCTION METAL [address] [facility] ABS. IMMATURE GRANULOCYTES 0.02 0.00 - 0.49 x10'3/uL 10/02/2024 1:58 [address] MET[address] [facility] 10/02/2024 1:27 PM PRODUCTION METAL SPRAYER us [facility] Final Resul t [facility] [address] [place] [address], [place] [phone] from Last 3 Months [place] [id number] [employer] OPEN ACCESS [facility] Care Teams Space Systems Operations Superintendent Relationship Specialty Start Date End Date Nubia Rodriguez DO [address] [place] [id number] PCP - General FAMILY PRACTICE 02/18/21
--- OUTSIDE RECORDS SUMMARY | 2024-10-04 07:41 | XMS_ITS | Referral Summary ---
Author Organization [facility] Healthcare Address [address] [place] [address] Care Team Providers Care Ironworker Name Role Phone Unknown, Notinfile Unavailable Unavailable Vikas Elizabeth MD Unavailable Nubia Rodriguez DO Primary Care Provider [phone] Encounters Date Type Department Care Team Description 09/24/2024 9:30 AM DESK EDITOR Office Visit [facility] at [address] [phone] Samara Turner NP Paronychia of great toe of right foot (Primary Dx) 08/28/[address] [facility] Ophthalmology [address] [place] [address] [place] [phone] Agusto Escobar MD 08/07/2024 10:10 AM DESK EDITOR Office Visit [facility] Orthopaedic Surgery [address] [place] [address] Medicine 6th [place] [address] [place] [phone] Vikas Elizabeth MD Pain of right thumb (Primary Dx) 07/20/[address] [facility] Ophthalmology [address] [place] [address] [place] [phone] Agusto Escobar MD 07/10/[address] [facility] Occupational Therapy [address] [place] [address] 6th [place] [address] [place] [phone] Prashant Valadez, OT 07/10/2024 12:50 PM CDT Office Visit [facility] Orthopaedic Surgery [address] [facility] 6th [place] [address] [place] [phone] Vikas Elizabeth MD Pain of right thumb (Primary Dx) 07/04/2024 4:30 PM CDT Office Visit [facility] Ophthalmology [address] [facility] 6th [place] [phone] Emory Bonilla MD PhD Ocular pain, bilateral (Primary Dx); Keratitis sicca, bilateral; High risk medication use; Conjunctivitis of both eyes, unspecified conjunctivitis type from Last 3 Months Allergies Active Allergy Reactions Criticality Noted Date Comments Naproxen Fever Medium 02/15/2018 Medications cevimeline (EVOXAC) 30 mg capsuleIndication s:Dry Eyes Take 1 capsule (30 mg total) by mouth 3 (three) times a day Active hydroxychloroquin e (PLAQUENIL) 200 mg tabletIndications :Arthritis Symptoms Take 1 tablet (200 mg total) by mouth 2 (two) times a day Active diazePAM (VALIUM) 2 mg tablet Take 1 tablet (2 mg total) by mouth every 6 (six) hours as needed for anxiety or muscle spasms. 30 tablet 02/16/20 18 Active diphenhydramine HCl (BENADRYL ORAL)Indications: Sleep Take 10 mg by mouth nightly Active acetaminophen (TYLENOL) 325 mg tabletIndications :Pain Take 2 tablets (650 mg total) by mouth every 4 (four) hours as needed for pain Active guaiFENesin-pseud oephedrine (MUCINEX D) 600-60 mg per 12 hr tabletIndications :Nasal Congestion Take 1 tablet by mouth every 12 (twelve) hours Active multivitamin capsuleIndication s:Vitamin Deficiency Prevention Take 1 capsule by mouth bias cutter helper before breakfast Active cholestyramine (QUESTRAN) 4 gram packetIndications :Bile Acid Malabsorption Take 1 packet by mouth 2 (two) times a day with meals 06/14/20 22 Active estradioL (ESTRACE) 0.01 % (0.1 mg/gram) vaginal creamIndications: Postmenopausal Urethral Atrophy Insert 2 g into the vagina 2 (two) times a week 09/19/19 22 Active famotidine (PEPCID) 20 mg tabletIndications :Heartburn,gastro esophageal reflux disease Take 1 tablet (20 mg total) by mouth 2 (two) times a day Active FLUoxetine 10 mg tabletIndications :Anxiety with Depression Take 1 tablet/capsule (10 mg total) by mouth every morning 08/10/[address] (PROTONIX) 40 mg EC tabletIndications :GERD Take 1 tablet (40 mg total) by mouth every evening 07/17/20 21 Active sucralfate (CARAFATE) 1 gram tabletIndications :Heartburn,gastro esophageal reflux disease Take 1 tablet (1 g total) by mouth daily as needed (GERD) 08/21/20 22 Active lisdexamfetamine (VYVANSE) 40 mg capsuleIndication s:Attention-Defic it Hyperactivity Disorder Take 1 capsule (40 mg total) by mouth every morning 04/12/20 24 Active Dyanavel XR 10 mg tablet, IR & ER, biphasic 24hrIndications:A ttention-Deficit Hyperactivity Disorder Take 1 tablet by mouth every morning 04/16/20 24 Active fluorometholone (FML) 0.1 % ophthalmic suspensionIndicat ions:Dry Eye Administer 1 drop into both eyes 2 (two) times a day 05/05/20 24 Active tobramycin (TOBREX) 0.3 % ophthalmic solution Administer 1 drop into both eyes 3 (three) times a day 5 mL 06/04/20 24 Active Additional Information Patient taking differently:1 drop each eyeDaily PRN, Dry eye, BID, Indications: Dry Eye, Informant: Self, Reported on 09/24/2024 cyclobenzaprine (FLEXERIL) 10 mg tablet Take 2 tablets (20 mg total) by mouth 3 (three) times a day as needed for muscle spasms Active HYDROcodone-aceta minophen (NORCO) 5-325 mg per tabletIndications :Pain Take 1 tablet by mouth every 6 (six) hours as needed for pain (severe pain) 24 tablet 06/27/20 24 Active varenicline (Tyrvaya) 0.03 mg/spray spray, metered, non-aerosol Administer 0.03 mg into affected nostril(s) 2 (two) times a day 8.4 mL 11 07/11/20 24 Active cephalexin (KEFLEX) 500 mg capsuleIndication s:Paronychia of great toe of right foot Take 1 capsule (500 mg total) by mouth 4 (four) times a day for 10 days 40 capsule 09/24/19 25 025 Active mupirocin (BACTROBAN) 2 % ointmentIndicatio ns:Paronychia of great toe of right foot Apply topically 3 (three) times a day 22 g 09/24/19 25 Active mupirocin (BACTROBAN) 2 % ointmentIndicatio ns:Impetigo Apply 1 Application topically daily as needed 11/02/19 22 025 Discontin ued(Thera py completed ) Active Problems Problem Noted Date Diagnosed Date Retained orthopedic hardware 06/12/2024 Strain of right flexor pollicis longus tendon Damon's esophagus 05/01/2024 Attention-deficit hyperactivity disorder 022 Generalized anxiety disorder 12/07/2021 Major depression 12/07/2021 Psychophysiological insomnia 12/07/2021 Closed fracture of distal en d of right radius with routine healing 02/28/2018 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 Immunizations Name Administration Dates Next Due Hep B Vaccine 08/10/2021,07/06/2021 Influenza, Quadrivalent, Split, Intramuscular Influenza, Quadrivalent, Spl it, Preservative Free, Intramuscular 06/20/2020 Influenza, Trivalent, IM (MDV) 07/06/2021 Influenza, Trivalent, Preservative Free, Intramu scular 07/03/2024,08/02/2015 PPD TEST 05/17/2023,06/23/2022 Social History Tobacco Use Types Packs/Day Years Used Date Smoking Tobacco: Never Cigarettes Smokeless Tobacco: Never Tobacco Cessation:Counseling Given: Not Answered AUDIT-C Answer Date Recorded Q1: How often do you have a drink containing alcohol? Never 06/27/2024 Q2: How many drinks containi ng alcohol do you have on a typical day when you are drinking? Patient does not drink Q3: How often do you have si x or more drinks on one occasion? Never 06/27/2024 Personal Safety Answer Date Recorded Have you ever been in or are you currently in a harmful physical or emotional relationship or is someone making you feel afraid or unsafe? Denies 06/27/2024 Comments No Sex and Gender Information Value Date Recorded Sex Assigned at Not on file Legal Sex Female 12:57 PM DESK EDITOR Gender Identity Not on file Sexual Orientation Not on file Last Filed Vital Signs Vital Sign Reading Time Taken Comments Blood Pressure 147/82 09/24/2024 9:11 AM DESK EDITOR Pulse 94 09/24/2024 9:11 AM DESK EDITOR Temperature 36.8 ??C (98.2 ??F) 09/24/2024 9:11 AM CS T Respiratory Rate 20 09/24/2024 9:11 AM DESK EDITOR Oxygen Saturation 98% 09/24/2024 9:11 AM DESK EDITOR Inhaled Oxygen Concentration - - Weight 57.8 kg (127 lb 8 oz) 09/24/2024 9:11 AM DESK EDITOR Height 165.1 cm (5' 5 ) 09/24/2024 9:11 AM DESK EDITOR Body Mass Index 21.22 09/24/2024 9:11 AM DESK EDITOR Plan of Treatment Not on file Medical Devices Explanted Type Area Papier Mache Molder Device Identifier Shelf Expiration Date Model / Serial / Lot Synthes Lcp Combi 47mm 7 Hole Head 2 Hole Shaft 2 Column Variable Angle - Sna - [id number] Implanted:Qty: 1 on 02/15/2018 by Vikas Elizabeth MD at [facility] Explanted:Qty: 1 on 06/27/2024 at [facility] Right: Radius Synthes I [id number] / NA / NA Synthes 2.4mm 18mm Self Tap Stardrive Screw Cortex T8 Bone - Sna - [id number] Implanted:Qty: 1 on 02/15/2018 by Vikas Elizabeth MD at [facility] Explanted:Qty: 1 on 06/27/2024 at [facility] Right: Radius Synthes I 201.768 / NA / NA Synthes 2.4mm 12mm Self Tap Stardrive Screw Cortex T8 Bone - Sna - [id number] Implanted:Qty: 3 on 02/15/2018 by Vikas Elizabeth MD at [facility] Explanted:Qty: 3 on 06/27/2024 at [facility] Right: Radius Synthes I 201.762 / NA / NA Synthes 2.4mm 18mm Self Tap Lock Variable Angle Stardrive Screw T8 Bone - Sna - [id number] Implanted:Qty: 2 on 02/15/2018 by Vikas Elizabeth MD at [facility] Explanted:Qty: 2 on 06/27/2024 at [facility] Right: Radius Synthes I 02.210.118 / NA / NA Synthes 2.4mm 14mm Self Tap Lock Variable Angle Stardrive Screw T8 Bone - Sna - [id number] Implanted:Qty: 1 on 02/15/2018 by Vikas Elizabeth MD at [facility] Explanted:Qty: 1 on 06/27/2024 at [facility] Right: Radius Synthes I 02.210.114 / NA / NA Insurance [employer] [id number] [employer] [id number] [place] [address] [employer] [id number] [place] [id number] Care Teams Ironworker Relationship Specialty Start Date End Date Nubia Rodriguez DO [address] [facility] [address] [place] [address] PCP - General Family Medicine 09/18/21 Unknown, Notinfile 02/10/18 Vikas Elizabeth MD [address] [facility] [place] [address] Surgeon Orthopedic Surgery 03/28/18
--- OUTSIDE RECORDS SUMMARY | 2024-10-04 07:41 | XMS_ITS ---
Author Organization [facility] Address [address] [place], [place] [id number] Care Team Providers Care Store Sales Manager Name Role Phone SHUBHAMTucker CATRACHO Unavailable [phone] Vernace, Nubia Unavailable Unavailable Allergies Allergen (clinical drug ingredient) Drug/Non Drug Allergy documented on EMR Reaction Allergy Type Onset Date Status Anaprox Unknown Drug Allergy Active REASON FOR VISIT The patient is having pain in her great toes and 2nd toes. She thinks this started after stumbling on some stairs. She is concerned as there is bruising that comes and goes. She denies an official diagnosis of Raynaud's, but has noticed color changes in her hands and feet with the cold., The patient does not smoke, but does drink caffeine and has a lot of stress in her life with work Medications Medication SIG (Take, Route, Frequency, Duration) Notes Start Date End Date Status HYDROcodone-Acetaminophen 5-325 MG 1 tablet as needed Orally every 6 hrs As needed pain 01/20/2024 Active Encounters Encounter Location Date Provider Diagnosis [facility] [address] [place], [place] [phone] 08/27/2024 CATRACHO DICKERSON Raynaud's syndrome without gangrene I73.00 ; Contusion of right great toe without damage to nail, initial encounter S90.111A ; Contusion of left great toe without damage to nail, initial encounter S90.112A ; Pain in right foot M79.671 and Left foot pain M79.672 Assessments Encounter Date Diagnosis (ICD Code) Assessment Notes Treatment Notes Treatment Clinical Notes Section Notes 08/27/2024 Raynaud's syndrome without gangrene (ICD-10 - I73.00) Raynaud's: Discussed the nature and etiology of Raynaud's. Discussed risk factors and triggers. Stressed the importance of limiting cold exposure, nicotine, caffeine, and stress. Provided written information on this topic. Rx: Topical Nifedipine 10% to affected area qd - bid 08/27/2024 Contusion of right great toe without damage to nail, initial encounter (ICD-10 - S90.111A) 08/27/2024 Contusion of left great toe without damage to nail, initial encounter (ICD-10 - S90.112A) 08/27/2024 Pain in right foot (ICD-10 - M79.671) 08/27/2024 Left foot pain (ICD-10 - M79.672) Plan Of Treatment Treatment Notes Assessment Notes Raynaud's syndrome without gangrene Raynaud's: Discussed the nature and etiology of Raynaud's. Discussed risk factors and triggers. Stressed the importance of limiting cold exposure, nicotine, caffeine, and stress. Provided written information on this topic. Rx: Topical Nifedipine 10% to affected area qd - bid Next Appt Details Follow Up: 3 Weeks, Reason: See how reducing triggers and nefidipine helped Raynaud's Progress Notes * GARFIELD FERNÁNDEZ ADOB:1960 (63 yo F)Acc No.[id number]:08/27/2024 Patient:?GARFIELD FERNÁNDEZ Provider:?Catracho Dickerson DPM :1960???Age:63 Y???Sex:Female D ate:08/27/2024 Address:[address] [place], [place] [phone] Subjective: * Chief Complaints: * ???The patient is having beatriz n in her great toes and 2nd toes. She thinks this started after stumbling on some stairs. She is concerned as there is bruising that comes and goes. She denies an official diagnosis of Raynaud's, but has noticed color changes in her hands and feet with the cold.The patient does not smoke, but does drink caffeine and has a lot of stress in her life with work * HPI: ???HPI:?New Complaint?Established patient presents with a new complaint., Patient complains of an issue to pain in toes. Patient states her right great toe and #2 left toe have been hurting. Patient believes she may have injured them coming down the stairs too quickly and missing a step. Patient states the pain has gotten better and has been reduced to numbness. Patient also had some swelling that has gone down as well., Duration of problem is 1 week., MA: LB.? * ROS:?General / Constitutional:?Patient denies?chills, fever, weakness, night sweats.?Musculoskeletal:?Patient denies?childhood foot problems, weakness.?Patient complains of?joint pain, bunions.?Peripheral Vascular:?Patient denies?ulceration of feet, cold extremities.?Skin:?Patient denies?ulcerations, discoloration.?Neurologic:?Patient denies?balance difficulty, confusion, difficulty speaking, dizziness.? * Medical History:? * Surgical History:?bunionecto my- left foot * Hospitalization/Major Diagno stic Procedure:? * Family History:?Father: Alexandria na, Acid Reflux, asthma, GERD, Respiratory Disease.?Mother: arthritis.? * Medications:?TakingHYDROcodo ne-Acetaminophen 5-325 MG Tablet 1 tablet as needed Orally every 6 hrs As needed painTaking HYDROcodone-Acetaminophen 5-325 MG Tablet 1 tablet as needed Orally every 6 hrs As needed pain * Allergies:?Anaprox Objective: * Vitals:? * Examination: ???Constitutional: ?Constitutional?The patient is awake, alert, well developed, well groomed and well nourished , The patient is awake, alert, well developed, well groomed and well nourished.?Dermatologic: ?Skin findings:?Skin is cool.? During the visit her toes turned with rubor, pallor, and purpura in a cyclic fashion.? No eschar or skin slough noted.?Vascular: ?Dorsalis pedis pulse:?2/4, bilateral.?Posterior tibial pulse:?2/4, bilaterally.?Capillary refill:?sluggish but under 5s.?Edema:?No edema.?Neurologic: ?Gross sensation?Gross sensation is intact to light touch.?Musculoskeletal: ?Muscle Strength?Muscle strength is 5/5 in regards to dorsiflexion, plantarflexion, inversion, and eversion in bilateral lower extremities.?Pain on palpation?Diffuse and overall tenderness to the joints of the lesser digits and great toe joints.?Radiographs: ?Left Foot?No evidence of fracture, dislocation, or other osseous lesions. There is a plantar spur noted to the calcaneus.?Right Foot?No evidence of fracture, dislocation, or other osseous lesions.?There is a plantar spur noted to the calcaneus.? Assessment: * Assessment: 1.?Raynaud's syndrome withou t gangrene - I73.00 (Primary)???2.?Contusion of right great toe without damage to nail, initial encounter - S90.111A???3.?Contusion of left great toe without damage to nail, initial encounter - S90.112A???4. Pain in right foot - M79.671???5.?Left foot pain - M79.672??? Plan: * Treatment: * Procedure Codes:?39734 X-RAY EXAM OF FOOT, Modifiers: RT 15491 X-RAY EXAM OF FOOT, Modifiers: LT * Follow Up:?3 Weeks (Reason: See how reducing triggers and nefidipine helped Raynaud's) * Billing Information: * Visit Code:? 85011 Office Visit, Est Pt., Level 3. * Procedure Codes:? 48333 X-RAY EXAM OF FOOT. Modifiers: [place] [address]67 X-RAY EXAM OF FOOT. Modifiers: LT * ST FIRE EQUIPMENT OPERATOR Sign off status: Completed true * Provider:?Catracho Dickerson DPM Date:?08/27/20 24 Generated for Josefina fleming/Octavio/Titiitting on:?10/04/2024 07:41 AM FOREST FIRE EQUIPMENT OPERATOR History and Physical Notes * HPI (History of Present Illness) Category Sub-Category Detail Notes Category Not es HPI New Complaint Established gisela ent presents with a new complaint., Patient complains of an issue to pain in toes. Patient states her right great toe and #2 left toe have been hurting. Patient believes she may have injured them coming down the stairs too quickly and missing a step. Patient states the pain has gotten better and has been reduced to numbness. Patient also had some swelling that has gone down as well., Duration of problem is 1 week., MA: LB Examination Category Sub-Category Detail Notes Category Not es Dermatologic Skin findings: Skin is cool. Du ring the visit her toes turned with rubor, pallor, and purpura in a cyclic fashion. No eschar or skin slough noted Neurologic Gross sensation Gross sensation is intact to light touch Vascular Dorsalis pedis pulse: 2/4, bilateral Edema: No edema Capillary refill: sluggish but under 5 s Posterior tibial pulse: 2/4, bilaterally Musculoskeletal Muscle Strength Muscle strength is 5/5 in regards to dorsiflexion, plantarflexion, inversion, and eversion in bilateral lower extremities Pain on palpation Diffuse and overall tenderness to the joints of the lesser digits and great toe joints Constitutional Constitutional The patient is a wake, alert, well developed, well groomed and well nourished , The patient is awake, alert, well developed, well groomed and well nourished Radiographs Left Foot No evidence of f racture, dislocation, or other osseous lesions. There is a plantar spur noted to the calcaneus Right Foot No evidence of fract ure, dislocation, or other osseous lesions. There is a plantar spur noted to the calcaneus
--- OUTSIDE RECORDS SUMMARY | 2024-10-04 07:41 | XMS_ITS ---
Author Organization [facility] Address [address] [place], [place] [phone] Care Team Providers Care Meat Supervisor Name Role Phone CATRACHO DICKERSON Unavailable [phone] Vernace, Nubia Unavailable Unavailable REASON FOR VISIT Patient returns 10 days s/p hardware removal. She is doing well Medications Medication SIG (Take, Route, Frequency, Duration) Notes Start Date End Date Status HYDROcodone-Acetaminophen 5-325 MG 1 tablet as needed Orally every 6 hrs As needed pain 01/20/2024 Active Vital Signs Weight 127 lbs 01/30/2024 Weight-kg 57.61 kg 01/30/2024 Height 65 in 01/30/2024 Height-cm 165.1 cm 01/30/2024 BMI 21.13 kg/m2 01/30/2024 Encounters Encounter Location Date Provider Diagnosis [facility] [address] [place], [place] [id number] 01/30/2024 CATRACHODIPESH DINEROJACOBO Pain due to internal orthopedic prosthetic devices, implants and grafts, subsequent encounter T84.84XD and Encounter for other specified surgical aftercare Z48.89 Assessments Encounter Date Diagnosis (ICD Code) Assessment Notes Treatment Notes Treatment Clinical Notes Section Notes 01/30/2024 Pain due to internal orthopedic prosthetic devices, implants and grafts, subsequent encounter (ICD-10 - T84.84XD) Suture Removal: The sutures were removed. Surgical Restriction Release: Patient may resume normal bathing. Return to normal shoes. Gradual return to activities as tolerated. Patient instructed to contact the office if any issues arise. 01/30/2024 Encounter for other specified surgical aftercare (ICD-10 - Z48.89) Plan Of Treatment Treatment Notes Assessment Notes Pain due to internal orthope dic prosthetic devices, implants and grafts, subsequent encounter Suture Removal: The sutures were removed. Surgical Restriction Release: Patient may resume normal bathing. Return to normal shoes. Gradual return to activities as tolerated. Patient instructed to contact the office if any issues arise. Next Appt Details Follow Up: prn, Reason: Progress Notes * GARFIELD FERNÁNDEZ ADOB:1960 (63 yo F)Acc No.[id number]:01/30/2024 Patient:?GARFIELD FERNÁNDEZ Provider:?Catracho Dickerson DPM :1960???Age:63 Y???Sex:Female D ate:01/30/2024 Address:[address] [place], [place] [phone] Subjective: * Chief Complaints: * ???1. Patient returns 10 day s s/p hardware removal. She is doing well. * HPI: ???HPI:?Follow Up Visit?Patient presents for follow up visit for post op on her right foot. Patient states that she is in less pain, and feels like her foot is improving.She does not feel discomfort, denies any numbess or swelling. Patient overall thinks the surgery went well and is improving more daily. , MA: mls.? * Medical History:? * Surgical History:?bunionecto my- left foot . * Family History:?Father: Alexandria na, Acid Reflux, asthma, GERD, Respiratory Disease.?Mother: arthritis.? * Medications:?Taking HYDROcod one-Acetaminophen 5-325 MG Tablet 1 tablet as needed Orally every 6 hrs As needed pain Objective: * Vitals:?Wt:127lbs, Wt-k .61 kg, Ht: 65 in, Ht-cm: 165.1 cm, BMI:21.13Index, Body Surface Area: 1.62. * Examination: ???Dermatologic: ?Skin findings:?The dressing is clean and dry.? Sutures are in place.? No erythema, calor, active drainage, or dehiscence noted.?Vascular: ?Post Op?Edema is consistent for post-operative treatment course.?Neurologic: ?Gross sensation?Gross sensation is intact to light touch.?Musculoskeletal: ?Post Op?No calf pain noted.? Assessment: * Assessment: 1.?Pain due to internal orth opedic prosthetic devices, implants and grafts, subsequent encounter - T84.84XD (Primary)?2.?Encounter for other specified surgical aftercare - Z48.89? Plan: * Treatment: * Procedure Codes:?77567 POSTO P FOLLOW-UP VISIT * Follow Up:?prn * Billing Information: * Visit Code:? * Procedure Codes:? 66403 POSTOP FOLLOW-UP VISIT. * Sign off status: Completed true * Provider:?Catracho Dickerson DPM Date:?01/30/20 24 Generated for Josefina fleming/Octavio/eTransmitting on:?10/04/2024 07:41 AM PAVING AND SURFACING LABOURER History and Physical Notes * HPI (History of Present Illness) Category Sub-Category Detail Notes Category Not es HPI Follow Up Visit Patient presents for follow up visit for post op on her right foot. Patient states that she is in less pain, and feels like her foot is improving.She does not feel discomfort, denies any numbess or swelling. Patient overall thinks the surgery went well and is improving more daily. , MA: mls Examination Category Sub-Category Detail Notes Category Not es Dermatologic Skin findings: The dressing is clean and dry. Sutures are in place. No erythema, calor, active drainage, or dehiscence noted Neurologic Gross sensation Gross sensation is intact to light touch Vascular Post Op Edema is consist ent for post-operative treatment course Musculoskeletal Post Op No calf pain noted
--- OUTSIDE RECORDS SUMMARY | 2024-10-04 07:41 | XMS_ITS | Encounter Summary ---
Author Organization [facility] Address [address] [place] [address] Phone Care Team Providers Care Gi Physician Name Role Phone Diego Gibbs DO Unavailable [phone] Nubia Rodriguez DO Primary Care Provider [phone] Yajaira Sandhu MD Unavailable [phone] Reason for Visit * Reason Comments Medication Refill Encounter Details Date Type Department Care Team (Late st Contact Info) Description 01/10/2022 Refill [facility] [address] [place] [address] Sandhya Mcdaniel Tayla, [facility] [address] [place] [address] Medication Refill Social History Tobacco Use Types [...] Telephone Encounter - Kalina Lee RN - 01/11/2022 4:08 PM CDT Pharmacy requesting refill of: Requested Prescriptions Pending Prescriptions Disp Refills ??? pantoprazole (PROTONIX) 40 MG Tablet Delayed Response [Pharmacy Med Name: PANTOPRAZOLE SOD DR 40 MG TAB] 180 Tablet 1 Sig: TAKE 1 TABLET BY MOUTH TWICE A DAY BEFORE MEALS Last fill: 07/17/2021 Patients last OV with GI: 10/19/2021 Next Office Visit with GI: Recall noted for 6 month follow up. Pantoprazole order pended, please approve. documented in this encounter Plan of Treatment Not on file documented as of this encounter Visit Diagnoses Not on filedocumented in this encounter Care Teams Gi Physician Relationship Specialty Start Date End Date Nubia Rodriguez DO [address] [place] [address] PCP - General Family Medicine 10/19/21 Diego Gibbs DO Gastroenterology 08/24/16 Yajaira Sandhu MD [address] [place] [address] Consulting Physician Gastroenterology 02/24/23 Nubia Rodriguez Family Medicine 12/03/20 documented as of this encounter
--- OUTSIDE RECORDS SUMMARY | 2024-10-04 07:41 | XMS_ITS | Encounter Summary ---
Author Organization [facility] Address [address] [place] [address] Phone Care Team Providers Care Harbor Tug Captain Name Role Phone Gume Amador MD Primary Care Provider [phone] Diego Gibbs DO Unavailable [phone] Nubia Rodriguez DO Primary Care Provider [phone] Yajaira Sandhu MD Unavailable [phone] Reason for Visit * Reason Comments Medication Refill Encounter Details Date Type Department Care Team (Late st Contact Info) Description 04/20/2021 Refill [facility] - [facility] [address] [place] [id number] Sandhya Mcdaniel Tayla, [facility] [address] [place] [address] Medication Refill Social History Tobacco Use Types [...] encounter Miscellaneous Notes * Telephone Encounter - Heidi Acosta CMA - 04/20/2021 10:01 AM CDT Pharmacy requesting refill of: Requested Prescriptions Pending Prescriptions Disp Refills ??? sucralfate (CARAFATE) 1 GM Tablet [Pharmacy Med Name: SUCRALFATE 1 GM TABLET] 120 Tablet 1 Sig: TAKE 1 TABLET BY MOUTH 4 TIMES DAILY Last fill: 03/27/2021 Patients last OV with GI: 03/09/2021 Next Office Visit with GI: Has 6 month recall for August 2021 documented in this encounter Plan of Treatment Not on file documented as of this encounter Visit Diagnoses Diagnosis Gastroesophageal reflux disease, unspecified whether esophagitis present Hiatal hernia Diaphragmatic hernia without mention of obstruction or gangrene documented in this encounter Care Teams Harbor Tug Captain Relationship Specialty Start Date End Date Gume Amador MD [address] [facility] [place] [address] PCP - General Family Medicine 08/24/16 10/18/21 Nubia Rodriguez DO [address] [place] [address] PCP - General Family Medicine 10/19/21 Diego Gibbs DO [address] [facility] [place] [address] Gastroenterology 08/24/16 Yajaira Sandhu MD [address] [place] [address] Consulting Physician Gastroenterology 02/24/23 Nubia Rodriguez Family Medicine 12/03/20 documented as of this encounter
--- OUTSIDE RECORDS SUMMARY | 2024-10-04 07:41 | XMS_ITS | Encounter Summary ---
Author Organization [facility] Address [address] [place] [address] Phone Care Team Providers Care Chancery Clerk Name Role Phone Diego Gibbs DO Unavailable [phone] Nubia Rodriguez DO Primary Care Provider [phone] Yajaira Sandhu MD Unavailable [phone] Reason for Visit * Reason Comments Medication Refill Encounter Details Date Type Department Care Team (Late st Contact Info) Description 12/17/2021 Refill [facility] [address] [place] [address] Sandhya Mcdaniel Tayla, [facility] [address] [place] [address] Medication Refill Social History Tobacco Use Types [...] Telephone Encounter - Kalina Lee RN - 12/21/2021 11:13 AM CDT Patient calling and checking on carafate order refill. Order pended below, please review and approve. * Telephone Encounter - Kalina Lee RN - 12/21/2021 8:40 AM CDT Pharmacy requesting refill of: Requested Prescriptions Pending Prescriptions Disp Refills ??? sucralfate (CARAFATE) 1 GM Tablet [Pharmacy Med Name: SUCRALFATE 1 GM TABLET] 120 Tablet 3 Sig: TAKE 1 TABLET BY MOUTH 4 TIMES DAILY Last fill: 08/20/2021 last filled by Sandhya LESLIE Patients last OV with GI: 10/19/[address] Sandhu Next Office Visit with GI: None scheduled. 6 month recall noted per chart review. Carafate order pended, please review. documented in this encounter Plan of Treatment Not on file documented as of this encounter Visit Diagnoses Diagnosis Gastroesophageal reflux disease, unspecified whether esophagitis present Hiatal hernia Diaphragmatic hernia without mention of obstruction or gangrene documented in this encounter Care Teams Chancery Clerk Relationship Specialty Start Date End Date Nubia Rodriguez DO [address] [place] [address] PCP - General Family Medicine 10/19/21 Diego Gibbs DO Gastroenterology 08/24/16 Yajaira Sandhu MD [address] [place] [address] Consulting Physician Gastroenterology 02/24/23 Nubia Rodriguez Family Medicine 12/03/20 documented as of this encounter
--- OUTSIDE RECORDS SUMMARY | 2024-10-04 07:41 | XMS_ITS | Encounter Summary ---
Author Organization [facility] Address [address] [place] [address] Phone Care Team Providers Care Mothercraft Nurse Name Role Phone Gume Amador MD Primary Care Provider [phone] Diego Gibbs DO Unavailable [phone] Nubia Rodriguez DO Primary Care Provider [phone] Yajaira Sandhu MD Unavailable [phone] Reason for Visit * Reason Comments Medication Refill Encounter Details Date Type Department Care Team (Late st Contact Info) Description 08/16/2021 Refill [facility] - Gastro[facility] [address] [place] [phone] Sandhya Mcdaniel Tayla, [facility] [address] [place] [address] Medication Refill Social History Tobacco Use Types [...] Telephone Encounter - Kalina Lee RN - 08/20/2021 9:21 AM MANAGER TELEMETRY Medication refilled and signed per [facility] chronic medication standing order for pediatric and adult patients. GER TELEMETRY documented in this encounter Plan of Treatment Not on file documented as of this encounter Visit Diagnoses Diagnosis Gastroesophageal reflux disease, unspecified whether esophagitis present Hiatal hernia Diaphragmatic hernia without mention of obstruction or gangrene documented in this encounter Care Teams Mothercraft Nurse Relationship Specialty Start Date End Date Gume Amador MD [address] [facility] [place] [address] PCP - General Family Medicine 08/24/16 10/18/21 Nubia Rodriguez DO [address] [place] [address] PCP - General Family Medicine 10/19/21 Diego Gibbs DO [address] [facility] [place] [address] Gastroenterology 08/24/16 Yajaira Sandhu MD [address] [place] [address] Consulting Physician Gastroenterology 02/24/23 Nubia Rodirguez Family Medicine 12/03/20 documented as of this encounter
--- OUTSIDE RECORDS SUMMARY | 2024-10-04 07:41 | XMS_ITS | Clinical Summary ---
Author Organization [facility] Address [address] [place] [address] Care Team Providers Care House Carpenter Helper Name Role Phone Unknown, Notinfile Unavailable Unavailable Vikas Elizabeth MD Unavailable [phone] Nubia Rodriguez DO Primary Care Provider [phone] Allergies Active Allergy Reactions Criticality Noted Date [...] Deficiency Prevention Take 1 capsule by mouth conference organizer before breakfast Active cholestyramine (QUESTRAN) 4 gram [...] 3 (three) times a day 5 mL 11 06/04/20 24 Active Additional Information Patient taking [...] with routine healing 02/28/2018 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 Encounters Date Type Department Care Team Description 09/24/2024 9:30 AM SLATE PICKER Office Visit [facility] at [address] [address] Samara Turner NP Paronychia of great toe of right foot (Primary Dx) 08/28/2024 Telephone [facility] Ophthalmology [facility] [address] [place] [address] Agusto Escobar MD 08/07/2024 10:10 AM SLATE PICKER Office Visit [facility] Orthopaedic Surgery [facility] 6th [place] [address] [place] [address] Vikas Elizabeth MD Pain of right thumb (Primary Dx) 07/20/2024 Telephone [facility] Ophthalmology [address] [facility] 6th [place] [address] Agusto Escobar MD 07/10/2024 12:50 PM CDT Office Visit [facility] Orthopaedic Surgery [address] [facility] 6th [place] [address] [place] [phone] Vikas Elizabeth MD Pain of right thumb (Primary Dx) 07/10/2024 Documentation [facility] Occupational Therapy [address] [facility] 6th [place] [address] [place] [phone] Prashant Valadez, OT 07/04/2024 4:30 PM CDT Office Visit [facility] Ophthalmology [address] [facility] [address] [place] [phone] Emory Bonilla MD PhD Ocular pain, bilateral (Primary Dx); Keratitis sicca, bilateral; High risk medication use; Conjunctivitis of both eyes, unspecified conjunctivitis type from Last 3 Months Immunizations Name Administration Dates Next Due Hep B Vaccine 08/10/2021,07/06/2021 Influenza, Quadrivalent, Split, Intramuscular Influenza, Quadrivalent, Spl it, Preservative Free, Intramuscular 06/20/2020 Influenza, Trivalent, IM (MDV) 07/06/2021 Influenza, Trivalent, Preservative Free, Intramu scular 07/03/2024,08/02/2015 PPD TEST 05/17/2023,06/23/2022 Surgical History Surgery Date Site/Laterality Comments FRACTURE SURGERY 2018 TUBAL LIGATION 09/12/1995 - 09/11/1996 ORIF DISTAL RADIUS FRACTURE 02/15/2018 Right HARDWARE REMOVAL FOOT / ANKLE 01/20/2024 Right COLONOSCOPY 04/23/2022 CARPAL TUNNEL RELEASE Medical History Medical History Date Comments GERD (gastroesophageal reflux disease) Anxiety Depression Sleep apnea Infection PONV (postoperative nausea and vomiting) Sicca syndrome (HCC) Dry eye Sjogren syndrome (HCC) Family History Medical History Relation Name Comments Arthritis Father Tal Family history of arthritis - (Added by TW Conv) Cancer Father Tal Family history of malignant neoplasm - (Added by TW Conv) Diabetes Father Tal Family history of diabetes mellitus - (Added by TW Conv) Gout Father Tal Family history of gout - (Added by TW Conv) Hearing loss Father Tal Heart disease Father Tal Family history of cardiac disorder - (Added by TW Conv) Hypertension Father Tal Family history of hypertension - (Added by TW Conv) Lung disease Father Tal Family history of lung disease - (Added by TW Conv) Stroke Father Tal Family history of cerebrovascular accident (CVA) - (Added by TW Conv) Arthritis Mother Ruchi Family history of arthritis - (Added by TW Conv) Cancer Mother Ruchi Family history of malignant neoplasm - (Added by TW Conv) Diabetes Mother Ruchi Family history of diabetes mellitus - (Added by TW Conv) Gout Mother Ruchi Family history of gout - (Added by TW Conv) Heart disease Mother Ruchi Family history of cardiac disorder - (Added by TW Conv) Hypertension Mother Ruchi Family history of hypertension - (Added by TW Conv) Lung disease Mother Ruchi Family history of lung disease - (Added by TW Conv) Stroke Mother Ruchi Family history of cerebrovascular accident (CVA) - (Added by TW Conv) Asthma Sister Apoorva Depression Sister Apoorva Relation Name Status Comments Father Tal Mother Ruchi Guerin Social History Tobacco Use Types Packs/Day Years [...] on file Legal Sex Female 12:57 PM SLATE PICKER Gender Identity Not on file Sexual Orientation Not on file Obstetrics History Last Filed Vital Signs Vital Sign Reading Time Taken Comments Blood Pressure 147/82 09/24/2024 9:11 AM SLATE PICKER Pulse 94 09/24/2024 9:11 AM SLATE PICKER Temperature 36.8 ??C (98.2 ??F) 09/24/2024 9:11 AM CS T Respiratory Rate 20 09/24/2024 9:11 AM SLATE PICKER Oxygen Saturation 98% 09/24/2024 9:11 AM SLATE PICKER Inhaled Oxygen Concentration - - Weight 57.8 kg (127 lb 8 oz) 09/24/2024 9:11 AM SLATE PICKER Height 165.1 cm (5' 5 ) 09/24/2024 9:11 AM SLATE PICKER Body Mass Index 21.22 09/24/2024 9:11 AM SLATE PICKER Plan of Treatment Health Maintenance Due Date Last Done Comments Breast Cancer Screening-Mammogram 1960 Cervical Cancer Screening 1960 Colon Cancer Screening-Colonoscopy 1960 Depression Screening 1960 Hepatitis C Screening 1960 Pneumococcal vaccine <65 (1 of 2 - PCV) 1966 DTaP/Tdap/Td Vaccine (1 - Tdap) 1971 Regular Well Visit/Exam 18-64 1978 Zoster Vaccine (1 of 2) 1979 Covid-19 Vaccine (4 - 2023-2 5 season) 2024 09/11/2021, 11/06/2020, 10/09/2020 Influenza Vaccine Completed 07/03/2024, , 06/20/2020, Additional history exists Medical Devices Explanted Type Area Sourcer Device Identifier Shelf Expiration Date Model / Serial / Lot Synthes Lcp Combi 47mm 7 Hole Head 2 Hole Shaft 2 Column Variable Angle - Sna - [id number] Implanted:Qty: 1 on 02/15/2018 by Vikas Elizabeth MD at [facility] Explanted:Qty: 1 on 06/27/2024 at [facility] Right: Radius Synthes I 02.111.720 / NA / NA Synthes 2.4mm 18mm Self Tap Stardrive Screw Cortex T8 Bone - Sna - [id number] Implanted:Qty: 1 on 02/15/2018 by Vikas Elizabeth MD at [facility] Explanted:Qty: 1 on 06/27/2024 at [facility] Right: Radius Synthes I 201.768 / NA / NA Synthes 2.4mm 12mm Self Tap Stardrive Screw Cortex T8 Bone - Sna - [id number] Implanted:Qty: 3 on 02/15/2018 by Vikas Elizabeth MD at [facility] Explanted:Qty: 3 on 06/27/2024 at [facility] Right: Radius Synthes I 201.762 / NA / NA Synthes 2.4mm 18mm Self Tap Lock Variable Angle Stardrive Screw T8 Bone - Sna - [id number] Implanted:Qty: 2 on 02/15/2018 by Vikas Elizabeth MD at [facility] Explanted:Qty: 2 on 06/27/2024 at [facility] Right: Radius Synthes I 02.210.118 / NA / NA Synthes 2.4mm 14mm Self Tap Lock Variable Angle Stardrive Screw T8 Bone - Sna - [id number] Implanted:Qty: 1 on 02/15/2018 by Vikas Elizabeth MD at [facility] Explanted:Qty: 1 on 06/27/2024 at [facility] Right: Radius Synthes I 02.210.114 / NA / NA Insurance [facility] [address] [place] [address] [facility] [address] [place] [address] [facility] [address] [facility] Care Teams House Carpenter Helper Relationship Specialty Start Date End Date Nubia Rodriguez DO [address] [facility] [address] PCP - General Family Medicine 09/18/21 Unknown, Notinfile 02/10/18 Vikas Elizabeth MD [address] [facility] [place] [address] Surgeon Orthopedic Surgery 03/28/18
--- OUTSIDE RECORDS SUMMARY | 2024-10-04 07:42 | XMS_ITS ---
Author Organization [facility] Address [address] [place], [place] [id number] Care Team Providers Care Marketing Development Manager Name Role Phone CATRACHO DICKERSON [phone] Vernace Nubia Unavailable Unavailable REASON FOR VISIT [facility] SURGERY Encounters Encounter Location Date Provider Diagnosis [address] [id number] 01/20/2024 CATRACHO DICKERSON Plan Of Treatment No Information Progress Notes * GARFIELD FERNÁNDEZ ADOB:1960 (63 yo F)Acc No.[id number]:01/20/2024 Patient:GARFIELD L[address] Provider:?Catracho Dickerson DPM :1960???Age:63 Y???Sex:Female D ate:01/20/2024 Address:[address] [place], [place] [address]ADOLFO [id number] * Billing Information: * Visit Code:? * Procedure Codes:? * Sign off status: Completed true * Provider:?Catracho Dickerson DPM Date:?01/20/20 24 Generated for Josefina fleming/Octavio/Ana Luisa on:?10/04/2024 07:41 AM PATRON ATTENDANT
--- OUTSIDE RECORDS SUMMARY | 2024-10-04 07:42 | XMS_ITS | Patient Health Record ---
Author Organization [facility] Address [address] [place], [place] [id number] Care Team Providers Care Hammer Adjuster Name Role Phone CATRACHO DICKERSON Unavailable [phone] Vernace, Nubia Unavailable Unavailable Allergies Allergen (clinical drug ingredient) Drug/Non Drug Allergy documented on EMR Reaction Allergy Type Onset Date Status Anaprox Unknown Drug Allergy Active Reason For Referral Reason [facility] AUT [facility]ORIZATION ( 1 UNIT ) Diagnosis 1 Pain due to internal orthopedic prosthetic devices, implants and grafts, subsequent encounter (T84.84XD) Referred Provider Specialty Podiatry Referral Priority Routine Medications Medication SIG (Take, Route, Frequency, Duration) Notes Start Date End Date Status HYDROcodone-Acetaminophen 5-325 MG 1 tablet as needed Orally every 6 hrs As needed pain 01/20/2024 Active Vital Signs Height-cm 165.1 cm 01/30/2024 Weight-kg 57.61 kg 01/30/2024 Height 65 in 01/30/2024 Weight 127 lbs 01/30/2024 BMI 21.13 kg/m2 01/30/2024 Encounters Encounter Location Date Provider Diagnosis [facility] [address] [place], [place] [id number] 12/19/2023 CATRACHO SNOOK Pain due to internal orthopedic prosthetic devices, implants and grafts, subsequent encounter T84.84XD ; Tendinitis of right foot M77.51 and Pain in right foot M79.[address] [id number] 01/20/2024 CATRACHO SNOOK [facility] [address] [place], [place] [id number] 01/30/2024 CATRACHO SNOOK Pain due to internal orthopedic prosthetic devices, implants and grafts, subsequent encounter T84.84XD and Encounter for other specified surgical aftercare Z48.89 [facility] [address] [place], [place] [id number] 08/27/2024 CATRACHO SNOOK Raynaud's syndrome without gangrene I73.00 ; Contusion of right great toe without damage to nail, initial encounter S90.111A ; Contusion of left great toe without damage to nail, initial encounter S90.112A ; Pain in right foot M79.671 and Left foot pain M79.672 [facility] [address] [facility] [address] [place], [place] [id number] 01/20/2024 CATRACHO SNOOK Assessments Encounter Date Diagnosis (ICD Code) Assessment Notes Treatment Notes Treatment Clinical Notes Section Notes 12/19/2023 Pain due to internal orthopedic prosthetic devices, implants and grafts, subsequent encounter (ICD-10 - T84.84XD) Surgical Consult: We discussed both conservative and surgical treatment options. We discussed the intra-operative and post-operative treatment course. We discussed the risks and complications including, but not limited to: pain, infection, swelling, numbness, under-correction, over-correction, stiffness, no improvement, and need for further surgery. No guarantees were given, nor implied. Questions encouraged and answered. Consent reviewed and placed in chart. The following procedures are proposed: Hardware removal, right foot 12/19/2023 Tendinitis of right foot (ICD-10 - M77.51) 01/30/2024 Pain due to internal orthopedic prosthetic devices, implants and grafts, subsequent encounter (ICD-10 - T84.84XD) Suture Removal: The sutures were removed. Surgical Restriction Release: Patient may resume normal bathing. Return to normal shoes. Gradual return to activities as tolerated. Patient instructed to contact the office if any issues arise. 01/30/2024 Encounter for other specified surgical aftercare (ICD-10 - Z48.89) 08/27/2024 Raynaud's syndrome without gangrene (ICD-10 - [...] to nail, initial encounter (ICD-10 - S90.112A) 12/19/2023 Pain in right foot (ICD-10 - M79.671) 08/27/2024 Pain in right foot (ICD-10 - M79.671) 08/27/2024 Left foot pain (ICD-10 - M79.672) Plan Of Treatment No Information Insurance Providers Payer Name Payer Address Payer Phone Subscriber Number Group Number Insured Name Patient Relationship to Insured Coverage Start Date Coverage End Date [employer] O [address] [place], [place] [id number] GARFIELD FERNÁNDEZ Self - patient is the insured Medical (General) History Surgical History Surgery Date(Month/Year) bunionectomy- left foot
--- OUTSIDE RECORDS SUMMARY | 2024-10-04 07:42 | XMS_ITS | Continuity of Care Document ---
Author Organization [facility] Address [address] [place] [address] Phone Care Team Providers Care Gas Producer Name Role Phone [facility] Unavailable Unavail able Radha Jaramillo Unavailable Unavailable Procedures Procedure Date Progressive Lens, Hi Index Lens-Index>1.66Plas;>1.80Glas 0 Tint Photochromatic, Hi Index 0 Anti-reflective Coating Eye Exam & Treatment Refraction Visual Field Examination(s) Frames Deluxe Anti-reflective Coating Tax - Medical TF Plastic Sphcyl [place] To +/-4d .12-2d Progressive Lens, Polycarb Eye Exam & Treatment Refraction Advance Directives Directive Yes / No Effective Date File Name No Information Encounters Encounter Description Practice Location Reason(s) For Visit Diagnoses Date Provider Providers Copied on Encounter [facility], [address], [place], [place], [address], [place] tel:[phone] [facility] No Information 0 [facility] . [address] [facility], [address], [place], [place], [address], [place]. tel:[phone] Referring Provider: Diego Aiken OD A, [address], [place], [address]. tel:[phone] g Provider: Radha Jaramillo, [address] [facility], [place], [address]. tel:[phone] [facility], [address], [place], [place], [address], [place] tel:[phone] [facility] No Information Sep-0 9-201 0 Aiken OD Diego. [address], [address], [place], [address], [place]. tel:[phone] [facility], [address], [place], [place], [address], [place] tel:[phone] [facility] No Information Logan-2 3-200 8 Aiken OD Diego. [address] , [address], [place], [address], [place]. tel:[phone] Referring Provider: Diego Aiken OD A, [facility], [place], [address]. tel:[phone] [facility], [address] [place] [address] [address], [place], [place], [address], [place] tel:[phone] [facility] No Information Apr-0 2-200 8 [facility] . [address] [facility], [address], [place], [place], [address], [place]. tel:[phone] Referring Provider: Diego Aiken OD A, [facility], [place], [address]. tel:[phone] g Provider: Eneida Garnett, [address] [place], [address]. tel:[phone] [facility], [address], [place], [place], [address], [place] tel:[phone] [facility] No Information Mar-2 8-200 8 Aiken OD Diego. [address] , [address], [place], [address], [place]. tel:[phone] Family History Family Member Type Diagnosis Age At Onset No Information Payers Payer name Insurance type Covered green party ID Adina rodríguez(s) [employer] Plan [id number] Social History Type Description Quantity Date Captured [...]
== END 2024-09-28 18:41 | disposition home or self-care (01) ==
LOC: ANHLAB 18:42
PROVIDERS: PCP Family Medicine; Visit Provider Family Medicine
DX: R73.03 Prediabetes (principal); I10 Essential (primary) hypertension; Z79.899 Other long term (current) drug therapy
CPT/HCPCS: 36415; 80053; 83036; 84443; 85027

== ENCOUNTER 2025-01-15 08:32 | Outpatient (CLI) | payer OTHER, SELFPAY ==
--- NOTE | ~2025-01-15 | DEXA_ITS ---
Bone Density Report Name: GARFIELD FERNÁNDEZ Age: 64 Sex: Female Ethnicity: White Date of : 1960 Indication: postmenopausal; screening for osteoporosis; prior fracture; Referring Provider: HILL SCHULZ Study: Bone densitometry was performed. Exam Date: January 15, 2025 Accession number: [id number] Bone Density: Region BMD T-score Z-score Classification AP Spine(L1, L2, L3) 0.857 -1.5 0.2 Osteopenia Femoral Neck (Left) 0.526 -2.9 -1.4 Osteoporosis Total Hip (Left) 0.693 -2.0 -0.9 Osteopenia Femoral Neck (Right) 0.763 -0.8 0.7 Normal Total Hip (Right) 0.740 -1.7 -0.5 Osteopenia Femoral Neck Mean 0.644 -1.8 -0.4 Osteopenia Total Hip Mean 0.717 -1.8 -0.7 Osteopenia World Health Organization criteria for BMD impression classify patients as: Normal (T-score at or above -1.0), Osteopenia (T-score between -1.0 and -2.5), or Osteoporosis (T-score at or below -2.5). 10-year Fracture Risk: FRAX not reported because: Some T-score for Spine Total or Hip Total or Femoral Neck at or below -2.5 Prior hip or vertebral fracture Clinical Information Provided by Patient: Have had a previous hip or vertebral fracture Has had a low trauma fracture Patient maximum height was 67.2 Menopause Age: 50 No regular weight bearing exercise Drinks caffeinated beverages Onset of menses at age 12 Number of children 1 Impression: The patient has established osteoporosis, based on the Left Femoral Neck T-score and the existence of a prior fracture. The patient has risk factors, including: previous fracture. Discussion: HIGH RISK OF FRACTURE. BONE DENSITY IS UNDESIRABLY LOW AT ONE OR MORE SKELETAL SITES, CONSISTENT WITH POSTMENOPAUSAL OSTEOPOROSIS. This patient's lowest T-score, in a patient who has previously fractured, meets the World Health Organization's (WHO) criteria for severe osteoporosis. In untreated patients, the risk of osteoporotic fracture increases approximately two-fold for each 1.0 SD decrease in T-score. Low bone density is not the only risk factor for fracture; also consider factors such as patient's age, frailty or poor health, risk of falling, risk of injury, previous osteoporotic fracture, family history of osteoporosis, cigarette smoking, low body weight, etc. Not everyone with low bone mineral density has osteoporosis; osteomalacia and other metabolic bone disorders should also be considered. Patients who have osteoporosis should be evaluated for specific diseases and conditions (secondary causes) that may cause or contribute to bone loss. The [place] Association of Clinical Endocrinologists (AACE) and National Osteoporosis Foundation (NOF) recommend pharmacologic intervention for all postmenopausal women with a previous hip or vertebral fracture and a T-score in this range. The patient should follow a healthful lifestyle (good nutrition with adequate calcium and vitamin D, and appropriate weight-bearing exercise). Follow-Up: Consider a repeat BMD and Vertebral Fracture Assessment (VFA) exam in 2 years or sooner if medically necessary, to reassess this patient's status. Reported by: URIAH on 01/15/2025 8:55:00 AM. Reviewed, dictated and finalized at location A.
--- OUTSIDE RECORDS SUMMARY | 2025-01-15 08:54 | XMS_ITS ---
Author Organization [facility] Address [address] [place], [place] [id number] Care Team Providers Care Senior Research Engineer Name Role Phone CATRACHO DICKERSON Unavailable [phone] Vernace, Nubia Unavailable Unavailable REASON FOR VISIT Message Encounters Encounter Location Date Provider Diagnosis [facility] [address] [place], [place] [id number] 10/15/2024 CATRACHODIPESH DICKERSON Plan Of Treatment No Information Progress Notes * PRADEEP GARFIELD ADOB:1960 (64 yo F)Acc No.[id number]:10/15/2024 Patient: GARFIELD BARAJAS :1960 A ge:63 Y S ex:Female Address:[address] [place], [place] [address] [address] * true * Date: Generated for Josefina fleming/Octavio/eTransmitting on: 0 01/15/2025 08:54 AM CDT
--- OUTSIDE RECORDS SUMMARY | 2025-01-15 08:54 | XMS_ITS | Encounter Summary ---
Author Organization [facility] Address [address] [place] [address] Phone Care Team Providers Care Honing Machine Try Out Setter Name Role Phone Gume Amador MD Primary Care Provider [phone] Diego Gibbs DO Unavailable [phone] Nubia Rodriguez DO Primary Care Provider [phone] Yajaira Sandhu MD Unavailable [phone] Reason for Visit * Reason Comments Medication Refill Encounter Details Date Type Department Care Team (Late st Contact Info) Description 08/16/[address] [facility] - Gastroenterology - [place] [address] [place] [id number] Sandhya Mcdaniel Tayla, PAC [address] [place] [address] Medication Refill Social History Tobacco Use Types [...] Kalina Lee RN - 08/20/2021 9:21 AM PATTERN DESIGNER Medication refilled and signed per [facility] chronic medication standing order for pediatric and adult patients. ERN DESIGNER documented in this encounter Plan of Treatment Not on file documented as of this encounter Visit Diagnoses Diagnosis Gastroesophageal reflux disease, unspecified whether esophagitis present Hiatal hernia Diaphragmatic hernia without mention of obstruction or gangrene documented in this encounter Care Teams Honing Machine Try Out Setter Relationship Specialty Start Date End Date Gume Amador MD [address] [facility] [place] [address] PCP - General Family Medicine 08/24/16 10/18/21 Nubia Rodriguez DO [address] [place] [address] PCP - General Family Medicine 10/19/21 Diego Gibbs DO [address] [facility] [place] [address] Gastroenterology 08/24/16 Yajaira Sandhu MD [address] [place] [address] Consulting Physician Gastroenterology 02/24/23 Nubia Rodriguez Family Medicine 12/03/20 documented as of this encounter
--- OUTSIDE RECORDS SUMMARY | 2025-01-15 08:54 | XMS_ITS | Clinical Summary ---
Author Organization [facility] Address [facility] [place] [address] Care Team Providers Care Reaming Machine Tender Name Role Phone Nubia Rodriguez DO Primary Care Provider [phone] Allergies Active Allergy Reactions Criticality Noted Date [...] Problem Noted Date Diagnosed Date Damon's esophagus Family History Medical History Relation Comments Diabetes [...] Sex Assigned at Female 10/02/2024 1:17 PM ACCOUNT ADVISOR Legal Sex Female 10:19 AM CDT Gender Identity Not on file Sexual Orientation Not on file Last Filed Vital Signs Vital Sign Reading Time Taken Comments Blood Pressure 134/85 10/02/2024 6:30 PM ACCOUNT ADVISOR Pulse 80 10/02/2024 6:30 PM ACCOUNT ADVISOR Temperature 36.9 C (98.5 F) 10/02/2024 1:20 PM ACCOUNT ADVISOR Respiratory Rate 15 10/02/2024 6:30 PM ACCOUNT ADVISOR Oxygen Saturation 98% 10/02/2024 6:30 PM ACCOUNT ADVISOR Inhaled Oxygen Concentration - - Weight 56.7 kg (125 lb) 10/02/2024 1:20 PM ACCOUNT ADVISOR Height 165.1 cm (5' 5 ) 10/02/2024 1:20 PM ACCOUNT ADVISOR Body Mass Index 20.8 10/02/2024 1:20 PM ACCOUNT ADVISOR Plan of Treatment Health Maintenance Due Date Last Done Comments Cervical Cancer Screening Pa p Smear (Age 30 to 64) Every 3 Years 1960 Colorectal Cancer Screening Colonoscopy (10 Years) 1960 EGD-Damon's Surveillance 1960 Annual Physical 1963 Hepatitis C 1978 Cervical Cancer Screening Pa p with HPV Testing (Age 30 to 64) Every 5 Years 1990 Cervical Cancer Screening wi HPV 1990 Mammogram Screening 2000 Pneumococcal Vaccine: 50+ Years (1 of 1 - PCV) 2010 Zoster Vaccines (1 of 2) 2010 COVID-19 Vaccine (3 - 2023-2 5 season) 2024 11/06/2020, 10/09/2020 DTaP, Tdap and Td Vaccines ( 3 - Td or Tdap) 05/20/2027 05/20/2017, 03/13/2007 RSV Immunization or 60+ Years (1 - 1-dose 75+ series) 2035 Meningococcal B Vaccine Aged Out No l onger eligible based on patient's age to complete this topic Meningococcal Vaccine Aged Out No charly nahid eligible based on patient's age to complete this topic RSV Immunizations Under 20 Months Aged Out No longer eligible b ased on patient's age to complete this topic [place] [id number] [employer] [place] [employer] Care Teams Reaming Machine Tender Relationship Specialty Start Date End Date Nubia Rodriguez DO [address] [place] [address] PCP - General FAMILY PRACTICE 02/18/21
--- OUTSIDE RECORDS SUMMARY | 2025-01-15 08:54 | XMS_ITS | Encounter Summary ---
Author Organization [facility] Address [address] [place] [address] Phone Care Team Providers Care Retail Assistant Name Role Phone Diego Gibbs Luca ADHIKARI Unavailable [phone] Nubia Rodriguez DO Primary Care Provider [phone] Yajaira Sandhu MD Unavailable [phone] Reason for Visit * Reason Comments Medication Refill Encounter Details Date Type Department Care Team (Late st Contact Info) Description 01/10/2022 Refill [facility] - Gastroenterology - [place] [address] [place] [address] Sandhya Mcdaniel Tayla, PAC [address] [place] [address] Medication Refill Social History Tobacco Use Types [...] on filedocumented in this encounter Care Teams Retail Assistant Relationship Specialty Start Date End Date Nubia Rodriguez DO [address] [place] [place] [address] PCP - General Family Medicine 10/19/21 Diego Gibbs DO Gastroenterology 08/24/16 Yajaira Sandhu MD [address] [place] [address] Consulting Physician Gastroenterology 02/24/23 Nubia Rodriguez Family Medicine 12/03/20 documented as of this encounter
--- OUTSIDE RECORDS SUMMARY | 2025-01-15 08:54 | XMS_ITS ---
Author Organization [facility] Address [address] [place], [place] [id number] Care Team Providers Care Fern Picker Name Role Phone CATRACHO DICKERSON [phone] Vernace, Nubia Unavailable Unavailable REASON FOR VISIT Raynaud's follow-up Encounters Encounter Location Date Provider Diagnosis [facility] [place] [address] [place], [place] [id number] 10/22/2024 CATRACHO DICKERSON Plan Of Treatment No Information Progress Notes * GARFIELD FERNÁNDEZ ADOB:1960 (64 yo F)Acc No.[id number]:10/22/2024 Patient: GARFIELD BARAJAS Provider: Rajinder Dickerson DPM :1960 A ge:63 Y S ex:Female Date:10/22/2024 Address:[address] [place] [address] [place] [id number] Subjective: * Chief Complaints: * 1 . Raynaud's follow-up. * Medical History: Objective: * Vitals: Assessment: Plan: * Treatment: * Billing Information: * Visit Code: * Procedure Codes: * Electronic signature of CATRACHO DICKERSON DPM on 01/15/2025 at 08:54 AM CDT Sign off status: Pending * Provider: Rajinder Dickerson DPM Date: 0 10/22/2024 Generated for Josefina fleming/Octavio/eTmartinsmitting on: 0 01/15/2025 08:54 AM CDT
--- OUTSIDE RECORDS SUMMARY | 2025-01-15 08:54 | XMS_ITS | Encounter Summary ---
Author Organization [facility] Address [address] [place] [address] Phone Care Team Providers Care Terra Cotta Mason Name Role Phone iDego Gibbs Luca ADHIKARI Unavailable [phone] Nubia Rodriguez DO Primary Care Provider [phone] Yajaira Sandhu MD Unavailable [phone] Reason for Visit * Reason Comments Medication Refill Encounter Details Date Type Department Care Team (Late st Contact Info) Description 12/17/2021 Refill [facility] - [facility]enterology - [place] [address] [place] [address] Sandhya Mcdaniel Tayla, PAC [address] [place] [address] Medication Refill Social History Tobacco Use Types [...] gangrene documented in this encounter Care Teams Terra Cotta Mason Relationship Specialty Start Date End Date Nubia Rodriguez DO [address] [place] [address] PCP - General Family Medicine 10/19/21 Diego Gibbs DO Gastroenterology 08/24/16 Yajaira Sandhu MD [address] [place] [address] Consulting Physician Gastroenterology 02/24/23 Nubia Rodriguez Family Medicine 12/03/20 documented as of this encounter
--- OUTSIDE RECORDS SUMMARY | 2025-01-15 08:54 | XMS_ITS | Clinical Summary ---
Author Organization [facility] Address [address] [place] [address] Care Team Providers Care Pump Mechanic Name Role Phone Nubia Rodriguez DO Primary Care Provider [phone] Source Comments [facility],non-owned Affiliates and Associated Physician Practices is amultiple site organization consisting of ambulatory clinics and hospital sitesin [place], [place], [place] and [place]. This disclosure is being madepursuant to the Care Everywhere program and may not contain all information available regarding this patient. Last updated 18.[facility] [employer] Allergies Active Allergy Reactions Criticality Noted Date Comments Naproxen Other Low 10/22/2014 Flu like symtoms Note: flu like symptoms 103 fever Nsaids Nausea and/or Vomiting Low 04/07/2020 Fever and sick Medications * Be aware that medications may not be up to date on this document. Alwaysverify current medications with the patient. pseudoephedrine -guaiFENesin CR 12hr (MUCINEXD) 60-600 MG tablet Take 1 (one) tablet by mouth every 12 hours as needed for Cough, Nasal Congestion or Runny Nose Active diazePAM (VALIUM) 2 MG tablet TAKE 1 TABLET BY MOUTH ONCE DAILY NEEDED. NOT TO EXCEED 10 TABLETS IN 30 DAYS 1 Active traMADol (ULTRAM) 50 MG tablet Take 1 (one) tablet by mouth every 6 hours as needed pain 0 Active cholestyramine (QUESTRAN) 4 g packet Take 1 (one) packet by mouth 1 Active tobramycin (TOBREX) 0.3 % ophthalmic solution 1 (one) drop to 2 (two) drops Active sucralfate (CARAFATE) 1 GM tablet Take 1 (one) tablet by mouth 4 times daily 1 Active FML FORTE 0.25 % ophthalmic suspension INSTILL 1 DROP INTO BOTH EYES TWICE A DAY 1 Active prednisoLONE acetate (PRED FORTE) 1 % ophthalmic suspension 1 Active acetaminophen (Tylenol) 325 MG tablet every 4 hours as needed Active albuterol HFA (Proventil; Ventolin; Proair) 108 (90 Base) MCG/ACT inhaler Inhale 2 (two) puffs by mouth every 6 hours as needed 2 Active ciprofloxacin 0.3% (Ciloxan) 0.3 % ophthalmic solution INSTILL 2 DROPS INTO THE LEFT EYE 4 TIMES PER DAY FOR 3 DAYS DIRECTED 2 Active estradiol (Estrace) 0.1 MG/GM vaginal cream INSERT 1 GRAM VAGINALLY TWICE WEEKLY 2 Active FLUoxetine (PROzac) 10 MG capsule Take 1 (one) capsule by mouth once daily Active famotidine (HM Famotidine) 20 MG tablet HM Famotidine 20 MG Oral Tablet QTY: 0 tablet Days: 0 Refills: 0 Written: 10/04/22 Patient Instructions: 1 bid 3 Active guaiFENesin ER 12hr (Mucinex) 600 MG tablet Take 1 (one) tablet by mouth every 12 hours Active lisdexamfetamin e (Vyvanse) 20 MG capsule Take 1 (one) capsule by mouth every morning 2 Active multivitamins (One A Day) capsule Active mupirocin (Bactroban) 2 % ointment APPLY 1 APPLICATION TOPICALLY TWICE A DAY 2 Active pantoprazole EC (Protonix) 40 MG tablet Take 1 (one) tablet by mouth 2 times daily 3 Active Amphetamine ER (Dyanavel XR) 5 MG BENITA Take 1 tablet by mouth every morning 3 Active DIPHENHYDRAMINE -APAP, SLEEP, PO Active hydroxychloroqu ine (Plaquenil) 200 MG tablet TAKE ONE TABLET BY MOUTH DAILY (DECREASED) 90 tablet 3 4 Active cevimeline (Evoxac) 30 MG capsule TAKE 1 CAPSULE BY MOUTH THREE TIMES A DAY 270 capsule 1 4 Active hydrOXYzine HCl (Atarax) 25 MG tablet Take 1 (one) tablet by mouth 3 times daily as needed 5 Active lisinopril (Prinivil; Zestril) 5 MG tablet Take 1 (one) tablet by mouth every 24 hours 5 Active Dyanavel XR 10 MG TBCR Take 1 tablet by mouth every morning 4 Active Active Problems Problem Noted Date Diagnosed Date 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 Encounters Date Type Department Care Team Description 11/13/2024 1:40 PM TALENT MANAGEMENT SPECIALIST Office Visit [facility] - Rheumatology [address] [place] [phone] Anupam Galicia MD Sicca syndrome (Primary Dx) 11/13/2024 Travel from Last 3 Months Family History [...] Date Recorded PHQ2 TOTAL SCORE 0 09/15/2021 Comments No Sex and Gender Information Value Date Recorded Sex Assigned at Not on file Legal Sex Female 5:31 PM TALENT MANAGEMENT SPECIALIST Gender Identity Not on file Sexual Orientation Not on file Last Filed Vital Signs Vital Sign Reading Time Taken Comments Blood Pressure 128/78 11/13/2024 1:53 PM TALENT MANAGEMENT SPECIALIST Pulse 91 11/13/2024 1:53 PM TALENT MANAGEMENT SPECIALIST Temperature 36.8 C (98.2 F) 11/13/2024 1:53 PM TALENT MANAGEMENT SPECIALIST Respiratory Rate 17 07/22/2021 4:45 PM TALENT MANAGEMENT SPECIALIST Oxygen Saturation 98% 11/13/2024 1:53 PM TALENT MANAGEMENT SPECIALIST Inhaled Oxygen Concentration - - Weight 59 kg (130 lb) 11/13/2024 1:53 PM TALENT MANAGEMENT SPECIALIST Height 165.1 cm (5' 5 ) 11/13/2024 1:53 PM TALENT MANAGEMENT SPECIALIST Body Mass Index 21.63 11/13/2024 1:53 PM TALENT MANAGEMENT SPECIALIST Plan of Treatment Upcoming Encounters Date Type Department Care Team (Late st Contact Info) Description 11/18/2025 12:40 PM CDT Office Visit [facility] - Rheumatology [address] [place] [address], [place] [id number] Anupam Galicia MD [address] [place] [address] [place] [address] Health Maintenance Due Date Last [...] VACCINE (3 - season) 2024 11/06/2020, 10/09/2020 DEPRESSION SCREENING 09/12/2024 Respiratory Syncytial Virus (RSV) Vaccine Pt: or over 60 yrs (1 - 1-dose 75+ series) 2035 INFLUENZA VACCINE Completed 07/03/2024, , 06/26/2021, Additional history exists HEPATITIS B VACCINE Aged Out No longe r eligible based on patient's age to complete this topic HIB VACCINE Aged Out No longer eligi ble based on patient's age to complete this topic HPV VACCINE Aged Out No longer eligi ble based on patient's age to complete this topic MENINGOCOCCAL (Group B) VACCINE SHARED DECISION-MAKING Aged Out No longer eligible based on patient's age to complete this topic MENINGOCOCCAL GROUPS A/C/Y/W VACCINE Aged Out No longer eligible based on patient's age to complete this topic Procedures Procedure Name Priority Date/Time Associated Diagnosis Comments URINALYSIS W/MICROSCOPIC REFLEX TO CULTURE Routine 11/27/2024 2:34 PM CDT Sicca syndrome ERYTHROCYTE SEDIMENTATION RATE Routine 11/27/2024 2:34 PM CDT Sicca syndrome C-REACTIVE PROTEIN Routine 11/27/2024 2: 34 PM CDT Sicca syndrome COMPREHENSIVE METABOLIC PANEL Routine 11/27/2024 2:34 PM CDT Sicca syndrome CK BLOOD Routine 11/27/2024 2:34 PM CDT Sicca syndrome CBC W AUTO DIFFERENTIAL Routine 11/28/19 2:34 PM CDT Sicca syndrome ALDOLASE Routine 11/27/2024 2:34 PM CDT Sicca syndrome COMPLEMENT C4 Routine 11/27/2024 2:34 PM CDT Sicca syndrome COMPLEMENT C3 Routine 11/27/2024 2:34 PM CDT Sicca syndrome IMMUNOGLOBULINS IGG/IGM/IGA PANEL Routine 11/27/2024 2:34 PM CDT Sicca syndrome SCLEROSIS 12 ANTIBODY PNL Routine 11/27/2024 2:34 PM CDT Sicca syndrome JEFFERY PANEL COMPREHENSIVE Routine 11/28/19 25 2:34 PM CDT Sicca syndrome CULTURE URINE 11/27/2024 2:34 PM CDT CULTURE URINE REFLEXED II 11/27/2024 2:34 PM CDT from Last 3 Months Results * SCLEROSIS 12 ANTIBODY PNL (11/27/2024 2:34 PM CDT) SCL-70 <11 <11 SI [facility] Centromere protein [...] 75 <11 <11 SI [facility] Comment: The [place] [employer] (ACR) considers anti-Scl-70 (also [...] patients and anti-RP155 antibodies in about 8%. Jmrw-[id number] antibodies are associated with SSc and inflammatory myopathy overlap syndromes. Three major components of U1-snRNP are tested: U1-snRNP LAMINATION MACHINE OPERATOR A, U1-snRNP LAMINATION MACHINE OPERATOR C, U1-snRNP [id number]. The presence of U1-snRNP antibodies occur in [...] Fibrillarin antibodies are found more frequently in -[place] patients and when seen in this population, [...] is directed to one of two proteins: PM/Dvg670 and/or PM/Scl75. More information can be found at https://[email or web address]/testcenter/testguide.action ?dc=CF-SystScler This test was developed and its analytical performance characteristics have been determined by [employer]. It has not been cleared or approved by the FDA. This assay has been validated pursuant to the CLIA regulations and is used for clinical purposes. Test Performed at: [facility] [address] [place] [address] TAVARES MEDRANO MD,PHD,ALENA Blood BLOOD SPECIMEN / Unknown 11/27/2024 2:34 PM CDT 11/27/2024 2:35 PM CDT us Anupam Galicia MD LAB - SEROLOGY ORDERABLES Final Result [address] [address] * CULTURE URINE REFLEXED II (11/27/2024 2:34 PM CDT) Reflexive Urine Culture See Below [facility] Comment: CULTURE INDICATED - RESULTS TO FOLLOW Test Performed at: [email or web address] [address] LAURA ESPINAL MD 11/27/2024 2:34 PM CDT 11/27/2024 2:35 PM CDT us Anupam Galicia MD LAB - MICROBIOLOGY ORDERABLES Fi nal Result Performing Organization Address [facility] Co de Phone Number [facility] [address] [place] [address] * JEFFERY PANEL COMPREHENSIVE (11/27/2024 2:34 PM CDT) JEFFERY Screen NEGATIVE NEGATIVE [facility] Comment: [...] AC-0: Negative International Consensus on JEFFERY Patterns (https://doi.org/10.1515/txit-0164-6773) For additional information, please refer to http://education.[employer]/faq/HKY851 (This link is being provided for informational/ educational purposes only.) dsDNA Antibody <1 IU/mL [facility] Comment: IU/mL Interpretation < or = 4 Negative 5-9 Indeterminate > or = 10 Positive SCL-70 Antibody <1.0 NEG <1.0 NEG AI [facility] SM Antibody <1.0 NEG <1.0 NEG AI [facility] SM/LAMINATION MACHINE OPERATOR Antibody <1.0 NEG <1.0 NEG AI [facility] Sjogren's Antibodies (SSA) <1.0 NEG <1.0 NEG AI [facility] Sjogren's Antibodies (SSB) <1.0 NEG <1.0 NEG AI [facility] Comment: Test Performed at: [facility] [address] [place] [address] LAURA ESPINAL MD Blood BLOOD SPECIMEN / Unknown 11/27/2024 2:34 PM CDT 11/27/2024 2:35 PM CDT Anupam Galicia MD LAB - SEROLOGY ORDERABLES Final Result Performing Organization Address [facility] Co de Phone Number [facility] [address] [place] [address] * (ABNORMAL) URINALYSIS W/MICROSCOPIC REFLEX TO CULTURE (11/27/2024 2:34 PM CDT) Color UA YELLOW YELLOW [facility] Appearance CLEAR CLEAR [facility] Specific [place] UA 1.013 1.001 - 1.035 [facility] pH UA 7.0 5.0 - 8.0 [facility] Glucose UA NEGATIVE [...] elements seen were reported. Test Performed at: [email or web address] [address] LAURA ESPINAL MD Urine URINE SPECIMEN OBTAINED BY CLEAN CATCH PROCEDURE / Unknown 11/27/2024 2:34 PM CDT 11/27/2024 2:35 PM CDT us Anupam Galicia MD LAB - URINALYSIS ORDERABLES Meenu l Result Performing Organization Address [facility] de Phone Number [facility] [address] [place] [address] * C-REACTIVE PROTEIN (11/27/2024 2:34 PM CDT) C-Reactive Protein <5.0 <8.0 mg/L [facility] Comment: Test Performed at: [facility] [address] LAURA ESPINAL MD Blood BLOOD SPECIMEN / Unknown 11/27/2024 2:34 PM CDT 11/27/2024 2:35 PM CDT us Anupam Galicia MD LAB - CHEMISTRY ORDERABLES Final Result Performing Organization Address [facility]/State/[facility] Co de Phone Number [address] [address] * ALDOLASE (11/27/2024 2:34 PM CDT) Aldolase 3.7 < OR = 8.1 U/L [facility] Comment: Test Performed at: [facility] [place] [address] [facility] [place], [place] [address] LAURA ESPINAL MD Blood BLOOD SPECIMEN / Unknown 11/27/2024 2:34 PM CDT 11/27/2024 2:35 PM CDT us Anupam Galicia MD LAB - CHEMISTRY ORDERABLES Final Result Performing Organization Address [facility] [place] [address] * CULTURE URINE (11/27/2024 2:34 PM CDT) Pathologist [facility] Culture [facility] Comment: CULTURE, URINE, ROUTINE Micro Number: [id number] Test Status: Final Specimen Source: Urine Specimen Quality: Adequate Result: No Growth Test Performed at: [facility] [address] LAURA ESPINAL MD 11/27/2024 2:34 PM CDT 11/27/2024 2:35 PM CDT us Anupam Galicia MD LAB - MICROBIOLOGY ORDERABLES Fi nal Result Performing Organization Address [facility] Co de Phone Number [address] [address] * ERYTHROCYTE SEDIMENTATION RATE (11/27/2024 2:34 PM CDT) Pathologist [facility] Erythrocyte Sedimentation Rate Westergren 14 < OR = 30 mm/h [facility] Comment: Test Performed at: [facility] [address] LAURA ESPINAL MD Blood BLOOD SPECIMEN / Unknown 11/27/2024 2:34 PM CDT 11/27/2024 2:35 PM CDT us Anupam Galicia MD LAB - HEMATOLOGY ORDERABLES Meenu l Result Performing Organization Address [facility]/ZIP Co de Phone Number [facility] [address] [place] [address] * CBC WITH DIFFERENTIAL (11/27/2024 2:34 PM CDT) [facility] White Blood Cell Count 7.5 3.8 - 10.8 Thousand/u L [facility] RBC 4.52 3.80 - 5.10 Million/uL [facility] Hemoglobin 14.2 11.7 - 15.5 g/dL [facility] Hematocrit 43.4 35.0 - 45.0 % [facility] MCV 96.0 80.0 - 100.0 fL [facility] MCH 31.4 27.0 - 33.0 pg [facility] MCHC 32.7 32.0 - 36.0 g/dL [facility] Comment: For adults, a slight decrease in the calculated MCHC value (in the range of 30 to 32 g/dL) is most likely not clinically significant; however, it should be interpreted with caution in correlation with other red cell parameters and the patient's clinical condition. RDW 13.1 11.0 - 15.0 % [facility] Platelet Count 354 140 - 400 Thousand/u L [facility] MPV 8.5 7.5 - 12.5 fL [facility] Neutrophil Absolute 4980 1500 - 7800 cells/uL [facility] Lymphocytes Absolute 1793 850 - 3900 cells/uL [facility] Absolute Monocytes 608 200 - 950 cells/uL [facility] Eosinophils Absolute 68 15 - 500 cells/uL [facility] Basophils Absolute 53 0 - 200 cells/uL [facility] Granulocytes % 66.4 % [facility] Lymphocytes % 23.9 % [facility] Monocytes % 8.1 % [facility] Eosinophils % 0.9 % [facility] Basophils % 0.7 % [facility] Comment: Test Performed at: [email or web address] [address] LAURA ESPINAL MD Blood BLOOD SPECIMEN / Unknown 11/27/2024 2:34 PM CDT 11/27/2024 2:35 PM CDT Anupam Galicia MD LAB - HEMATOLOGY ORDERABLES Meenu l Result Performing Organization Address City/[facility]/ZIP Co de Phone Number [facility] [address] [place] [address] * COMPLEMENT C4 (11/27/2024 2:34 PM CDT) [facility] Complement C4 24 15 - 57 mg/dL [facility] Comment: Test Performed at: [facility] [address] [facility] [place] [address] LAURA ESPINAL MD Blood BLOOD SPECIMEN / Unknown 11/27/2024 2:34 PM CDT 11/27/2024 2:35 PM CDT us Anupam Galicia MD LAB - SEROLOGY ORDERABLES Final Result [address] [address] * (ABNORMAL) COMPREHENSIVE METABOLIC PANEL (11/27/2024 2:34 PM CDT) Glucose 85 65 - 99 mg/dL [facility] Comment: Fasting reference interval BUN 24 7 - 25 mg/dL [facility] Creatinine 0.59 0.50 - 1.05 mg/dL [facility] eGFR by Cystatin C 101 > OR = 60 mL/min/1. 73m2 [facility] BUN/Creatinine Ratio SEE NOTE: 6 - 22 (calc) [facility] Comment: Not Reported: BUN and Creatinine are within reference range. Sodium 136 135 - 146 mmol/L [facility] Potassium 3.8 3.5 - 5.3 mmol/L [facility] Chloride 99 98 - 110 mmol/L [facility] CO2 30 20 - 32 mmol/L [facility] Calcium 9.8 8.6 - 10.4 mg/dL [facility] Protein Total 7.6 6.1 - 8.1 g/dL [facility] Albumin 4.8 3.6 - 5.1 g/dL [facility] Globulin Total 2.8 1.9 - 3.7 g/dL (calc) [facility] Albumin/Globulin Ratio 1.7 1.0 - 2.5 (calc) [facility] Bilirubin Total 0.6 0.2 - 1.2 mg/dL [facility] Alkaline Phosphatase 124 37 - 153 U/L [facility] AST 37(H) 10 - 35 U/L [facility] ALT 24 6 - 29 U/L [facility] Comment: Test Performed at: [facility] [address] LAURA ESPINAL MD Blood BLOOD SPECIMEN / Unknown 11/27/2024 2:34 PM CDT 11/27/2024 2:35 PM CDT us Anupam Galicia MD LAB - CHEMISTRY ORDERABLES Final Result Performing Organization Address [facility] Co de Phone Number [address] [address] * CK BLOOD (11/27/2024 2:34 PM CDT) Pathologist [facility] CK 176 20 - 243 U/L [facility] Comment: Test Performed at: [facility] [id number] [address] LAURA ESPINAL MD Blood BLOOD SPECIMEN / Unknown 11/27/2024 2:34 PM CDT 11/27/2024 2:35 PM CDT us Anupam Galicia MD LAB - CHEMISTRY ORDERABLES Final Result Performing Organization Address [facility] Co de Phone Number [address] [address] * (ABNORMAL) IMMUNOGLOBULINS IGG/IGM/IGA PANEL (11/27/2024 2:34 PM CDT) Pathologist [facility] IgA 382(H) 70 - 320 mg/dL [facility] IgG 995 600 - 1540 mg/dL [facility] IgM 85 50 - 300 mg/dL [facility] Comment: Test Performed at: [facility] [place] [address] LAURA ESPINAL MD Blood BLOOD SPECIMEN / Unknown 11/27/2024 2:34 PM CDT 11/27/2024 2:35 PM CDT us Anupam Galicia MD LAB - CHEMISTRY ORDERABLES Final Result Performing Organization Address [facility] Co de Phone Number [address] [address] * COMPLEMENT C3 (11/27/2024 2:34 PM CDT) Pathologist [facility] Complement C3 153 83 - 193 mg/dL [facility] Comment: Test Performed at: [employer] [address] [address] [place] [employer] [address] LAURA ESPINAL MD Blood BLOOD SPECIMEN / Unknown 11/27/2024 2:34 PM CDT 11/27/2024 2:35 PM CDT us Anupam Galicia MD LAB - CHEMISTRY ORDERABLES Final Result [facility] [id number] [place] [address] from Last 3 Months Insurance [place] [id number] [employer] [place] [id number] Care Teams Pump Mechanic Relationship Specialty Start Date End Date Nubia Rodriguez DO [address] [place] [address] PCP - General Family Medicine 06/21/23
--- OUTSIDE RECORDS SUMMARY | 2025-01-15 08:54 | XMS_ITS | Encounter Summary ---
Author Organization [facility] Address [address] [place] [address] Phone Care Team Providers Care Lna Name Role Phone Gume Amador MD Primary Care Provider [phone] Diego Gibbs DO Unavailable [phone] Nubia Rodriguez DO Primary Care Provider [phone] Yajaira Sandhu MD Unavailable [phone] Reason for Visit * Reason Comments Medication Refill Encounter Details Date Type Department Care Team (Late st Contact Info) Description 04/20/2021 Refill [facility] - [facility]astroenterology [facility] [address] [place] [id number] Sandhya Mcdaniel Tayla, PAC [address] [place] [address] Medication Refill Social History Tobacco Use Types [...] gangrene documented in this encounter Care Teams Lna Relationship Specialty Start Date End Date Gume Amador MD [address] [facility] [address] PCP - General Family Medicine 08/24/16 10/18/21 Nubia Rodriguez DO [address] [place] [address] PCP - General Family Medicine 10/19/21 Diego Gibbs DO [address] [facility] [address] Gastroenterology 08/24/16 Yajaira Sandhu MD [address] [place] [address] Consulting Physician Gastroenterology 02/24/23 Nubia Rodriguez Family Medicine 12/03/20 documented as of this encounter
--- OUTSIDE RECORDS SUMMARY | 2025-01-15 08:54 | XMS_ITS | Encounter Summary ---
Author Organization [facility] Address [address] [place] [address] Phone Care Team Providers Care Manager Presentation Name Role Phone Diego Gibbs DO Unavailable [phone] Nubia Rodriguez DO Primary Care Provider [phone] Yajaira Sandhu MD Unavailable [phone] Reason for Visit * Reason Comments Medication Refill Encounter Details Date Type Department Care Team (Late st Contact Info) Description 04/19/2022 Refill [facility] [address] [place] [address] Yajaira Sandhu MD [address] [place] [address] Medication Refill Social History Tobacco Use Types [...] AM CDT [facility]ication [facility] for pediatric and adult patients. documented in this encounter Plan of Treatment Not on file documented as of this encounter Visit Diagnoses Diagnosis Gastroesophageal reflux disease, unspecified whether esophagitis present Hiatal hernia Diaphragmatic hernia without mention of obstruction or gangrene documented in this encounter Care Teams Manager Presentation Relationship Specialty Start Date End Date Nubia Rodriguez DO [address] [place] [address] PCP - General Family Medicine 10/19/21 Diego Gibbs DO Gastroenterology 08/24/16 Yajaira Sandhu MD [address] [place] [address] Consulting Physician Gastroenterology 02/24/23 Nubia Rodriguez Family Medicine 12/03/20 documented as of this encounter
--- OUTSIDE RECORDS SUMMARY | 2025-01-15 08:54 | XMS_ITS | Continuity of Care Document ---
Author Organization [facility] Address [address] [place] [address] Phone Care Team Providers Care Drill Operator Automatic Name Role Phone [facility] Unavailable Unavail able Radha Jaramillo Unavailable Unavailable Procedures Procedure Date Progressive Lens, Hi Index Lens-Index>1.66Plas;>1.80Glas 0 Tint Photochromatic, Hi Index 0 Anti-reflective Coating Eye Exam & Treatment Refraction Visual Field Examination(s) Frames Deluxe Anti-reflective Coating Tax - Medical TF Plastic Sphcyl Floyd To +/-4d .12-2d Progressive Lens, Polycarb Eye Exam & Treatment Refraction Advance Directives Directive Yes / No Effective Date File Name No Information Encounters Encounter Description Practice Location Reason(s) For Visit Diagnoses Date Provider Providers Copied on Encounter [facility], [address], [place], [place], [id number], [place] tel:[phone] [facility] No Information 0 [facility] . [address] [facility], [address], [place], [place], [id number], [place]. tel:[phone] Referring Provider: Diego Aiken OD A, [address], [place], [address]. tel:[phone] g Provider: Radha Jaramillo, [address] [facility], [place], [address]. tel:[phone] [facility], [address], [place], [place], [id number], [place] tel:[phone] [facility] No Information Sep-0 9-201 0 Aiken OD Diego. [address], [address], [place], [address], [place]. tel:[phone] [facility], [address], [place], [place], [id number], [place] tel:[phone] [facility] No Information Logan-2 3-200 8 Aiken OD Diego. [address] [facility] [address] , [address], [place], [address], [place]. tel:[phone] Referring Provider: Diego Aiken OD A, [facility], [place], [address]. tel:[phone] [facility], [address] [place] [address] [address], [place], [place], [id number], [place] tel:[phone] [facility] No Information Apr-0 2-200 8 [facility] . [address] [facility], [address], [place], [place], [address], [place]. tel:[phone] Referring Provider: Diego Aiken OD A, [facility], [place], [address]. tel:[phone] g Provider: Eneida Garnett, [address] [place], [address]. tel:[phone] [facility], [address], [place], [place], [id number], [place] tel:[phone] [facility] No Information Mar-2 8-200 8 Aiken OD Diego. [address] [facility] , [address], [place], [address], [place]. tel:[phone] Family History Family Member Type Diagnosis Age At Onset No Information Payers Payer name Insurance type Covered republican ID Adina rodríguez(s) [employer] Plan [id number] Social History Type Description Quantity Date Captured [...]
--- OUTSIDE RECORDS SUMMARY | 2025-01-15 08:55 | XMS_ITS | Encounter Summary ---
Author Organization [facility] Healthcare Address [address] [place] [address] Care Team Providers Care Third Cook Name Role Phone Unknown, Notinfile Unavailable Unavailable Vikas Elizabeth MD Unavailable Nubia Rodriguez DO Primary Care Provider [phone] Encounter Details Date Type Department Care Team (Late st Contact Info) Description 01/05/2025 Results Follow-Up [facility] Convenient Care at [address] [address] Dbe Yoon PA [address] [place] [address] [address] [place] [address] Social History Tobacco Use Types Packs/Day Years Used Date Smoking Tobacco: Never Cigarettes Smokeless Tobacco: Never AUDIT-C Answer Date Recorded Q1: How often [...] on file 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
--- OUTSIDE RECORDS SUMMARY | 2025-01-15 08:55 | XMS_ITS | Referral Summary ---
Author Organization [facility] Healthcare Address [address] [place] [address] Care Team Providers Care Staff Technologist Name Role Phone Unknown, Notinfile Unavailable Unavailable Vikas Elizabeth MD Unavailable Nubia Rodriguez DO Primary Care Provider [phone] Encounters Date Type Department Care Team Description 01/10/2025 12:28 PM CDT - 01/10/2025 11:59 PM CDT Hospital Encounter [facility] Cardiology [address] [place] [address] Pre-operative exam Discharge Disposition: Discharge to home or self care 01/10/2025 12:28 PM CDT - 01/10/2025 11:59 PM CDT Hospital Encounter [facility] Imaging Center [address] [place] [address] Pre-operative exam Discharge Disposition: Discharge to home or self care 01/10/2025 12:00 PM CDT Lab [address] [address] Pre-operative exam 01/10/2025 7:46 AM CDT - 01/10/2025 11:59 PM CDT Hospital Encounter [facility] Medical [facility] Orthopedics and Sports Medicine [address] [place] [address] [address] [place] [address] Discharge Disposition: Discharge to home or self care 01/10/2025 10:30 AM CDT Office Visit [facility] Orthopedics and Sports Medicine [address] [place] [address] [address] [place] [address] Manuel Pizano MD Pre-operative exam (Primary Dx); Right hip pain; Primary osteoarthritis of right hip 01/05/2025 Results Follow-Up [facility] Convenient Care at [address] [phone] Deb Yoon PA 01/04/2025 Plan of Care Documentation [facility] Occupational Therapy [address] [place] [address] 1st Floor [address] [place] [phone] 01/04/2025 9:10 AM CDT Therapy [facility] Occupational Therapy [address] [place] [address] Floor [address] [place] [phone] Uzma Antunez OT Decreased range of motion of right thumb (Primary Dx) 01/04/2025 8:40 AM CDT Office Visit [facility] Orthopaedic Surgery [address] [place] [address] 2nd Floor [address] [place] [address] Vikas Elizabeth MD Decreased range of motion of right thumb (Primary Dx); Pain of right thumb 01/01/2025 5:54 PM CDT - 01/01/2025 11:59 PM CDT Hospital Encounter [address] [address] Cellulitis of toe of right foot Discharge Disposition: Discharge to home or self care 01/01/2025 10:00 AM CDT Office Visit 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 cholestyramine (QUESTRAN) 4 gram [...] day 5 mL 11 06/04/20 24 Active cyclobenzaprine (FLEXERIL) 10 mg tablet Take 2 [...] day 8.4 mL 11 07/11/20 24 Active hydrOXYzine (ATARAX) 25 mg tablet TAKE 1 TABLET BY MOUTH THREE TIMES A DAY NEEDED FOR ANXIETY Active diclofenac DR (VOLTAREN) 50 mg EC tablet Take 1 tablet (50 mg total) by mouth 2 (two) times a day 12/26/19 25 Active mupirocin (BACTROBAN) 2 % ointmentIndicatio ns:Paronychia of great toe of right foot Apply topically 3 (three) times a day 22 g 09/24/19 25 025 Discontinu ed(Therapy completed) mupirocin (BACTROBAN) 2 % ointment Apply topically 3 (three) times a day for 10 days 22 g 01/02/20 25 025 doxycycline (VIBRAMYCIN) 100 mg capsule Take 1 tablet/capsule (100 mg total) by mouth 2 (two) times a day for 10 days 20 tablet/capsu le 01/02/20 25 025 Active Problems Problem Noted Date Diagnosed Date Retained orthopedic hardware 06/12/2024 Strain of right flexor pollicis longus tendon Damon's esophagus 05/01/2024 Attention-deficit hyperactivity disorder 022 Generalized anxiety disorder 12/07/2021 Major depression 12/07/2021 Psychophysiological insomnia 12/07/2021 Closed fracture of distal en d of right radius with routine healing 02/28/2018 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 Immunizations Immunization Administration Dates Next Due Hep B Vaccine [...] on file 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 Gender Identity Not on file Sexual Orientation Not on file Last Filed Vital Signs Vital Sign Reading Time Taken Comments Blood Pressure 102/70 01/01/2025 9:48 AM CDT Pulse 98 01/01/2025 9:48 AM CDT Temperature 36.7 C (98.1 F) 01/01/2025 9:48 AM CDT Respiratory Rate 20 01/01/2025 9:48 AM CDT Oxygen Saturation 99% 01/01/2025 9:48 AM CDT Inhaled Oxygen Concentration - - Weight 57.2 kg (126 lb) 01/01/2025 9:48 AM CDT Height 165.1 cm (5' 5 ) 09/24/2024 9:11 AM MOLD CARRIER Body Mass Index 20.97 09/24/2024 9:11 AM MOLD CARRIER Plan of Treatment Not on file Medical Devices Explanted Type Area Business Continuity Specialist Device Identifier Shelf Expiration Date Model / Serial / Lot Synthes Lcp Combi 47mm 7 Hole Head 2 Hole Shaft 2 Column Variable Angle - Sna - [id number] Implanted:Qty: 1 on 02/15/2018 by Vikas Elizabeth MD at [facility] Explanted:Qty: 1 on 06/27/2024 at [facility] Right: Radius Synthes I [id number] / NA / NA Synthes 2.4mm 18mm Self Tap Stardrive Screw Cortex T8 Bone - Sna - [id number] Implanted:Qty: 1 on 02/15/2018 by Vikas Elizabeth MD at [facility] Explanted:Qty: 1 on 06/27/2024 at [facility] Right: Radius Synthes I [id number] / NA / NA Synthes 2.4mm 12mm Self Tap Stardrive Screw Cortex T8 Bone - Sna - [id number] Implanted:Qty: 3 on 02/15/2018 by Vikas Elizabeth MD at [facility] Explanted:Qty: 3 on 06/27/2024 at [facility] Right: Radius Synthes I [id number] / NA / NA Synthes 2.4mm 18mm Self Tap Lock Variable Angle Stardrive Screw T8 Bone - Sna - [id number] Implanted:Qty: 2 on 02/15/2018 by Vikas Elizabeth MD at [facility] Explanted:Qty: 2 on 06/27/2024 at [facility] Right: Radius Synthes I [id number] / NA / NA Synthes 2.4mm 14mm Self Tap Lock Variable Angle Stardrive Screw T8 Bone - Sna - [id number] Implanted:Qty: 1 on 02/15/2018 by Vikas Elizabeth MD at [facility] Explanted:Qty: 1 on 06/27/2024 at [facility] Right: Radius Synthes I [id number] / NA / NA Procedures Procedure Name Priority Date/Time Associated Diagnosis Comments ECG 12-LEAD Routine 01/10/2025 12:47 PM CDT Pre-operative exam EGFR Routine 01/10/2025 12:12 PM CDT Pre-operative exam URINALYSIS, MICROSCOPIC ONLY Routine 01/10/2025 12:12 PM CDT Pre-operative exam DIFFERENTIAL AUTO Routine 01/10/2025 12: 12 PM CDT Pre-operative exam HEMOGLOBIN A1C Routine 01/10/2025 12:12 PM CDT Pre-operative exam COMPREHENSIVE METABOLIC PANEL Routine 01/10/2025 12:12 PM CDT Pre-operative exam CBC WITH AUTO DIFFERENTIAL Routine 01/10/2025 12:12 PM CDT Pre-operative exam URINALYSIS AND REFLEX TO MICROSCOPIC AND CULTURE Routine 01/10/2025 12:12 PM CDT Pre-operative exam XR HIP RIGHT 2 OR 3 VIEWS Schedule Routine, Read Routine (OP Routine) 01/10/2025 10:27 AM CDT Right hip pain AEROBIC AND ANAEROBIC CULTURE AND GRAM STAIN Routine 01/01/2025 12:00 PM CDT Cellulitis of toe of right foot from Last 3 Months Results * ECG 12 lead (01/10/2025 12:47 PM CDT) 01/10/2025 12:5 0 PM CDT Narrative [facility] - 01/10/2025 1:51 PM CDT Vent Rate: 89 bpm RR Interval: 673 msec MO Interval: 150 msec QRS Duration: 83 msec QT Interval: 339 msec QTC Interval: 385 msec P-R-T Dunbar: 79 - 66 - 56 degrees IMPRESSION: SINUS RHYTHM POSSIBLE LEFT ATRIAL ENLARGEMENT [-0.1mV P-WAVE IN V1/V2] POSSIBLE RIGHT VENTRICULAR CONDUCTION DELAY [RSR (QR) IN V1/V2] BORDERLINE ECG Electronically Signed By: Tomasa Barger MD us Manuel Pizano MD ECG ORDERABLES Final Re sult [facility] * eGFR (01/10/2025 12:12 PM CDT) eGFR >90 >=60 mL/min/1. 73 m2 Comment: Interpretive Data Reference Interval Normal >/= 90 mL/min/1.73m2 Mildly decreased* 60 - 89 mL/min/1.73m2 Mildly to moderately decreased 45 - 59 mL/min/1.73m2 Moderately to severely decreased 30 - 44 mL/min/1.73m2 Severely decreased 15 - 29 mL/min/1.73m2 Kidney Failure < 15 mL/min/1.73m2 *Relative to young adult level Estimated glomerular filtration rate is determined by the 2020 CKD-EPI equation recommended by the National Kidney Foundation (A Unifying Approach to GFR Estimation: Recommendations of the NKF-ASK Task Force on Reassessing the Inclusion of Race in Diagnosing Kidney Disease, JASN 2020). The CKD-EPI equation should not be used for patients with unstable renal function and has not been validated in children and those over 70. Current interpretive data was last reviewed 2021. Blood 01/10/2025 12:1 2 PM CDT 01/10/2025 12:35 PM CDT us Manuel Pizano MD LAB BLOOD ORDERABLES Fin al Result Performing Organization Address City/[facility] Co de Phone Number [facility] [address] [facility] [place] [address] * Differential, auto (01/10/2025 12:12 PM CDT) Neutrophil abs 4.44 1.50 - 6.50 K/cumm Imm gran abs 0.04 0.00 - 0.10 K/cumm [facility] ([facility]) Lymphocyte abs 1.72 0.80 - 3.30 K/cumm [facility] ([facility]) Monocyte abs 0.60 0.20 - 0.80 K/cumm [facility] ([facility]) Eosinophil abs 0.08 0.00 - 0.50 K/cumm [facility] ([facility]) Basophil abs 0.07 0.00 - 0.10 K/cumm [facility] ([facility]) Neutrophil pct 63.9 % [facility] ([facility]) Comment: Interpretive Data Percent cell count reference ranges are not reported, since discordance with absolute values may lead to misinterpretation of CBC data. Current Interpretive Data was last revised on 2017. Imm gran pct 0.6 % [facility] ([facility]) Comment: Interpretive Data Percent cell count reference ranges are not reported, since discordance with absolute values may lead to misinterpretation of CBC data. Current Interpretive Data was last revised on 2017. Lymphocyte pct 24.7 % [facility] ([facility]) Comment: Interpretive Data Percent cell count reference ranges are not reported, since discordance with absolute values may lead to misinterpretation of CBC data. Current Interpretive Data was last revised on 2017. Monocyte pct 8.6 % [facility] ([facility]) Comment: Interpretive Data Percent cell count reference ranges are not reported, since discordance with absolute values may lead to misinterpretation of CBC data. Current Interpretive Data was last revised on 2017. Eosinophil pct 1.2 % [facility] ([facility]) Comment: Interpretive Data Percent cell count reference ranges are not reported, since discordance with absolute values may lead to misinterpretation of CBC data. Current Interpretive Data was last revised on 2017. Basophil pct 1.0 % [facility] ([facility]) Comment: Interpretive Data Percent cell count reference ranges are not reported, since discordance with absolute values may lead to misinterpretation of CBC data. Current Interpretive Data was last revised on 2017. Blood 01/10/2025 12:1 2 PM CDT 01/10/2025 12:35 PM CDT us Manuel Pizano MD LAB BLOOD ORDERABLES Fin al Result [facility] ([facility]) [address] [facility] Department [place] [address] * (ABNORMAL) Urinalysis reflex to microscopic and culture Urine (01/10/2025 12:12 PM CDT) Color, ur Yellow Yellow Clarity, ur Clear Clear [facility] ([facility]) Specific gravity, ur 1.005 1.003 - 1.030 [facility] ([facility]) pH, urine 7.5 [facility] ([facility]) Comment: Interpretive Data U rine pH is affected by diet, medications, systemic acid-base disturbances, and renal tubular function. pH may affect urinary stone formation. For example, urine pH below 6.0 may help reduce the tendency for calcium phosphate stones and pH greater than 6.0 may reduce the tendency for uric acid stone formation. Source: [facility] [employer] Current Interpretive Data was last revised on 2017 Protein, ur ql Negative Negative [facility] ([facility]) Glucose, ur ql Negative Negative [facility] ([facility]) Ketones, ur Negative Negative [facility] ([facility]) Bilirubin, ur Negative Negative [facility] ([facility]) Blood, ur Negative Negative [facility] ([facility]) Urobilinogen, ur <2.0 <2.0 mg/dL [facility] ([facility]) Nitrite, ur Negative Negative [facility] ([facility]) Leukocyte esterase, ur 2+(A) Negative [facility] ([facility]) UA reflex comment Reflex to microscopic UA will be performed. [facility] ([facility]) Urine 01/10/2025 12:1 2 PM CDT 01/10/2025 12:36 PM CDT us Manuel Pizano MD LAB MICROBIOLOGY - GENER AL ORDERABLES Final Result [facility] ([facility]) [address] [facility] Department [place] [address] * (ABNORMAL) CBC with auto differential (01/10/2025 12:12 PM CDT) Pathologist [facility] WBC 6.95 3.80 - 9.90 K/cumm Hgb 13.2 11.9 - 15.5 g/dL [facility] ([facility]) Hct 40.0 35.6 - 45.5 % [facility] ([facility]) Plt 289 150 - 400 K/cumm [facility] ([facility]) MPV 8.2(L) 9.1 - 12.3 fL [facility] ([facility]) RBC 4.18 3.90 - 5.20 M/cumm [facility] ([facility]) MCV 95.7 81.3 - 96.4 fL [facility] ([facility]) MCH 31.6 27.1 - 33.3 pg [facility] ([facility]) MCHC 33.0 32.3 - 35.7 g/dL [facility] ([facility]) RDW CV 12.8 11.1 - 14.9 % [facility] ([facility]) RDW SD 44.7 35.7 - 48.1 fL [facility] ([facility]) NRBC abs 0.00 0.00 - 0.01 K/cumm [facility] ([facility]) Blood 01/10/2025 12:1 2 PM CDT 01/10/2025 12:35 PM CDT us Manuel Pizano MD LAB BLOOD ORDERABLES Fin al Result Performing Organization Address [facility]/ZIP Co de Phone Number [facility] ([facility]) [address] [facility] [place] [address] * (ABNORMAL) Urinalysis, microscopic only (01/10/2025 12:12 PM CDT) WBC, ur 0-5 0 - 5 /HPF RBC, ur 0-2 0 - 2 /HPF [facility] ([facility]) Epithelial cells, squamous, ur 1-5 0 - 5 /HPF [facility] (LB) Bacteria, ur Trace(A) [facility] ([facility]) Mucous, ur Present(A) [facility] (LB) Culture Reflex Comment Reflex conditions for urine culture (WBC >10) not met. [facility] ([facility]) Urine 01/10/2025 12:1 2 PM CDT 01/10/2025 12:36 PM CDT Manuel Pizano MD LAB URINE ORDERABLES Fin al Result Performing Organization Address City/[facility]/ZIP Co de Phone Number [facility] ([facility]) 1 [facility] [place] [address] * Hemoglobin A1c (01/10/2025 12:12 PM CDT) Hgb A1C 5.2 4.0 - 5.6 % Estimated Average Glucose 103 mg/dL [facility] (LB) Comment: The ADA recommends reporting an estimated Average Glucose (eAG) with all Hemoglobin A1c results using the equation derived from a study of 507 normal and diabetic adults. Minority populations were underrepresented and children were not included. (Diabetes Care 31:9639-1418, 2008). The eAG is not equivalent to a fasting glucose. Blood 01/10/2025 12:1 2 PM CDT 01/10/2025 12:35 PM CDT us Manuel Pizano MD LAB BLOOD ORDERABLES Fin al Result [facility] [address] [facility] Department [place] [address] * Comprehensive metabolic panel (01/10/2025 12:12 PM CDT) Sodium 135 135 - 145 mmol/L Potassium, pl 4.7 3.3 - 4.9 mmol/L [facility] ([facility]) Chloride 100 97 - 110 mmol/L [facility] ([facility]) CO2 25 22 - 32 mmol/L [facility] ([facility]) Anion gap 10 2 - 15 mmol/L [facility] (LB) BUN 16 6 - 25 mg/dL [facility] ([facility]) Creatinine 0.61 0.60 - 1.10 mg/dL [facility] (LB) Glucose 98 70 - 199 mg/dL [facility] (LB) Comment: Interpretive Data Fasting glucose >/= 126 mg/dl is diagnostic for diabetes. Fasting is defined as no caloric intake for at least 8 hours. Fasting glucose between 100 mg/dl to 125 mg/dl is diagnostic of prediabetes. In a patient with classic symptoms of hyperglycemia or hyperglycemic crisis, a random glucose >/= 200 mg/dl is diagnostic for diabetes. In the absence of unequivocal hyperglycemia, results should be confirmed by repeat testing. The classification and Diagnosis of Diabetes Diabetes Care 202; 46: S19-S40. Current interpretive data was last revised 2022. Calcium 9.2 8.5 - 10.3 mg/dL [facility] ([facility]) Bilirubin, total 0.5 0.1 - 1.2 mg/dL [facility] ([facility]) Protein, pl 6.8 6.5 - 8.5 g/dL [facility] ([facility]) Albumin 4.3 3.5 - 5.0 g/dL [facility] ([facility]) Alk phos 108 40 - 130 Units/L [facility] ([facility]) ALT 18 7 - 45 Units/L [facility] ([facility]) AST 34 10 - 45 Units/L [facility] ([facility]) Blood 01/10/2025 12:1 2 PM CDT 01/10/2025 12:35 PM CDT Manuel Pizano MD LAB BLOOD ORDERABLES Fin al Result [facility] ([facility]) [address] [facility] Department [place] [address] * XR Hip Right 2 or 3 Views (01/10/2025 10:27 AM CDT) Anatomical Region Laterality Modality Lower Extremities, Hip, Pelvis Right D igital Radiography Narrative 01/10/2025 12:17 PM CDT Severe advanced right hip osteoarthritis with xtdy-py-oeux contact, osteophyte formation, subluxation. Manuel Pizano MD IMG XR PROCEDURES Final Result * (ABNORMAL) Aerobic and anaerobic culture and gram stain Wound Toe, great, right (01/01/2025 12:00 PM CDT) Direct Specimen Exam Stain: No polymorphonuclear leukocytes seen. Rare Gram Positive Cocci Comment:Testing performed by : [facility], [address] [place]., [address] Report Final Report: Few Mixed skin microorganisms. (.) JAMEY JENSEN Comment:Testing performed by : [facility], [address] [place]., [address] Organism MIXED SKIN MICROORGANISMS. JAMEY Wound (Toe, great, right) 01/01/2025 12:00 PM CDT 01/01/2025 10:06 PM CDT Narrative [facility] - 01/05/2025 10:50 AM CDT Specimen received on an ESwab. Testing performed by [facility] Microbiology Laboratory ([phone]) Specimens submitted from normally sterile body sites will have all bacterial morphotypes identified. Specimens that contain grossly mixed devan and/or are from body sites that are not normally sterile will be examined for Staphylococcus aureus, Pseudomonas aeruginosa, beta-hemolytic strep, vancomycin-resistant Enterococcus, Bacteroides, Parabacteroides, Clostridium perfringens and fungus. If any of these are isolated, the organism will be reported. Current interpretive data was last revised on 2019. Grant Yu NP LAB MICROBIOLOGY - [facility] ALEX LEMUS Final Result [facility] [address] [place] [address] from Last 3 Months Insurance [facility] [id number] [place] [id number] [facility] [id number] [place] [id number] [facility] [address] [place] [address] [place] [address] Care Teams Staff Technologist Relationship Specialty Start Date End Date Nubia Rodriguez [address] [place] [address] PCP - General Family Medicine 09/18/21 Unknown, Notinfile 02/10/18 Vikas Elizabeth MD [address] [place] [address] Surgeon Orthopedic Surgery 03/28/18
--- OUTSIDE RECORDS SUMMARY | 2025-01-15 08:55 | XMS_ITS | Clinical Summary ---
Author Organization [facility] Healthcare Address [address] [place] [address] Care Team Providers Care Porcelain Slusher Name Role Phone Unknown, Notinfile Unavailable Unavailable Vikas Elizabeth MD Unavailable [phone] Nubia Rodriguez DO Primary Care Provider [phone] Allergies Active Allergy Reactions Criticality Noted Date [...] Deficiency Prevention Take 1 capsule by mouth early learning teacher before breakfast Active cholestyramine (QUESTRAN) 4 gram [...] - 01/10/2025 11:59 PM CDT Hospital Encounter [facility] [address] [place] [address] Pre-operative exam Discharge Disposition: Discharge to home or self care 01/10/2025 12:28 PM CDT - 01/10/2025 11:59 PM CDT Hospital Encounter [facility] [address] [place] [address] Pre-operative exam Discharge Disposition: Discharge to home or self care 01/10/2025 12:00 PM CDT Lab [facility] [address] [place] [address] Pre-operative exam 01/10/2025 10:30 AM CDT Office Visit [facility] Orthopedics and Sports Medicine [address] [place] [address] [address] [place] [address] Manuel Pizano MD Pre-operative exam (Primary Dx); Right hip pain; Primary osteoarthritis of right hip 01/10/2025 7:46 AM CDT - 01/10/2025 11:59 PM CDT Hospital Encounter [facility] Medicine [address] [place] [address] [address] [place] [address] Discharge Disposition: Discharge to home or self care 01/05/2025 Results Follow-Up [facility] Care at [address] [phone] Deb Yoon PA 01/04/2025 9:10 AM CDT Therapy [facility] Occupational Therapy [address] [place] [address] 1st Floor [address] [place] [phone] Uzma Antunez OT Decreased range of motion of right thumb (Primary Dx) 01/04/2025 8:40 AM CDT Office Visit [facility] Orthopaedic Surgery [address] [place] [address] 2nd Floor [address] [place] [address] Vikas Elizabeth MD Decreased range of motion of right thumb (Primary Dx); Pain of right thumb 01/04/2025 Plan of Care Documentation [facility] Occupational Therapy [address] [place] [address] 1st Floor [address] [place] [phone] 01/01/2025 5:54 PM CDT - 01/01/2025 11:59 PM CDT Hospital Encounter [address] [address] Cellulitis of toe of right foot Discharge Disposition: Discharge to home or self care 01/01/2025 10:00 AM CDT Office Visit [facility] at [address] [phone] Grant Yu NP Cellulitis of toe of right foot (Primary Dx) from Last 3 Months Immunizations Immunization Administration Dates Next Due Hep [...] PONV (postoperative nausea and vomiting) Sicca syndrome Dry eye Sjogren syndrome Family History Medical History Relation Name Comments [...] Name Status Comments Father Tal Mother Ruchi Sister Apoorva Social History Tobacco Use Types Packs/Day Years [...] on file Legal Sex Female 12:57 PM NEEDLEMAKER Gender Identity Not on file Sexual Orientation [...] cm (5' 5 ) 09/24/2024 9:11 AM NEEDLEMAKER Body Mass Index 20.97 09/24/2024 9:11 AM NEEDLEMAKER Plan of Treatment Health Maintenance Due Date Last Done Comments Breast Cancer Screening-Mammogram 1960 Cervical Cancer Screening 1960 Colon Cancer Screening-Colonoscopy 1960 Depression Screening 1960 Hepatitis C Screening 1960 DTaP/Tdap/Td Vaccine (1 - Tdap) 1971 Regular Well Visit/Exam 18-64 1978 Pneumococcal vaccine <65 (1 of 2 - PCV) 1979 Zoster Vaccine (1 of 2) 1979 Covid-19 Vaccine (4 - 2023-2 5 season) 2024 09/11/2021, 11/06/2020, 10/09/2020 Hepatitis B Screening Completed 08/10/2021, 021 Influenza Vaccine Completed 07/03/2024, , 06/20/2020, Additional history exists Medical Devices Explanted Type Area Coater Operator Device Identifier Shelf Expiration Date Model / Serial / Lot Synthes Lcp Combi 47mm 7 Hole Head 2 Hole Shaft 2 Column Variable Angle - Sna - [id number] Implanted:Qty: 1 on 02/15/2018 by Vikas Elizabeth MD at [facility] Explanted:Qty: 1 on 06/27/2024 at [facility] Right: Radius Synthes I 02.111.720 / NA / NA Synthes 2.4mm 18mm Self Tap Stardrive Screw Cortex T8 Bone - Sna - [id number] Implanted:Qty: 1 on 02/15/2018 by Vikas Elizabeth MD at [facility] Explanted:Qty: 1 on 06/27/2024 at [facility] Right: Radius Synthes I 201.768 / NA / NA Synthes 2.4mm 12mm Self Tap Stardrive Screw Cortex T8 Bone - Sna - [id number] Implanted:Qty: 3 on 02/15/2018 by Vikas Elizabeth MD at [facility] Explanted:Qty: 3 on 06/27/2024 at [facility] Right: Radius Synthes I 201.762 / NA / NA Synthes 2.4mm 18mm Self Tap Lock Variable Angle Stardrive Screw T8 Bone - Sna - [id number] Implanted:Qty: 2 on 02/15/2018 by Vikas Elizabeth MD at [facility] Explanted:Qty: 2 on 06/27/2024 at [facility] Right: Radius Synthes I [id number] / NA / NA Synthes 2.4mm 14mm Self Tap Lock Variable Angle Stardrive Screw T8 Bone - Sna - [id number] Implanted:Qty: 1 on 02/15/2018 by Vikas Elizabeth MD at [facility] Explanted:Qty: 1 on 06/27/2024 at [facility] Right: Radius Synthes I [id number] / [...] CDT) 01/10/2025 12:5 0 PM CDT Narrative [facility] - 01/10/2025 1:51 PM CDT Vent Rate: 89 bpm RR Interval: 673 msec VA Interval: 150 msec QRS Duration: 83 msec QT Interval: 339 msec QTC Interval: 385 msec P-R-T [place]: 79 - 66 - 56 degrees IMPRESSION: SINUS RHYTHM POSSIBLE LEFT ATRIAL ENLARGEMENT [-0.1mV P-WAVE IN V1/V2] POSSIBLE RIGHT VENTRICULAR CONDUCTION DELAY [RSR (QR) IN V1/V2] BORDERLINE ECG Electronically Signed By: Tomasa Barger MD Manuel Pizano MD ECG ORDERABLES Final Re sult [facility] * eGFR (01/10/2025 12:12 PM CDT) eGFR [...] BLOOD ORDERABLES Fin al Result JAMEY LOPEZ ([place]TON) 1 [facility] [place] [address] * Differential, auto (01/10/2025 12:12 PM CDT) [...] Fin al Result JAMEY LOPEZ (LB) 1 [facility] [place] [address] * (ABNORMAL) Urinalysis reflex to microscopic and [...] tendency for uric acid stone formation. Source: [facility] Current Interpretive Data was last revised on [...] Reflex to microscopic UA will be performed. [facility] (LB) Urine 01/10/2025 12:1 2 PM CDT 01/10/2025 12:36 PM CDT us Manuel Pizano MD LAB MICROBIOLOGY - GENER AL ORDERABLES Final Result JAMEY LOPEZ (LB) 1 [facility] Department [place] [address] * (ABNORMAL) CBC with auto differential (01/10/2025 12:12 PM CDT) WBC 6.95 3.80 - 9.90 K/cumm Hgb 13.2 11.9 - 15.5 g/dL [facility] (LB) Hct 40.0 35.6 - 45.5 % [facility] (LB) Plt 289 150 - 400 K/cumm [facility] (LB) MPV 8.2(L) 9.1 - 12.3 fL [facility] (LB) RBC 4.18 3.90 - 5.20 M/cumm [facility] (LB) MCV 95.7 81.3 - 96.4 fL [facility] (LB) MCH 31.6 27.1 - 33.3 pg [facility] (LB) MCHC 33.0 32.3 - 35.7 g/dL [facility] ([facility]) RDW CV 12.8 11.1 - 14.9 % [facility] (LB) RDW SD 44.7 35.7 - 48.1 fL [facility] (LB) NRBC abs 0.00 0.00 - 0.01 K/cumm [facility] (LB) Blood 01/10/2025 12:1 2 PM CDT 01/10/2025 12:35 PM CDT Manuel Pizano MD LAB BLOOD ORDERABLES Fin al Result [facility] (LB) 1 [facility] [place] [address] * (ABNORMAL) Urinalysis, microscopic only (01/10/2025 12:12 PM CDT) WBC, ur 0-5 0 - 5 /HPF RBC, ur 0-2 0 - 2 /HPF [facility] (LB) Epithelial cells, squamous, ur 1-5 0 - 5 /HPF [facility] (LB) Bacteria, ur Trace(A) [facility] (LB) Mucous, ur Present(A) [facility] A (LB) Culture Reflex Comment Reflex conditions for urine culture (WBC >10) not met. [facility] (LB) Urine 01/10/2025 12:1 2 PM CDT 01/10/2025 12:36 PM CDT Manuel Pizano MD LAB URINE ORDERABLES Fin al Result Performing Organization Address [facility] Co de Phone Number JAMEY LOPEZ (LB) 1 [facility] [place] [address] * Hemoglobin A1c (01/10/2025 12:12 PM CDT) Hgb A1C 5.2 4.0 - 5.6 % Estimated Average Glucose 103 mg/dL [facility] (LB) Comment: The ADA recommends reporting an estimated Average Glucose (eAG) with all Hemoglobin A1c results using the equation derived from a study of 507 normal and diabetic adults. Minority populations were underrepresented and children were not included. (Diabetes Care 31:5185-4727, 2008). The eAG is not equivalent to a fasting glucose. Blood 01/10/2025 12:1 2 PM CDT 01/10/2025 12:35 PM CDT Manuel Pizano MD LAB BLOOD ORDERABLES Fin al Result Performing Organization Address [facility]/ZIP Co de Phone Number JAMEY LOPEZ ([place]) 1 [facility] [place] [address] * Comprehensive metabolic panel (01/10/2025 12:12 PM CDT) Sodium 135 135 - 145 mmol/L Potassium, pl 4.7 3.3 - 4.9 mmol/L [facility] (LB) Chloride 100 97 - 110 mmol/L [facility] (LB) CO2 25 22 - 32 mmol/L [facility] (LB) Anion gap 10 2 - 15 mmol/L [facility] (LB) BUN 16 6 - 25 mg/dL [facility] (LB) Creatinine 0.61 0.60 - 1.10 mg/dL [facility] (LB) Glucose 98 70 - 199 mg/dL [facility] (LB) Comment: Interpretive Data Fasting glucose >/= [...] classification and Diagnosis of Diabetes Diabetes Care 2021; 46: S19-S40. Current interpretive data was last [...] Fin al Result JAMEY LOPEZ (LB) 1 [facility] [place] [address] * XR Hip Right 2 or 3 Views (01/10/2025 10:27 AM CDT) Anatomical Region Laterality Modality Lower Extremities, Hip, Pelvis Right D igital Radiography Narrative 01/10/2025 12:17 PM CDT Severe advanced right hip osteoarthritis with [id number] contact, osteophyte formation, subluxation. us Manuel Pizano MD IMG XR PROCEDURES Final Result * (ABNORMAL) Aerobic and anaerobic culture and gram stain Wound Toe, great, right (01/01/2025 12:00 PM CDT) Direct Specimen Exam Stain: No polymorphonuclear leukocytes seen. Rare Gram Positive Cocci Comment:Testing performed by : [facility], [address] [place]., [address] Report Final Report: Few Mixed skin microorganisms. (.) JAMEY JENSEN Comment:Testing performed by : [facility], [address] [place]., [address] Organism MIXED SKIN MICROORGANISMS. JAMEY Wound (Toe, great, right) 01/01/2025 12:00 PM CDT 01/01/2025 10:06 PM CDT Narrative JAMEY - 01/05/2025 10:50 AM CDT Specimen received on an ESwab. Testing performed by [facility] Microbiology Laboratory ([phone]) Specimens submitted from normally sterile body sites [...] 2019. Grant Yu NP LAB MICROBIOLOGY - GENERAL ORDRajinder [facility] Final Result JAMEY [address] [address] Department [place] [address] from Last 3 [place] [id number] [facility] [id number] [facility] [id number] [facility] [address] [place] [address] Care Teams Porcelain Slusher Relationship Specialty Start Date End Date Nubia Rodriguez DO [address] [place] [address] PCP - General Family Medicine 09/18/21 Unknown, Notinfile 02/10/18 Vikas Elizabeth MD [address] [place] [address] Surgeon Orthopedic Surgery 03/28/18
--- OUTSIDE RECORDS SUMMARY | 2025-01-15 08:55 | XMS_ITS | Encounter Summary ---
Author Organization [facility] Address [address] [place] [address] Phone Care Team Providers Care Shoe Caser Name Role Phone Diego Gibbs Luca ADHIKARI Unavailable [phone] Nubia Rodriguez DO Primary Care Provider [phone] Yajaira Sandhu MD Unavailable [phone] Reason for Visit * Reason Comments Medication Refill Encounter Details Date Type Department Care Team (Late st Contact Info) Description 11/04/2024 Refill [facility] Oncology Services [address] [place] [address] Rosanne Carlton APRN, COSMETIC CONSULTANT [address] [place] [address] Medication Refill Social History Tobacco Use Types [...] Telephone Encounter - Kalina Lee RN - 11/05/2024 8:25 AM RIM FIRE CHARGER OPERATOR Medication refilled and signed per [facility] chronic medication standing order for pediatric and adult patients. FIRE CHARGER OPERATOR documented in this encounter Plan of Treatment Not on file documented as of this encounter Visit Diagnoses Diagnosis Irritable bowel syndrome with both constipation and diarrhea documented in this encounter Care Teams Shoe Caser Relationship Specialty Start Date End Date Nubia Rodriguez DO [address] [place] [address] PCP - General Family Medicine 10/19/21 Diego Gibbs DO Gastroenterology 08/24/16 Yajaira Sandhu MD [address] [place] [address] Consulting Physician Gastroenterology 02/24/23 Nubia Rodriguez Family Medicine 12/03/20 documented as of this encounter
--- OUTSIDE RECORDS SUMMARY | 2025-01-15 08:55 | XMS_ITS | Encounter Summary ---
Author Organization [facility] Address [address] [place] [address] Phone Care Team Providers Care Ob Nurse Name Role Phone Diego Gibbs DO Unavailable [phone] Nubia Rodriguez DO Primary Care Provider [phone] Yajaira Sandhu MD Unavailable [phone] Reason for Visit * Reason Comments Medication Refill Encounter Details Date Type Department Care Team (Late st Contact Info) Description 06/27/2023 Refill [facility] [address] [place] [address] Yajaira Sandhu MD [address] [place] [address] Medication Refill Social History Tobacco Use Types [...] Dept 02/24/23 Office Visit Yajaira Sandhu MD [facility] Showing recent visits within past 365 [...] gangrene documented in this encounter Care Teams Ob Nurse Relationship Specialty Start Date End Date Nubia Rodriguez DO [address] [place] [address] PCP - General Family Medicine 10/19/21 Diego Gibbs DO Gastroenterology 08/24/16 Yajaira Sandhu MD [address] [place] [address] Consulting Physician Gastroenterology 02/24/23 Nubia Rodriguez Family Medicine 12/03/20 documented as of this encounter
--- OUTSIDE RECORDS SUMMARY | 2025-01-15 08:55 | XMS_ITS | Encounter Summary ---
Author Organization [facility] Address [address] [place] [address] Phone Care Team Providers Care Prune Washer Name Role Phone Diego Gibbs DO Unavailable [phone] Nubia Rodriguez DO Primary Care Provider [phone] Yajaira Sandhu MD Unavailable [phone] Reason for Visit * Reason Comments Medication Refill Encounter Details Date Type Department Care Team (Late st Contact Info) Description 12/20/2022 Refill [facility] [address] [place] [address] Yajaira Sandhu MD [address] [place] [address] Medication Refill Social History Tobacco Use Types [...] gangrene documented in this encounter Care Teams Prune Washer Relationship Specialty Start Date End Date Nubia Rodriguez DO [address] [place] [place] [address] PCP - General Family Medicine 10/19/21 Diego Gibbs DO Gastroenterology 08/24/16 Yajaira Sandhu MD [address] [place] [address] Consulting Physician Gastroenterology 02/24/23 Nubia Rodriguez Family Medicine 12/03/20 documented as of this encounter
--- OUTSIDE RECORDS SUMMARY | 2025-01-15 08:55 | XMS_ITS | Clinical Summary ---
Author Organization [facility] Address [address] [facility], [address] [address] Phone Care Team Providers Care Digital Cartographic Technician Name Role Phone Diego Gibbs DO Unavailable [phone] VerNubia pinto DO Primary Care Provider [phone] Yajaira Sandhu MD Unavailable [phone] Allergies Active Allergy Reactions Criticality Noted Date [...] bowel syndrome with both constipation and diarrhea TAKE 1 PACKET BY MOUTH 2 TIMES DAILY (WITH MEALS). 180 Packet 5 Active Active Problems No known active problems Encounters Date Type Department Care Team Description 12/20/2024 MyChart RX Renewal [facility] [address] [place] [address] Rosanne Carlton DIE TECHNICIAN, CHANNEL REBUILDER Medication Renewal Declined 11/04/2024 Refill [facility] Oncology Services [address] [place] [address] Rosanne Carlton APRN, CHANNEL REBUILDER Medication Refill from Last 3 Months Immunizations Immunization Administration [...] 90 02/24/2023 3:24 PM CDT Temperature 36.8 C (98.2 F) 02/24/2023 3:24 PM CDT Respiratory Rate 14 02/24/2023 3:24 PM CDT [...] Comments Hepatitis C Virus (HCV) Screening 1960 Mammogram 1960 TdaP Immunization 1960 Zoster Immunization (1 of 2) 1979 Pap Smear 1981 Cervical Cancer Screening (CCS) 1990 HPV/Cotest 1990 Cologuard 2010 Immunochemical Fecal Occult Blood 2010 Pneumococcal Immunization (50+ years) (1 of 1 - PCV) 2010 Respiratory Syncytial Virus (RSV) Immunization (Adult) (1 - Risk 60-74 years 1-dose series) 2020 SARS-COV-2 Immunization (4 - season) 2024 09/11/2021, 11/06/2020, 10/09/2020 Influenza Immunization (Season Ended) 2025 06/30/2023, 07/05/2022, 07/06/2021, Additional history exists Colonoscopy 04/23/2027 04/23/2022, 08/19/2016 Colorectal Cancer Screening [...] Health Maintenance Results * [facility] COLONOSCOPY (08/19/2016) Gume Amador MD PROCEDURE/MINOR SURGICAL ORDE ALLAN Final Result from Last 3 Months or Most Recently Relevant to Health Maintenance Insurance [employer] Care Teams Digital Cartographic Technician Relationship Specialty Start Date End Date Nubia Rodriguez DO [address] [place] [address] PCP - General Family Medicine 10/19/21 Diego Gibbs DO Gastroenterology 08/24/16 Yajaira Sandhu MD [address] [place] [address] Consulting Physician Gastroenterology 02/24/23 Nubia Rodriguez Family Medicine 12/03/20
--- OUTSIDE RECORDS SUMMARY | 2025-01-15 08:55 | XMS_ITS | Patient Health Record ---
Author Organization [facility] Address [address] [place], [place] [address] Care Team Providers Care Customer Professional Name Role Phone CATRACHO DICKERSON Unavailable [phone] Vernace, Nubia Unavailable Unavailable Allergies Allergen (clinical drug ingredient) Drug/Non Drug Allergy documented on EMR Reaction Allergy Type Onset Date Status Anaprox Unknown Drug Allergy Active Reason For Referral No Information Medications Medication SIG (Take, Route, Frequency, Duration) Notes Start Date End Date Status HYDROcodone-Acetaminophen 5-325 MG 1 tablet as needed Orally every 6 hrs As needed pain 01/20/2024 Active Vital Signs Height-cm 165.1 cm 01/30/2024 Weight-kg 57.61 kg 01/30/2024 Height 65 in 01/30/2024 Weight 127 lbs 01/30/2024 BMI 21.13 kg/m2 01/30/2024 Encounters Encounter Location Date Provider Diagnosis [facility] [address] [place] [id number] 01/30/2024 CATRACHO SNOOK Pain due to internal orthopedic prosthetic devices, implants and grafts, subsequent encounter T84.84XD and Encounter for other specified surgical aftercare Z48.89 [facility] [address] [place], [place] [id number] 08/27/2024 CATRACHO SNOOK Raynaud's syndrome without gangrene I73.00 ; Contusion of right great toe without damage to nail, initial encounter S90.111A ; Contusion of left great toe without damage to nail, initial encounter S90.112A ; Pain in right foot M79.671 and Left foot pain M79.672 [facility] [address] [place], [place] [id number] 01/20/2024 CATRACHO SNOOK [facility] [address] [facility] [address] [place], [place] [id number] 01/20/2024 CATRACHO SNOOK [facility] [address] [place], [place] [id number] 10/15/2024 CATRACHO SNOOK [facility] [address] [place], [place] [id number] 10/15/2024 CATRACHO SNOOK Assessments Encounter Date Diagnosis (ICD [...] Coverage Start Date Coverage End Date [employer] PPO [address] [place], [place] [id number] I GARFIELD Self - patient is the insured Medical (General) History Surgical History Surgery Date(Month/Year) bunionectomy- left foot
--- OUTSIDE RECORDS SUMMARY | 2025-01-15 08:55 | XMS_ITS ---
Author Organization [facility] Address [address] [place], [place] [id number] Care Team Providers Care Decorating Consultant Name Role Phone CATRACHO DICKERSON Unavailable [phone] Vernace, Nubia Unavailable Unavailable REASON FOR VISIT VOICEMAIL Encounters Encounter Location Date Provider Diagnosis [facility] [address] [place], [place] [id number] 10/15/2024 CATRACHODIPESH DICKERSON Plan Of Treatment No Information Progress Notes * GARFIELD FERNÁNDEZ ADOB:1960 (64 yo F)Acc No.[id number]:10/15/2024 Patient: GARFIELD BARAJAS :1960 A ge:63 Y S ex:Female Address:[address] [place], [place] [address] [address] * true * Date: Generated for Josefina fleming/Octavio/eTransmitting on: 0 01/15/2025 08:54 AM CDT
--- OUTSIDE RECORDS SUMMARY | 2025-01-15 08:55 | XMS_ITS | Encounter Summary ---
Author Organization [facility] Address [address] [place] [address] Phone Care Team Providers Care Smoke And Flame Specialist Name Role Phone Diego Gibbs DO Unavailable [phone] Nubia Rodriguez DO Primary Care Provider [phone] Yajaira Sandhu MD Unavailable [phone] Reason for Visit * Reason Comments Medication Refill Encounter Details Date Type Department Care Team (Late st Contact Info) Description 01/07/2024 Refill [facility] [address] [place] [address] Yajaira Sandhu MD [address] [place] [address] Medication Refill Social History Tobacco Use Types [...] on filedocumented in this encounter Care Teams Smoke And Flame Specialist Relationship Specialty Start Date End Date Nubia Rodriguez DO [address] [place] [place] [address] PCP - General Family Medicine 10/19/21 Diego Gibbs DO Gastroenterology 08/24/16 Yajaira Sandhu MD [address] [place] [address] Consulting Physician Gastroenterology 02/24/23 Nubia Rodriguez Family Medicine 12/03/20 documented as of this encounter
--- OUTSIDE RECORDS SUMMARY | 2025-01-15 08:55 | XMS_ITS | Encounter Summary ---
Author Organization [facility] Address [address] [place] [address] Phone Care Team Providers Care Miner Assistant Name Role Phone Diego Gibbs Luca ADHIKARI Unavailable [phone] Nubia Rodriguez DO Primary Care Provider [phone] Yajaira Sandhu MD Unavailable [phone] Reason for Visit * Reason Comments Medication Refill Encounter Details Date Type Department Care Team (Late st Contact Info) Description 03/28/2023 Refill [facility] - [place] [address]2 [place] [address] Sandhya Mcdaniel Tayla, PAC [address] [place] [address] Medication Refill Social History Tobacco Use Types [...] Dept 02/24/23 Office Visit Yajaira Sandhu MD [facility] Showing recent visits within past 365 days [...] diarrhea documented in this encounter Care Teams Miner Assistant Relationship Specialty Start Date End Date Nubia Rodriguez DO [address] [place] [address] PCP - General Family Medicine 10/19/21 Diego Gibbs DO Gastroenterology 08/24/16 Yajaira Sandhu MD #[address] [place] [address] Consulting Physician Gastroenterology 02/24/23 Nubia Rodriguez Family Medicine 12/03/20 documented as of this encounter
--- OUTSIDE RECORDS SUMMARY | 2025-01-15 08:55 | XMS_ITS | Encounter Summary ---
Author Organization [facility] Address [address] [place] [address] Phone Care Team Providers Care Childhood Development Teacher Name Role Phone Diego Gibbs DO Unavailable [phone] Nubia Rodriguez DO Primary Care Provider [phone] Yajaira Sandhu MD Unavailable [phone] Reason for Visit * Reason Comments Medication Refill Encounter Details Date Type Department Care Team (Late st Contact Info) Description 12/03/2023 Refill [facility] #2 [place] [address] Yajaira Sandhu MD [address]2 [place] [address] Medication Refill Social History Tobacco Use Types [...] gangrene documented in this encounter Care Teams Childhood Development Teacher Relationship Specialty Start Date End Date Nubia Rodriguez DO [address] [place] [address] PCP - General Family Medicine 10/19/21 Diego Gibbs DO Gastroenterology 08/24/16 Yajaira Sandhu MD #[address] [place] [address] Consulting Physician Gastroenterology 02/24/23 Nubia Rodriguez Family Medicine 12/03/20 documented as of this encounter
--- OUTSIDE RECORDS SUMMARY | 2025-01-15 08:55 | XMS_ITS | Encounter Summary ---
Author Organization [facility] Address [address] [place] [address] Phone Care Team Providers Care Tube Mounter Name Role Phone Diego Gibbs DO Unavailable [phone] Nubia Rodriguez DO Primary Care Provider [phone] Yajaira Sandhu MD Unavailable [phone] Reason for Visit * Reason Comments Medication Refill Encounter Details Date Type Department Care Team (Late st Contact Info) Description 07/18/2023 Refill [facility] #2 [place] [address] Yajaira Sandhu MD [address] [place] [address] Medication Refill Social History Tobacco Use Types [...] Kalina Lee RN - 07/18/2023 9:08 AM INSPECTOR HAIRSPRING TRUING Medication refilled and signed per [facility] chronic medication standing order for pediatric and adult patients. ECTOR HAIRSPRING TRUING documented in this encounter Plan of Treatment Not on file documented as of this encounter Visit Diagnoses Not on filedocumented in this encounter Care Teams Tube Mounter Relationship Specialty Start Date End Date Nubia Rodriguez DO [address] [place] [address] PCP - General Family Medicine 10/19/21 Diego Gibbs DO Gastroenterology 08/24/16 Yajaira Sandhu MD [address] [place] [address] Consulting Physician Gastroenterology 02/24/23 Nubia Rodriguez Family Medicine 12/03/20 documented as of this encounter
== END 2025-01-15 08:33 | disposition home or self-care (01) ==
LOC: CHSIMG 08:36
PROVIDERS: PCP Family Medicine; Visit Provider Orthopaedic Surgery
DX: Z78.0 Asymptomatic menopausal state (principal); M85.89 Other specified disorders of bone density and structure, multiple sites; M81.0 Age-related osteoporosis without current pathological fracture
CPT/HCPCS: 77080

== ENCOUNTER 2025-04-30 08:00 | Outpatient (CLI) | payer OTHER, SELFPAY ==
--- OUTSIDE RECORDS SUMMARY | 2010-05-25 19:00 | XMS_ITS | Continuity of Care Document ---
Author Organization [facility] Address [address] [place] [address] Phone Care Team Providers Care Crozer Name Role Phone [facility] Unavailable Unavail able Radha Jaramillo Unavailable Unavailable Procedures Procedure Date Progressive Lens, Hi Index Lens-Index>1.66Plas;>1.80Glas 0 Tint Photochromatic, Hi Index 0 Anti-reflective Coating Eye Exam & Treatment Refraction Visual Field Examination(s) Frames Deluxe Anti-reflective Coating Tax - Medical TF Plastic Sphcyl [place] To +/-4d .12-2d Progressive Lens, Polycarb Eye Exam & Treatment Refraction Advance Directives Directive Yes / No Effective Date File Name No Information Encounters Encounter Description Practice Location Reason(s) For Visit Diagnoses Date Provider Providers Copied on Encounter [facility], [address], [place], [place], [id number], [place] tel:[phone] [facility] No Information 0 [facility] . [address] [facility], [address], [place], [place], [address], [place]. tel:[phone] Referring Provider: Diego Aiken OD A, [address], [place], [address]. tel:[phone] g Provider: Radha Jaramillo, [address] [facility], [place], [address]. tel:[phone] [facility], [address], [place], [place], [id number], [place] tel:[phone] [facility] No Information Sep-0 9-201 0 Aiken OD Diego. [address], [address], [place], [address], [place]. tel:[phone] [facility], [address], [place], [place], [id number], [place] tel:[phone] [facility] No Information Logan-2 3-200 8 Aiken OD Diego. [address] [facility] , [address], [place], [address], [place]. tel:[phone] Referring Provider: Diego Aiken OD A, [facility], [place], [address]. tel:[phone] 2016 [facility], [id number] [place] [address] [address], [place], [place], [address], [place] tel:[phone] [facility] No Information Apr-0 2-200 8 [facility] . [address] [facility], [address], [place], [place], [address], [place]. tel:[phone] Referring Provider: Diego Aiken OD A, [facility], [place], [address]. tel:[phone] g Provider: Eneida Garnett, [address] [place], [address]. tel:[phone] [facility], [address], [place], [place], [address], [place] tel:[phone] [facility] No Information Mar-2 8-200 8 Aiken OD Diego. [address] [facility] , [address], [place], [address], [place]. tel:[phone] Family History Family Member Type Diagnosis Age At Onset No Information Payers Payer name Insurance type Covered constitution party ID Adina rodríguez(s) [employer] Plan 09 [id number] Social History Type Description Quantity Date Captured Comments Sex Female Smoking Status No Information Chief Complaint And Reason For Visit No Information Reason For Referral Reason For Referral No Information History Of Present Illness Encounter Date Complaint History Of Prese nt Illness No Information Functional Status Date Functional Assessmen t No Information Instructions Date Instruction Additional Infor mation No Information Assessments Type Assessment Date No Information Patient Care Teams Name Effective Dates (start - stop) Status Members No Information
--- OUTSIDE RECORDS SUMMARY | 2025-04-01 04:20 | XMS_ITS ---
Author Organization [facility] Address [address] [place], [place] [id number] Care Team Providers Care Drum Barker Operator Name Role Phone CATRACHO DICKERSON Unavailable [phone] Vernace, Nubia Unavailable Unavailable Allergies Allergen (clinical drug ingredient) Drug/Non Drug Allergy documented on EMR Reaction Allergy Type Onset Date Status Anaprox Unknown Drug Allergy Active REASON FOR VISIT The patient is here to be dispensed and fitted for custom orthotics. The carbon plate has helped with preventing stress fracture, but for long-term, she wishes to pursue custom orthotics. She also needs something for her fungal toenails Medications Medication SIG (Take, Route, Frequency, Duration) Notes Start Date End Date Status HYDROcodone-Acetamin ophen 5-325 MG 1 tablet as needed Orally every 6 hrs As needed pain 01/20/2024 Active Ciclopirox 8 % 1 application Externally to toenails Once a day.; Duration: 30 days Remove medication weekly with rubbing alcohol. one bottle, 6.6mL or similar 04/01/2025 09/27/2025 Active Encounters Encounter Location Date Provider Diagnosis [facility] [address] [place], [place] [id number] 04/01/2025 CATRACHO SNOOK Metatarsalgia of lef t foot M77.42 ; Tinea unguium B35.1 and Left foot pain M79.672 Assessments Encounter Date Diagnosis (ICD Code) Assessment Notes Treatment Notes Treatment Clinical Notes Section Notes 04/01/2025 Metatarsalgia of left foot (ICD-10 - M77.42) Orthotic Dispense: The orthotic devices were dispensed and fitted. It was noted that the orthotic conformed well to the patient's foot in the subtalar joint neutral position. The patient was educated on the device's use, as well as the gradual break-in period for the device. Orthotics will replace her carbon plate. 04/01/2025 Tinea unguium (ICD-10 - B35.1) FUNGAL TOENAILS: Discussed various treatment options for fungal toenails including debridement, topical antifungals, oral antifungals, toenail avulsion, or toenail matrixectomy. 04/01/2025 Left foot pain (ICD-10 - M79.672) Plan Of Treatment Medication Medication Name Sig Start Date Stop Date Notes Ciclopirox 8 % 1 application Truck Farmer ally to toenails Once a day.; Duration: 30 days 04/01/2025 09/27/2025 one bottle, 6.6mL or similar Treatment Notes Assessment Notes Metatarsalgia of left foot Orthotic Dispense: The orthotic devices were dispensed and fitted. It was noted that the orthotic conformed well to the patient's foot in the subtalar joint neutral position. The patient was educated on the device's use, as well as the gradual break-in period for the device. Orthotics will replace her carbon plate. Tinea unguium FUNGAL TOENAILS: Dis cussed various treatment options for fungal toenails including debridement, topical antifungals, oral antifungals, toenail avulsion, or toenail matrixectomy. Next Appt Details Follow Up: 3 Months, Reason: Fungal toenail check. Orthotic check Provider Name:CATRACHO DICKERSON, 01:30:00 PM, [address], [facility], [place], [place], [id number], Progress Notes * GARFIELD FERNÁNDEZ ADOB:1960 (64 yo F)Acc No.[id number]:04/01/2025 Patient: GARFIELD BARAJAS Provider: Rajinder Dickerson DPM :1960 A ge:64 Y S ex:Female Date:04/01/2025 Address:[address] [place] [address], [place], [phone] Subjective: * Chief Complaints: * 1 . The patient is here to be dispensed and fitted for custom orthotics. The carbon plate has helped with preventing stress fracture, but for long-term, she wishes to pursue custom orthotics. She also needs something for her fungal toenails. 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 No new issues., MA: niesha. * ROS: G eneral / Constitutional: Patient denies c hills, fever, weakness, night sweats. M usculoskeletal: Patient denies c hildhood foot problems, weakness. P atient complains of j oint pain, bunions. P eripheral Vascular: Patient denies u lceration of feet, cold extremities. ? S kin: Patient denies u lcerations, discoloration. ? N eurologic: Patient denies b alance difficulty, confusion, difficulty speaking, dizziness. * Medical History: * Surgical History: b unionectomy- left foot . * Family History: F ather: Angina, Acid Reflux, asthma, GERD, Respiratory Disease. M other: arthritis. * Medications: T aking HYDROcodone-Acetaminophen 5-325 MG Tablet 1 tablet as needed Orally every 6 hrs As needed pain, Medication List reviewed and reconciled with the patient * Allergies: A naprox. Objective: * Vitals: * Examination: C onstitutional: Constitutional T he patient is awake, alert, well developed, well groomed and well nourished. D ermatologic: Skin findings: S kin is warm, dry, supple with no breaks in the skin. Nail pathology: N ails 1-5 bilateral are elongated, thick, discolored, and dystrophic with subungual debris. They are painful to palpation. ? V ascular: Dorsalis pedis pulse: 2 /4, bilateral. Posterior tibial pulse: 2 /4, bilateral. Capillary refill: l ess than 3 seconds. Edema: T he edema to the left forefoot has resolved. ? N eurologic: Gross sensation G ross sensation is intact to light touch.? M usculoskeletal: Muscle Strength M uscle strength is 5/5 in regards to dorsiflexion, plantarflexion, inversion, and eversion in bilateral lower extremities. Pain on palpation N o pain on palpation to the 2nd metatarsal neck of the left foot. Assessment: * Assessment: 1. M etatarsalgia of left foot - M77.42 (Primary) 2 . T inea unguium - B35.1 3 . L eft foot pain - M79.672 Plan: * Treatment: 2. T inea unguium Start Ciclopirox Solution, 8 %, 1 application, Externally to toenails, Once a day. Remove medication weekly with rubbing alcohol., 30 days, 1, Refills 5, Notes to Pharmacist: one bottle, 6.6mL or similar. Notes: FUNGAL TOENAILS: Discussed various treatment options for fungal toenails including debridement, topical antifungals, oral antifungals, toenail avulsion, or toenail matrixectomy. * Follow Up: 3 Months (Reason: Fungal toenail check. Orthotic check) * Billing Information: * Visit Code: 03256 Office Visit, Est Pt., Level 3. 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 No new issues., MA: mf Examination Category Sub-Category Detail Notes Category Not es Dermatologic Skin findings: Skin is warm, dr y, supple with no breaks in the skin Nail pathology: Nails 1-5 bilateral are elongated, thick, discolored, and dystrophic with subungual debris. They are painful to palpation Neurologic Gross sensation Gross sensation is intact to light touch Vascular Dorsalis pedis pulse: 2/4, bilateral Edema: The edema to the lef t forefoot has resolved Capillary refill: less than 3 seconds Posterior tibial pulse: 2/4, bilateral Musculoskeletal Muscle Strength Muscle strength is 5/5 in regards to dorsiflexion, plantarflexion, inversion, and eversion in bilateral lower extremities Pain on palpation No pain on palpation to the 2nd metatarsal neck of the left foot Constitutional Constitutional The patient is a wake, alert, well developed, well groomed and well nourished
--- NOTE | ~2025-04-30 | MM_ITS ---
EXAMINATION: MM screening mark BI w [place] HISTORY: Screening mammogram TECHNIQUE: Craniocaudal and mediolateral oblique 3-D tomosynthesis images were obtained and synthetic 2-D images were generated. CAD analysis was submitted and interpreted. COMPARISON: No prior mammogram is available for comparison at this institution. BREAST PARENCHYMAL COMPOSITION:Dense: The breasts are heterogeneously dense, which may obscure small masses. FINDINGS: No suspicious mass, calcification, or architectural distortion are identified in either breast to suggest malignancy. There has been no suspicious interval change. IMPRESSION: No mammographic evidence of malignancy. Recommend routine screening mammography in one year. BI-RADS Category 1: Negative Reviewed, dictated and finalized at location .
--- OUTSIDE RECORDS SUMMARY | 2025-04-30 08:16 | XMS_ITS | Encounter Summary ---
Author Organization [facility] Address [address] [place] [address] Phone Care Team Providers Care Oyster Unloader Name Role Phone Diego Gibbs Luca ADHIKARI Unavailable [phone] Nubia Rodriguez DO Primary Care Provider [phone] Yajaira Sandhu MD Unavailable [phone] Reason for Visit * Reason Comments Medication Refill Encounter Details Date Type Department Care Team (Late st Contact Info) Description 01/10/2022 Refill [facility] - [facility] - [place] [address]2 [place] [address] Sandhya Mcdaniel Tayla, PAC [address] [place] [address] Medication Refill Social History Tobacco Use Types [...] on filedocumented in this encounter Care Teams Oyster Unloader Relationship Specialty Start Date End Date Nubia Rodriguez DO [address] [place] [address] PCP - General Family Medicine 10/19/21 Diego Gibbs DO Gastroenterology 08/24/16 Yajaira Sandhu MD [address] [place] [address] Consulting Physician Gastroenterology 02/24/23 Nubia Rodriguez Family Medicine 12/03/20 documented as of this encounter
--- OUTSIDE RECORDS SUMMARY | 2025-04-30 08:16 | XMS_ITS | Encounter Summary ---
Author Organization [facility] Address [address] [place] [address] Phone Care Team Providers Care Hand Tool Filer Name Role Phone Diego Gibbs DO Unavailable [phone] Nubia Rodriguez DO Primary Care Provider [phone] Yajaira Sandhu MD Unavailable [phone] Reason for Visit * Reason Comments Medication Refill Encounter Details Date Type Department Care Team (Late st Contact Info) Description 04/19/2022 Refill [facility] #2 [place] [address] Yajaira Sandhu MD [address] [place] [address] Medication Refill Social History Tobacco Use Types [...] AM CDT Medication refilled and signed [facility] [place] standing order for pediatric and adult patients. documented in this encounter Plan of Treatment Not on file documented as of this encounter Visit Diagnoses Diagnosis Gastroesophageal reflux disease, unspecified whether esophagitis present Hiatal hernia Diaphragmatic hernia without mention of obstruction or gangrene documented in this encounter Care Teams Hand Tool Filer Relationship Specialty Start Date End Date Nubia Rodriguez DO [address] [place] [address] PCP - General Family Medicine 10/19/21 Diego Gibbs DO Gastroenterology 08/24/16 Yajaira Sandhu MD [address] [place] [address] Consulting Physician Gastroenterology 02/24/23 Nubia Rodriguez Family Medicine 12/03/20 documented as of this encounter
--- OUTSIDE RECORDS SUMMARY | 2025-04-30 08:16 | XMS_ITS | Encounter Summary ---
Author Organization [facility] Address [address] [place] [address] Phone Care Team Providers Care Probation Counselor Name Role Phone Gume Amador MD Primary Care Provider [phone] Diego Gibbs DO Unavailable [phone] Nubia Rodriguez DO Primary Care Provider [phone] Yajaira Sandhu MD Unavailable Reason for Visit * Reason Comments Medication Refill Encounter Details Date Type Department Care Team (Late st Contact Info) Description 08/16/2021 Refill [facility] - Gastroenterology - [place] [address] [place] [id number] Sandhya Mcdaniel Tayla, PAC [address] [place] [address] Medication Refill Social History Tobacco Use Types [...] Kalina Lee RN - 08/20/2021 9:21 AM SOLID WASTE MANAGER Medication refilled and signed per [facility] chronic medication standing order for pediatric and adult patients. D WASTE MANAGER documented in this encounter Plan of Treatment Not on file documented as of this encounter Visit Diagnoses Diagnosis Gastroesophageal reflux disease, unspecified whether esophagitis present Hiatal hernia Diaphragmatic hernia without mention of obstruction or gangrene documented in this encounter Care Teams Probation Counselor Relationship Specialty Start Date End Date Gume Amador MD [address] [facility] [address] PCP - General Family Medicine 08/24/16 10/18/21 Nubia Rodriguez DO [address] [place] [address] PCP - General Family Medicine 10/19/21 Diego Gibbs DO [address] [facility] [place] [address] Gastroenterology 08/24/16 Yajaira Sandhu MD [address] [place] [address] Consulting Physician Gastroenterology 02/24/23 Nubia Rodriguez Family Medicine 12/03/20 documented as of this encounter
--- OUTSIDE RECORDS SUMMARY | 2025-04-30 08:16 | XMS_ITS | Encounter Summary ---
Author Organization [facility] Address [address] [place] [address] Phone Care Team Providers Care Manager Of Recruiting Name Role Phone Diego Gibbs Luca ADHIKARI Unavailable [phone] Nubia Rodriguez DO Primary Care Provider [phone] Yajaira Sandhu MD Unavailable [phone] Reason for Visit * Reason Comments Medication Refill Encounter Details Date Type Department Care Team (Late st Contact Info) Description 12/17/2021 Refill [facility] - [facility] - [place] [address] [place] [address] Sandhya Mcdaniel Tayla, PAC [address] [place] [address] Medication Refill Social History Tobacco Use Types [...] documented in this encounter Care Teams Manager Of Recruiting Relationship Specialty Start Date End Date Nubia Rodriguez DO [address] [place] [address] PCP - General Family Medicine 10/19/21 Diego Gibbs DO Gastroenterology 08/24/16 Yajaira Sandhu MD [address] [place] [address] Consulting Physician Gastroenterology 02/24/23 Nubia Rodriguez Family Medicine 12/03/20 documented as of this encounter
--- OUTSIDE RECORDS SUMMARY | 2025-04-30 08:16 | XMS_ITS | Clinical Summary ---
Author Organization [facility] Address [address] [facility] [place] [address] Care Team Providers Care Mold Inspector Name Role Phone Nubia Rodriguez DO Primary Care Provider [phone] Source Comments [facility],non-owned Affiliates and Associated Physician Practices is amultiple site organization consisting of ambulatory clinics and hospital sitesin [place], [place], [place] and [place]. This disclosure is being madepursuant to the Care Everywhere program and may not contain all information available regarding this patient. Last updated 18.[facility] KOJI Drinks Allergies Active Allergy Reactions Criticality Noted Date [...] 3 Active DIPHENHYDRAMINE -APAP, SLEEP, PO Active hydrOXYzine HCl (Atarax) 25 MG tablet Take 1 (one) tablet by mouth 3 times daily as needed 5 Active lisinopril (Prinivil; Zestril) 5 MG tablet Take 1 (one) tablet by mouth every 24 hours 5 Active Dyanavel XR 10 MG TBCR Take 1 tablet by mouth every morning 4 Active hydroxychloroqu ine (Plaquenil) 200 MG tablet TAKE ONE TABLET BY MOUTH DAILY (DECREASED) 90 tablet 3 5 Active cevimeline (Evoxac) 30 MG capsule TAKE 1 CAPSULE BY MOUTH THREE TIMES A DAY 270 capsule 1 5 Active Active Problems Problem Noted Date Diagnosed Date 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 Encounters Date Type Department Care Team Description 02/21/2025 Refill [facility] - Rheumatology [address] [place] [address] Anupam Galicia MD Refill Request from Last [...] on file Legal Sex Female 5:31 PM DIFFERENTIAL SPECIALIST Gender Identity Not on file Sexual Orientation Not on file Last Filed Vital Signs Vital Sign Reading Time Taken Comments Blood Pressure 128/78 11/13/2024 1:53 PM DIFFERENTIAL SPECIALIST Pulse 91 11/13/2024 1:53 PM DIFFERENTIAL SPECIALIST Temperature 36.8 C (98.2 F) 11/13/2024 1:53 PM DIFFERENTIAL SPECIALIST Respiratory Rate 17 07/22/2021 4:45 PM DIFFERENTIAL SPECIALIST Oxygen Saturation 98% 11/13/2024 1:53 PM DIFFERENTIAL SPECIALIST Inhaled Oxygen Concentration - - Weight 59 kg (130 lb) 11/13/2024 1:53 PM DIFFERENTIAL SPECIALIST Height 165.1 cm (5' 5) 11/13/2024 1:53 PM DIFFERENTIAL SPECIALIST Body Mass Index 21.63 11/13/2024 1:53 PM DIFFERENTIAL SPECIALIST Plan of Treatment Upcoming Encounters Date Type Department Care Team (Late st Contact Info) Description 11/18/2025 12:40 PM CDT Office Visit [facility] - Rheumatology [facility] [facility], [place] [phone] Anupam Galicia MD [facility] [address]L [place] [address] Health Maintenance Due Date Last Done Comments COLOGUARD (AGES 45-75) - COLON CA SCREENING 1960 COLON MONITORING 1960 COLONOSCOPY - COLON CA SCREENING 1960 CT COLONOGRAPHY - COLON CA SCREENING 1960 Colorectal Cancer Screening 1960 FIT - COLON CA SCREENING 1960 FLEX SIG - COLON CA SCREENING 1960 LIPID TESTING 1960 MAMMOGRAM 1960 HIV SCREENING 1975 HEPATITIS C SCREENING 10/19/1978 DTAP/TDAP/TD VACCINES (1 - Tdap) 1979 PAP SMEAR 1981 PNEUMOCOCCAL VACCINE 50+ (1 of 1 - PCV) 2010 ZOSTER VACCINE (1 of 2) 2010 COVID-19 VACCINE (3 - season) 2024 11/06/2020, 10/09/2020 DEPRESSION SCREENING 09/12/2024 INFLUENZA VACCINE (#1) 2025 , 07/06/2021, 06/26/2021, Additional history exists Respiratory Syncytial Virus (RSV) Vaccine Pt: or [...] patient's age to complete this topic Insurance [place] [id number] [place] [id number] Care Teams Mold Inspector Relationship Specialty Start Date End Date Nubia Rodriguez DO [address] [place] [address] PCP - General Family Medicine 06/21/23
--- OUTSIDE RECORDS SUMMARY | 2025-04-30 08:16 | XMS_ITS | Encounter Summary ---
Author Organization [facility] Address [address] [place] [address] Phone Care Team Providers Care Leader Tier Name Role Phone Gume Amador MD Primary Care Provider [phone] Diego Gibbs DO Unavailable [phone] Nubia Rodriguez DO Primary Care Provider [phone] Yajaira Sandhu MD Unavailable [phone] Reason for Visit * Reason Comments Medication Refill Encounter Details Date Type Department Care Team (Late st Contact Info) Description 04/20/2021 Refill [facility] - Gastroenterology [facility] [address] [place] [id number] Sandhya Mcdaniel Tayla, PAC [address] [place] [address] Medication Refill Social History Tobacco Use Types [...] gangrene documented in this encounter Care Teams Leader Tier Relationship Specialty Start Date End Date Gume Amador MD [address] [facility] [place] [address] PCP - General Family Medicine 08/24/16 10/18/21 Nubia Rodriguez DO [address] [place] [address] PCP - General Family Medicine 10/19/21 Diego Gibbs DO [address] [facility] [address] Gastroenterology 08/24/16 Yajaira Sandhu MD [address] [place] [address] Consulting Physician Gastroenterology 02/24/23 Nubia Rodriguez Family Medicine 12/03/20 documented as of this encounter
--- OUTSIDE RECORDS SUMMARY | 2025-04-30 08:17 | XMS_ITS | Patient Health Record ---
Author Organization [facility] [employer] Address [address] [place] [address] Care Team Providers Care Shirring Tender Name Role Phone Donaldo Montana Unavailable [phone] Reason For Referral No Information Medications Medication SIG (Take, Route, Frequency, Duration) Notes Start Date End Date Status Escitalopram Oxalate 20 MG Tablet Oral 01/08/2022 Active diazePAM 2 MG Tablet Oral 01/08/2022 Active Sucralfate 1 GM Tablet Oral 01/08/2022 Active Estradiol 0.01 % (0.1 mg/gram) Cream Vaginal *Pick strength-form from [employer] for eRX* 01/08/2022 Active ProAir HFA 108 (90 Base) MCG/ACT Aerosol Solution Inhalation 01/08/2022 Act jose l FLUoxetine HCl 10 MG Tablet Oral 01/08/2022 Active methylPREDNISolone 4 MG Tablet Therapy Pack Oral 01/08/2022 Active Dexmethylphenidate HCl 10 MG Tablet Oral 01/08/2022 Active Pantoprazole Sodium 40 MG Tablet Delayed Release Oral 01/08/2022 Activ e Hydroxychloroquine Sulfate 200 MG Tablet Oral 01/08/2022 Active DULoxetine HCl 20 MG Capsule Delayed Release Particles Oral 01/08/2022 Active Oseltamivir Phosphate 75 MG Capsule Oral 01/08/2022 Active Benzonatate 200 MG Capsule Oral 01/08/2022 Active traZODone HCl 50 MG Tablet Oral 01/08/2022 Active Cholestyramine 4 gram Packet Oral *Pick strength-form from [employer] for eRX* 01/08/2022 Active Lexapro 20 MG Tablet Oral 01/08/2022 Active Mupirocin 2% Ointment External 01/08/2022 Active Amoxicillin-Pot Clavulanate 875-125 MG Tablet Oral 01/08/2022 Active Trintellix 5 MG Tablet Oral 01/08/2022 Active Cevimeline HCl 30 mg Capsule Oral 01/08/2022 Active Budesonide 3 MG Capsule Delayed Release Particles Oral 01/08/2022 Ac tive Immunizations Vaccine Route Administration Date Status Comme nts Influenza virus vaccine, quadrivalent (IIV4), split virus, 0.25 mL dosage Unknown 08/02/2015 Administered Influenza virus vaccine, quadrivalent (IIV4), split virus, 0.25 mL dosage Unknown 07/13/2018 Administered Novel [id number], preservative free Unknown 06/20/2020 Administered Social History Social History Additional Details Category Social Info Options Details Migrated Social History Migrated Social History Alcohol Intake: None 01/08/2022,Tobacco Years: Never smoker 07/15/2020,Smoking Status: 0 08/15/2020 Plan Of Treatment No Information Insurance Providers Payer Name Payer Address Payer Phone Subscriber Number Group Number Insured Name Patient Relationship to Insured Coverage Start Date Coverage End Date [facility] [address] [address] [place] [address] [id number] KANDI FERNÁNDEZ Spouse - patient is the spouse of the insured Medical (General) History Surgical History Surgery Date(Month/Year) Ligation of fallopian tube ([id number])
--- OUTSIDE RECORDS SUMMARY | 2025-04-30 08:17 | XMS_ITS | Encounter Summary ---
Author Organization [facility] Address [address] [place] [address] Phone Care Team Providers Care Admissions Advisor Name Role Phone Diego Gibbs Luca ADHIKARI Unavailable [phone] Nubia Rodriguez DO Primary Care Provider [phone] Yajaira Sandhu MD Unavailable [phone] Reason for Visit * Reason Comments Medication Refill Encounter Details Date Type Department Care Team (Late st Contact Info) Description 03/28/2023 Refill [facility] - [place] [address] [place] [address] Sandhya Mcdaniel Tayla, PAC [address] [place] [address] Medication Refill Social History Tobacco Use Types [...] Dept 02/24/23 Office Visit Yajaira Sandhu MD [facility] Showing recent visits within past 365 days [...] diarrhea documented in this encounter Care Teams Admissions Advisor Relationship Specialty Start Date End Date Nubia Rodriguez DO [address] [place] [address] PCP - General Family Medicine 10/19/21 Diego Gibbs DO Gastroenterology 08/24/16 Yajaira Sandhu MD [address] [place] [address] Consulting Physician Gastroenterology 02/24/23 Nubia Rodriguez Family Medicine 12/03/20 documented as of this encounter
--- OUTSIDE RECORDS SUMMARY | 2025-04-30 08:17 | XMS_ITS | Clinical Summary ---
Author Organization [facility] Address [address] [facility], [address] [address] Phone Care Team Providers Care Manager Hospital Name Role Phone Diego Gibbs DO Unavailable [phone] VerNubia pinto DO Primary Care Provider [phone] Yajaira Sandhu MD Unavailable [phone] Allergies Active Allergy Reactions Criticality Noted Date [...] Active Active Problems No known active problems Immunizations Immunization Administration Dates Next Due Covid-19, [...] P M CDT Height 165.1 cm (5' 5) 02/24/2023 3:24 PM CDT Body Mass Index 21.18 02/24/2023 3:24 PM CDT Plan of Treatment Health Maintenance Due Date Last Done Comments Hepatitis C Virus (HCV) Screening 1960 Mammogram 1960 TdaP Immunization 1960 Zoster Immunization (1 of 2) 1979 Pap Smear 1981 Cervical Cancer Screening (CCS) 1990 HPV/Cotest 1990 Cologuard 2005 Immunochemical Fecal Occult Blood 2005 Pneumococcal Immunization (50+ years) (1 of 1 - PCV) 2010 Respiratory Syncytial Virus (RSV) Immunization (Adult) (1 - Risk 60-74 years 1-dose series) 2020 SARS-COV-2 Immunization ( - 2023- season) 2024 09/11/2021, 11/06/2020, 10/09/2020 Influenza Immunization (#1) 05/13/202506/12, 07/05/2022, 07/06/2021, Additional history exists Colonoscopy 04/23/2027 04/23/2022, 08/19/2016 Colorectal Cancer Screening 04/23/2027 Hepatitis B Immunization Completed 022, 08/10/2021, 07/06/2021 Human Papillomavirus (HPV) Immunization Aged Out No longer eligible based on patient's age to complete this topic Meningococcal Immunization (ACWY) Aged Out No longer eligible based on patient's age to complete this topic Rotavirus Immunization Aged Out No lo nger eligible based on patient's age to complete this topic Procedures Procedure Name Priority Date/Time Associated Diagnosis Comments COLONOSCOPY Routine 08/19/2016 from Last 3 Months or Most Recently Relevant to Health Maintenance Results * COLONOSCOPY (08/19/2016) us Gume Amador MD PROCEDURE/MINOR SURGICAL ORDE ALLAN Final Result from Last 3 Months or Most Recently Relevant to Health Maintenance [place] [address] [employer] [facility] Care Teams Manager Hospital Relationship Specialty Start Date End Date Nubia Rodriguez DO [address] [place] [address] PCP - General Family Medicine 10/19/21 Diego Gibbs DO Gastroenterology 08/24/16 Yajaira Sandhu MD [address] [place] [address] Consulting Physician Gastroenterology 02/24/23 Nubia Rodriguez Family Medicine 12/03/20
--- OUTSIDE RECORDS SUMMARY | 2025-04-30 08:17 | XMS_ITS | Clinical Summary ---
Author Organization [facility] Address [address] [place] [address] Care Team Providers Care Concrete Plant Laborer Name Role Phone Unknown, Notinfile Unavailable Unavailable Vikas Elizabeth MD Unavailable [phone] Nubia Rodriguez DO Primary Care Provider [phone] Stuart Ellsworth OT Unavailable Unavailable Manuel Pizano MD Unavailable [phone] Allergies Active Allergy Reactions Criticality Noted Date Comments Naproxen Fever Medium 02/15/2018 Medications cevimeline (EVOXAC) 30 mg capsuleIndication s:Dry Eyes Take 1 capsule (30 mg total) by mouth 3 (three) times a day Active hydroxychloroquin e (PLAQUENIL) 200 mg tabletIndications :Arthritis Symptoms Take 1 tablet (200 mg total) by mouth daily Active diazePAM (VALIUM) 2 mg tablet Take 1 tablet (2 mg total) by mouth every 6 (six) hours as needed for anxiety or muscle spasms. 30 tablet 02/16/20 18 Active diphenhydramine HCl (BENADRYL ORAL)Indications: Sleep Take 10 mg by mouth nightly Active guaiFENesin-pseud oephedrine (MUCINEX D) 600-60 mg per 12 hr tabletIndications :Nasal Congestion Take 1 tablet by mouth as needed for congestion Active multivitamin capsuleIndication s:Vitamin Deficiency Prevention Take 1 capsule by mouth clerical and office support workers before breakfast Active cholestyramine (QUESTRAN) 4 gram packetIndications :Bile Acid Malabsorption Take 1 packet by mouth 2 (two) times a day with meals 06/14/20 22 Active estradioL (ESTRACE) 0.01 % (0.1 mg/gram) vaginal creamIndications: Postmenopausal Urethral Atrophy Insert 2 g into the vagina once a week 09/19/19 22 Active famotidine (PEPCID) 20 mg tabletIndications :Heartburn,gastro esophageal reflux disease Take 1 tablet (20 mg total) by mouth daily Active FLUoxetine 10 mg tabletIndications :Anxiety with [...] day as needed for muscle spasms Active hydrOXYzine (ATARAX) 25 mg tablet TAKE 1 TABLET BY MOUTH THREE TIMES A DAY NEEDED FOR ANXIETY Active diclofenac DR (VOLTAREN) 50 mg EC tablet Take 1 tablet (50 mg total) by mouth 2 (two) times a day 12/26/19 25 Active aspirin 81 mg enteric coated tablet Take 1 tablet (81 mg total) by mouth 2 (two) times a day 84 tablet 01/24/20 25 Active ondansetron (ZOFRAN) 8 mg tabletIndications :Prevention of Post-Operative Nausea and Vomiting Take 1 tablet (8 mg total) by mouth every 8 (eight) hours as needed for nausea or vomiting 20 tablet 2 01/24/20 25 Active senna-docusate (PERICOLACE) 8.6-50 mg Take 1 tablet by mouth 2 (two) times a day as needed for constipation 60 tablet 2 01/24/20 25 Active clonazePAM (KlonoPIN) 0.5 mg tablet Take 0.5 tablets (0.25 mg total) by mouth as needed for anxiety 01/16/20 25 Active lisinopriL (PRINIVIL,ZESTRIL ) 5 mg tablet Take 1 tablet (5 mg total) by mouth daily Active QuilliChew ER 20 mg tablet,chew,IR-ER .ngowbypn20dr Take 20 mg by mouth as needed (ADHD) 01/20/20 25 Active celecoxib (CeleBREX) 200 mg capsuleIndication s:Postoperative Acute Pain Take 1 capsule (200 mg total) by mouth 2 (two) times a day 84 capsule 01/30/20 25 Active oxyCODONE-acetami nophen (PERCOCET) 5-325 mg per tabletIndications :Pain Take 1-2 tablets by mouth every 4 (four) hours as needed for pain 40 tablet 01/31/20 25 Active HYDROcodone-aceta minophen (NORCO) 7.5-325 mg per tabletIndications :Pain Take 1-2 tablets by mouth every 4 (four) hours as needed for pain 20 tablet 02/01/20 25 Active amoxicillin (AMOXIL) 500 mg tablet/capsule Take 4 tablets one hour prior to dental procedure 4 tablet/capsu le 2 03/19/20 25 Active Active Problems Problem Noted Date Diagnosed Date 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 03/20/2025 Retained orthopedic hardware 06/12/2024 Strain of right flexor pollicis longus tendon Damon's esophagus 05/01/2024 Attention-deficit hyperactivity disorder 022 Generalized anxiety disorder 12/07/2021 Major depression 12/07/2021 Psychophysiological insomnia 12/07/2021 Closed fracture of distal en d of right radius with routine healing 02/28/2018 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 Resolved Problems Problem Noted Date Diagnosed Date Resolved Date Primary osteoarthritis of right hip 01/16/2025 03/20/2025 Encounters Date Type Department Care Team Description 03/21/2025 11:00 AM CDT Office Visit [facility] Medicine [address] [place] [address] [address] [place] [address] Monique Huff PA 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 (Primary Dx) 03/21/2025 7:40 AM CDT - 03/21/2025 11:59 PM CDT Hospital Encounter [facility] [address] [place] [address] [address] [place] [address] Discharge Disposition: Discharge to home or self care 03/19/2025 Orders Only [facility] [address] [place] [address] [address] [place] [address] Manuel Pizano MD 03/19/2025 Telephone [facility] [address] [place] [address] [address] [place] [address] Manuel Pizano MD RX 02/15/2025 10:45 AM CDT Telemedicine [facility] [address] [place] [address] [address] Faye Palmer NP Aftercare following joint replacement surgery, unspecified joint (Primary Dx) 01/31/2025 Telephone [facility] [address] [place] [address] [address], [place] [address] Monique Huff PA 01/30/2025 Orders Only [facility] [address] [place] [address], [place] [address] Monique Huff PA 01/30/2025 Telephone [facility] [address] [place] [address] [address] [place] [address] Deb Longoria MA 01/29/2025 10:58 AM CDT - 01/29/2025 11:59 PM CDT Hospital Encounter [facility] and Sports Medicine [address] [place] [address] [address] [place] [address] Discharge Disposition: Discharge to home or self care 01/29/2025 10:45 AM CDT Office Visit [facility] [address] [place] [address] [address] [place] [address] Manuel Pizano MD Right hip pain (Primary Dx); Aftercare following joint replacement surgery, unspecified joint 01/29/2025 Orders Only [facility] [address] [place] [address] [address] [place] [address] Monique Huff PA 01/28/2025 Telephone [facility] [address] [place] [address] [address] [place] [address] Juan R Cardozo MD from Last 3 Months Immunizations Immunization Administration Dates Next Due Hep B Vaccine 08/10/2021,07/06/2021 Influenza, Quadrivalent, Split, Intramuscular Influenza, Quadrivalent, Spl it, Preservative Free, Intramuscular 06/20/2020 Influenza, Trivalent, IM (MDV) 07/06/2021 Influenza, Trivalent, Preservative Free, Intramu scular 07/03/2024,08/02/2015 PPD TEST 05/17/2023,06/23/2022 Surgical History Surgery Date Site/Laterality Comments TUBAL LIGATION 09/12/1995 - 09/11/1996 ORIF DISTAL RADIUS FRACTURE 02/15/2018 Right then hardware removed HARDWARE REMOVAL FOOT / ANKLE 01/20/2024 Right COLONOSCOPY 04/23/2022 CARPAL TUNNEL RELEASE Bilateral BUNIONECTOMY Bilateral TRIGGER FINGER RELEASE Bilateral Medical History Medical History Date Comments GERD (gastroesophageal reflux disease) Anxiety Depression Sleep apnea Infection PONV (postoperative nausea and vomiting) Sicca syndrome Dry eye Sjogren syndrome ADHD (attention deficit hyperactivity disorder) Family History Medical History Relation Name Comments [...] you have a drink containing alcohol? Never 01/23/2025 Q2: How many drinks containi ng alcohol do you have on a typical day when you are drinking? Patient does not drink Q3: How often do you have si x or more drinks on one occasion? Never 01/23/2025 Personal Safety Answer Date Recorded Have you ever been in or are you currently in a harmful physical or emotional relationship or is someone making you feel afraid or unsafe? 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 Gender Identity Not on file Sexual Orientation Not on file Obstetrics History Last Filed Vital Signs Vital Sign Reading Time Taken Comments Blood Pressure 127/81 03/21/2025 11:00 AM CDT Pulse 86 03/21/2025 11:00 AM CDT Temperature 36.9 C (98.4 F) 01/23/2025 3:40 PM CDT Respiratory Rate 18 01/23/2025 3:40 PM CDT Oxygen Saturation 95% 01/23/2025 3:40 PM CDT Inhaled Oxygen Concentration - - Weight 59.4 kg (131 lb) 03/21/2025 11:00 AM CDT Height 167.6 cm (5' 6) 03/21/2025 11:00 AM CDT Body Mass Index 21.14 03/21/2025 11:00 AM CDT Plan of Treatment Health Maintenance Due [...] season) 2024 09/11/2021, 11/06/2020, 10/09/2020 Influenza Vaccine (#1) 2025 , 07/06/2021, 06/20/2020, Additional history exists Hepatitis B Screening Completed 08/10/2021, 021 Medical Devices Implanted Type Area Mechanic Driver Device Identifier Shelf Expiration Date Model / Serial / Lot [employer] Actis Collar Hip 9 Standard Offset Stem Femoral [id number] - [id number] Implanted:Qty: 1 on 01/23/2025 by Manuel Pizano MD at [facility] Right: Hip [employer] [id number] 11/09/2034 [id number] / / [id number] [employer] Articul/Ambrocio 36mm Cementless Hip +1.5mm 08/25 Taper Head Femoral Latex Free [id number] - [id number] Implanted:Qty: 1 on 01/23/2025 by Manuel Pizano MD at [facility] Right: Hip [employer] [id number] 09/11/2029 [id number] / / [id number] [employer] [place] 54mm 36mm Hip Neutral Liner Acetabular Altrx Sterile Latex Free [id number] - [id number] Implanted:Qty: 1 on 01/23/2025 by Manuel Pizano MD at [facility] Right: Hip [employer] [id number] 12/11/2027 [id number] / / [id number] [employer] [place] 54mm Sector Hip Shell Acetabular Gription Sterile Latex Free [id number] - [id number] Implanted:Qty: 1 on 01/23/2025 by Manuel Pizano MD at [facility] Right: Hip [employer] [id number] 11/09/2034 [id number] / / [id number] [employer] [place] 6.5mm 25mm Acetabular Cancellous Screw Bone Sterile 1217-25-500 - [id number] Implanted:Qty: 1 on 01/23/2025 by Manuel Pizano MD at [facility] Right: Hip [employer] [id number] 07/12/2034 1217-25-500 / / [id number] [employer] [place] 6.5mm 35mm Acetabular Cancellous Screw Bone Sterile 1217-35-500 - [id number] Implanted:Qty: 1 on 01/23/2025 by Manuel Pizano MD at [facility] Right: Hip [employer] [id number] 01/09/2033 1217-35-500 / / [id number] Explanted Type Area Mechanic Driver Device Identifier Shelf Expiration Date Model / Serial / Lot Synthes Lcp Combi 47mm 7 Hole Head 2 Hole Shaft 2 Column Variable Angle - Sna - [id number] Implanted:Qty: 1 on 02/15/2018 by Vikas Elizabeth MD at [facility] Explanted:Qty: 1 on 06/27/2024 at [facility] Right: Radius Synthes I 02.111.720 / NA / NA Synthes 2.4mm 18mm Self Tap Stardrive Screw Cortex T8 Bone - Sna - [id number] Implanted:Qty: 1 on 02/15/2018 by Vikas Elizabeth MD at [facility] Explanted:Qty: 1 on 06/27/2024 at [facility] Right: Radius Synthes I 201.768 / NA / NA Synthes 2.4mm 12mm Self Tap Stardrive Screw Cortex T8 Bone - Sna - [id number] Implanted:Qty: 3 on 02/15/2018 by Vikas Elizabeth MD at [facility] Explanted:Qty: 3 on 06/27/2024 at [facility] Right: Radius Synthes I 201.762 / NA / NA Synthes 2.4mm 18mm Self Tap Lock Variable Angle Stardrive Screw T8 Bone - Sna - [id number] Implanted:Qty: 2 on 02/15/2018 by Vikas Elizabeth MD at [facility] Explanted:Qty: 2 on 06/27/2024 at [facility] Right: Radius Synthes I 02.210.118 / NA / NA Synthes 2.4mm 14mm Self Tap Lock Variable Angle Stardrive Screw T8 Bone - Sna - [id number] Implanted:Qty: 1 on 02/15/2018 by Vikas Elizabeth MD at [facility] Explanted:Qty: 1 on 06/27/2024 at [facility] Right: Radius Synthes I 02.210.114 / NA / NA Procedures Procedure Name Priority Date/Time Associated Diagnosis Comments XR HIP RIGHT 2 OR 3 VIEWS Schedule Routine, Read Routine (OP Routine) 03/21/2025 10:52 AM CDT 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 XR HIP RIGHT 2 OR 3 VIEWS Schedule Routine, Read Routine (OP Routine) 01/29/2025 11:17 AM CDT Right hip pain from Last 3 Months Results * XR Hip Right 2 or 3 Views (03/21/2025 10:52 AM CDT) Anatomical Region Laterality Modality Lower Extremities, Hip, Pelvis Right D igital Radiography Narrative 03/21/2025 11:50 AM CDT Radiographs taken of the right hip today reveal a total hip arthroplasty in appropriate position with no interval change from the time of surgery. Monique MCFARLANE IMG XR PROCEDURES Fin al Result * XR Hip Right 2 or 3 Views (01/29/2025 11:17 AM CDT) Anatomical Region Laterality Modality Lower Extremities, Hip, Pelvis Right D igital Radiography Narrative 01/30/2025 3:00 PM CDT Right total hip arthroplasty in appropriate position with no interval change. No signs of periprosthetic fracture, subluxation or any other abnormality. Manuel Pizano MD IMG XR PROCEDURES Final Result from Last 3 Months Insurance [facility] [id number] [facility] [address] [address] [facility] [id number] [facility] [id number] [facility] [place] [id number] Advance Directives For more information, please contact: [phone] * Full Code (Latest Code Status on File) Date Activated Date Inactivated Comments 01/23/2025 11:10 AM 01/23/2025 7:57 PM Care Teams Concrete Plant Laborer Relationship Specialty Start Date End Date Nubia Rodriguez DO [address] [facility] [place] [address] PCP - General Family Medicine 09/18/21 Unknown, Notinfile 02/10/18 Vikas Elizabeth MD [address] [facility] [place] [address] Surgeon Orthopedic Surgery 03/28/18 Stuart [place]sworth OT Occupational Therapist Occupational Therapy 01/16/25 Manuel Pizano MD [address] [place] [address] DR [address] [place] [address] Surgeon Orthopedic Surgery 01/23/25
--- OUTSIDE RECORDS SUMMARY | 2025-04-30 08:17 | XMS_ITS | Encounter Summary ---
Author Organization [facility] Address [address] [place] [address] Phone Care Team Providers Care Franchise Specialist Name Role Phone Diego Gibbs DO Unavailable [phone] Nubia Rodriguez DO Primary Care Provider [phone] Yajaira Sandhu MD Unavailable [phone] Reason for Visit * Reason Comments Medication Refill Encounter Details Date Type Department Care Team (Late st Contact Info) Description 12/20/2022 Refill [facility] [address] [place] [address] Yajaira Sandhu MD [address] [place] [address] Medication Refill Social History Tobacco Use Types [...] gangrene documented in this encounter Care Teams Franchise Specialist Relationship Specialty Start Date End Date Nubia Rodriguez DO [address] [place] [place] [address] PCP - General Family Medicine 10/19/21 Diego Gibbs DO Gastroenterology 08/24/16 Yajaira Sandhu MD [address] [place] [address] Consulting Physician Gastroenterology 02/24/23 Nubia Rodriguez Family Medicine 12/03/20 documented as of this encounter
--- OUTSIDE RECORDS SUMMARY | 2025-04-30 08:17 | XMS_ITS | Encounter Summary ---
Author Organization [facility] Address [address] [place] [address] Phone Care Team Providers Care Employee Placement Specialist Name Role Phone Diego Gibbs DO Unavailable [phone] Nubia Rodriguez DO Primary Care Provider [phone] Yajaira Sandhu MD Unavailable [phone] Reason for Visit * Reason Comments Medication Refill Encounter Details Date Type Department Care Team (Late st Contact Info) Description 07/18/2023 Refill [facility] - [facility] [address] [place] [address] Yajaira Sandhu MD [address] [place] [address] Medication Refill Social History Tobacco Use Types [...] Kalina Lee RN - 07/18/2023 9:08 AM EQUIPMENT MECHANIC SPECIALIST Medication refilled and signed per [facility] chronic medication standing order for pediatric and adult patients. PMENT MECHANIC SPECIALIST documented in this encounter Plan of Treatment Not on file documented as of this encounter Visit Diagnoses Not on filedocumented in this encounter Care Teams Employee Placement Specialist Relationship Specialty Start Date End Date Nubia Rodriguez DO [address] [place] [address] PCP - General Family Medicine 10/19/21 Diego Gibbs DO Gastroenterology 08/24/16 Yajaira Sandhu MD [address] [place] [address] Consulting Physician Gastroenterology 02/24/23 Nubia Rodriguez Family Medicine 12/03/20 documented as of this encounter
--- OUTSIDE RECORDS SUMMARY | 2025-04-30 08:17 | XMS_ITS | Encounter Summary ---
Author Organization [facility] Address [address] [place] [address] Phone Care Team Providers Care Vehicle Maintenance Technician Name Role Phone Diego Gibbs Luca ADHIKARI Unavailable [phone] Nubia Rodriguez DO Primary Care Provider [phone] Yajaira Sandhu MD Unavailable [phone] Reason for Visit * Reason Comments Medication Refill Encounter Details Date Type Department Care Team (Late st Contact Info) Description 11/04/2024 Refill [facility] On[facility] [address] [place] [address] Rosanne Carlton APRN, [employer] [address] [place] [address] Medication Refill Social History Tobacco Use Types [...] Kalina Lee RN - 11/05/2024 8:25 AM CAREER AND GUIDANCE COUNSELOR Medication refilled and signed per [facility] chronic medication standing order for pediatric and adult patients. ER AND GUIDANCE COUNSELOR documented in this encounter Plan of Treatment Not on file documented as of this encounter Visit Diagnoses Diagnosis Irritable bowel syndrome with both constipation and diarrhea documented in this encounter Care Teams Vehicle Maintenance Technician Relationship Specialty Start Date End Date Nubia Rodriguez DO [address] [place] [address] PCP - General Family Medicine 10/19/21 Diego Gibbs DO Gastroenterology 08/24/16 Yajaira Sandhu MD [address] [place] [address] Consulting Physician Gastroenterology 02/24/23 Nubia Rodriguez Family Medicine 12/03/20 documented as of this encounter
--- OUTSIDE RECORDS SUMMARY | 2025-04-30 08:17 | XMS_ITS | Patient Health Record ---
Author Organization [facility] Address [address] [place], [place] [id number] Care Team Providers Care Furniture Assembler Name Role Phone CATRACHO DICKERSON Unavailable [phone] Vernace, Nubia Unavailable Unavailable Allergies Allergen (clinical [...] bottle, 6.6mL or similar 04/01/2025 09/27/2025 Active Vital Signs Height-cm 165.1 cm 02/18/2025 Weight-kg 57.61 kg 02/18/2025 Height 65 in 02/18/2025 Weight 127 lbs 02/18/2025 BMI 21.13 kg/m2 02/18/2025 Encounters Encounter Location Date Provider Diagnosis [facility] [address] [place], [place] [id number] 04/01/2025 CATRACHO SNOOK Metatarsalgia of lef t foot M77.42 ; Tinea unguium B35.1 and Left foot pain M79.672 [facility] [address] [place], [place] [id number] 08/27/2024 CATRACHO SNOOK Raynaud's syndrome without gangrene I73.00 ; Contusion of right great toe without damage to nail, initial encounter S90.111A ; Contusion of left great toe without damage to nail, initial encounter S90.112A ; Pain in right foot M79.671 and Left foot pain M79.672 [facility] [place] [address] [place] [id number] 02/18/2025 CATRACHO SNOOK Stress fracture, lef t foot, initial encounter for fracture M84.375A and Left foot pain M79.672 [facility] [place] [address] [place] [id number] 03/04/2025 CATRACHO SNOOK Stress fracture, lef t foot, subsequent encounter for fracture with routine healing M84.375D ; Metatarsalgia of right foot M77.41 ; Metatarsalgia of left foot M77.42 ; Pain in right foot M79.671 ; Left foot pain M79.672 and Acute left ankle pain M25.572 [facility] [place] [address] [id number] 10/15/2024 CATRACHO SNOOK [facility] [place] [address] [id number] 10/15/2024 CATRACHO SNOOK [facility] [address] [id number] 04/04/2025 CATRACHO SNOOK [facility] [address] [id number] 02/13/2025 CATRACHO SNOOK Assessments Encounter Date Diagnosis (ICD [...] to nail, initial encounter (ICD-10 - S90.111A) 02/18/2025 Stress fracture, left foot, initial encounter for fracture (ICD-10 - M84.375A) Stress Fracture: I discussed with the patient the nature and etiology of stress fractures. I discussed various treatment options consisting of immobilization, reducing activity and rest. I also discussed the use of orthotics to help prevent recurrence. Patient already has a surgical shoe from bunion surgery she will wear 02/18/2025 Left foot pain (ICD-10 - M79.672) 03/04/2025 Stress fracture, left foot, subsequent encounter for fracture with routine healing (ICD-10 - M84.375D) Stress Fracture: I discussed with the patient the nature and etiology of stress fractures. I discussed various treatment options consisting of immobilization, reducing activity and rest. I also discussed the use of orthotics to help prevent recurrence. Orthotic Scan: The patient was scanned for functional orthotic devices. This was done in the subtalar joint neutral position in a non-weightbeari ng fashion. The patient will follow-up in 3-4 weeks time to be dispensed and fitted with the devices. Continue Carbon plate until orthotics arrive 03/04/2025 Metatarsalgia of right foot (ICD-10 - M77.41) 04/01/2025 Tinea unguium (ICD-10 - B35.1) FUNGAL TOENAILS: Discussed various treatment options for fungal toenails including debridement, topical antifungals, oral antifungals, toenail avulsion, or toenail matrixectomy. 04/01/2025 Metatarsalgia of left foot (ICD-10 - M77.42) Orthotic Dispense: The orthotic devices were dispensed and fitted. It was noted that the orthotic conformed well to the patient's foot in the subtalar joint neutral position. The patient was educated on the device's use, as well as the gradual break-in period for the device. Orthotics will replace her carbon plate. 04/01/2025 Left foot pain (ICD-10 - M79.672) 03/04/2025 Metatarsalgia of left foot (ICD-10 - M77.42) 08/27/2024 Contusion of left great toe without damage to nail, initial encounter (ICD-10 - S90.112A) 08/27/2024 Pain in right foot (ICD-10 - M79.671) 03/04/2025 Pain in right foot (ICD-10 - M79.671) 08/27/2024 Left foot pain (ICD-10 - M79.672) 03/04/2025 Left foot pain (ICD-10 - M79.672) 03/04/2025 Acute left ankle pain (ICD-10 - M25.572) 03/04/2025 Other Plan Of Treatment Next Appt Details Provider Name:CATRACHO TUAN, 01:30:00 PM, [address], [place], [place], [id number], Insurance Providers Payer Name Payer Address Payer Phone Subscriber Number Group Number Insured Name Patient Relationship to Insured Coverage Start Date Coverage End Date [employer] PPO [address] [place], [place] [id number] GARFIELD FERNÁNDEZ Self - patient is the insured Medical (General) History Surgical History Surgery Date(Month/Year) bunionectomy- left foot
--- OUTSIDE RECORDS SUMMARY | 2025-04-30 08:17 | XMS_ITS | Encounter Summary ---
Author Organization [facility] Address [address] [place] [address] Phone Care Team Providers Care Security Operations Analyst Name Role Phone Diego Gibbs DO Unavailable [phone] Nubia Rodriguez DO Primary Care Provider [phone] Yajaira Sandhu MD Unavailable [phone] Reason for Visit * Reason Comments Medication Refill Encounter Details Date Type Department Care Team (Late st Contact Info) Description 12/03/2023 Refill [facility] - Gastroenter[facility] [address] [place] [address] Yajaira Sandhu MD [address] [place] [address] Medication Refill Social History Tobacco Use Types [...] gangrene documented in this encounter Care Teams Security Operations Analyst Relationship Specialty Start Date End Date Nubia Rodriguez DO [address] [place] [address] PCP - General Family Medicine 10/19/21 Diego Gibbs DO Gastroenterology 08/24/16 Yajaira Sandhu MD [address] [place] [address] Consulting Physician Gastroenterology 02/24/23 Nubia Rodriguez Family Medicine 12/03/20 documented as of this encounter
--- OUTSIDE RECORDS SUMMARY | 2025-04-30 08:17 | XMS_ITS | Encounter Summary ---
Author Organization [facility] Address [address] [place] [address] Phone Care Team Providers Care Hat Brusher Machine Name Role Phone Diego Gibbs DO Unavailable [phone] Nubia Rodriguez DO Primary Care Provider [phone] Yajaira Sandhu MD Unavailable [phone] Reason for Visit * Reason Comments Medication Refill Encounter Details Date Type Department Care Team (Late st Contact Info) Description 06/27/2023 Refill [facility] - Gastroenter[facility] [address] [place] [address] Yajaira Sandhu MD [address] [place] [address] Medication Refill Social History Tobacco Use Types [...] Dept 02/24/23 Office Visit Yajaira Sandhu MD [facility] Showing recent visits within past [...] gangrene documented in this encounter Care Teams Hat Brusher Machine Relationship Specialty Start Date End Date Nubia Rodriguez DO [address] [place] [address] PCP - General Family Medicine 10/19/21 Diego Gibbs DO Gastroenterology 08/24/16 Yajaira Sandhu MD [address] [place] [address] Consulting Physician Gastroenterology 02/24/23 Nubia Rodriguez Family Medicine 12/03/20 documented as of this encounter
--- OUTSIDE RECORDS SUMMARY | 2025-04-30 08:17 | XMS_ITS | Encounter Summary ---
Author Organization [facility] Address [address] [place] [address] Phone Care Team Providers Care Lead Javascript Developer Name Role Phone Diego Gibbs DO Unavailable [phone] Nubia Rodriguez DO Primary Care Provider [phone] Yajaira Sandhu MD Unavailable [phone] Reason for Visit * Reason Comments Medication Refill Encounter Details Date Type Department Care Team (Late st Contact Info) Description 01/07/2024 Refill [facility] - [facility]enter[facility] [address] [place] [address] Yajaira Sandhu MD [address] [place] [address] Medication Refill Social History Tobacco Use Types [...] on filedocumented in this encounter Care Teams Lead Javascript Developer Relationship Specialty Start Date End Date Nubia Rodriguez DO [address] [place] [address] PCP - General Family Medicine 10/19/21 Diego Gibbs DO Gastroenterology 08/24/16 Yajaira Sandhu MD [address] [place] [address] Consulting Physician Gastroenterology 02/24/23 Nubia Rodriguez Family Medicine 12/03/20 documented as of this encounter
== END 2025-04-30 08:01 | disposition home or self-care (01) ==
PROVIDERS: PCP Family Medicine; Visit Provider Family Medicine
DX: Z12.31 Encounter for screening mammogram for malignant neoplasm of breast (principal)
CPT/HCPCS: 77063; 77067